=== PATIENT | male | born 1945 | race Caucasian/White ===

== ENCOUNTER → 2017-12-08 | Day surgery (SDC) | payer OTHER ==
[2017-12-04 13:28] VITALS: Ht 176.5 cm; Wt 138.6 kg
[~2017-12-08] VITALS: Ht 176.5 cm; Wt 138.6 kg
[~2017-12-08] MED LIST: ASPCH81X PO; ATOR-24 PO; CHOL1000 PO; CLR10 PO; CYAN10004 PO; DOXE50CA3 PO; DVN80 PO; FLAX10007 PO; INSDGI SC; LIDOCAINE HCL 2% 2 ML VIAL (20MG/ML) ONE; MAGN400T6 PO; METO50TA16 PO; MULT-190 PO; MULT-220 PO; NVLGI7030 SC; PROPOFOL IV EMULSION 10 MG/ML 20 ML VIAL ONE; PTDOPS OPB
--- NOTE | 2017-12-08 09:10 | Endo History and Physical ---
History & Physical Date of Service: December 08, 2017. Chief Complaint: screening Referring Physician: Dr.Amanda Pinto History of Present Illness screening Past Surgical History Hx Cardiac Surgery: Yes (CARDIAC ABLATION X2, AORTA VALVE REPLACEMENT-05/25/12 [facility] [place], ) Hx Internal Defibrillator: No Hx Pacemaker: No Hx Abdominal Surgery: Yes (APPY,HERNIA) Hx of Implantable Prosthesis: No Hx Post-Op Nausea and Vomiting: No Hx Cancer Surgery: No Hx Thoracic Surgery: No Hx Orthopedic: Yes (R RCR) Hx Urinary Tract Surgery: No Family History None Social History Smoking Status: Former Smoker Hx Substance Use: No Hx Alcohol Use: Yes (RARELY) Allergies Coded Allergies: Iodinated Contrast Media (Verified Allergy, Mild, DYE FROM CARDIAC CATH- RASH, 12/04/17) Lisinopril (Verified Adverse Reaction, Mild, COUGH, 12/04/17) Current Medications Reported Home Medications Medications Dose Route/Sig Max Daily Dose Days Date Category Dose Instructions Lopressor (Metoprolol Tartrate) 50 Mg Tab 1 Tab PO BID 90 12/04/17 Reported Mag-Ox (Magnesium Oxide) 400 Mg Tab 400 Mg PO Q2D 12/04/17 Reported Claritin (Loratadine) 10 Mg Tab 10 Mg PO DAILY 12/04/17 Reported Lantus (Insulin Glargine) 100 Unit/Ml Inj 30 Units SC HS 12/04/17 Reported Novolog Mix 70/30 (Insulin Aspart Prota 70%/Aspart 30%) Susp 38 Units SC AMPM 12/04/17 Reported Diovan (Valsartan) 80 Mg Tab 1 Tab PO DAILY 30 12/04/17 Reported Pataday (Olopatadine Hydrochloride) 37 Drops/2.5 Ml Soln 1 Drops OPB DAILY 30 06/04/15 Reported Ocuvite Preservision (Multivitamins/Minerals) 1 Tab Tab 1 Tab PO DAILY 06/04/15 Reported Flax Seed Oil (Flaxseed (Linseed)) 1,000 Mg Cap 1 Cap PO DAILY 02/24/15 Reported Vitamin D3 (Cholecalciferol) 1,000 Unit Tab 1 Tab PO DAILY 30 02/24/15 Reported Lipitor (Atorvastatin Calcium) 40 Mg Tab 20 Mg PO DAILY 09/08/14 Reported TAKE HALF OF A 40MG TABLET [place] (Doxepin HCl) 50 Mg Cap 50 Mg PO HS 09/08/14 Reported Vitamin B-12 1000 Mcg (Cyanocobalamin) 1,000 Mcg Tab 1,000 Mcg PO DAILY 09/08/14 Reported Multi For Him (Multiple Vitamins W/ Minerals) 1 Tab Tab 1 Tab PO DAILY 09/08/14 Reported Aspirin Chewable (Aspirin) 81 Mg Chew 81 Mg PO HS 05/04/12 Reported Vital Signs Weight (Kilograms): 138.64 Height (Feet): 5 Height (Inches): 9.5 Date Time Temp Pulse Resp B/P (MAP) Pulse Ox O2 Delivery O2 Flow Rate FiO2 12/08/17 08:57 36.7 70 24 150/57 (88) 97 Room Air Physical Exam General Appearance: WD/WN, no apparent distress Assessment and Plan colonoscopy today
--- NOTE | 2017-12-08 09:43 | Discharge Instructions ---
Endoscopy Patient Instructions Date / Procedure(s) Performed December 08, 2017. Colonoscopy Allergy Information Coded Allergies: Iodinated Contrast Media (Verified Allergy, Mild, DYE FROM CARDIAC CATH- RASH, 12/04/17) Lisinopril (Verified Adverse Reaction, Mild, COUGH, 12/04/17) Discharge Date / Findings December 08, 2017. multiple small polyps Medication Instructions Stopped Medication(s): stopped ASA Monday Restart Stopped Medication(s): OK to resume home medications Provider Instructions Activity Restrictions - No exercising or heavy lifting for 24 hours. - Do not drink alcohol the day of the procedure. - Do not drive a car or operate machinery until the day after the procedure. - Do not make any important decisions or sign important papers in 24 hours after the procedure. Following Day: - Return to full activity which may include returning to work/school. Diet Start your diet with liquids and light foods (jello, soup, juice, toast). Then eat your usual diet if not nauseated. Treatment For Common After Affects For mild abdominal pain, bloating, or excessive gas: - Rest - Eat lightly - Lie on right side Follow-Up Information Follow-up with Dr.Amanda Pinto as scheduled Anesthesia Information What You Should Know You have had a procedure that required some medicine to reduce anxiety and discomfort. This treatment is called moderate sedation. After receiving the treatment, you may be sleepy, but you will be able to breathe on your own. The effects of the treatment may last for several hours. Follow these instructions along with Activity/Diet recommendations noted above: * Do NOT do anything where dizziness or clumsiness would be dangerous. * Rest quietly at home today, then you can be up and about tomorrow. * Have a responsible person stay with you the rest of today. * You may have had an I.V. today. If so, you may take the dressing off later today. Recommendations Call your doctor if: * Trouble breathing * Continuous vomiting for more than 24 hours * Temperature above 101 degrees * Severe abdominal pain or bloating * Pain not relieved by pain medicine ordered * There is increased drainage or redness from any incision * A large amount of rectal bleeding greater than 2-3 tablespoons. (If you had a polyp/s removed or have hemorrhoids, a small amount of blood - from the rectum is to be expected.) * You have any unanswered questions or concerns. IN THE EVENT OF A SERIOUS EMERGENCY, GO TO THE NEAREST EMERGENCY ROOM Your discharge instructions were prepared by provider Nano Barajas. Patient Instructions Signature Page Talha iMles Patient (or Guardian) Signature/Date: I have read and understand the instructions given to me by my caregivers. Caregiver/RN/Doctor Signature/Date: The above-named patient and/or guardian has received patient instructions on this date. + Original Patient Signature Page (only) stays with chart. Please make copy for patient.
--- NOTE | 2017-12-08 09:45 | GI REPORT ---
Patient Name: Talha Miles Procedure Date: 12/08/2017 9:14 AM Date of : 1945 Admit Type: Outpatient Age: 72 Gender: Male Attending MD: Nano Barajas DO Procedure: Colonoscopy Providers: Nano Barajas DO Referring MD: Julienne Alford Indications: Screening for colorectal malignant neoplasm Medicines: Propofol per Anesthesia Complications: No immediate complications. Estimated blood loss: Minimal. Estimated Blood Loss: Estimated blood loss was minimal. Procedure: Pre-Anesthesia Assessment: - Prior to the procedure, a History and Physical was performed, and patient medications, allergies and sensitivities were reviewed. The patient's tolerance of previous anesthesia was reviewed. - The risks and benefits of the procedure and the sedation options and risks were discussed with the patient. All questions were answered and informed consent was obtained. - Patient identification and proposed procedure were verified prior to the procedure by the physician and the nurse. The procedure was verified in the pre-procedure area in the procedure room. - Mental Status Examination: alert and oriented. Airway Examination: normal oropharyngeal airway and neck mobility. Respiratory Examination: clear to auscultation. CV Examination: normal. Abdominal Examination: bowel sounds present, abdomen soft and non-tender, no masses or organomegaly noted. - ASA Grade Assessment: III - A patient with severe systemic disease. After I obtained informed consent, the scope was passed under direct vision. Throughout the procedure, the patient's blood pressure, pulse, and oxygen saturations were monitored continuously. The scope was introduced through the anus and advanced to the terminal ileum. The colonoscopy was performed without difficulty. The patient tolerated the procedure well. The quality of the bowel preparation was good. Findings: The perianal and digital rectal examinations were normal. Pertinent negatives include normal sphincter tone and no palpable rectal lesions. Three sessile polyps were found in the entire colon. The polyps were 2 to 5 mm in size. These polyps were removed with a cold snare. Resection and retrieval were complete. Verification of patient identification for the specimen was done by the physician and nurse using the patient's name and date. Estimated blood loss was minimal. The retroflexed view of the distal rectum and anal verge was normal and showed no anal or rectal abnormalities. Impression: - Three 2 to 5 mm polyps in the entire colon, removed with a cold snare. Resected and retrieved. - The distal rectum and anal verge are normal on retroflexion view. Recommendation: - Await pathology results. - Repeat colonoscopy for surveillance based on pathology results. - Return to primary care physician as previously scheduled. - Discharge patient to home. Kristian Melgoza, 12/08/2017 9:45:38 AM This report has been signed electronically. Note Initiated On: 12/08/2017 9:14 AM Number of Addenda: 0 I attest to the content of the Intraoperative Record and orders documented therein, exceptions below {[id number]}
--- NOTE | 2017-12-08 10:11 | Anesthesiology Progress Note ---
Anesthesia Post Op Note Date & Time December 08, 2017 at 10:11 Vital Signs Pain Intensity: 0 Vital Signs Past 12 Hours Date Time Temp Pulse Resp B/P (MAP) Pulse Ox O2 Delivery O2 Flow Rate FiO2 12/08/17 10:05 66 24 138/45 (76) 97 Room Air 12/08/17 09:50 36.2 71 24 119/56 (77) 97 Room Air 12/08/17 08:57 36.7 70 24 150/57 (88) 97 Room Air Notes Mental Status: alert / awake / arousable, participated in evaluation Pt Amnestic to Procedure: Yes Nausea / Vomiting: adequately controlled Pain: adequately controlled Airway Patency, RR, SpO2: stable & adequate BP & HR: stable & adequate Hydration State: stable & adequate Anesthetic Complications: no major complications apparent
[2017-12-08 10:19] VITALS: BP 109/57; PULSE 66; O2SAT 99
== END | disposition home or self-care (01) ==
LOC: C.GI 08:27
PROVIDERS: ATTEND Internal Medicine
DX: Z12.11 Encounter for screening for malignant neoplasm of colon (principal); D12.6 Benign neoplasm of colon, unspecified; G47.33 Obstructive sleep apnea (adult) (pediatric); E11.22 Type 2 diabetes mellitus with diabetic chronic kidney disease; N18.3 Chronic kidney disease, stage 3 (moderate); I25.10 Atherosclerotic heart disease of native coronary artery without angina pectoris; Z88.8 Allergy status to other drugs, medicaments and biological substances; Z95.2 Presence of prosthetic heart valve; Z87.891 Personal history of nicotine dependence; Z79.82 Long term (current) use of aspirin; Z79.4 Long term (current) use of insulin; Z79.899 Other long term (current) drug therapy; Z90.89 Acquired absence of other organs; Z98.890 Other specified postprocedural states

== ENCOUNTER 2023-08-01 13:20 | Inpatient (IN) ==
--- NOTE | 2023-08-01 13:35 | ED Triage Note ---
Date of Service August 01, 2023 Provider in Triage Author: Mitesh Chavez History of Present Illness This patient was briefly evaluated while in triage. An abbreviated physical exam was performed. This patient is a 78-year-old Male who presents to the ED for evaluation of shortness of breath x 2 days. He denies cough/fevers. He denies chest pain. He states that he has had issues with phlegm/congestion in the past and has been taking Guaifenasin. He has a history of a porcine valve replacement and atrial fibrillation. He takes Eliquis. Physical Exam VITALS: Vitals are noted on the nurse's note and reviewed by myself. GENERAL: This is an 78-year-old male, in no acute distress, well-developed well- nourished. SKIN: The skin was without rashes. HEART: Irregularly irregular rhythm, regular rate without murmurs gallops or rubs. LUNGS: Clear to auscultation bilaterally without wheezes, rales or rhonchi. NEURO: Patient was alert and oriented to person place and time. Initial orders for labs and / or imaging were placed and patient was placed in the waiting area until a bed is available. Please see further documentation for the full ED course. MDM / Impression Impression Impression: Pulmonary edema, Non-ST elevation [place] (NSTEMI), CKD (chronic kidney disease), Atrial fibrillation with rapid ventricular response Impression: Pulmonary edema Qualifiers: Chronicity: acute Qualified Code(s): J81.0 - Acute pulmonary edema CKD (chronic kidney disease) Qualifiers: Chronic kidney disease stage: stage 4 (severe) Qualified Code(s): N18.4 - Chronic kidney disease, stage 4 (severe)
[2023-08-01 15:14] LABS: Albumin Level 3.9 gm/dl (3.4-5.0); BUN Creatinine Ratio 17.7 (10-20); Bilirubin,Total 0.8 mg/dl (0.2-1.0); Creatinine Clr Calc Pharmacy 35.2 ml/min; Est GFR (African American) 32.5 ml/min; Est GFR (Non-African American) 28.1 ml/min; Potassium 5.3 mmol/L (3.5-5.1); Total Protein 7.9 gm/dl (6.0-8.3)
[2023-08-01 15:17] LABS: Basophils # (auto) 0.02 K/uL (0.00-0.20); Basophils % (auto) 0.2 %; Eosinophils # (auto) 0.25 K/uL (0.00-0.50); Eosinophils % (auto) 2.5 %; Hematocrit (blood only) 40.2 % (42.0-52.0); Hemoglobin 13.3 g/dl (14.0-18.0); Immature Granulocytes # (auto) 0.05 K/uL (0.01-0.20); Immature Granulocytes % (auto) 0.5 %; Lymphocytes # (auto) 1.33 K/uL (1.20-3.40); Lymphocytes % (auto) 13.3 %; Mean Corpuscular Hemoglobin 32.8 pg (25.0-34.0); Mean Corpuscular Hgb Conc 33.1 g/dL (32.0-36.0); Monocytes # (auto) 0.83 K/uL (0.11-0.59); Monocytes % (auto) 8.3 %; Neutrophils # (auto) 7.54 K/uL (1.40-6.50); Neutrophils % (auto) 75.2 %; Platelet Count 159 K/uL (130-400); RDW Standard Deviation 51.4 fL (36.4-46.3); Red Blood Count 4.06 M/uL (4.70-6.10); White Blood Count 10.02 K/ul (4.8-10.8)
[2023-08-01 15:27] LABS: Troponin I High Sensitivity 91.2 pg/ml (0-20)
--- NOTE | 2023-08-01 15:50 | XRay Report ---
XR chest 1V not portable CLINICAL HISTORY: Shortness of breath. COMPARISON STUDY: Chest radiograph June 04, 2015. FINDINGS: There are median sternotomy wires. Moderate cardiomegaly is unchanged. There are small bila teral pleural effusions. There is no pneumothorax. Mild interstitial thickening is noted. A few patch y lower lung opacities are present. IMPRESSION: 1. Cardiomegaly with interstitial thickening suggestive of mild pulmonary edema. Small bilateral pleu ral effusions. 2. Mild bilateral lower lung patchy opacities. The findings likely reflect atelectasis or pulmonary e jermaine. A superimposed infectious process could appear similar. ACT 112: Negative or not required by law. Electronically signed by: Rex Kelly M.D. 08/01/2023 3:49 PM
--- NOTE | 2023-08-01 15:52 | Electrocardiogram Report ---
Test Reason : Blood Pressure : / mmHG Vent. Rate : 104 BPM Atrial Rate : 000 BPM P-R Int : 000 ms QRS Dur : 118 ms QT Int : 308 ms P-R-T Axes : 000 -11 175 degrees QTc Int : 405 ms Atrial fibrillation with rapid ventricular response Cannot rule out Anterior infarct (cited on or before 04-JUN-2015) Nonspecific T wave abnormality Abnormal ECG When compared with ECG of 04-JUN-2015 18:05, Atrial fibrillation has replaced Sinus rhythm Nonspecific T wave abnormality, worse in Inferior leads T wave inversion now evident in Lateral leads Confirmed by Gera Lee ([id number]) on 08/01/2023 3:52:23 PM Referred By: Confirmed By:Gera Lee
[2023-08-01] MEDS ORDERED: FUROSEMIDE 40 MG/4 ML VIAL IV ONE (16:21)
--- NOTE | 2023-08-01 16:26 | Emergency Department Note ---
Impression & Plan Pulmonary edema, Non-ST elevation ND (NSTEMI), CKD (chronic kidney disease), Atrial fibrillation with rapid ventricular response ED Provider Note Provider: Mitesh Chavez MD DATE OF SERVICE: 08/01/2023 CHIEF COMPLAINT: Shortness of breath HISTORY OF PRESENT ILLNESS: Patient is a 78-year-old gentleman past medical history of aortic valve replacement bioprosthetic, atrial fibrillation over the last several months maintained on Eliquis presenting here today stating worsening shortness of breath over the past 2 days. Denies cough or fever. Denies any leg swelling. Denies pain. States he does feel some fullness in his chest and that he cannot get his breath particular with exertion. Was around several relatives over the holidays for several hours who had cough and cold. Did have COVID in April. States he was vaccinated and did have a flu shot as well as RSV vaccination this year. States compliance with his home medication. Did have some sauerkraut and pork for years. PAST MEDICAL HISTORY: As noted above MEDICATIONS: Reviewed home medications SOCIAL HISTORY: , distant former smoker, [employer] PHYSICAL EXAM: GENERAL: alert and oriented in no acute distress on stretcher Head: normocephalic and atraumatic EYES: No injection, discharge or icterus. NECK: Trachea midline. ENT: Mucous membranes pink and moist. LUNGS: Airway patent. No retractions. Breath sounds with crackles in the lower bases HEART: Irregular regular rate and rhythm. No chest wall tenderness ABDOMEN: Soft and non-tender, without guarding or rebound. SKIN: Acyanotic, warm, dry, without rashes EXTREMITIES: Without tenderness with 2+ edema of the lower extremities. No weeping appreciated. NEUROLOGICAL: No focal deficits. No aphasia. No facial droop or slurred speech. Ambulatory from wheelchair to bed EK bpm. Atrial fibrillation with rapid ventricular sponsor. No acute ST segment elevation with some nonspecific inferior lateral T wave changes. QTc 405. CONTINUOUS CARDIAC MONITORING: was ordered and showed a heart rate of 90s to 110s bpm in atrial fibrillation Patient's laboratory studies and imaging reviewed. Differential includes Reactive airway disease, pneumonia, pneumothorax, COPD, CHF, infections, cardiac ischemia, pulmonary embolism, musculoskeletal, gastrointestinal, as well as other pathologies. IMPRESSION/MEDICAL DECISION MAKING: Patient with some increased shortness of breath. Will check respiratory viral panel to see if he has contracted any illnesses due to the holiday from a respiratory standpoint. X-ray on my review and interpretation as well as radiology report do show evidence of pulmonary edema. Doubt this is pneumonia. Normal white blood cell count. No significant anemia. Very slight hyperkalemia but creatinine elevated 2.1. This appears to be baseline in comparison to prior records looked up in the [facility] system from this fall. Do note an elevated BNP as well as elevated troponin 91.2. No baseline previously. Will give some Lasix for diuresis. Believe fluid overload is main complaint. Some of the foods over the holiday may contributed. Does have some swelling of the legs but is anticoagulated and doubt PE/DVT. Patient's heart rate 100s to 1 teens. Will monitor and if any escalation low threshold for some additional metoprolol. Given his significant CKD with evidence of volume overload and elevated troponin, discussed with him staying for diuresis in a monitored setting here and to ensure his A-fib continues to be stable. Patient in agreement. Hospitalist contacted. Potassium should improve with dose of Lasix here as well. Second troponin slightly increased at 115. Is on anticoagulation and takes aspirin daily. DIAGNOSIS: Pulmonary edema/CHF, A-fib RVR, CKD, NSTEMI DISPOSITION: Hospitalist will evaluate Patient was agreeable with this plan. Critical Care I have personally spent 32 minutes of critical care time in the direct management of this patient. This includes bedside care, interpretation of diagnostic studies, and testing, discussion with consultants, patient, and family members, and other required patient management activities. These 32 minutes is in excess of all separately billable procedures. Past Med/Surg History Medical History (Updated 08/01/23 @ 17:59 by CARMELA Joyce) SOB (shortness of breath) HLD (hyperlipidemia) HTN (hypertension) History of kidney stones Chronic kidney disease (CKD), stage IV (severe) Hearing deficit Glaucoma Phlegm in throat reason for inhaler Sleep apnea cpap History of PSVT (paroxysmal supraventricular tachycardia) reason for metoprolol--follows with Dr. Garduno Diabetes type 2--IDDM Surgical History History of repair of right rotator cuff Hx of vasectomy History of umbilical hernia repair History of colonoscopy with polypectomy History of esophagogastroduodenoscopy (EGD) History of tooth extraction all upper teeth Status post correction of deviated nasal septum History of bilateral cataract extraction History of cardiac cath x2--prior to 2011/in 2011--no stents History of aortic valve replacement (~04/2012) @ [facility] S/P ablation of atrial fibrillation x2 Family History Mother Family history of diabetes mellitus Other No family history of adverse response to anesthesia Social History Smoking Status: Never smoker Second Hand Exposure: No; Do You Dip or Chew Tobacco: No; Hx Alcohol Use: No Hx Substance Use: No Preferred Language: Trinidadian Communication Ability: Effective Investment Advisor Required: No Beliefs That Will Affect Care: None Current Living Situation: Spouse Feels Safe at Home: Yes Assistive Devices: CPAP, Denture - Upper, Glasses and Hearing Aid - Bilateral Allergies Allergies Allergy/AdvReac Type Severity Reaction Status Date / Time Iodinated Contrast Media Allergy Mild DYE FROM Verified 08/01/23 17:36 CARDIAC CATH-RASH lisinopril AdvReac Mild COUGH Verified 08/01/23 17:36 Home Meds Home Medications Medication Instructions Recorded Confirmed Latanoprost- Timolol 1 drp OPB HS 08/01/23 08/01/23 acetaminophen 500 mg tablet 1,000 mg PO Q6H PRN Pain 08/01/23 08/01/23 (Tylenol Extra Strength) apixaban 2.5 mg tablet 2.5 mg PO BID 08/01/23 08/01/23 aspirin 81 mg tablet,delayed 81 mg PO DAILY 08/01/23 08/01/23 release atorvastatin 40 mg tablet 20 mg PO HS 08/01/23 08/01/23 azelastine 137 mcg (0.1 %) nasal 1 spray intranasal BID 08/01/23 08/01/23 spray aerosol cyanocobalamin (vitamin B-12) 1,000 mcg PO DAILY 08/01/23 08/01/23 1,000 mcg tablet (Vitamin B-12) dextran 70-hypromellose eye drops 1 drp ophthalmic (eye) DIRECTED 08/01/23 08/01/23 PRN Dry Eyes doxepin 50 mg capsule 50 mg PO HS PRN Sleep 08/01/23 08/01/23 flaxseed oil 1,000 mg capsule 1,000 mg PO 4XWK 08/01/23 08/01/23 fluticasone propionate 110 2 puff inhalation BID PRN 08/01/23 08/01/23 mcg/actuation HFA aerosol inhaler Shortness Of Breath Or Wheezing guaifenesin 400 mg tablet 400 mg PO Q4H PRN Congestion 08/01/23 08/01/23 insulin aspart U-100 100 unit/mL 10 - 15 unit subcut BID 08/01/23 08/01/23 subcutaneous solution (Novolog U-100 Insulin aspart) insulin glargine 100 unit/mL 10 unit subcut PM 08/01/23 08/01/23 subcutaneous solution (Lantus U-100 Insulin) loratadine 10 mg tablet 10 mg PO DAILY PRN allergies 08/01/23 08/01/23 losartan 50 mg tablet 50 mg PO DAILY 08/01/23 08/01/23 magnesium oxide 400 mg PO .QTHUR 08/01/23 08/01/23 metoprolol tartrate 50 mg tablet 50 mg PO BID 08/01/23 08/01/23 sodium chloride 0.65 % nasal spray 1 spray intranasal BID PRN Nasal 08/01/23 08/01/23 aerosol (Saline Mist) Congestion triamcinolone acetonide 0.1 % 1 applic topical TID PRN .. 08/01/23 08/01/23 topical cream vitamin A-vitamin C-vit E-min 1 tab PO DAILY 08/01/23 08/01/23 tablet Results & Data (ED) Vital Signs Vital Signs - 24 hr 08/01/23 13:31 08/01/23 15:31 08/01/23 15:32 Temperature 36.5 C Temperature Source Temporal Artery Scan Pulse Rate 97 H Pulse Rate [Finger] 103 H Pulse Rhythm Regular Pulse Rhythm [Finger] Regular Respiratory Rate 22 19 Respiratory Effort / Characteristics Non-Labored Spontaneous Non-Labored Spontaneous Respiratory Depth Normal Normal Respiratory Pattern Regular Blood Pressure 146/55 H Blood Pressure [Left Arm] 136/72 Blood Pressure Mean 85 Blood Pressure Mean [Left Arm] 93 Pulse Oximetry 96 97 Oxygen Delivery Method Room Air Room Air Room Air Sepsis Recent Fever Within 48 Hours No Sepsis New/Unexplained Change in Mental Status No Sepsis Action Taken by Nursing No Action Required 08/01/23 16:04 08/01/23 17:37 Temperature Temperature Source Pulse Rate 100 H Pulse Rate [Finger] 100 H Pulse Rhythm Pulse Rhythm [Finger] Respiratory Rate 18 Respiratory Effort / Characteristics Respiratory Depth Respiratory Pattern Blood Pressure Blood Pressure [Left Arm] 155/90 H Blood Pressure Mean Blood Pressure Mean [Left Arm] 111 Pulse Oximetry 9 L Oxygen Delivery Method Sepsis Recent Fever Within 48 Hours Sepsis New/Unexplained Change in Mental Status Sepsis Action Taken by Nursing Laboratory Data 08/01/23 14:46 08/01/23 14:46 Lab Results 08/01/23 08/01/23 Range/Units 14:46 16:23 WBC 10.02 (4.8-10.8) K/ul RBC 4.06 L (4.70-6.10) M/uL Hgb 13.3 L (14.0-18.0) g/dl Hct 40.2 L (42.0-52.0) % MCV 99.0 (80.0-100.0) fL MCH 32.8 (25.0-34.0) pg MCHC 33.1 (32.0-36.0) g/dL RDW Std Deviation 51.4 H (36.4-46.3) fL RDW Coeff of Jael 14.0 (11.5-14.5) % Plt Count 159 (130-400) K/uL MPV 10.0 (9.4-12.4) fL Immature Gran % (Auto) 0.5 % Neut % (Auto) 75.2 % Lymph % (Auto) 13.3 % [place] % (Auto) 8.3 % Eos % (Auto) 2.5 % Baso % (Auto) 0.2 % Neut # (Auto) 7.54 H (1.40-6.50) K/uL Lymph # (Auto) 1.33 (1.20-3.40) K/uL [place] # (Auto) 0.83 H (0.11-0.59) K/uL Eos # (Auto) 0.25 (0.00-0.50) K/uL Baso # (Auto) 0.02 (0.00-0.20) K/uL Immature Gran # (Auto) 0.05 (0.01-0.20) K/uL Sodium 140 (136-145) mmol/L Potassium 5.3 H (3.5-5.1) mmol/L Chloride 113 H (98-107) mmol/L Carbon Dioxide 21 (21-32) mmol/L Anion Gap 6 (3-11) BUN 38 H (6-23) mg/dl Creatinine 2.15 H (0.6-1.4) mg/dl Est Cr Clr Drug Dosing 35.2 ml/min Est GFR ( Amer) 32.5 ml/min Est GFR (Non-Af Amer) 28.1 ml/min BUN/Creatinine Ratio 17.7 (10-20) Glucose 92 (70-99(Fasting)) mg/dl Calcium 10.0 (8.6-10.3) mg/dl Phosphorus 2.9 (2.5-4.9) mg/dl Magnesium 1.6 L (1.7-2.4) mg/dl Total Bilirubin 0.8 (0.2-1.0) mg/dl AST 20 (13-39) U/L ALT 17 (7-52) U/L Alkaline Phosphatase 129 H (34-104) U/L Troponin I High Sens 91.2 H* 115.9 H* D (0-20) pg/ml B-Natriuretic Peptide 635 H (0-100) pg/ml Total Protein 7.9 (6.0-8.3) gm/dl Albumin 3.9 (3.4-5.0) gm/dl Globulin 4.0 (2.5-4.0) gm/dl Albumin/Globulin Ratio 1.0 (0.9-2) Adenovirus (PCR) Not Detected (NotDetected) B. pertussis DNA (PCR) Not Detected (NotDetected) B.parapertussis DNA PCR Not Detected (NotDetected) C. pneumoniae DNA (PCR) Not Detected (NotDetected) Coronavirus OC43 (PCR) Not Detected (NotDetected) Coronavirus HKU1 (PCR) Not Detected (NotDetected) Coronavirus 229E (PCR) Not Detected (NotDetected) SARS-CoV-2 (PCR) Not Detected (NotDetected) Coronavirus NL63 (PCR) Not Detected (NotDetected) Human Metapneumovir PCR Not Detected (NotDetected) Influenza Type A (PCR) Not Detected (NotDetected) Influenza Type B (PCR) Not Detected (NotDetected) M. pneumoniae (PCR) Not Detected (NotDetected) Parainfluenza 1 (PCR) Not Detected (NotDetected) Parainfluenza 2 (PCR) Not Detected (NotDetected) Parainfluenza 3 (PCR) Not Detected (NotDetected) Parainfluenza 4 (PCR) Not Detected (NotDetected) RSV (PCR) Not Detected (NotDetected) Entero/Rhino (PCR) Not Detected (NotDetected) Administered Medications Insulin Aspart (Insulin Aspart Per Unit Charge) 0 units SC ACHS COUNT INCLUDES THE [facility] Stop: 08/31/23 18:14 Last Admin: 08/01/23 20:20 Dose: Not Given Documented By: REAL Co-signed By: SAMAN Admin: 08/01/23 20:19 Dose: 2 units Documented By: REAL Co-signed By: SAMAN Insulin Glargine (Lantus Per Unit Charge) 0 units SQ BID COUNT INCLUDES THE [facility] Stop: 08/31/23 20:59 Last Admin: 08/01/23 20:01 Dose: Not Given Documented By: REAL Discontinued Medications Aspirin (Aspirin Chew 324 Mg) 324 mg PO NOW STA Stop: 08/01/23 17:29 Last Admin: 08/01/23 17:36 Dose: 324 mg Documented By: RUBÉN Furosemide (Furosemide 40 Mg/4 Ml Vial) 40 mg IV ONE ONE Stop: 08/01/23 16:22 Last Admin: 08/01/23 17:36 Dose: 40 mg Documented By: RUBÉN Magnesium Sulfate/Dextrose (Magnesium Sulfate / D5w) 1 gm in 100 mls @ 200 mls/hr IV Q30M COUNT INCLUDES THE [facility] Stop: 08/01/23 18:44 Last Infusion: 08/01/23 19:15 Dose: Infused Documented By: Admin: 08/01/23 18:37 Dose: 200 mls/hr Documented By: Infusion: 08/01/23 18:25 Dose: Infused Documented By: Admin: 08/01/23 17:51 Dose: 200 mls/hr Documented By: LOLITA Metoprolol Tartrate (Metoprolol Tartrate 1 Mg/Ml Vial) 2.5 mg IV NOW STA Stop: 08/01/23 17:28 Last Admin: 08/01/23 17:42 Dose: 2.5 mg Documented By: AEF Imaging Data Radiologist's Impression: Chest X-Ray 08/01/23 13:35 XR chest 1V not portable CLINICAL HISTORY: Shortness of breath. COMPARISON STUDY: Chest radiograph June 04, 2015. FINDINGS: There are median sternotomy wires. Moderate cardiomegaly is unchanged. There are small bilateral pleural effusions. There is no pneumothorax. Mild interstitial thickening is noted. A few patchy lower lung opacities are present. IMPRESSION: 1. Cardiomegaly with interstitial thickening suggestive of mild pulmonary edema. Small bilateral pleural effusions. 2. Mild bilateral lower lung patchy opacities. The findings likely reflect atelectasis or pulmonary edema. A superimposed infectious process could appear similar. ACT 112: Negative or not required by law. Electronically signed by: Rex Kelly M.D. 08/01/2023 3:49 PM Discharge Plan Visit Data Chief Complaint: Shortness of Breath/Dyspnea Stated Complaint: SOB, AFIB, RUNNY NOSE ED Provider: Mitesh Chavez Discharge Problem: Pulmonary edema, Non-ST elevation ND (NSTEMI), CKD (chronic kidney disease), Atrial fibrillation with rapid ventricular response Patient Disposition: Being Evaluated by Hospitalist Discharge Instructions Interventions: ED Discharge Assessment Last Done: 08/01/23 19:21 Discharge Problem: Pulmonary edema Qualifiers: Chronicity: acute Qualified Code(s): J81.0 - Acute pulmonary edema CKD (chronic kidney disease) Qualifiers: Chronic kidney disease stage: stage 4 (severe) Qualified Code(s): N18.4 - Chronic kidney disease, stage 4 (severe)
[2023-08-01 17:20] LABS: Troponin I High Sensitivity 115.9 pg/ml (0-20)
[2023-08-01] MEDS ORDERED: METOPROLOL TARTRATE 1 MG/ML VIAL IV STA (17:27)
[2023-08-01 17:28] LABS: Magnesium 1.6 mg/dl (1.7-2.4)
[2023-08-01] MEDS ORDERED: ASPIRIN CHEW 324 MG PO STA (17:28)
[2023-08-01 17:41] LABS: Adenovirus PCR Not Detected (NotDetected); Bordetella parapertussis PCR Not Detected (NotDetected); Bordetella pertussis PCR Not Detected (NotDetected); Chlamydia pneumoniae PCR Not Detected (NotDetected); Coronavirus 229E PCR Not Detected (NotDetected); Coronavirus CoV-2 (COVID19)PCR Not Detected (NotDetected); Coronavirus HKU1 PCR Not Detected (NotDetected); Coronavirus NL63 PCR Not Detected (NotDetected); Coronavirus OC43PCR Not Detected (NotDetected); Human Metapneumovirus PCR Not Detected (NotDetected); Influenza A PCR Not Detected (NotDetected); Influenza B PCR Not Detected (NotDetected); Mycoplasma pneumoniae PCR Not Detected (NotDetected); Parainfluenza Virus 1 PCR Not Detected (NotDetected); Parainfluenza Virus 2 PCR Not Detected (NotDetected); Parainfluenza Virus 3 PCR Not Detected (NotDetected); Parainfluenza Virus 4 PCR Not Detected (NotDetected); Respiratory Syncytial VirusPCR Not Detected (NotDetected); Rhinovirus/Enterovirus PCR Not Detected (NotDetected)
[2023-08-01] MEDS ORDERED: ALUMINUM/MAGNESIUM SUSP 30 ML UDC PO PRN (17:46)
[2023-08-01] MEDS ORDERED: ONDANSETRON INJ 2 MG/ML 2 ML VIAL IV PRN (17:46)
[2023-08-01] MEDS ORDERED: POLYETHYLENE (MIRALAX) 17 GM PACK PO PRN (17:46)
[2023-08-01] MEDS ORDERED: CARBOHYDRATES FOR HYPOGLYCEMIA PO PRN (17:51)
[2023-08-01] MEDS ORDERED: DEXTROSE 50% 50 ML SYRINGE IV PRN (17:51)
[2023-08-01] MEDS ORDERED: PHARMACY GLYCEMIC MGMT CONSULT PRN (17:51)
[2023-08-01] MEDS ORDERED: GLUCOSE 10 TAB/TUBE PO PRN (17:51)
[2023-08-01] MEDS: MAGNESIUM SULFATE / D5W 1 GM/100 ML BAG IV SCH ×2 (17:51→18:37)
[2023-08-01] MEDS ORDERED: GLUCOSE 40% GEL 15 GM TUBE PO PRN (17:51)
[2023-08-01] MEDS ORDERED: GLUCAGON FOR INJ 1 MG VIAL SQ PRN (17:51)
--- NOTE | 2023-08-01 18:05 | History & Physical Report ---
Date of Service August 01, 2023 Assessment & Plan (1) SOB (shortness of breath): (2) Pulmonary edema: (3) Diabetes: (4) Hypomagnesemia: (5) S/P ablation of atrial fibrillation: (6) CKD (chronic kidney disease): (7) HTN (hypertension): (8) HLD (hyperlipidemia): Plan Patient is an 78-year-old male who presented to the ED with complaints of shortness of breath with exertion that has been going on for a few days. He reports orthopnea that has been occuring the past two days as well. Patient was diagnosed with atrial fibrillation a few months ago after having COVID and has stated that he is more fatigued since then. He follows with [facility] and had his last appointment in May with plans to have a repeat ECHO. Additional PMH includes history of Aortic stenosis s/p AVR 2011 at [place], A-fib/pSVT with ablation (both 2011 and 2014), insulin-dependent diabetes, HTN, ADAN on CPAP, and HLD. Most recent ECHO: 05/21: LV wall thickness moderately concentric, EF 50 to 54%, septal wall motion abnormal, Mild MR/TR. No leukocytosis, Initial troponin 91; increased to 115.9 to 187; will continue to trend. Patient denies chest pain. WBC 10.02, Mg+1.6, BNP 635. Patient denies headache, dizziness, visual or auditory changes, chest pain, palpitations, abdominal pain or tenderness, and denies recent falls or trauma. Pt sitting in his hospital bed in no apparent distress. He was on RA and conversational without any MARQUIS. Indicated he would become short of breath should he walk to the bathroom. Has +2 LE BL pitting edema. He received 2.5 mg Metoprolol in ED; reports taking his AM medications and that he is compliant. Suspect this individual is experiencing a CHF exacerbation coupled with an upward trending troponin with ECG changes and AVR that was performed 11 years ago. Will continue diuresing with Lasix, obtain a repeat echocardiogram, strict intake and output, EKG as needed, n.p.o. after midnight pending possible catheterization, blood pressure control and cardiology consult in AM. Shortness of breath: Pulmonary edema: HFpEF: Admit to PCU Acute CXR with mild patchy opacities and pulmonary edema questionable superimposed infection BNP 635 +2 BL LE edema Received Lasix 40 mg in ED continue with Lasix 20 mg BID Strict I/O, +2 BL LE pitting edema Fluid restriction 1800mL Cardiology consult in AM Elevated Troponin: Acute Troponin 91--> 115.9--> 187; continue to trend Denies chest pain. ECG with T wave changes in inferior leads NPO after MN in case pt needs heart catheterization NEFTALI superimposed on CKD: Acute Worse serum creatinine; 2.15; baseline 1.7-1.9 over past year. Avoid nephrotoxic agents Hypomagnesemia: Acute Serum magnesium 1.6; received 2 g in ED and will trend in a.m. No ectopy on monitor A-fib status post ablation: Chronic Recently diagnosed 05/21 Takes metoprolol and Eliquis; continue History of AVR: Chronic bioprosthetic; 2011 at [facility] [place] With mild dyspnea on exertion; will repeat echo Takes baby aspirin daily Insulin-dependent diabetes mellitus type 2: Obesity: Chronic Uses freestyle gertrude 2; was comfortable removing for coverage here Takes NovoLog and Lantus; continue with carb coverage with ACHS FSBG within target range nearly 80% of the time Recently stopped taking Ozempic Last A1c 04/06/2023; 7.0; repeat while here Diabetic diet HTN: Chronic Takes Losartan; hold for now due to worsening kidney function ADAN: Chronic CPAP HS HLD: Chronic Takes atorvastatin; continue Most recent lipid panel 05/22; TG 55, HDL 32, LDL 68 Disposition: PCP: Dr. Don PE CODE STATUS: Full code VTE prophylaxis: On Eliquis I spent a total of 87 minutes coordinating, documenting, and providing care for this patient excluding time spent in the performance of separately billed services. All of the aforementioned completed while collaborating with the assigned attending physician for a full treatment plan. Please see their addendum for further details. History of Present Illness Chief Complaint: SOB Primary Care Provider: Britney Don MD Patient is an 78-year-old male who presented to the ED with complaints of shortness of breath with exertion that has been going on for a few days. He reports orthopnea that has been occurring the past two days as well. Patient was diagnosed with atrial fibrillation a few months ago after having COVID and has stated that he is more fatigued since then. He follows with [facility] and had his last appointment in May with plans to have a repeat ECHO. Additional PMH includes history of Aortic stenosis s/p AVR 2011 at [place], A-fib/pSVT with ablation (both 2011 and 2014), insulin-dependent diabetes, HTN, ADAN on CPAP, and HLD. Most recent ECHO: 05/21: LV wall thickness moderately concentric, EF 50 to 54%, septal wall motion abnormal, Mild MR/TR. No leukocytosis, Initial troponin 91; increased to 115.9 to 187; will continue to trend. Patient denies chest pain. WBC 10.02, Mg+1.6, BNP 635. Patient denies headache, dizziness, visual or auditory changes, chest pain, palpitations, abdominal pain or tenderness, and denies recent falls or trauma. Pt sitting in his hospital bed in no apparent distress. He was on RA and conversational without any MARQUIS. Indicated he would become short of breath should he walk to the bathroom. Has +2 LE BL pitting edema. He received 2.5 mg Metoprolol in ED; reports taking his AM medications and that he is compliant. Suspect this individual is experiencing a CHF exacerbation coupled with an upward trending troponin and AVR that was performed 11 years ago. Will continue diuresing with Lasix, obtain a repeat echocardiogram, strict intake and output, EKG as needed, n.p.o. after midnight pending possible catheterization, blood pressure control and cardiology consult in AM. Patient will be admitted for further evaluation and management. Please see A/P for further details. Allergies Allergy/AdvReac Type Severity Reaction Status Date / Time Iodinated Contrast Media Allergy Mild DYE FROM Verified 08/01/23 17:36 CARDIAC CATH-RASH lisinopril AdvReac Mild COUGH Verified 08/01/23 17:36 Home Medications Medication Instructions Recorded Confirmed Type Latanoprost- Timolol 1 drp OPB HS 08/01/23 08/01/23 History acetaminophen 500 mg tablet 1,000 mg PO Q6H PRN Pain 08/01/23 08/01/23 History (Tylenol Extra Strength) apixaban 2.5 mg tablet 2.5 mg PO BID 08/01/23 08/01/23 History aspirin 81 mg tablet,delayed 81 mg PO DAILY 08/01/23 08/01/23 History release atorvastatin 40 mg tablet 20 mg PO HS 08/01/23 08/01/23 History azelastine 137 mcg (0.1 %) nasal 1 spray intranasal BID 08/01/23 08/01/23 History spray aerosol cyanocobalamin (vitamin B-12) 1,000 mcg PO DAILY 08/01/23 08/01/23 History 1,000 mcg tablet (Vitamin B-12) dextran 70-hypromellose eye drops 1 drp ophthalmic (eye) DIRECTED 08/01/23 08/01/23 History PRN Dry Eyes doxepin 50 mg capsule 50 mg PO HS PRN Sleep 08/01/23 08/01/23 History flaxseed oil 1,000 mg capsule 1,000 mg PO [id number] 08/01/23 08/01/23 History fluticasone propionate 110 2 puff inhalation BID PRN 08/01/23 08/01/23 History mcg/actuation HFA aerosol inhaler Shortness Of Breath Or Wheezing guaifenesin 400 mg tablet 400 mg PO Q4H PRN Congestion 08/01/23 08/01/23 History insulin aspart U-100 100 unit/mL 10 - 15 unit subcut BID 08/01/23 08/01/23 History subcutaneous solution (Novolog U-100 Insulin aspart) insulin glargine 100 unit/mL 10 unit subcut PM 08/01/23 08/01/23 History subcutaneous solution (Lantus U-100 Insulin) loratadine 10 mg tablet 10 mg PO DAILY PRN allergies 08/01/23 08/01/23 History losartan 50 mg tablet 50 mg PO DAILY 08/01/23 08/01/23 History magnesium oxide 400 mg PO .QTHUR 08/01/23 08/01/23 History metoprolol tartrate 50 mg tablet 50 mg PO BID 08/01/23 08/01/23 History sodium chloride 0.65 % nasal spray 1 spray intranasal BID PRN Nasal 08/01/23 08/01/23 History aerosol (Saline Mist) Congestion triamcinolone acetonide 0.1 % 1 applic topical TID PRN .. 08/01/23 08/01/23 History topical cream vitamin A-vitamin C-vit E-min 1 tab PO DAILY 08/01/23 08/01/23 History tablet Past Med/Surg History Medical History (Updated 08/01/23 @ 17:59 by CARMELA Joyce) SOB (shortness of breath) HLD (hyperlipidemia) HTN (hypertension) History of kidney stones Chronic kidney disease (CKD), stage IV (severe) Hearing deficit Glaucoma Phlegm in throat reason for inhaler Sleep apnea cpap History of PSVT (paroxysmal supraventricular tachycardia) reason for metoprolol--follows with Dr. Garduno Diabetes type 2--IDDM Surgical History History of repair of right rotator cuff Hx of vasectomy History of umbilical hernia repair History of colonoscopy with polypectomy History of esophagogastroduodenoscopy (EGD) History of tooth extraction all upper teeth Status post correction of deviated nasal septum History of bilateral cataract extraction History of cardiac cath x2--prior to 2011/in 2011--no stents History of aortic valve replacement (~04/2012) @ [facility] [place] S/P ablation of atrial fibrillation x2 Family History Mother Family history of diabetes mellitus Other No family history of adverse response to anesthesia Social History Smoking Status: Never smoker Second Hand Exposure: No; Do You Dip or Chew Tobacco: No; Hx Alcohol Use: No Hx Substance Use: No Preferred Language: Luxembourgish Communication Ability: Effective Slot Service Specialist Required: No Beliefs That Will Affect Care: None Current Living Situation: Spouse Feels Safe at Home: Yes Assistive Devices: CPAP, Denture - Upper, Glasses and Hearing Aid - Bilateral Review of Systems Review of Systems: Neuro: (-) Falls, trauma, slurred speech HEENT: (-) ALARCON, dizziness, dysphagia, visual or auditory changes CV: (-) CP, palpitations, swelling Resp: (-) SOB GI: (-) appetite changes, N/V/D, bowel changes : (-) urinary changes Skin: (-) rashes Psych: (-) anxiety, depression Physical Exam Physical Exam: Neuro: AAOx4, PERRLA, no aphagia, memory changes, CNII-XII grossly intact HEENT: head normocephalic, moist mucus membranes CV: S1/S2, (-) M/G/R, (-) edema, cap refill < 3 seconds Resp: Lungs CTA in all wolfe. On RA GI: Abdomen S/NT/ND, Ax4 bowel sounds, (-) CVA tenderness Musculoskeletal: 5/5 B/L UE strength, 5/5 B/L LE strength. No gait disturbance Skin: (-) rashes , (-) erythema. Psych: euthymic mood Results & Data Results & Data Vital Signs (Past 12 Hours) Vital Signs Temp Pulse Pulse Resp BP BP Pulse Ox 08/01/23 17:42 103 H 155/90 H 08/01/23 17:37 100 H 18 155/90 H 9 L 08/01/23 16:04 100 H 08/01/23 15:32 08/01/23 15:31 103 H 19 136/72 97 08/01/23 13:31 36.5 C 97 H 22 146/55 H 96 O2 Del Method 08/01/23 17:42 08/01/23 17:37 08/01/23 16:04 08/01/23 15:32 Room Air 08/01/23 15:31 Room Air 08/01/23 13:31 Room Air Laboratory Results Short CBC 08/01/23 Range/Units 14:46 WBC 10.02 (4.8-10.8) K/ul Hgb 13.3 L (14.0-18.0) g/dl Hct 40.2 L (42.0-52.0) % Plt Count 159 (130-400) K/uL BMP 08/01/23 14:46 Sodium 140 Potassium 5.3 H Chloride 113 H Carbon Dioxide 21 BUN 38 H Creatinine 2.15 H Glucose 92 Calcium 10.0 Liver Function 08/01/23 Range/Units 14:46 Total Bilirubin 0.8 (0.2-1.0) mg/dl AST 20 (13-39) U/L ALT 17 (7-52) U/L Alkaline Phosphatase 129 H (34-104) U/L Albumin 3.9 (3.4-5.0) gm/dl Diagnostic Findings Chest X-Ray 08/01/23 13:35 XR chest 1V not portable CLINICAL HISTORY: Shortness of breath. COMPARISON STUDY: Chest radiograph June 04, 2015. FINDINGS: There are median sternotomy wires. Moderate cardiomegaly is unchanged. There are small bilateral pleural effusions. There is no pneumothorax. Mild interstitial thickening is noted. A few patchy lower lung opacities are present. IMPRESSION: 1. Cardiomegaly with interstitial thickening suggestive of mild pulmonary edema. Small bilateral pleural effusions. 2. Mild bilateral lower lung patchy opacities. The findings likely reflect atelectasis or pulmonary edema. A superimposed infectious process could appear similar. ACT 112: Negative or not required by law. Electronically signed by: Rex Kelly M.D. 08/01/2023 3:49 PM Code Status & VTE Plan Code Status Full code event of cardiac respiratory arrest VTE Prophylaxis Plan VTE Prophylaxis will be ordered: Yes Supervising Physician Co-Signing Physician Notes I have seen and examined the patient and have discussed the case with the provider above. I agree with the assessment and plan as stated. 78-year-old man with shortness of breath for the past 2 days that is progressive. He is oxygenating well on room air today. He reports a history of feeling poorly with atrial fibrillation and states that he is more fatigued since having COVID which she feels kicked off his A-fib. He is in A-fib tonight. He reports dietary indiscretions over the holidays and 8 salty foods which he normally does not. He has been unable to lie flat at night and aside from the orthopnea he has decreased exercise intolerance. He denies any weight gain or swelling. This is in the setting of CKD stage IV. He is hemodynamically stable on exam and morbidly obese. He is in no acute distress and speaking in full sentences. Lungs are clear to auscultation throughout. Cardiac exam reveals S1-S2 heard with no murmurs gallops or rubs. No JVD is present. No peripheral edema is present. Exam is otherwise depicted above creatinine slightly elevated today at 2.15, potassium 5.3, mag 1.6, BNP 635, CBC unremarkable, bio fire nasal test negative. Chest x-ray with pleural effusions and pulmonary edema present. With no cough fevers or chills reported, very low suspicion for pneumonia. EKG with A-fib with RVR at a rate of 104. No ST changes that would suggest acute ischemia. He does have a elevated troponin of 92 -->116-->185. Likely secondary to demand ischemia in the setting of heart failure with known history of valvulopathy and cardiac disease. Shortness of breath likely secondary to acute heart failure exacerbation likely with preserved ejection fraction in the setting of chronic kidney disease stage IV and atrial fibrillation with RVR. Received Lasix in the ER and will continue with the intravenous diuretics. Consult cardiology, trend troponin, consider adding heparin and nitroglycerin if patient develops chest pain, currently not present. Continue metoprolol and Eliquis for atrial fibrillation per home regimen. DO Miko (2) Pulmonary edema Chronicity: acute Qualified Code(s): J81.0 - Acute pulmonary edema (6) CKD (chronic kidney disease) Chronic kidney disease stage: stage 4 (severe) Qualified Code(s): N18.4 - Chronic kidney disease, stage 4 (severe)
[2023-08-01 18:48] LABS: Phosphorus 2.9 mg/dl (2.5-4.9)
[2023-08-01] MEDS: LANTUS PER UNIT CHARGE SQ SCH (20:01)
[2023-08-01] MEDS: INSULIN ASPART PER UNIT CHARGE SC SCH ×2 (20:19→20:20)
--- OUTSIDE RECORDS SUMMARY | 2023-08-01 20:23 | External Medical Summary | Summary of Care ---
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 Name Role Phone Britney Mojica MD Primary Care Prov ider Reason for Visit * Reason Comments Outpatient Testing Encounter Details Date Type Department Care Team (Late st Contact Info) Description 06/27/2023 1:40 PM EST Laboratory Laboratory [address] [place] [phone] [place] [address] Kidney disease, chronic, stage IV (GFR 15-29 ml/min) (FORMERLY [facility]) Allergies Active Allergy Reactions Criticality Noted Date Comments Iodinated Contrast Media Rash High 05/02/2012 Lisinopril 08/18/2003 Dry cough Metformin Other (Please comment) 10/19/2021 documented as of this encounter (statuses as of 06/27/2023) Medications Medication Sig Dispensed Refills Start Date End Date Status FLAXSEED (LINSEED) 1000 MG PO CAPSIndications:Dys lipidemia, goal LDL below 100 Take by mouth . 4 times a week 0 06/06/2012 Active ASPIRIN 81 MG PO TABS 1 tab daily 0 Active ATORVASTATIN CALCIUM 40 MG PO TABS Take 0.5 Tablets by mouth at bedtime. 0 Active B-12 1000 MCG PO CAPS one tablet by mouth daily 0 Active DOXEPIN HCL 50 MG PO CAPS One pill by mouth at bedtime 30 Cap 11 08/05/2014 Active Magnesium Oxide 400 MG CapsuleIndications: Hypomagnesemia,CKD (chronic kidney disease), stage 3 (moderate) Take 1 Cap by mouth every other day. 45 Cap 1 07/28/2015 Active Additional Information Patient taking differently:400 mg OralQWEEK, , Reported on 08/26/2022 Multiple Vitamins-Minerals (OCUVITE ADULT 50+) Capsule Take 1 Capsule by mouth in the morning. 0 02/20/2017 Active metoprolol tartrate (LOPRESSOR) 50 MG Tablet Take 1 Tablet by mouth in the morning and 1 Tablet before bedtime. 60 Tab 5 05/17/2017 Active Triamcinolone Acetonide 0.5 % cream Apply topically to affected area 3 times a day. Apply to all over body open areas 0 Active clotrimazole (LOTRIMIN) 1 % creamIndications:Er ythema intertrigo Apply topically to affected area 2 times a day. Apply 2x daily to rash in groin until resolved or next dermatology appointment 339 g 3 06/10/2019 Active artificial tears (TEARS NATURALE II) 1.4 % ophthalmic solution Instill 1 Drop into both eyes as needed. 0 Active Latanoprost-Timolol Maleate 0.005-0.5 % SOLN Instill 1 Drop into both eyes at bedtime. 0 Active Fluticasone Propionate HFA 110 MCG/ACT Inhalation Aerosol (Flovent HFA)Indications:Sim ple chronic bronchitis (HCC),Chronic bronchitis with productive mucopurulent cough (HCC) Inhale 2 Puffs by mouth 2 times a day. 12 g 5 06/08/2020 Active Loratadine 10 MG Oral Capsule Take 1 Capsule by mouth daily as needed. 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 90 Tablet 3 08/31/2021 Active Apixaban 5 MG Oral Tablet (Eliquis)Indication s:Paroxysmal atrial fibrillation (HCC) Take by mouth 1 Tablet in the morning AND 1 Tablet before bedtime. 180 Tablet 3 05/13/2022 Active Accu-Chek Guide Me w/Device KitIndications:Type 2 diabetes mellitus with hemoglobin A1c goal of less than 7.0% ([facility]LY [facility]) Use as directed . 1 Kit 0 07/04/2022 Active Accu-Chek Guide In Vitro Strip (Glucose Blood)Indications:T ype 2 diabetes mellitus with hemoglobin A1c goal of less than 7.0% ([facility]) 0 07/04/2022 Active Insulin Syringe 30G X 1/2" 0.5 MLIndications:Type 2 diabetes mellitus with hemoglobin A1c goal of less than 7.0% ([facility]) Use with NovoLog twice a day. [id number] 0 07/04/2022 Active Saline Nasal Goodyear 0.65 % Nasal Solution Administer 1 Goodyear into nostril as needed for Congestion. 0 Active Insulin Aspart 100 UNIT/ML Injection Solution (NovoLOG)Indication s:Type 2 diabetes mellitus with hemoglobin A1c goal of less than 7.0% ([facility]) Inject under the skin - 10 units before breakfast and 10 units before supper. SUPPLIED BY [employer] 30 mL 3 12/16/2022 Active Ondansetron HCl 4 MG Oral TabletIndications:N ausea and vomiting, unspecified vomiting type Take 1 Tablet by mouth every 12 hours as needed for Nausea. 12 Tablet 0 12/28/2022 Active Insulin Glargine 100 UNIT/ML Subcutaneous Solution (Lantus) Inject 10 Units under the skin at bedtime. (Supplied by [employer]) 1 Each 12 05/02/2023 Active Azelastine HCl 0.1 % Nasal Solution (Astelin)Indication s:PND (post-nasal drip) Administer 1 Goodyear into nostril in the morning and 1 Goodyear before bedtime. 30 mL 3 06/21/2023 Active guaiFENesin 400 MG Oral Tablet Take 1 Tablet by mouth every 4 hours as needed for Congestion. 180 Tablet 3 06/21/2023 09/19/2023 Active documented as of this encounter (statuses as of 06/27/2023) Active Problems Problem Noted Date Diagnosed Date Type 2 diabetes mellitus wit h stage 3b chronic kidney disease, with long-term current use of insulin 09/12/2022 Overview: Per CKD protocol Anxiety, generalized 12/14/2021 Xerostomia 12/14/2021 Seborrheic keratoses 12/14/2021 PND (post-nasal drip) 06/18/2021 Kidney disease, chronic, stage IV (GFR 15-29 ml/ min) 11/06/2020 Anemia of chronic renal failure, stage 4 (severe ) 09/07/2020 Overview: Per CKD protocol Hyperparathyroidism, secondary renal 04/08/2020 Morbid obesity with body mass index of 40.0-44.9 in adult 11/05/2019 Coronary artery disease invo lving [place] coronary artery of [place] heart without angina pectoris 11/05/2019 Simple chronic bronchitis 11/05/2019 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 Lichen simplex chronicus 06/04/2014 Chronic dermatitis 08/22/2013 DM type 2 causing renal disease 11/29/2012 S/P AVR (aortic valve replacement) 06/06/2012 Atrial fibrillation 05/28/2012 Morbid obesity due to excess calories 01/12/2010 Overview: Per Obesity Protocol, #19 ICD-10 update of inactive term Dyslipidemia, goal LDL below 100 07/16/2009 Overview: Per Lipid Taxonomy. HTN, goal below 130/80 06/23/2009 Overview: Modified per HTN protocol #16. 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 documented as of this encounter (statuses as of 06/27/2023) Resolved Problems Problem Noted Date Diagnosed Date Resolved Date Type 2 diabetes mellitus wit h stage 3 chronic kidney disease, with long-term current use of insulin 08/26/2022 09/14/2022 Overview: Per CKD protocol Anxiety 06/18/2021 06/09/2022 Anemia of chronic kidney george ashley, stage 3 (moderate) 09/03/2020 09/10/2020 Overview: Per CKD protocol Class 3 obesity with alveola r hypoventilation and body mass index (BMI) of 40.0 to 44.9 in adult 11/06/2019 11/06/2019 Class 3 severe obesity with serious comorbidity and body mass index (BMI) of 40.0 to 44.9 in adult 11/06/2019 04/08/2020 Overview: Duplicate- resolved Body mass index (BMI) of 45. 0 to 49.9 in adult 07/08/2019 04/08/2020 Overview: bmi 44.69 Per Obesity protocol - Per Obesity protocol Body mass index (BMI) of 40. 0 to 44.9 in adult 03/11/2019 07/11/2019 Overview: Per Obesity protocol Morbid obesity with body mas s index (BMI) of 45.0 to 49.9 in adult 01/28/2019 03/14/2019 Overview: Per Obesity protocol Supraventricular tachycardia 01/28/2019 12/14/2021 Hypertension associated with stage 3 chronic kidney disease due to type 2 diabetes mellitus 07/16/2018 07/11/2019 Overview: Per CKD protocol Type 2 diabetes mellitus wit h diabetic peripheral angiopathy without gangrene 07/16/2018 0 04/08/2020 AV obed re-entry tachycardia 03/28/2018 07/16/2018 Venous insufficiency 12/15/2016 017 Paroxysmal SVT (supraventricular tachycardia) 04/14/20 15 2017 Rotator cuff tear arthropathy 12/07/2014 2017 Intertrigo 06/04/2014 05/18/2016 After cataract not obscuring vision 04/29/2014 2017 Overview: ICD-10 update of inactive term Other chronic allergic conjunctivitis 08/06/2013 2017 HTN, goal below 130/80 04/02/201304/02 Kidney disease, chronic, sta ge III (GFR 30-59 ml/min) 11/29/2012 08/17/2018 Anticoagulation management encounter 05/31/2012 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 DM type 2, not at goal 05/06/200906/22 HTN, goal to be determined 10/01/2008 1 08/23/2008 Overview: Modified per HTN protocol #16. Dermatitis 10/28/2003 12/08/2011 After cataract not obscuring vision 07/15/2002 12/08/2011 Overview: ICD-10 update of inactive term Progressive high myopia 07/15/200207/01 Mixed dyslipidemia 07/16/ 9 Overview: Per Lipid Taxonomy. HAIR DISEASES NEC folliculitis 12/08/2011 Type 2 diabetes mellitus wit h hemoglobin A1c goal of less than 7.0% 05/06/2009 Overview: ICD-10 update of inactive term Deviated nasal septum 2011 AV obed re-entry tachycardia 2017 documented as of this encounter (statuses as of 06/27/2023) Immunizations Name Administration Dates Next Due COVID-19 mRNA, LNP-s, No Pre serve, 2-Dose Series (Moderna) 09/23/2020,08/26/2020 COVID-19, MRNA-LNP, 23-24, P F, 30 MCG/0.3 mL, 12 YRS AND ABOVE, IM [facility] 06/21/2023 COVID-19, mRNA, LNP-s, PF, B ooster, 100mcg/0.5mg (Moderna) 11/02/2021,06/01/2021 Covid-19, Mrna, Lnp-s, Pf, B ivalent, 30 Mcg, IM, 12 yrs and above (Pfizer) 05/10/2022 Hepatitis B, 20+ yrs 01/02/2023,09/05/2022,07/06 Pneumococcal Conjugate Vacc, 13 Valent (Prevnar) 07/14/2015 Pneumococcal Polysaccharide PPV23 (Pneumovax) 01/14/2019,10/13/2011,01/15/2004,07/31 Season Influenza, Quad, PF, Adjuvanted, 65+ Yrs, IM (FLUAD) 04/07/2020 Seasonal Influenza, Quadriva lent Hd (Fluzone Hd) 05/07/2022 Seasonal Influenza, Quadriva lent Hd, 65+ Yrs 05/18/2023,04/12/2021 Seasonal Influenza, Quadriva lent, No Preserve, IM 05/18/2016 Seasonal Influenza, Split, I IV3, No Preserve, Inj 04/30/2018 Seasonal Influenza, Split, I IV3, With Preserve, Inj 04/30/2015,05/27/2014,04/22/2013,04/19,03/31/2011,05/09/2010,06/22/2009 Seasonal Influenza, Trivalen t, Adjuvanted, 65+ yrs 04/19/2021 Seasonal Influenza, Trivalen t, High Dose, No Preserve, IM 04/30/2019,05/14/2017 TD, Preservative Free 02/22/2010 TDAP (age 10 and older)(Boostrix) 10/07/2021, Varicella Zoster Vaccine (Adult) 03/31/2011 Zoster Vaccine Recombinant (Shingrix) 05/28/2018 ,03/28/2018 documented as of this encounter Social History Tobacco Use Types Packs/Day Years Used Date Smoking Tobacco: Former Cigarettes 1 20 Q uit: 07/31/1996 Cigars Smokeless Tobacco: Never Alcohol Use Standard Drinks/Week Comments Yes 1 (1 standard drink = 0.6 oz pur e alcohol) rare wine, makes his own PHQ-2 Answer Date Recorded PHQ Adult Total Score 0 07/04/2022 Hunger Vital Sign Answer Date Recorded Within the past 12 months, y ou worried that your food would run out before you got the money to buy more. Patient refused Within the past 12 months, t he food you bought just didn't last and you didn't have money to get more. Patient refused Sex and Gender Information Value Date Recorded Sex Assigned at Male 07/01/2021 10:21 AM EST Gender Identity Male 07/01/2021 10:21 AM EST Sexual Orientation Straight 07/04/2022 11 :19 AM EST Job Start Date Occupation Industry Not on file Not on file Not on file documented as of this encounter Plan of Treatment Upcoming Encounters Date Type Department Care Team (Late st Contact Info) Description 07/05/2023 10:00 AM EST Nurse Only Ancillary [address] [place] [address] [place], Nurse [address] [place] [address] 07/05/2023 11:00 AM EST Office Visit Pharmacy, [address] [place] [address] [place] [address] 07/25/2023 3:00 PM EST Office Visit Cardiology, [facility] [address] [facility] [place] [address] Emma Marte PA-C [address] [place] [address] [place] [address] 08/28/2023 11:30 AM EST Office Visit Cardiology [facility] [address] [facility] [place] [address] Wily Conde, DO [address] [place] [address] 12/20/2023 11:20 AM EDT Office Visit Family Medicine [address] [place] [phone] Britney Mojica MD [address] [place] [address] [place] [address] 12/27/2023 2:20 PM EDT Office Visit Nephrology [address] [place] [address] Jessica Gerardo MD [address] [place] [address] 01/25/2024 2:30 PM EDT Office Visit Nephrology [address] [place] [address] ZeAmalia meier PA-C [address] [place] [address] Pending Results Name Type Priority Associated Diagnoses Date /Time ALBUMIN / CREATININE RATIO, URINE Lab Routine Kidney disease, chronic, stage IV (GFR 15-29 ml/min) ([facility]LY [facility]) 06/27/2023 1:41 PM EST URINALYSIS WITH MICROSCOPIC EXAM Lab Routine Kidney disease, chronic, stage IV (GFR 15-29 ml/min) ([facility]) 06/27/2023 1:41 PM EST Scheduled Procedures Name Priority Associated Diagnoses Date/Ti me COLONOSCOPY FLEXIBLE PROXIMA L DIAGNOSTIC Recall History of colonic polyps Health Maintenance Due Date Last Done Comments Albumin/Creatinine Ratio 04/06/20232 022, 08/30/2021, 04/06/2021, Additional history exists Diabetic Foot Exam 05/31/2023 05/31/2022 (D one elsewhere), 06/18/2021, 03/25/2020, Additional history exists Depression Screening 07/04/2023 07/04/2022 COLONOSCOPY-EVERY 3 YRS AGES 18-100 10/31/2023 10/30/2020, 12/08/2017 GFR 11/10/2023 05/11/2023, 10/29, 06/30/2022, Additional history exists HbA1c 11/10/2023 05/11/2023, 090 01/2023, 11/09/2022, Additional history exists Diabetic Eye Exam 04/21/2024 04/21/2023, , 04/21/2023, Additional history exists O2 ASSESSMENT COMPLETED IN PAST YEAR FOR COPD 06/21/2024 06/21/2023 DTaP,Tdap,and Td Vaccines (3 - Td or Tdap) 10/08/2031 10/07/2021, 10/13/2011, 02/22/2010, Additional history exists Zoster Vaccines Completed 05/28/2018, 03/01, 03/31/2011 Pneumococcal Vaccine: 65+ Years Completed 01/14/2019, 01/02/2017, 07/14/2015, Additional history exists Nephrology Referral Discontinued 12/22/2022 Hepatitis B Completed 01/02/2023, 12/2022, 07/06/2022 Influenza Vaccine (FLU shot) Completed 05/18/2023, 05/07/2022, 04/19/2021, Additional history exists COVID-19 Vaccine Completed 06/21/2023, 05/2022, 11/02/2021, Additional history exists GARDASIL-HPV IMMUNIZATION SERIES Aged Out No longer eligible based on patient's age to complete this topic MENINGOCOCCAL (MENACTRA/MENVEO) Aged Out No longer eligible based on patient's age to complete this topic documented as of this encounter Medical Devices Implanted Type Area High Density Press Laborer Device Identifier Shelf Expiration Date Model / Serial / Lot Valve Aor White Ii 23mm T505 - [id number] Implanted:Qty : 1 on 05/22/2012 at [facility] Tissue - Non Human N/A: Heart [employer] : CARDIAC SURGERY 01/01/2015 23-T505 / [id number] / Sut Steel 6 M654g - [id number] Implanted:Qty : 2 on 05/22/2012 at OR [facility] N/A: Chest DO NOT USE 02/27/2017 [id number] / / [id number] documented as of this encounter Visit Diagnoses Diagnosis Kidney disease, chronic, stage IV (GFR 15-29 ml/min) (HCC) Chronic kidney disease, Stage IV (severe) documented in this encounter Advance Directives Latest Code Status on File Code Status Date Activated Date Inactivated Comments Full Code 06/05/2015 11:03 AM 06/05/2015 7:23 PM This order reflects the patients wishes and were consensually agreed upon. Code Status History Code Status Date Activated Date Inactivated Comments Full Code 07/03/2012 4:59 PM 07/05/2012 9:18 AM This order reflects the patients wishes and were consensually agreed upon. Question Answer Comments Discussion of Advance Directives occurred with: Patient Full Code 05/22/2012 12:46 PM 05/30/2012 3:10 PM Th is order reflects the patients wishes and were consensually agreed upon. Full Code 05/22/2012 6:58 AM 05/22/2012 12:46 PM Th is order reflects the patients wishes and were consensually agreed upon. Full Code 05/08/2012 8:18 AM 05/11/2012 9:51 PM This order reflects the patients wishes and were consensually agreed upon. Question Answer Comments Discussion of Advance Directives occurred with: Patient Does the patient have a Living Will? No Does the patient have Health Care Power of Professor Of Communication Arts? No Care Teams Contact Acid Plant Operator Relationship Specialty Start Date End Date Britney Mojica MD [address] [place] [address] [place] [address] PCP - General Family Medicine 10/16/18 documented as of this encounter
--- OUTSIDE RECORDS SUMMARY | 2023-08-01 20:23 | External Medical Summary | Summary of Care ---
Author Name Unknown Organization [facility] Address [address] [facility] [address] Phone [phone] Care Team Providers Care Ecmo Specialist Name Role Phone Britney Mojica MD Primary Care Prov ider Reason for Visit * Reason Comments Adult Annual Wellness Visit, Subsequent Visit Encounter Details Date Type Department Care Team (Late st Contact Info) Description 07/05/2023 10:00 AM EST Nurse Only Ancillary [address] [place] [phone] [place], Nurse [address] [place] [phone] Adult Annual Wellness Visit, Subsequent Visit Allergies Active Allergy Reactions Criticality Noted Date Comments Iodinated Contrast Media Rash High 05/02/2012 Lisinopril 08/18/2003 Dry cough Metformin Other (Please comment) 10/19/2021 documented as of this encounter (statuses as of 07/05/2023) Medications Medication Sig Dispensed Refills Start Date [...] hemoglobin A1c goal of less than 7.0% ([facility]) Use as directed . 1 Kit 0 07/04/2022 Active Accu-Chek Guide In Vitro Strip (Glucose Blood)Indications:T ype 2 diabetes mellitus with hemoglobin A1c goal of less than 7.0% ([facility]) 0 07/04/2022 Active Insulin Syringe 30G X 1/2" 0.5 MLIndications:Type 2 diabetes mellitus with hemoglobin A1c goal of less than 7.0% ([facility]) Use with NovoLog twice a day. DXe11.9 0 07/04/2022 Active Saline Nasal [place] 0.65 % Nasal Solution Administer 1 [place] into nostril as needed for Congestion. 0 Active Insulin Aspart 100 UNIT/ML Injection Solution (NovoLOG)Indication s:Type 2 diabetes mellitus with hemoglobin A1c goal of less than 7.0% ([facility]) Inject under the skin - 10 units before breakfast and 10 units before supper. SUPPLIED BY [facility] Patient is taking 20-25U or as directed. 30 mL 3 12/16/2022 Active Ondansetron HCl 4 MG Oral TabletIndications:N ausea and vomiting, unspecified vomiting type Take 1 Tablet by mouth every 12 hours as needed for Nausea. 12 Tablet 0 12/28/2022 Active Insulin Glargine 100 UNIT/ML Subcutaneous Solution (Lantus) Inject 10 Units under the skin at bedtime. (Supplied by [facility]) 1 Each 12 05/02/2023 Active Azelastine HCl 0.1 % Nasal Solution (Astelin)Indication s:PND (post-nasal drip) Administer 1 [place] into nostril in the morning and 1 [place] before bedtime. 30 mL 3 06/21/2023 Active guaiFENesin 400 MG Oral Tablet Take 1 Tablet by mouth every 4 hours as needed for Congestion. 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 HAIR DISEASES NEC folliculitis 12/08/2011 Type 2 diabetes mellitus wit h hemoglobin A1c goal of less than 7.0% 05/06/2009 Overview: ICD-10 update of inactive term Deviated nasal septum 2011 AV obed re-entry tachycardia 2017 documented as of this encounter (statuses as of 07/05/2023) Immunizations Name Administration Dates Next Due COVID-19 mRNA, LNP-s, No Pre serve, 2-Dose Series (Moderna) 09/23/2020,08/26/2020 COVID-19, MRNA-LNP, 23-24, P F, 30 MCG/0.3 mL, 12 YRS AND ABOVE, IM (PFIZER-Comirnaty) 06/21/2023 COVID-19, mRNA, LNP-s, PF, B ooster, 100mcg/0.5mg (Moderna) 11/02/2021,06/01/2021 Covid-19, Mrna, Lnp-s, Pf, B ivalent, 30 Mcg, IM, 12 yrs and above (Pfizer) 05/10/2022 Hepatitis B, 20+ yrs 01/02/2023,09/05/2022,07/06 Influenza, Whole Virus 08/04/2000,05/19/199411/2001 Pneumococcal Conjugate Vacc, 13 Valent (Prevnar) 07/14/2015 Pneumococcal Polysaccharide PPV23 (Pneumovax) 01/14/2019,10/13/2011,01/15/2004,07/2003 Season Influenza, Quad, PF, Adjuvanted, 65+ Yrs, IM (FLUAD) 04/07/2020 Seasonal Influenza, Quadriva lent Hd (Fluzone Hd) 05/07/2022 Seasonal Influenza, Quadriva lent Hd, 65+ Yrs 05/18/2023,04/12/2021 Seasonal Influenza, Quadriva lent, No Preserve, IM 05/18/2016 Seasonal Influenza, Split, I IV3, No Preserve, Inj 04/30/2018 Seasonal Influenza, Split, I IV3, With Preserve, Inj 04/30/2015,05/27/2014,04/22/2013,04/01,03/31/2011,05/09/2010,06/22/20 09,06/10/2003,05/29/2002,07/19/2001 Seasonal Influenza, Trivalen t, Adjuvanted, 65+ yrs 04/19/2021 Seasonal Influenza, Trivalen t, High Dose, No Preserve, IM 04/30/2019,05/14/2017 TD - Tetanus/Diptheria (ADULT) 02/11/2000 TD, Preservative Free 02/22/2010 TDAP (age 10 and older)(Boostrix) 10/07/2021, Varicella Zoster Vaccine (Adult) 03/31/2011 Zoster Vaccine Recombinant (Shingrix) 05/28/2018 ,03/28/2018 documented as of this encounter Social History Tobacco Use Types Packs/Day Years Used Date Smoking Tobacco: Former Cigarettes 1 20 Q uit: 07/31/1996 Cigars Smokeless Tobacco: Never Tobacco Cessation:Counseling Given: Not Answered Alcohol Use Standard Drinks/Week Comments Yes 1 [...] on file documented as of this encounter Last Filed Vital Signs Vital Sign Reading Time Taken Comments Blood Pressure 128/78 07/05/2023 10:15 AM EST Pulse 110 07/05/2023 10:15 AM EST Temperature 35.9 C (96.7 F) 07/05/2023 10:[address] Respiratory Rate - - Oxygen Saturation 97% 07/05/2023 10:15 AM EST Inhaled Oxygen Concentration - - Weight 128.8 kg (284 lb) 07/05/2023 10:15 AM EST Height 174.6 cm (5' 8.75") 07/05/2023 10:[address] Body Mass Index 42.25 07/05/2023 10:15 AM EST documented in this encounter Patient Instructions * Patient Instructions* Nehal Meza RN - 07/05/2023 10:13 AM EST Patient Instructions - Fall Prevention (This education is for all patients over 65 regardless of symptoms) Remember to take your current medications as prescribed. In order to prevent falls, you are encouraged to: Exercise Utilize assistive/adaptive devices Avoid multifocal lenses when walking Avoid hazards in home Maintain a regular toileting schedule Any questions please contact our office. Preventing Falls in the Home (This education is for all patients over 65 regardless of symptoms) As you get older, falls are more likely. Thats because your reaction time slows. Your muscles and joints may also get stiffer, making them less flexible. Illness, medications, and vision changes can also affect your balance. A fall could leave you unable to live on your own. To make your home safer, follow these tips: Floors Put nonskid pads under area rugs Remove throw rugs Replace worn floor coverings Tack carpets firmly to each step on carpeted stairs. Put nonskid strips on the edges of uncarpeted stairs Keep floors and stairs free of clutter and cords Arrange furniture so there are clear pathways Clean up any spills right away Bathrooms Install grab bars in the tub or shower Apply nonskid strips or put a nonskid rubber mat in the tub or shower Sit on a bath chair to bathe Use bathmats with nonskid backing Lighting Keep a flashlight in each room Put a nightlight along the pathway between the bedroom and the bathroom [employer] Patient Education Copyright 2008 - 2010 Kezia except where otherwise noted Preventing Falls: Exercises to Improve Balance, Flexibility, Strength, and Staying Power (This education is for all patients over 65 regardless of symptoms) Certain types of exercises may help make you less likely to fall. Try the ones below. Or do other exercises that your healthcare provider suggests. Depending on your health, you may need to start slowly. Dont let that stop you. Even small amounts of exercise can help you. Be sure to talk to yourhealthcare provider before starting any exercise program. Improve Balance Many types of exercise can help improve balance. Laureano chi and yoga are good examples. Heres another one to try. You can do it anytime and almost anywhere. Stand next to a counter or solid support. Push yourself up onto your tiptoes. Hold for 5 seconds. If you start to lose your balance, hold on to the counter. Rest and repeat 5 times. Work up to holding for 20 to 30 seconds, if you can. Increase Flexibility Being more flexible makes it easier for you to move around safely. Try exercises like the seated hamstring stretch. Sit in a chair and put one foot on a stool. Straighten your leg and reach with both hands down either side of your leg. Reach as far down your leg as you can. Hold for about 20 seconds. Go back to the starting position. Then repeat 5 times. Switch legs. Build Strength Resistance exercises help build strength. You can do them without equipment. Or you can use weights, elastic bands, or special machines. One such exercise is called the biceps curl. You can hold a 1 pound weight or even a can of soup. Do this exercise at least 3 times a week. Strive for everyday. Sit up straight in a chair. Keep your elbow close to your body and your wrist straight. Bend your arm, moving your hand up to your shoulder. Then slowly lower your arm. Repeat 5 times. Switch to the other arm. Build Your Staying Power Aerobic exercises make your heart and lungs stronger so you can keep moving longer. Walking and swimming are two of the best types of exercises you can do. Using a stationary bike is great, too. Find an aerobic exercise that you enjoy. Start slowly and build up. Even 5 minutes is helpful. Aimfor a goal of 30 minutes, at least 3 times a week. You dont have to do 30 minutes in one session. Break it up and walk a little throughout the day. More Helpful Tips Start easy. Slowly work up to doing more. Talk with your healthcare provider about the best exercises for you. Call senior centers or health clubs about exercise programs. If needed, have a family member watch you walk every so often to check your stability. Exercise with a friend. Choose an activity you both enjoy. Try exercises that you can do anytime, anywhere. Here are two examples. Have someone with you when you first try these: Practice walking by placing one foot right in front of the other. Stand up and sit down 10 times. Repeat this throughout the day. Kezia Patient Education Copyright 2009 - 2010 Kezia except where otherwise noted. Preventing Falls: Moving Safely Using a Cane or Walker (This education is for all patients over 65 regardless of symptoms) Keep the cane away from your feet so you dont trip. A walking aid, such as a cane or walker, can help you stay more independent and avoid falls. Remember to keep your walking aid within easy reach when youre in a chair or in bed. And learn how to use it safely so you dont injure yourself. Using a Cane If you have a stronger side, hold the cane on that side. Get your balance. Move the cane and your weaker leg forward. Support your weight on both the cane and your weaker side. Step with your stronger leg. Start again from step 1. If youre using a folding walker, be sure you know how to lock it open. Check that its locked open before each use. Using a Walker Roll the walker (or lift it, if youre using one without wheels) forward about 12 inches. Step forward with your weaker leg first. Use the walker to help keep your balance. Bring your other foot forward to the center of the walker. Start again from step 1. Helpful Tips Check with your healthcare provider about the right walking aid to use. Ask about a walker with a seat attached. Check the tips of your cane or walker to make sure they have nonskid covers. Move slowly from room to room. Dont hayden. Sit down to get dressed. Use a son pack or backpack to keep your hands free. Get help for jobs that mean climbing, even on a stepstool. Kezia Patient Education Copyright 2008 - 2010 Kezia except where otherwise noted. Treating Urinary Incontinence in Men (This education is for all patients over 65 regardless of symptoms) You can't always control the release of urine. You may leak urine. Or you may not be able to hold your urine until you can get to a bathroom. This is called urinary incontinence. The problem can be managed. Talk to your doctor about your treatment options. Taking Medications Prescription medications may help you. They may: Help the sphincter to work better. (This is the muscle that closes to keep urine from leaking out of the bladder.) Help stop the bladder from bonnie too often to push urine out. Help the bladder muscles contract with more force. Help relax the sphincter muscle and allow urine to flow more freely. Making Changes to Your Routine Certain changes in your daily routine may help. These include: Avoiding caffeine and alcohol. Using timed voiding. This is following a schedule for drinking fluids and urinating. Doing Kegel exercises daily. These exercises involve tightening the muscles in your sphincter and around your bladder to help strengthen them. Your doctor can explain how to do them. Using a Catheter A catheter is a narrow tube that is inserted through the urethra into the bladder. It drains urine.A condom catheter covers the penis. It channels urine into a collection bag. It is worn most of thetime. Intermittent catheterization means inserting a catheter to drain the bladder, then removing it. This is done on a regular schedule. Having Surgery If other options don't work, surgery may be recommended. If surgery is an option, your healthcare provider can discuss it with you and explain its risks and benefits. Healing After Prostate Surgery Surgery on the prostate gland can cause incontinence. Most often, the incontinence is only for a short time. It clears up when healing is complete. Very rarely, prostate surgery can result in permanent incontinence. Hi Mr. Miles, As your primary care physician, I know that regular visits with my patients who have several chronic conditions can go a long way in helping you stay healthy. Many times, the clinic team and I are in touch with you and/or other care team members between office visits to adjust medications, discuss any changes in your health, and review our care plan to make sure it is still meeting your needs. I am dedicated to helping you take a more active role in your overall care. It is important that there are resources available to you, so I created a personalized plan of care with a Health Calendar for you, which is included on the next page of this letter. Below is a list that summarizes your electronic health record: Health Maintenance Due: Health Maintenance Due Topic Date Due Diabetic Foot Exam 05/31/2023 Depression Screening 07/04/2023 Current Medication List: (as of Visit date not found (in office), Visit date not found (telemedicine) ) Current Outpatient Medications Medication Sig Dispense Refill FLAXSEED (LINSEED) 1000 MG PO CAPS Take by mouth . 4 times a week 0 ASPIRIN 81 MG PO TABS 1 tab daily ATORVASTATIN CALCIUM 40 MG PO TABS Take 0.5 Tablets by mouth at bedtime. DOXEPIN HCL 50 MG PO CAPS One pill by mouth at bedtime 30 Cap 11 Magnesium Oxide 400 MG Capsule Take 1 Cap by mouth every other day. (Patient taking differently: Take 1 Capsule by mouth once a week. ) 45 Cap 1 Multiple Vitamins-Minerals (OCUVITE ADULT 50+) Capsule Take 1 Capsule by mouth in the morning. metoprolol tartrate (LOPRESSOR) 50 MG Tablet Take 1 Tablet by mouth in the morning and 1 Tabletbefore bedtime. 60 Tab 5 Triamcinolone Acetonide 0.5 % cream Apply topically to affected area 3 times a day. Apply to all over body open areas clotrimazole (LOTRIMIN) 1 % cream Apply topically to affected area 2 times a day. Apply 2x daily to rash in groin until resolved or next dermatology appointment 339 g 3 artificial tears (TEARS NATURALE II) 1.4 % ophthalmic solution Instill 1 Drop into both eyes asneeded. Latanoprost-Timolol Maleate 0.005-0.5 % SOLN Instill 1 Drop into both eyes at bedtime. Fluticasone Propionate HFA 110 MCG/ACT Inhalation Aerosol (Flovent HFA) Inhale 2 Puffs by mouth2 times a day. 12 g 5 Loratadine 10 MG Oral Capsule Take 1 Capsule by mouth daily as needed. Losartan Potassium 50 MG Oral Tablet (Cozaar) Take by mouth 1 Tablet in the morning. 90 Tablet 3 Apixaban 5 MG Oral Tablet (Eliquis) Take by mouth 1 Tablet in the morning AND 1 Tablet before bedtime. 180 Tablet 3 Insulin Syringe 30G X 1/2" 0.5 ML Use with NovoLog twice a day. DXe11.9 Saline Nasal [place] 0.65 % Nasal Solution Administer 1 [place] into nostril as needed for Congestion. Insulin Aspart 100 UNIT/ML Injection Solution (NovoLOG) Inject under the skin - 10 units beforebreakfast and 10 units before supper. SUPPLIED [facility] Patient is taking 20-25U or as directed. 30 mL 3 Ondansetron HCl 4 MG Oral Tablet Take 1 Tablet by mouth every 12 hours as needed for Nausea. 12Tablet 0 Insulin Glargine 100 UNIT/ML Subcutaneous Solution (Lantus) Inject 10 Units under the skin at bedtime. (Supplied [facility]) 1 Each 12 Azelastine HCl 0.1 % Nasal Solution (Astelin) Administer 1 [place] into nostril in the morning and 1 [place] before bedtime. 30 mL 3 guaiFENesin 400 MG Oral Tablet Take 1 Tablet by mouth every 4 hours as needed for Congestion. 180 Tablet 3 B-12 1000 MCG PO CAPS one tablet by mouth daily (Patient not taking: Reported on 07/05/2023) Accu-Chek Guide Me w/Device Kit Use as directed . 1 Kit 0 Accu-Chek Guide In Vitro Strip (Glucose Blood) No current facility-administered medications for this visit. Current List of Allergies: (as of Visit date not found (in office), Visit date not found (telemedicine) ) Review of patient's allergies indicates: Allergen Reactions Iodinated Contrast Media Rash Lisinopril Dry cough Metformin Other (Please comment) Most Recent Lab Results: Results for orders placed or performed in visit on 07/03/23 ALBUMIN / CREATININE RATIO, URINE Result Value Ref Range Albumin, Random Urine 30.60 mg/dL Creatinine, Random Urine 77 mg/dL Albumin / Creatinine Ratio, Urine 397 (H) <30 mg/g Creat *Note: Due to a large number of results and/or encounters for the requested time period, some results have not been displayed. A complete set of results can be found in Results Review. Sincerely, Britney Don MD 07/05/2023 [facility] Calendar (as of Visit date not found (in office), Visit date not found (telemedicine) ) Care needs Care needs Last completed Due next Diabetic Foot Exam 05/31/2022 (DONE ELSEWHE) 05/31/2023 Colonoscopy - every 3 years 10/30/2020 10/31/2023 A1C blood sugar test 05/11/2023 11/10/2023 Kidney Function Test 05/11/2023 11/10/2023 Diabetic Eye Exam 04/21/2023 04/21/2024 Yearly COPD oxygen test 07/05/2023 06/27/2024 Urine albumin/creatinine test 07/03/2023 07/03/2024 Diphtheria, tetanus & pertussis vaccines (3 - Td or Tdap) 10/07/2021 10/08/2031 As you look over the recommended services, be sure to check with your insurance company to determine what's covered. [employer] is a great tool that helps you review your medical record online, including test results, doctor notes and your health summary. You can also schedule appointments with me and other members of your care team, request prescription refills and ask for advice related to your medical conditions at [email or web address]. documented in this encounter Progress Notes * Nehal Meza RN - 07/05/2023 10:13 AM EST Fall Risk Plan of Care Documentation: - Current medications reconciled Patient encouraged to: - Exercise - Provide education materials for Core strengthening - Utilize assistive/adaptive devices - Provide education materials - Avoid multifocal lenses when walking - Avoid hazards in home - Provide education materials - Maintain a regular toileting schedule Nehal Meza RN 07/05/2023 AD8 Dementia Screening Interview Person answering questions: patient Remember, "Yes, a change" indicates that there has been a change in the last several years caused by cognitive (thinking and memory) problems 1. Problems with judgement (eg: problems making decisions, bad financial decisions, problems with thinking). No (0) 2. Less interest in hobbies/activities. Yes (1) 3. Repeats the same things over and over (questions, stories, or statements). No (0) 4. Trouble learning how to use a tool, appliance, or gadget (eg: VCR, computer, microwave, remote control). No (0) 5. Forgets correct month or year. No (0) 6. Trouble handling complicated financial affairs (eg: balancing checkbook, income taxes, paying bills). No (0) 7. Trouble remembering appointments. No (0) 8. Daily problems with thinking and/or memory. No (0) TOTAL AD8: 1 - AD8 Dementia Screening Score The final score is a sum of the number items marked "Yes, A Change". 0 - 1: Normal cognition; 2 or greater: Cognitive impairments is likely to be present - further testing required Adult Annual Wellness Visit: Talha Miles is a 77 year old male who presents for an Adult Annual Wellness Visit. Depression Screening: Did the patient complete the screening questionnaire for Depression? Yes Is the patient's total score for Depression 15 or greater? No, no further intervention needed, unless requested by patient. Did the patient answer positively to the suicide question? No, no further intervention needed, unless requested by patient. In general, compared to other people your age, what would you say that your health is? Good Ht Readings from Last 1 Encounters: 07/05/23 1.746 m (5' 8.75") Wt Readings from Last 1 Encounters: 07/05/23 128.8 kg (284 lb) Body Mass Index: BMI Greater than 30 Body mass index is 42.25 kg/m. BP Readings from Last 1 Encounters: 07/05/23 128/78 Medical/Surgical/Family History Reviewed: Yes Past Medical History: Diagnosis Date AFTER-CATARACT NEC 07/15/2002 Aortic stenosis 04/18/2012 severe on echocardiogram of 04/25/12. AV obed re-entry tachycardia Body mass index (BMI) of 45.0 to 49.9 in adult ([facility]) 07/08/2019 bmi 44.69 Per Obesity protocol - Per Obesity protocol Chronic dermatitis 08/22/2013 CHRONIC SKIN ULCER NEC 01/13/2011 Class 3 severe obesity with serious comorbidity and body mass index (BMI) of 40.0 to 44.9 in adult ([facility]) 11/06/2019 Duplicate- resolved DERMATITIS NOS 10/28/2003 Deviated nasal septum Diastolic dysfunction, left ventricle 04/18/2012 DM type 2 causing renal disease ([facility]) 11/29/2012 DM type 2, goal A1c below 7 08/07/01 Dyslipidemia, goal LDL below 100 07/16/2009 Essential hypertension with goal blood pressure less than 140/90 05/18/2016 HTN, goal below 130/80 06/23/2009 Impotence of organic origin Kidney disease, chronic, stage III (GFR 30-59 ml/min) ([facility]) 11/29/2012 LVH (left ventricular hypertrophy) 04/18/2012 Mixed dyslipidemia OBESITY, BMI 40 AND OVER 01/12/2010 Obesity, Class III, BMI 40-49.9 (morbid obesity) ([facility]) 12/08/2011 Other chest pain 03/09/98 Normal Coronary Arteries by catheterization Other specified disease of hair and hair follicles Paroxysmal SVT (supraventricular tachycardia) 04/14/2015 Progressive high myopia 07/15/2002 Rotator cuff tear arthropathy 12/07/2014 S/P AVR (aortic valve replacement) 06/06/2012 Sleep apnea on CPAP Venous insufficiency 12/15/2016 Past Surgical History: Procedure Laterality Date ABLATE HEART DYSRHYTHM FOCUS 07/03/2012 CATHETER ABLATION-SVT performed by Rochelle Wilder IV, MD at [facility] [place] AORTA SUTURE REPAIR W/O SHUNT 05/22/2012 REPAIR AORTA performed by Talha Nielsen MD at [place] [facility] [place] ARTHPEDRO Anne,W/ROTATOR CUFF 12/24/2014 right shoulder- Dr. Jorgensen COLONOSCOPY 05/2007 done at [facility] COLONOSCOPY, DIAGNOSTIC (RECTUM) 12/08/2017 adenomatous & serrated adenomatous polyps, repeat 3 yrs/[facility] COLONOSCOPY, DIAGNOSTIC (RECTUM) 10/30/2020 poor prep, repeat 3 yrs / [facility] CORONARY ANGIOGRAPHY W/RIGHT+LEFT CATH 04/26/2012 CORONARY ANGIOGRAPHY W/RIGHT+LEFT CATH performed by Aries Beltre MD at [facility] [place] ELECTROPHYSIOLOGY EVAL & ABLATE SVT Bilateral 06/05/2015 ELECTROPHYSIOLOGY EVAL & ABLATE SVT performed by Rochelle Wilder IV, MD at [facility] [place] HEART ELECTROCONVERSION, EXTERNAL 05/29/2012 DC CARDIOVERSION performed by Rochelle Wilder IV, MD at [facility] [place] REMOVAL OF APPENDIX age 11 REMOVE CATARACT, INSERT LENS PROSTH REPAIR OF NASAL SEPTUM 08/14/2001 with cautery of inferior turbinates by Dr. Chambers REPLACEMENT AORTIC VALVE, BYPASS WITH PROSTHETIC VALVE 05/22/2012 REPLACEMENT AORTIC VALVE performed by Talha Nielsen MD at [facility] [place] UMBIL HERNIA REPAIR (REDUCIBLE) AGE 5+YR VASECTOMY 1987 Family History Problem Relation Age of Onset Diabetes Mother Stroke Father age 55 Diabetes Sister Cancer Sister uterus Other (ESRD) Sister 1/2 sister Other (Other ESRD/CKD) None Stomach cancer Grandfather (Maternal) Stomach cancer Other Has patient ever had cancer? No Social History Tobacco Use Smoking status: Former Packs/day: 1.00 Years: 20.00 Additional pack years: 0.00 Total pack years: 20.00 Types: Cigars, Cigarettes Quit date: 07/31/1996 Years since quittin.9 Smokeless tobacco: Never Substance Use Topics Alcohol use: Yes Alcohol/week: 1.0 standard drink of alcohol Types: 1 5 oz of wine per week Comment: rare wine, makes his own Vaping/E-Cigarette Use Vaping/E-Cigarette Use Never User Vaping/E-Cigarette Substances Vaping/E-Cigarette Devices Tobacco/Alcohol screening completed today? Yes Hospital Care: Admissions (within the last year): Not Applicable ER within 30 days: No Does the patient have an Advance Directives/Living Will? No. Does the patient want information? Unsure, will look it may just be a will Last Physical Exam: Last physical exam: 05/2023 Does patient see primary provider regularly? Yes Does patient see other providers? Yes, Specialist Patient Care Team updated? Yes Review of patient's allergies indicates: Allergen Reactions Iodinated Contrast Media Rash Lisinopril Dry cough Metformin Other (Please comment) Immunization History Administered Date(s) Administered COVID-19 mRNA, LNP-s, No Preserve, 2-Dose Series (Moderna) 08/26/2020, 09/23/2020 COVID-19, MRNA-LNP, 23-24, PF, 30 MCG/0.3 mL, 12 YRS AND ABOVE, IM ([email or web address]) 06/21/2023 COVID-19, mRNA, LNP-s, PF, Booster, 100mcg/0.5mg (Moderna) 06/01/2021, 11/02/2021 Covid-19, Mrna, Lnp-s, Pf, Bivalent, 30 Mcg, IM, 12 yrs and above (Pfizer) 05/10/2022 Hepatitis B, 20+ yrs 07/06/2022, 09/05/2022, 01/02/2023 Influenza, Whole Virus 05/19/1994, 08/04/2000 Pneumococcal Conjugate Vacc, 13 Valent (Prevnar) 07/14/2015 Pneumococcal Polysaccharide PPV23 (Pneumovax) 07/31/2003, 01/15/2004, 10/13/2011, 01/14/2019 Season Influenza, Quad, PF, Adjuvanted, 65+ Yrs, IM (FLUAD) 04/07/2020 Seasonal Influenza, Quadrivalent Hd (Fluzone Hd) 05/07/2022 Seasonal Influenza, Quadrivalent Hd, 65+ Yrs 04/12/2021, 05/18/2023 Seasonal Influenza, Quadrivalent, No Preserve, IM 05/18/2016 Seasonal Influenza, Split, IIV3, No Preserve, Inj 04/30/2018 Seasonal Influenza, Split, IIV3, With Preserve, Inj 07/19/2001, 05/29/2002, 06/10/2003, 06/22/2009,05/09/2010, 03/31/2011, 04/19/2012, 04/22/2013, 05/27/2014, 04/30/2015 Seasonal Influenza, Trivalent, Adjuvanted, 65+ yrs 04/19/2021 Seasonal Influenza, Trivalent, High Dose, No Preserve, IM 05/14/2017, 04/30/2019 TD - Tetanus/Diptheria (ADULT) 02/11/2000 TD, Preservative Free 02/22/2010 TDAP (age 10 and older)(Boostrix) 10/13/2011, 10/07/2021 Varicella Zoster Vaccine (Adult) 03/31/2011 Zoster Vaccine Recombinant (Shingrix) 03/28/2018, 05/28/2018 Current Outpatient Medications Medication Sig Dispense Refill FLAXSEED (LINSEED) 1000 MG PO CAPS Take by mouth . 4 times a week 0 ASPIRIN 81 MG PO TABS 1 tab daily ATORVASTATIN CALCIUM 40 MG PO TABS Take 0.5 Tablets by mouth at bedtime. DOXEPIN HCL 50 MG PO CAPS One pill by mouth at bedtime 30 Cap 11 Magnesium Oxide 400 MG Capsule Take 1 Cap by mouth every other day. (Patient taking differently: Take 1 Capsule by mouth once a week. ) 45 Cap 1 Multiple Vitamins-Minerals (OCUVITE ADULT 50+) Capsule Take 1 Capsule by mouth in the morning. metoprolol tartrate (LOPRESSOR) 50 MG Tablet Take 1 Tablet by mouth in the morning and 1 Tablet before bedtime. 60 Tab 5 Triamcinolone Acetonide 0.5 % cream Apply topically to affected area 3 times a day. Apply to all over body open areas clotrimazole (LOTRIMIN) 1 % cream Apply topically to affected area 2 times a day. Apply 2x daily torash in groin until resolved or next dermatology appointment 339 g 3 artificial tears (TEARS NATURALE II) 1.4 % ophthalmic solution Instill 1 Drop into both eyes as needed. Latanoprost-Timolol Maleate 0.005-0.5 % SOLN Instill 1 Drop into both eyes at bedtime. Fluticasone Propionate HFA 110 MCG/ACT Inhalation Aerosol (Flovent HFA) Inhale 2 Puffs by mouth 2 times a day. 12 g 5 Loratadine 10 MG Oral Capsule Take 1 Capsule by mouth daily as needed. Losartan Potassium 50 MG Oral Tablet (Cozaar) Take by mouth 1 Tablet in the morning. 90 Tablet 3 Apixaban 5 MG Oral Tablet (Eliquis) Take by mouth 1 Tablet in the morning AND 1 Tablet before bedtime. 180 Tablet 3 Insulin Syringe 30G X 1/2" 0.5 ML Use with TwylahLog twice a day. DXe11.9 Saline Nasal [place] 0.65 % Nasal Solution Administer 1 [place] into nostril as needed for Congestion. Insulin Aspart 100 UNIT/ML Injection Solution (NovoLOG) Inject under the skin - 10 units before breakfast and 10 units before supper. SUPPLIED BY [facility] Patient is taking 20-25U or as directed. 30 mL 3 Ondansetron HCl 4 MG Oral Tablet Take 1 Tablet by mouth every 12 hours as needed for Nausea. 12 Tablet 0 Insulin Glargine 100 UNIT/ML Subcutaneous Solution (Lantus) Inject 10 Units under the skin at bedtime. (Supplied by [facility]) 1 Each 12 Azelastine HCl 0.1 % Nasal Solution (Astelin) Administer 1 [place] into nostril in the morning and 1 [place] before bedtime. 30 mL 3 guaiFENesin 400 MG Oral Tablet Take 1 Tablet by mouth every 4 hours as needed for Congestion. 180 Tablet 3 B-12 1000 MCG PO CAPS one tablet by mouth daily (Patient not taking: Reported on 07/05/2023) Accu-Chek Guide Me w/Device Kit Use as directed . 1 Kit 0 Accu-Chek Guide In Vitro Strip (Glucose Blood) No current facility-administered medications for this visit. 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 ADAN on CPAP G47.33 Type 2 diabetes mellitus with hemoglobin A1c goal of less than 7.0% ([facility]) E11.9 HTN, goal below 130/80 I10 Dyslipidemia, goal LDL below 100 E78.5 Morbid obesity due to excess calories ([facility]) E66.01 Atrial fibrillation ([facility]) I48.91 S/P AVR (aortic valve replacement) Z95.2 DM type 2 causing renal disease ([facility]) E11.29 Chronic dermatitis L30.9 Lichen simplex chronicus L28.0 Rotator cuff tear, right M75.101 Diastolic dysfunction I51.89 Anemia of chronic disease D63.8 Chronic rhinitis J31.0 Type 2 diabetes mellitus with diabetic dermatitis ([facility]) E11.620 Chest pain due to myocardial ischemia I25.9 Carpal tunnel syndrome of left wrist G56.02 Hypertension in stage 4 chronic kidney disease due to type 2 diabetes mellitus (HCC) E11.22, I12.9,N18.4 Heart failure, systolic, due to CAD I50.20, I25.10 Renal osteodystrophy N25.0 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 (HCC) I13.0, I50.22, N18.4 Morbid obesity with body mass index of 40.0-44.9 in adult ([facility]) E66.01, Z68.41 Coronary artery disease involving [place] coronary artery of [place] heart without angina pectoris I25.10 Simple chronic bronchitis ([facility]) J41.0 Hyperparathyroidism, secondary renal ([facility]) N25.81 Anemia of chronic renal failure, stage 4 (severe) ([facility]) N18.4, D63.1 Kidney disease, chronic, stage IV (GFR 15-29 ml/min) ([facility]) N18.4 PND (post-nasal drip) R09.82 Anxiety, generalized F41.1 Xerostomia K11.7 Seborrheic keratoses L82.1 Type 2 diabetes mellitus with stage 3b chronic kidney disease, with long-term current use of insulin ([facility]) E11.22, N18.32, Z79.4 Medication Compliance: Patient is able to obtain all of his medications? Yes Patient takes medications as prescribed? Yes Patient manages own medications: Yes Patient uses a pill box? Yes, refill(s) completed by self Dental Exam: Yes: Every 6 Months Eye Screening: Yes: Every yearly Are you having trouble with hearing? Yes Do you use an assistive device to help your hearing? Yes Exercise Screening: does not exercise regularly Nutrition Assessment: patient , breakfast, afternoon meal Pain Screening: Are you having any pain? No Sleep Screening Tool 'STOP': Do you snore? Yes Do you feel fatigued during the day? No Do you wake up feeling like you haven't slept? No Have you been told you stop breathing at night? Yes Do you gasp for air or choke while sleeping? No Have you been told you have Sleep Apnea? Yes Do you have high blood pressure or are on medication(s) to control high blood pressure? Yes SCORE: If you check YES to two or more questions, make a referral for Obstructive Sleep Apnea Patient did get new cpap and working well. Patient and Caregiver Support System: Patient lives with a spouse Means of Transportation: Drives. Not a concern. Patient lives in One Story - with basement stairs: 20 with railings Community Resources: Not Applicable Functional Status and ADL Skills: Has patient ever had an amputation? No Functional Assessment: 90- Able to carry on normal activity, minor symptoms of disease Ambulation: Patient ambulates without assistive device. Independent, but has scooter for [place] Dressing: Gets clothes and dresses without any assistance: Independent Able to move freely in chair or bed including turning over: Independent Repositioning (bed or chair): Not applicable Transfers: Independent Toileting: Goes to bathroom, uses toilet, arranges clothes and returns without any assistance: Independent Toileting: continent of bladder and continent of bowel Feeding: Self Bathing: Self; tub and shower with grab bar, has walk in Requires none assistance with ADLs. Instrumental ADL's: Shopping: Independent Housekeeping: Minimal Assistance Handling Finances: Independent DME Vendor Name: Not Applicable Fall Risk Assessment: Can the patient demonstrate that he can stand from a sitting position? Yes Has the patient had a fall within the last 6 months? No Does the patient have a problem with his gait or balance? No Does the patient take 4 or more prescription medicines? Yes Does the patient use sedatives or narcotics? No Fall Risk Factors Present: Uses more than 4 medications Lower extremity weakness Visually impaired Older than age 70 Sbv-Uk-inz-Go Test: Time began at 1000. Patient stood from sitting position and walked approximately 10 feet, returned and sat down. Total time for xnh-tt-yva-go test was 11 seconds. Gud-Xb-dys-Go Test completed? Yes Gender Specific Preventative Plan: Health Maintenance Topic Date Due Diabetic Foot Exam 05/31/2023 COLONOSCOPY-EVERY 3 YRS AGES 18-100 10/31/2023 HbA1c 11/10/2023 GFR 11/10/2023 Diabetic Eye Exam 04/21/2024 Albumin/Creatinine Ratio 07/03/2024 Depression Screening 07/05/2024 O2 ASSESSMENT COMPLETED IN PAST YEAR FOR COPD 07/05/2024 DTaP,Tdap,and Td Vaccines (3 - Td or Tdap) 10/08/2031 Hepatitis B Completed Influenza Vaccine (FLU shot) Completed Zoster Vaccines Completed Pneumococcal Vaccine: 65+ Years Completed COVID-19 Vaccine Completed MENINGOCOCCAL (MENACTRA/MENVEO) Aged Out GARDASIL-HPV IMMUNIZATION SERIES Aged Out Nephrology Referral Discontinued Follow Up/ Referrals/Handouts: Depression screening - completed Functional assessment - doing well, but Afib has "slowed him down" Falls Risk screening - discussed Exercise screening -encouraged to get back to the elliptical and treadmill Nutrition assessment -. Education Provided and Handouts Provided Pain screening - discussed Incontinence screening - no complaints today. Patient has been verbally educated on the need or importance of Cholesterol, Colon Cancer Screening, Diabetic Eye Exam, Diabetic Foot Exam, GFR, Glucose, Hemoglobin A1c, and Immunizations: flu,covid,shingles Pt has completed the covid vaccines: Yes, patient has had 6 vaccines and most recent 06.21.23 Patient has been verbally educated on the need or importance of Cholesterol, Colon Cancer Screening, Diabetic Eye Exam, Diabetic Foot Exam, GFR, Glucose, Hemoglobin A1c, and Immunizations: flu,covid shingles Pt has completed the covid vaccines: Yes, 6 including the most recent 05/2023 Discerning What Matters Most Advance Care Planning is important for all adults. Discussed the process of thinking and talking about future healthcare decisions. Health care Agent you would like to list: Katelyn Guadalupe Jd Relationship to Agent spouse Does the patient have an Advance Directives/Living Will? Unsure he thinks his may, but its outdated. ACP paperwork given and patient to review, complete and bring us a copy. What does Living Well Mean to you? "Being independent and living in my own house, I don't want to go to a home" What fears do you have about your illness? I fear my Afib and that my valve quits working" " the worst thing would to be sitting in a corner wake up not knowing anyone" He states "if no hope he wantsto naturally" Any experiences you had yourself or with family / friends hospitalized?patient states he struggles with cremation vs body in the ground, " he is unsure about organ donor, because " I went to a friends fathers and he was a donor and he was the worst looking corpse ever , and I don't want that" What cultural , Spiritual or rastafarian beliefs do you have that may affect Health Care Decisions? Patient was Advent growing up got in a [employer] in [place] but does not attend a rastafarian, he does watch Talha Toscano on TV every Monday" he considers himself Non Orthodox. Patientstates "his dad told him when he was younger and a horse that "there was nothing after " that has "stuck with him" Encourage to reach out to a rastafarian or mining professionals to talk to about his beliefs and concerns. [facility] referral placed to team: no Risk and functional assessment (Primary) Routine general medical examination at a health care facility Anemia of chronic disease - Med reconciliation completed and compliance discussed. - pt to continue present medications. Anxiety, generalized - Med reconciliation completed and compliance discussed. - pt to continue present medications. Atrial fibrillation (HCC) - Med reconciliation completed and compliance discussed. - pt to continue present medications. Chronic dermatitis - Med reconciliation completed and compliance discussed. - pt to continue present medications. Chronic rhinitis - Med reconciliation completed and compliance discussed. - pt to continue present medications. Coronary artery disease involving [place] coronary artery of [place] heart without angina pectoris - Med reconciliation completed and compliance discussed. - pt to continue present medications. DM type 2 causing renal disease ([facility]) - Med reconciliation completed and compliance discussed. - pt to continue present medications. Dyslipidemia, goal LDL below 100 - Med reconciliation completed and compliance discussed. - pt to continue present medications. HTN, goal below 130/80 - Med reconciliation completed and compliance discussed. - pt to continue present medications. 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 - Discussed Healthy lifestyle, importance of exercise - Diet education - Reviewed labs ADAN on CPAP -doing well on new cpap S/P AVR (aortic valve replacement) Patient does follow up with cardiology Type 2 diabetes mellitus with diabetic dermatitis ([facility]) Type 2 diabetes mellitus with hemoglobin A1c goal of less than 7.0% ([facility]) Type 2 diabetes mellitus with stage 3b chronic kidney disease, with long-term current use of insulin ([facility]) - Med reconciliation completed and compliance discussed. - pt to continue present medications. - Discussed Healthy lifestyle, importance of exercise - Diet education - Reviewed labs See communication tab, I will request most recent Diabetic foot exam, Patient states he does see a podiatry at the [facility] in [place], they are "very good" and they get him all the diabetic foot supplies he needs. Follow Up: Return in 1 year (on 07/05/2024) for 12 month Subsequent Adult Wellness Visit. | For: 12 month Subsequent Adult Wellness Visit | Check-out note: 12 month Subsequent Adult Wellness Visit Would patient like to schedule next AWV visit? Yes Nehal Meza RN documented in this encounter Miscellaneous Notes * ACP (Advance Care Planning) - Nehal Meza RN - 07/05/2023 11:46 AM EST Images from the original note were not included. Patient-centered Communication 07/05/2023 The patient/surrogate voluntarily agreed to participate in advance care planning discussion. They were advised that this is a separate service which may incur out of pocket cost in the form of copayment and/or deductibles. Location: Clinic Individual(s) present for conversation: Patient Decisions Additional Comments Synopsis TISSUELAB Most Recent Value Past ~10 years 07/05/2023 11:46 Additional Comments Additional Comments: Unsure if they have a LV, or ACP. He thinks his may, but its outdated. ACP paperwork given and patient to review, complete and bring us a copy if he would like to speak to someone on the [facility] team they will let me know. 07/05/2023 Unsure if they have a LV, or ACP. He thinks his may, but its outdated. ACP paperworkgiven and patient to review, complete and bring us a copy if he would like to speak to someone on the [facility] team they will let me know. Discerning What Matters Most to the Patient: Synopsis SmartLink Most Recent Value Past ~10 years 07/05/2023 11:50 Discerning What Matters Most to the Patient In their own words, patient's UNDERSTANDING of their illness is: I understand b/c of the valve replacement I'm going to be more tired, I've slowed down and just running out of wind" 07/05/2023 I understand b/c of the valve replacement I'm going to be more tired, I've slowed down and just running out of wind" Their current SYMPTOMS include: Tiredness;Shortnes of breath 07/05/2023 Tiredness;Shortnes of breath They say their illness has CHANGED THEIR LIFE by: Less enjoyment (quality of life) 07/05/2023 Less enjoyment (quality of life) The patient thinks COMPLICATIONS in the future may be: More fatigue 07/05/2023 More fatigue The patient's HOPES are: Maintain current functional abilities 07/05/2023 Maintain current functional abilities The patient defines LIVING WELL as: "Being independent and living in my own house, I don't want to go to a home" 07/05/2023 "Being independent and living in my own house, I don't want to go to a home" The patient's FEARS/WORRIES about illness are: Going to a senior living;"Being a vegetable" (define below) I fear my Afib and that my valve quits working" 07/05/2023 Going to a senior living;"Being a vegetable" (define below) I fear my Afib and that my valve quits working" "Being a vegetable", patient defines as: " the worst thing would to be sitting in a corner wake up not knowing anyone" if it came to that he states "if no hope he wants to naturally" 07/05/2023 " the worst thing would to be sitting in a corner wake up not knowing anyone" if it came to that he states "if no hope he wants to naturally" The patient's PRIOR EXPERIENCES: patient states he struggles with cremation vs body in the ground, " he is unsure about organ donor, because he states " I went to a friends fathers and he wasa donor and he was the worst looking corpse ever , and I don't want that" 07/05/2023 patient states he struggles with cremation vs body in the ground, " he is unsure about organ donor, because he states " I went to a friends fathers and he was a donor and he was theworst looking corpse ever , and I don't want that" The patient considers these as 'UNACCEPTABLE OUTCOMES': Unable to talk/interact with loved ones 07/05/2023 Unable to talk/interact with loved ones The patient's cultural or spiritual BELIEFS that may affect health care decisions: Patient was Advent growing up got in a [employer] in [place] but does not attend a rastafarian, he does watchLeticiarmichelle Corleyley on TV every Monday" he considers himself Non Orthodox. Patient states "his dad told him when he was younger and a horse that "there was nothing after " that has "stuckwith him" Encourage to reach out to a rastafarian or mining professionals to talk to about his beliefs and concerns 07/05/2023 Patient was Advent growing up got in a [employer] in [place] but does not attend a rastafarian, he does watch Talha Everton on TV every Monday" he considers himself Non Orthodox. Patient states "his dad told him when he was younger and a horse that "there was nothing after " that has "stuck with him" Encourage to reach out to a rastafarian or mining professionals to talk to about his beliefs and concerns Source: Content from [facility] Aligning Care With What Matters Most: Synopsis SmartLink Most Recent Value Past ~10 years 07/05/2023 11:46 Aligning Care With What Matters Most In their own words, the patient's understanding of their prognosis: I understand b/c of the valve replacement I'm going to be more tired, I've slowed down and just running out of wind" 07/05/2023 I understand b/c of the valve replacement I'm going to be more tired, I've slowed down and just running out of wind" Rationale for Decisions Source: Content from [facility] 17 minutes spent in direct [id number] discussion today, Nehal Meza RN * Pt Handout (not on AVS) - Nehal Meza RN - 07/05/2023 11:18 AM EST Images from the original note were not included. [id number] Healthy Meals for Diabetes Ask your healthcare team to help you make a meal plan that fits your needs. Your meal plan tells you when to eat your meals and snacks, what kinds of foods to eat, and how much of each food to eat. You don?t have to give up all the foods you like. But you do need to follow some guidelines. A healthcare provider will help you develop a meal plan that fits your needs. Choose healthy carbohydrates Starches, sugars, and fiber are all types of carbohydrates (carbs). Carbs can get a bad reputation,especially since they affect your blood sugar. But your body benefits from the right amount of healthy carbs. Fiber can help lower your cholesterol and triglycerides. Fiber is also healthy for your heart. You should have 20 to 35 grams of total fiber each day. Fiber comes from plants. Fiber-rich foods include: Whole-grain breads and cereals Nuts Brown rice and quinoa Whole-wheat pasta Fruits and vegetables Beans and peas Keep track of the amount of carbs you eat. This can help you keep the right balance of physical activity and medicine. The amount of carbs needed will vary for each person. It depends on many things such as your health, the medicines you take, and how active you are. Your healthcare team will help you figure out the right amount of carbs for you. You may start with around 45 to 60 grams of carbs per meal, depending on your situation. Here are some examples of foods containing about 15 grams of carbs (1 serving of carbs): 1/2 cup of canned or frozen fruit A small piece of fresh fruit (4 ounces) 1 slice of bread 1/2 cup of oatmeal 1/3 cup of rice 4 to 6 crackers 1/2 Malawian muffin 1/2 cup of black beans 1/4 of a large baked potato (3 ounces) 2/3 cup of plain fat-free yogurt 1 cup of soup 1/2 cup of casserole 6 chicken nuggets 2-yxae-csebbu brownie or cake without frosting 2 small cookies 1/2 cup of ice cream or sherbet Choose healthy protein foods Proteins plays a olson role in building healthy muscles, bones, skin, and many other parts of your body. Eating protein that's low in fat can help you control your weight. It also helps keep your hearthealthy. Low-fat protein foods include: Fish Plant proteins, such as lentils, beans, peas, nuts, and soy products like tofu and soymilk Lean meat with all visible fat removed Poultry with the skin removed Low-fat or nonfat milk, cheese, and yogurt Limit unhealthy fats and sugar Saturated and trans fats are unhealthy for your heart. They raise LDL ("bad") cholesterol. Fat is also high in calories, so it can make you gain weight. To cut down on unhealthy fats and sugar, limitthese foods: Butter or margarine Palm and palm kernel oils and coconut oil Cream Cheese Maciel Lunch meats Ice cream Sweet bakery goods such as pies, muffins, and donuts Jams and jellies Candy bars Regular sodas How much to eat The amount of food you eat affects your blood sugar. It also affects your weight. Your healthcare team will tell you how much of each type of food you should eat. Use measuring cups and spoons and a food scale to measure serving sizes. Learn what a correct serving size looks like on your plate. This will help when you're away fromuab hospitale and can?t measure your servings. For instance, a serving of meat is about the size of the palmof your hand. Eat only the number of servings given on your meal plan for each food. Don?t take seconds. Learn to read food labels. Be sure to look at serving size, total carbohydrates, fiber, calories, sugar, salt, and saturated and trans fats. Look for healthier options to foods that have added sugar or salt. Plan ahead for parties. Then you can still have a good time without going overboard with unhealthy food choices. Set a good example yourself by bringing a healthy dish to [facility]. Choose healthy snacks When it comes to snacks, we often think about foods with added sugar and fats. But there are many other options for healthier snack choices. Here are a few snack ideas to choose from: Snacks with less than 5 grams of carbohydrates 1 piece of string cheese 3 celery sticks plus 1 tablespoon of peanut butter 5 celis tomatoes plus 1 tablespoon of ranch dressing 1 hard-boiled egg 1/4 cup of fresh blueberries 5 baby carrots 1 cup of light popcorn 1/2 cup of sugar-free gelatin 15 almonds Snacks with about 10 to 20 grams of carbohydrates 1/3 cup of hummus plus 1 cup of fresh cut nonstarchy vegetables (carrots, green peppers, broccoli, celery, or a mix) 1/2 cup of fresh or canned fruit plus 1/4 cup of cottage cheese 1/2 cup of tuna salad with 4 crackers 2 rice cakes and a tablespoon of peanut butter 1 small apple or orange 3 cups light popcorn 1/2 of a turkey sandwich (1 slice of whole-wheat bread, 2 ounces of turkey, and mustard) Portion sizes are important to controlling your blood sugar and staying at a healthy weight. Stock up on healthy snack items so you always have them on hand. When to eat Your meal plan will likely include breakfast, lunch, dinner, and some snacks. Try to eat your meals and snacks at about the same times each day. Eat all your meals and snacks. Skipping a meal or snack can make your blood sugar drop too low. It can also cause you to eat too much at the next meal or snack. Then your blood sugar could get toohigh. Last Reviewed Date: 06/30/202119999835-2772 [employer]. All rights reserved. This information is not intended as a substitute for professional medical care. Always follow your healthcare professional's instructions. * Pt Handout (not on AVS) - Nehal Meza RN - 07/05/2023 11:17 AM EST Images from the original note were not included. 72064 Exercise for a Healthier Heart You may wonder how you can improve the health of your heart. If you?re thinking about exercise, you?re on the right track. You don?t need to become an athlete. But you do need a certain amount of brisk exercise to help strengthen your heart. If you have been diagnosed with a heart condition, your healthcare provider may advise exercise to help your condition. To help make exercise a habit, choosesafe, fun activities. Exercise with a friend. When activity is fun, you're more likely to stick with it. Before you start Check with your healthcare provider before starting an exercise program. This is especially important if you haven't been active for a while. It's also important if you have a long-term (chronic) health problem such as heart disease, diabetes, or obesity. Also check with your provider if you're at high risk for having these problems. Why exercise? Exercising regularly offers many healthy rewards. It can help you do all of these: Improve your blood cholesterol level to help prevent further heart trouble. Lower your blood pressure to help prevent a stroke or heart attack. Control diabetes or reduce your risk of getting this disease. Improve your heart and lung function. Reach and stay at a healthy weight. Make your muscles stronger so you can stay active. Prevent falls and fractures by slowing the loss of bone mass (osteoporosis). Manage stress better. Improve your sense of self and your body image. Exercise tips Ease into your routine. Set small goals. Then build on them. Talk with your healthcare provider first before starting an exercise routine if you're not sure what your activity level should be. Exercise on most days. Aim for a total of at least 150 minutes (2 hours and 30 minutes) or more of moderate-intensity aerobic activity each week. You could also do 75 minutes (1 hour and 15 minutes) or more of vigorous-intensity aerobic activity each week. Or try for a combination of both. Moderate activity means that you breathe heavier and your heart rate increases, but you can still talk. Think about doing at least 30 minutes of moderate exercise, 5 times a week. It's OK to work up to [id number] period over time. Examples of moderate-intensity activity are brisk walking, gardening, and water aerobics. Step up your daily activity level. Along with your exercise program, try being more active the whole day. Walk instead of drive. Or park further away so that you take more steps each day. Do more household tasks or yard work. You may not be able to meet the advised amount of physical activity. But doing some moderate- or vigorous-intensity aerobic activity can help reduce your risk for heart disease. Your healthcare provider can help you figure out what is best for you. Choose 1 or more activities you enjoy. Walking is one of the easiest things you can do. You can also try swimming, riding a bike, dancing, or taking an exercise class. Call 911 Call 911 right away if any of these occur: Chest pain that doesn't go away quickly with rest New burning, tightness, pressure, or heaviness in your chest, neck, shoulders, back, or arms Abnormal or severe shortness of breath A very fast or irregular heartbeat (palpitations) Fainting When to call your healthcare provider Call your healthcare provider if you have any of these: Dizziness or lightheadedness Mild shortness of breath or chest pain Increased or new joint or muscle pain Last Reviewed Date: 01/28/202219999518-7251 [employer]. All rights reserved. This information is not intended as a substitute for professional medical care. Always follow your healthcare professional's instructions. * Pt Handout (not on AVS) - Nehal Meza RN - 07/05/2023 11:17 AM EST Images from the original note were not included. 87701 Diabetes: Learning About Serving and Portion Sizes Servings and portions. What?s the difference? These terms can be very confusing. But learning to measure serving sizes can help you figure out how many carbohydrates (carbs) and other foods you eat each day. They're also powerful tools for managing your weight. A good rule of thumb: Devote half your plate to vegetables and green salad. Split the other half between protein and starchy carbohydrates. Fruit makes a good dessert. Servings and portions Many different words are used to describe amounts of food. If your healthcare provider uses a term you?re not sure of, don?t be afraid to ask. It helps to know the difference between servings and portions: A serving size. This is a fixed size. Food producers use this term to describe their products. For example, the label on a cereal box could say that 1 cup of dry cereal = 1 serving. A portion (also called a helping). This is how much you eat or how much you put on your plate matthew meal. For instance, you might eat 2 cups of cereal at breakfast. Watching serving sizes The portion you choose to eat (such as 2 cups of cereal) may be more than 1 serving as listed on the food label (such as 1 cup of cereal). That?s why it helps to measure or weigh the food you eat. Because the food label values are based on servings, you?ll need to know how many servings you eat at 1 sitting. When you?re planning for a snack or a meal, keep servings in mind. If you don?t have measuring cupsor a scale handy, there are ways to figure out serving sizes. For instance, you can compare the food to the size of your hand (see pictures below). Here are some general tips: About 3 ounces of meat fits in the palm of your hand 1 cup of food is about the size of your fist An open hand holds about 1 to 2 ounces of nuts Ounces: 2 to 3 ounces is about the size of your palm. 1 cup: 1 cup (or a medium-sized piece) is about the size of your fist. 1/2 cup: 1/2 cup is about the size of your cupped hand. Managing portion sizes If your weight is a concern, reducing your portions can help. A portion is the amount of each type of food on your plate. You can eat more than 1 serving of a food at once. But to keep from eating too much at 1 meal, learn how to manage your portions. Portion control will also help with blood sugarmanagement. Last Reviewed Date: 07/31/202119991764-8782 [employer]. All rights reserved. This information is not intended as a substitute for professional medical care. Always follow your healthcare professional's instructions. * Pt Handout (not on AVS) - Nehal Meza RN - 07/05/2023 11:17 AM EST A1C A1C Does this test have other names? Hemoglobin A1c; HbA1c; glycosylated hemoglobin; glycohemoglobin; Glycated hemoglobin What is this test? A1C is a blood test that shows average blood sugar (glucose) levels over the last 3 months. The test is done to find out if a person has diabetes or prediabetes. It's also used to see how well a person with diabetes controls their blood sugar. The test can help guide diabetes treatment over time. Why do I need this test? You may need this test to check for prediabetes or diabetes. If you have diabetes or prediabetes, you may need this test to see how well you control your blood sugar. People with diabetes need to track their blood sugar (glucose) levels every day to make sure they aren?t too high or too low. The A1C test gives results for a longer period of time. It shows ifyour blood sugar has been too high on average over the last 3 months. Glucose sticks to hemoglobin in the blood. Hemoglobin is a protein in red blood cells that carries oxygen. When blood sugar is high, more glucose builds up and sticks to the hemoglobin. The A1C test measures how much of the hemoglobin is coated with sugar. You may have the test when a healthcare provider first works with you to treat your diabetes. You may then need to have the A1C test 2 or more times a year. This depends on the type of diabetes you have and how well it?s controlled. The [place] Diabetes Association (ADA) advises an A1C test at least 2 times a year if you are meeting your blood sugar goals. If you aren?t meeting your goals or your medicine has changed, you should have the A1C test more often. What other tests might I have along with this test? If your healthcare provider tests you for diabetes, you may also have any of these tests: Fasting plasma glucose blood test (FPG) Oral glucose tolerance test (OGTT) Urine test to check for sugar, ketones, or protein What do my test results mean? Test results may vary depending on your age, gender, health history, the method used for the test, and other things. Your test results may not mean you have a problem. Ask your healthcare provider what your test results mean for you. A1C results are reported as a percentage. Here are what the results mean: A1C below 5.7%. This is normal. A1C from 5.7% to 6.4%. You may have prediabetes. This means you have a higher risk for diabetes in the future. A1C of 6.5% or above on 2 separate tests. You may have diabetes. The ADA says that people with diabetes should keep an A1C below 7%. The [place] Association of Clinical Endocrinologists advises an A1C of 6.5% or less. Your healthcare provider may give you other advice. This is based on your age, health conditions, and other things. How is this test done? The test is done with a blood sample. A needle is used to draw blood from a vein in your arm or hand. Does this test pose any risks? Having a blood test with a needle carries some risks. These include bleeding, infection, bruising, and feeling lightheaded. When the needle pricks your arm or hand, you may feel a slight sting or pain. Afterward, the site may be sore. What might affect my test results? Your blood sugar levels change throughout the day. This won't affect the A1C test result. If you have sickle cell anemia or other blood disorders, an A1C test may be less useful for diagnosing or watching diabetes. Your healthcare provider may tell you to use a different test that will work better for you. The test results may be less accurate if you have any of the below: Anemia Heavy bleeding Iron deficiency Kidney failure Liver disease How do I get ready for this test? You don't need to get ready for the test. Last Reviewed Date: 09/28/202119996404-3999 [employer]. All rights reserved. This information is not intended as a substitute for professional medical care. Always follow your healthcare professional's instructions. * Pt Handout (not on AVS) - Nehal Meza RN - 07/05/2023 11:17 AM EST Images from the original note were not included. [id number] 5 Steps for Eating Healthier Changing the way you eat can improve your health. It can lower your cholesterol and blood pressure,and help you stay at a healthy weight. Your diet doesn?t have to be bland and boring to be healthy.Just watch your calories and follow these steps: Step 1. Eat fewer unhealthy fats Choose more fish and lean meats instead of fatty cuts of meat. Skip butter and lard, and use less margarine. Replace these with healthier fats, such as olive, canola, or avocado oils. Pass on foods that have palm, coconut, or partially hydrogenated oils. Eat fewer high-fat dairy foods like cheese, ice cream, and whole milk. Get a heart-healthy cookbook and try some new recipes. Step 2. Go light on salt Keep the saltshaker off the table. Limit high-salt ingredients, such as soy sauce, bouillon, and garlic salt. Instead of adding salt when cooking, season your food with herbs, spices, and other flavorings. Try lemon, garlic, onion, vinegar, or salt-free herb seasonings. Limit convenience foods, such as boxed or canned foods and restaurant food. Read food labels and choose lower-sodium options. Buy fresh, frozen, or canned vegetables that don't have added salt. Step 3. Limit sugar Pause before you add sugars to pancakes, cereal, coffee, or tea. This includes white and brown table sugar, syrup, honey, and molasses. Cut your usual amount by half. Swap out sugar-filled soda and other drinks. Buy sugar-free or low-calorie beverages. Remember, water is always the best choice. Try adding lemon juice to water for extra flavor. Read labels and choose foods with less added sugar. Keep in mind that dairy foods and foods withfruit will have some natural sugar. Cut the sugar in recipes by 1/3 to 1/2. Boost the flavor with extracts like almond, vanilla, or orange. Or add spices such as cinnamon or nutmeg. Step 4. Eat more fiber Eat fresh fruits and vegetables every day. Boost your diet with whole grains. Go for oats, whole-grain rice, and bran. Add beans and lentils to your meals. Drink more water to match your fiber increase to help prevent constipation. Step 5. Pay attention to serving sizes Remember that a serving size is a standard measurement. It will let you track the amount of fat,calories, and other nutrients in the food you eat. Read the Nutrition Facts label on packaged foods to learn their serving sizes. Use serving sizes to assess how much food you put on your plate. Pay attention to your portions.How many servings are you eating? Keep in mind that your needs may change if you?re more active or less active, or if you have other factors that change your calorie needs. Use your hand to help you measure serving sizes. For example: o 1 teaspoon: This is about the size of the first joint of your thumb. o 1 tablespoon: This is about the size of the first 2 joints of your thumb. o 1 ounce: This is about what you can fit in your cupped hand. o 2 to 3 ounces: This is about the size of the palm of your hand. o cup: This is also about what you can fit in your cupped hand. o 1 cup: This is about the size of your fist. Last Reviewed Date: 06/30/202219993447-8780 [employer]. All rights reserved. This information is not intended as a substitute for professional medical care. Always follow your healthcare professional's instructions. documented in this encounter Plan of Treatment Upcoming Encounters Date Type Department Care Team (Late st Contact Info) Description 07/20/2023 1:30 PM EST Office Visit Pharmacy, [address] [place] [address] [place] [address] 07/25/2023 3:00 PM EST [facility] [address] Emma Marte PA-C [address] [place], [place] [address] [address] 08/28/2023 11:30 AM EST Office Visit Cardiology, [facility] [address] [facility] [place] [address] Wily Conde DO [address] [facility] [place] [address] 12/20/2023 11:20 AM EDT Office Visit Family Medicine [address] [place] [phone] Britney Mojica MD [address] [place] [address] [place] [address] 12/27/2023 2:20 PM EDT Office Visit Nephrology [address] [place] [address] Jessica Gerardo MD [facility] [place] [address] 01/25/2024 2:30 PM EDT Office Visit Nephrology [address] [place] [address] ZeAmalia meier PA-C [address] [place] [address] 07/19/2024 11:00 AM EST Nurse Only Ancillary [address] [place] [address] [place], Nurse Annual [address] [place] [address] Scheduled Procedures Name Priority Associated Diagnoses Date/Ti me COLONOSCOPY FLEXIBLE PROXIMA L DIAGNOSTIC Recall History of colonic polyps Health Maintenance Due Date Last Done Comments Diabetic Foot Exam 05/31/2023 05/31/2022 (D one elsewhere), 06/18/2021, 03/25/2020, Additional history exists COLONOSCOPY-EVERY 3 YRS AGES 18-100 10/31/2023 10/30/2020, 12/08/2017 GFR 11/10/2023 05/11/2023, 10/29, 06/30/2022, Additional history exists HbA1c 11/10/2023 05/11/2023, 01/2023, 11/09/2022, Additional history exists Diabetic Eye Exam 04/21/2024 04/21/2023, , 04/21/2023, Additional history exists Albumin/Creatinine Ratio 07/03/2024 023, 06/27/2023, 04/06/2022, Additional history exists Depression Screening 07/05/2024 07/05/2023 O2 ASSESSMENT COMPLETED IN PAST YEAR FOR COPD 07/05/2024 07/05/2023 DTaP,Tdap,and Td Vaccines (3 - Td or [...] this encounter Medical Devices Implanted Type Area Parent Partner Device Identifier Shelf Expiration Date Model / Serial / Lot Valve Aor White Ii 23mm T505 - [id number] Implanted:Qty : 1 on 05/22/2012 at [place] [facility] [place] Tissue - Non Human N/A: Heart [employer] : CARDIAC SURGERY 01/01/2015 23-[id number] / [id number] / Sut Steel 6 [id number] - [id number] Implanted:Qty : 2 on 05/22/2012 at [place] [facility] [place] N/A: Chest DO NOT USE 02/27/2017 [id number] / / [id number] documented as of this encounter Visit Diagnoses Diagnosis Risk and functional assessment- Primary Screening for unspecified condition Routine general medical examination at a health care facility Anemia of chronic disease Anemia of other chronic disease Anxiety, generalized Generalized anxiety disorder Atrial fibrillation (HCC) Atrial fibrillation Chronic dermatitis Contact dermatitis and other eczema, due to unspecified cause Chronic rhinitis Coronary artery disease involving [place] coronary artery of [place] heart without angina pectoris 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) Type II or unspecified type diabetes mellitus with other specified manifestations, not stated as uncontrolled Dyslipidemia, goal LDL below 100 Other and unspecified hyperlipidemia HTN, goal below 130/80 Unspecified essential hypertension 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 (HCC) Kidney disease, chronic, stage IV (GFR 15-29 ml/min) (HCC) Chronic kidney disease, Stage IV (severe) Morbid obesity due to excess calories (HCC) ADAN on CPAP Obstructive sleep apnea (adult) (pediatric) S/P AVR (aortic valve replacement) Heart valve replaced by other means Type 2 diabetes mellitus with hemoglobin A1c goal of less than 7.0% ([facility]) Type 2 diabetes mellitus with stage 3b chronic kidney disease, with long-term current use of insulin ([facility]) Advanced care planning/counseling discussion Other specified counseling documented in this encounter Advance Directives Latest [...] the patient have Health Care Power of Pilot Fuel Engineer? No Care Teams Ecmo Specialist Relationship Specialty Start Date End Date Britney Mojica MD [address] [place] [address] [place] [address] PCP - General Family Medicine 10/16/18 documented as of this encounter
--- OUTSIDE RECORDS SUMMARY | 2023-08-01 20:23 | External Medical Summary | Summary of Care ---
Author Name Unknown Organization [facility] [address] [facility] [address] Phone [phone] Care Team Providers Care Assembler Fluorescent Lights Name Role Phone Britney Mojica MD Primary Care Prov ider Reason for Visit * Reason Comments Dosage Adjustment In Person (Anticoag Cl inic) Diabetes Follow-Up Encounter Details Date Type Department Care Team (Late st Contact Info) Description 07/05/2023 11:00 AM EST Office Visit Pharmacy, [address] [place] [address] [place] [address] Type 2 diabetes mellitus with hemoglobin A1c goal of less than 7.0% ([facility])* Allergies Active Allergy Reactions Criticality Noted Date [...] hemoglobin A1c goal of less than 7.0% ([facility]) Use as directed . 1 Kit 0 07/04/2022 Active Accu-Chek Guide In Vitro Strip (Glucose Blood)Indications:T ype 2 diabetes mellitus with hemoglobin A1c goal of less than 7.0% (HCC) 0 07/04/2022 Active Insulin Syringe 30G X 1/2" 0.5 MLIndications:Type 2 diabetes mellitus with hemoglobin A1c goal of less than 7.0% ([facility]) Use with NovoLog twice a day. DXe11.9 0 07/04/2022 Active Saline Nasal Ucon 0.65 % Nasal Solution Administer 1 Ucon into nostril as needed for Congestion. 0 Active Insulin Aspart 100 UNIT/ML Injection Solution (NovoLOG)Indication s:Type 2 diabetes mellitus with hemoglobin A1c goal of less than 7.0% ([facility]) Inject under the skin - 10 units before breakfast and 10 units before supper. SUPPLIED BY [place] Patient is taking 20-25U or as directed. 30 mL 3 12/16/2022 Active Ondansetron HCl 4 MG Oral TabletIndications:N ausea and vomiting, unspecified vomiting type Take 1 Tablet by mouth every 12 hours as needed for Nausea. 12 Tablet 0 12/28/2022 Active Insulin Glargine 100 UNIT/ML Subcutaneous Solution (Lantus) Inject 10 Units under the skin at bedtime. (Supplied by [place]) 1 Each 12 05/02/2023 Active Azelastine HCl 0.1 % Nasal Solution (Astelin)Indication s:PND (post-nasal drip) Administer 1 Ucon into nostril in the morning and 1 Ucon before bedtime. 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 Medication Therapy Disease Management [facility] - Diabetes Management Progress Note Talha Miles, identified by name and date of , is a 77 year old male being seen for diabetes management/education. Patient presents for return diabetic visit. DIABETES: Current diabetic medications: STOP Ozempic 1 Pen - 0.5mg weekly (38 "clicks") [facility] V[facility] - [facility]Log Vial - 5 units w/ meal if BG > 200 ([facility] Glucagon 1 mg IM PRN eGFR 36.5 as of 11/09/22 Patient not taking above regimen, discussed below Medication Injection Site: Abdomen Lifestyle: Diet: unchanged Glucose Review/SMBG: Readings obtained from patient device Hypoglycemia: Does your blood sugar go below 70 mg/dL? No Hyperglycemia symptoms present: none Recent Labs Units 05/11/23 0000 04/06/23 0954 11/09/22 0000 HEMOGLOBIN A1C - [facility] % -- 7.0* -- HEMOGLOBIN, [id number] % 7.2* -- 6.5* Recent Labs Units 05/11/23 0000 11/09/22 0000 06/30/22 0000 EGFR-OUTSIDE LAB ML/MIN 30.8 36.5 32.6 CREATININE-OUTSIDE LAB MG/DL 2.2* 1.9* 2.1* HYPERTENSION: Patient on ACEi/ARB: yes BP Readings from Last 3 Encounters: 07/05/23 128/78 06/27/23 129/65 06/21/23 130/60 Blood pressure at goal: yes HYPERLIPIDEMIA: Patient is taking moderate or high intensity statin: yes HEALTH MAINTENANCE REVIEW: Health Maintenance Due Topic Date Due Diabetic Foot Exam 05/31/2023 Depression Screening 07/04/2023 ASSESSMENT & PLAN: ICD-10-CM 1. Type 2 diabetes mellitus with hemoglobin A1c goal of less than 7.0% ([facility]) E11.9 Considerations: All medications/testing supplies from [place] Tests twice a day per [place] allowance Renal dx - caution with metformin and SGLT2 CGM unaffordable 03/08/2021, able to obtain 11/2022 ([employer] PACE in 2021 Foot doctor with [place] Ozempic --> Unable to tolerate Reviewed and discussed medications with patient. At last visit, patient had stopped taking Ozempic.Restarted insulin (both Novolog and Lantus) and had been taking on PRN basis. Today patient presents stating he is taking the following: Novolog --> 20 - 25 units with meals Lantus --> Using PRN, last x7 days reports taking 15 units two times Lengthy discussion with patient regarding the need for consistent insulin doses in order to properly dose/assess and to reduce risk of hypoglycemia. Discussed the Lantus should NOT be used PRN d/t long-acting nature. Patient expressed understanding. Agreeable to start regimen previously discussed at last visit as noted below. Will plan for close f/u x2 weeks to assess. Instructed to contact clinic if any consistent hypo- or hyper- glycemia priorto that time Patient is agreeable to SMBG daily with CGM ([employer]) Patient aware to contact clinic if any hypoglycemia before next visit. MEDICATION CHANGES: See below Diabetic Medications: Lantus Vial - 10 units daily [facility]) NovoLog Vial - 5 units w/ meal if BG > 200 (obtaining from the [place]) Glucagon 1 mg IM PRN eGFR 36.5 as of 11/09/22 HEALTH MAINTENANCE INTERVENTIONS: Labs: Up to Date Immunizations: Up to Date Foot Exam: Due Eye Exam: Up to Date Annual Wellness Visit: Completed today FOLLOW UP: Return to clinic in 2 weeks 07/20/2023 Juliann Cabral [facility] Clinical Pharmacist - Director Targeted Marketing Medication Therapy Management Clinic 07/05/2023, 11:12 AM documented in this encounter Plan of Treatment Upcoming Encounters Date Type Department Care Team (Late st Contact Info) Description 07/20/2023 1:30 PM EST Office Visit Pharmacy, [address] [place] [address] [place] [address] 07/25/2023 3:00 PM EST Office Visit Cardiology, [facility] [address] [facility] [place] [address] Emma Marte PA-C [address] [place] [address] 08/28/2023 11:30 AM EST Office Visit Cardiology, [facility] [address] [facility] [place] [address] Wily Conde DO [address] [facility] [place] [address] 12/20/2023 11:20 AM EDT Office Visit Family Medicine [address] [place] [phone] Britney Mojica MD [address] [place] [address] [place] [address] 12/27/2023 2:20 PM EDT Office Visit Nephrology [address] [place] [address] Jessica Gerardo MD [address] [place] [address] 01/25/2024 2:30 PM EDT Office Visit Nephrology [address] [place] [address] ZeAmalia meier PA-C [address] [place] [address] 07/19/2024 11:00 AM EST Nurse Only Ancillary [address] [place] [address] [place], Nurse [address] [place] [address] Scheduled Procedures Name Priority Associated Diagnoses Date/Ti me COLONOSCOPY FLEXIBLE PROXIMA L DIAGNOSTIC Recall History of colonic polyps Health Maintenance Due Date Last Done Comments Diabetic Foot Exam 05/31/2023 05/31/2022 (D one elsewhere), 06/18/2021, 03/25/2020, Additional history exists COLONOSCOPY-EVERY 3 YRS AGES 18-100 10/31/2023 10/30/2020, 12/08/2017 GFR 11/10/2023 05/11/2023, 10/29, 06/30/2022, Additional history exists HbA1c 11/10/2023 05/11/2023, 09/0 01/2023, 11/09/2022, Additional history exists Diabetic Eye [...] Referral Discontinued 12/22/2022 Hepatitis B Completed 01/02/2023, 02/0 12/2022, 07/06/2022 Influenza Vaccine (FLU shot) Completed 05/18/2023, 05/07/2022, 04/19/2021, Additional history exists COVID-19 Vaccine Completed 06/21/2023, 05/2022, 11/02/2021, Additional history exists GARDASIL-HPV IMMUNIZATION SERIES Aged Out No longer eligible based on patient's age to complete this topic MENINGOCOCCAL (MENACTRA/MENVEO) Aged Out No longer eligible based on patient's age to complete this topic documented as of this encounter Medical Devices Implanted Type Area Surgeon/President Device Identifier Shelf Expiration Date Model / Serial / Lot Valve Aor White Ii 23mm T505 - [id number] Implanted:Qty : 1 on 05/22/2012 at [facility] Tissue - Non Human N/A: Heart [employer] : CARDIAC SURGERY 01/01/2015 23-T505 / [id number] / Sut Steel 6 M654g - [id number] Implanted:Qty : 2 on 05/22/2012 at OR [facility] [place] N/A: Chest DO NOT USE 02/27/2017 [id number] / / [id number] documented as of this encounter Visit Diagnoses Diagnosis Type 2 diabetes mellitus with hemoglobin A1c goal of less than 7.0% ([facility])- Primary documented in this encounter Advance Directives Latest [...] the patient have Health Care Power of Tare Weigher? No Care Teams Assembler Fluorescent Lights Relationship Specialty Start Date End Date Britney Mojica MD [address] [place] [address] [place] [address] PCP - General Family Medicine 10/16/18 documented as of this encounter
--- OUTSIDE RECORDS SUMMARY | 2023-08-01 20:23 | External Medical Summary | Summary of Care ---
Author Name Unknown Organization [facility] [address] [address] Phone [phone] Care Team Providers Care Hand Sewer Shoes Name Role Phone Britney Mojica MD Primary Care Prov ider Reason for Referral * Precert (Within 10 days (routine)) - Authorized Specialty Diagnoses / Procedures Referred By Contac t Referred To Contact Cardiac Studies Diagnoses Chronic atrial fibrillation (HCC) S/P AVR (aortic valve replacement) HTN, goal below 130/80 Procedures ECHO, COMPLETE (2D), TRANS-THORACIC Emma Marte PA-C [address] [place] [address] Referral ID Status Reason Start Date Expiration Date V isits Requested Visits Authorized [id number] Authorized Precert 07/26/2023 999 999 Reason for Visit * Reason Comments Follow Up Encounter Details Date Type Department Care Team (Late st Contact Info) Description 07/25/2023 3:00 PM EST Office Visit Cardiology, [facility] [address] [facility] [place] [address] Emma Marte PA-C [address] [place] [address] Chronic atrial fibrillation (HCC)*; S/P AVR (aortic valve replacement); HTN, goal below 130/80 Allergies Active Allergy Reactions Criticality Noted Date Comments Iodinated Contrast Media Rash High 05/02/2012 Lisinopril 08/18/2003 Dry cough Metformin Other (Please comment) 10/19/2021 documented as of this encounter (statuses as of 07/25/2023) Medications Medication Sig Dispensed Refills Start Date End Date Status FLAXSEED (LINSEED) 1000 MG PO CAPSIndications:Dy slipidemia, goal LDL below 100 Take by mouth . 4 times a week 0 06/06/2012 Active ASPIRIN 81 MG PO TABS 1 tab daily 0 Active ATORVASTATIN CALCIUM 40 MG PO TABS Take 0.5 Tablets by mouth at bedtime. 0 Active B-12 1000 MCG PO CAPS Take by mouth. 5-6 days/week 0 Active DOXEPIN HCL 50 MG PO CAPS One pill by mouth at bedtime 30 Cap 11 08/05/2014 Active Magnesium Oxide 400 MG CapsuleIndications :Hypomagnesemia,CK D (chronic kidney disease), stage 3 (moderate) Take [...] areas 0 Active clotrimazole (LOTRIMIN) 1 % creamIndications:E rythema intertrigo Apply topically to affected area 2 times a day. Apply 2x daily to rash in groin until resolved or next dermatology appointment 339 g 3 06/10/2019 Active artificial tears (TEARS NATURALE II) 1.4 % ophthalmic solution Instill 1 Drop into both eyes as needed. 0 Active Latanoprost-Timolo l Maleate 0.005-0.5 % SOLN Instill 1 Drop into both eyes at bedtime. 0 Active Fluticasone Propionate HFA 110 MCG/ACT Inhalation Aerosol (Flovent HFA)Indications:Si mple chronic bronchitis (HCC),Chronic bronchitis with productive mucopurulent cough (HCC) Inhale 2 Puffs by mouth 2 times a day. 12 g 5 06/08/2020 Active Loratadine 10 MG Oral Capsule Take 1 Capsule by mouth daily as needed. 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 90 Tablet 3 08/31/2021 Active Accu-Chek Guide Me w/Device KitIndications:Typ e 2 diabetes mellitus with hemoglobin A1c goal of less than 7.0% (HCC) Use as directed . 1 Kit 0 07/04/2022 Active Accu-Chek Guide In Vitro Strip (Glucose Blood)Indications: Type 2 diabetes mellitus with hemoglobin A1c goal of less than 7.0% (HCC) 0 07/04/2022 Active Insulin Syringe 30G X 1/2" 0.5 MLIndications:Type 2 diabetes mellitus with hemoglobin A1c goal of less than 7.0% (HCC) Use with NovoLog twice a day. DXe11.9 0 07/04/2022 Active Saline Nasal [place] 0.65 % Nasal Solution Administer 1 [place] into nostril as needed for Congestion. 0 Active Ondansetron HCl 4 MG Oral TabletIndications: Nausea and vomiting, unspecified vomiting type Take 1 Tablet by mouth every 12 hours as needed for Nausea. 12 Tablet 0 12/28/2022 Active Insulin Glargine 100 UNIT/ML Subcutaneous Solution (Lantus) Inject 10 Units under the skin at bedtime. (Supplied by [facility]) 1 Each 12 05/02/2023 Active Azelastine HCl 0.1 % Nasal Solution (Astelin)Indicatio ns:PND (post-nasal drip) Administer 1 [place] into nostril in the morning and 1 [place] before bedtime. 30 mL 3 06/21/2023 Active guaiFENesin 400 MG Oral Tablet Take 1 Tablet by mouth every 4 hours as needed for Congestion. 180 Tablet 3 06/21/2023 4 Active RSVPreF3 Vac Recomb Adjuvanted 120 MCG/0.5ML Intramuscular Suspension Reconstituted Give 1 injection only 1 Each 0 07/18/2023 Active Insulin Aspart 100 UNIT/ML Injection Solution (NovoLOG)Indicatio ns:Type 2 diabetes mellitus with hemoglobin A1c goal of less than 7.0% (HCC) Inject 10-15 units under the skin three times daily with meals. [facility] 0 07/20/2023 Active Apixaban 2.5 MG Oral Tablet (Eliquis) Take 1 Tablet by mouth in the morning and 1 Tablet before bedtime. 0 07/25/2023 Active Apixaban 5 MG Oral Tablet (Eliquis)Indicatio ns:Paroxysmal atrial fibrillation (HCC) Take by mouth 1 Tablet in the morning AND 1 Tablet before bedtime. 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 [...] as of this encounter (statuses as of 07/25/2023) Resolved Problems Problem Noted Date Diagnosed Date [...] angiopathy without gangrene 07/16/2018 0 04/08/2020 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 07/16/2018 Venous insufficiency 12/15/2016 [...] 11/29/2012 08/17/2018 Anticoagulation management encounter 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/2012 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 05/31/2012 [...] as of this encounter (statuses as of 07/25/2023) Immunizations Name Administration Dates Next Due COVID-19 mRNA, LNP-s, No Pre serve, 2-Dose Series (Moderna) 09/23/2020,08/26/2020 COVID-19, MRNA-LNP, 23-24, P F, 30 MCG/0.3 mL, 12 YRS AND ABOVE, IM (PFIZER-Comirnat) 06/21/2023 COVID-19, mRNA, LNP-s, PF, B ooster, [...] Sign Reading Time Taken Comments Blood Pressure 118/56 07/25/2023 3:02 PM EST Pulse 98 07/25/2023 3:02 PM EST Temperature - - Respiratory Rate 20 07/25/2023 3:02 PM EST Oxygen Saturation - - Inhaled Oxygen Concentration - - Weight 129.7 kg (286 lb) 07/25/2023 3:02 PM EST Height - - Body Mass Index 42.54 07/05/2023 10:15 AM EST documented in this encounter Progress Notes * Emma Marte PA-C - 07/25/2023 2:58 PM EST 07/25/2023 Cardiology Follow Up Primary Maintenance Custodian: Dr. Conde Past Medical History: Chronic atrial fibrillation Atrial flutter s/p ablation- 06/2012 Right atrial tachycardia s/p ablation- 05/2015 Aortic stenosis s/p aortic valve replacement- 04/2012 HTN HPI: Talha Miles is a 78 year old male who presents for routine cardiology follow up. Last evaluated in clinic approximately [address] Conde. Presents today accompanied by . Overall feeling well. Notes that he fatigues easier than previously. Has some shortness of breath with activity, but walks around yard and his shop with no difficulties. Denies chest pain, palpitations, edema, PND, orthopnea, lightheadedness, syncope. Occasionally has some leg swelling, worse now due to eating ham for [place], but normally tries to eat a low salt diet. Compliant with all medications. [facility] recently decreased Eliquis dose due to age. REVIEW OF SYSTEMS: See HPI for pertinent positives. All others negative other than those noted in the HPI. CONSTITUTIONAL: No change in weight, No weakness, + fatigue and No fevers, No sweats or chills. PULMONARY: No cough, sputum, or hemoptysis, No wheezing, No shortness of breath and No recent change in breathing. CARDIOVASCULAR: No chest pain, + dyspnea on exertion, No edema, No palpitations and No syncope. GASTROINTESTINAL: No abdominal pain, No change in bowel habits, No significant heartburn, No nausea, No vomiting, No diarrhea, No constipation, No blood in stools or black tarry stools. No dysphagia. HEMATOLOGIC: No abnormal bleeding and No bruising. NEUROLOGICAL: Normal balance, No headaches and No weakness. Review of patient's allergies indicates: Allergen Reactions Iodinated Contrast Media Rash Lisinopril Dry cough Metformin Other (Please comment) Current Outpatient Medications Medication Sig Dispense Refill FLAXSEED (LINSEED) 1000 MG PO CAPS Take by mouth . 4 times a week 0 ASPIRIN 81 MG PO TABS 1 tab daily ATORVASTATIN CALCIUM 40 MG PO TABS Take 0.5 Tablets by mouth at bedtime. B-12 1000 MCG PO CAPS Take by mouth. 5-6 days/week DOXEPIN HCL 50 MG PO CAPS One [...] Tablet in the morning. 90 Tablet 3 Saline Nasal [place] 0.65 % Nasal Solution Administer 1 [place] into nostril as needed for Congestion. Ondansetron HCl 4 MG Oral Tablet Take 1 Tablet by mouth every 12 hours as needed for Nausea. 12 Tablet 0 Insulin Glargine 100 UNIT/ML Subcutaneous Solution (Lantus) Inject 10 Units under the skin at bedtime. (Supplied by [facility]) 1 Each 12 Azelastine HCl 0.1 % Nasal Solution (Astelin) Administer 1 [place] into nostril in the morning and 1 [place] before bedtime. 30 mL 3 guaiFENesin 400 MG Oral Tablet Take 1 Tablet by mouth every 4 hours as needed for Congestion. 180 Tablet 3 Insulin Aspart 100 UNIT/ML Injection Solution (NovoLOG) Inject 10-15 units under the skin three times daily with meals. SUPPLIED BY [facility] Apixaban 2.5 MG Oral Tablet (Eliquis) Take 1 Tablet by mouth in the morning and 1 Tablet before bedtime. Accu-Chek Guide Me w/Device Kit Use as directed . 1 Kit 0 Accu-Chek Guide In Vitro Strip (Glucose Blood) Insulin Syringe 30G X 1/2" 0.5 ML Use with NovoLog twice a day. DXe11.9 RSVPreF3 Vac Recomb Adjuvanted 120 MCG/0.5ML Intramuscular Suspension Reconstituted Give 1 injection only 1 Each 0 No current facility-administered medications for this visit. Past Medical History: Diagnosis Date AFTER-CATARACT NEC 07/15/2002 Aortic stenosis 04/18/2012 severe on echocardiogram of 04/25/12. AV obed re-entry tachycardia Body mass index (BMI) of 45.0 to 49.9 in adult ([facility]) 07/08/2019 bmi 44.69 Per Obesity protocol - Per Obesity protocol Chronic dermatitis 08/22/2013 CHRONIC SKIN ULCER NEC 01/13/2011 Class 3 severe obesity with serious comorbidity and body mass index (BMI) of 40.0 to 44.9 in adult ([facility]) 11/06/2019 Duplicate- resolved DERMATITIS NOS 10/28/2003 Deviated nasal septum Diastolic dysfunction, left ventricle 04/18/2012 DM type 2 causing renal disease ([facility]) 11/29/2012 DM type 2, goal A1c below 7 08/07/01 Dyslipidemia, goal LDL below 100 07/16/2009 Essential hypertension with goal blood pressure less than 140/90 05/18/2016 HTN, goal below 130/80 06/23/2009 Impotence of organic origin Kidney disease, chronic, stage III (GFR 30-59 ml/min) ([facility]) 11/29/2012 LVH (left ventricular hypertrophy) 04/18/2012 Mixed dyslipidemia OBESITY, BMI 40 AND OVER 01/12/2010 Obesity, Class III, BMI 40-49.9 (morbid obesity) ([facility]) 12/08/2011 Other chest pain 03/09/98 Normal Coronary Arteries by catheterization Other specified disease of hair and hair follicles Paroxysmal SVT (supraventricular tachycardia) 04/14/2015 Progressive high myopia 07/15/2002 Rotator cuff tear arthropathy 12/07/2014 S/P AVR (aortic valve replacement) 06/06/2012 Sleep apnea on CPAP Venous insufficiency 12/15/2016 Family History Problem Relation Age of Onset Diabetes Mother Stroke Father age 55 Diabetes Sister Cancer Sister uterus Other (ESRD) Sister 1/2 sister Other (Other ESRD/CKD) None Stomach cancer Grandfather (Maternal) Stomach cancer Other Social History Socioeconomic History Marital status: Number of children: 3 Occupational History 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 Comment: [employer] Tobacco Use Smoking status: Former Packs/day: 1.00 Years: 20.00 Additional pack years: 0.00 Total pack years: 20.00 Types: Cigars, Cigarettes Quit date: 07/31/1996 Years since quittin.0 Smokeless tobacco: Never Vaping Use Vaping Use: Never used Substance and Sexual Activity Alcohol use: Yes Alcohol/week: 1.0 standard drink of alcohol Types: 1 5 oz of wine per week Comment: rare wine, makes his own Drug use: No Sexual activity: Yes Partners: Female Other Topics 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 Caffeine Concern No Occupational Exposure No Hobby Hazards No Sleep Concern No Stress Concern No Weight Concern Yes Special Diet Yes Exercise No Seat Belt Yes Social History Narrative 39yrs as of 07/05/2023 Social Determinants of Health Food Insecurity: Unknown (12/16/2022) Hunger Vital Sign Worried About Running Out of Food in the Last Year: Patient refused Ran Out of Food in the Last Year: Patient refused OBJECTIVE/PHYSICAL EXAMINATION: BP 118/56 (BP Site: Left Arm, BP Position: Sitting, BP Cuff Size: Large) | Pulse 98 | Resp 20 | Wt 129.7 kg (286 lb) | BMI 42.54 kg/m | BSA 2.51 m Wt Readings from Last 3 Encounters: 07/25/23 129.7 kg (286 lb) 07/05/23 128.8 kg (284 lb) 06/27/23 127.9 kg (282 lb) General: No acute distress. A+Ox3. HEENT: Normocephalic. Atraumatic. PERRL. EOMI. Conjunctiva and sclera clear. NECK: No carotid bruits. No JVD. Carotid upstrokes are brisk. Heart: irregular rhythm. S1 and S2 noted. No murmur. No rubs or gallops. PMI non displaced. Lungs: Clear to auscultation. No wheezes. No rhonchi. No rales. Abdomen: Normal bowel sounds. Soft. Nontender. No masses or organomegaly. No abdominal bruits. Obese. Extremities: 2+ lower extremity edema. No clubbing or cyanosis. Pulses: radial=2/4, posterior tibial=2/4, dorsalis pedis = 2/4. NEURO: No focal deficits. PSYCH: Appropriate affect and insight. DATA Labs & Imaging Reviewed Below: EKG 02/13/23 Afib with RVR, left anterior hemiblock, 102 bpm Echo 05/04/22 The rhythm during the transthoracic echo examination was atrial fibrillation with rapid ventricularresponse. The examination is limited quality but adequate for evaluation of the referral indication. The qualitative LV ejection fraction is 50-54% (normal). The LV wall thickness is moderately increased (concentric). The septal motion is abnormal consistent with the post-operative state. The left atrium is severely enlarged (>48 ml/m^2,). There is an aortic valve bioprosthetic present. Mild intravalvular aortic regurgitation is present. The aortic valve prosthesis systolic gradients are are borderline elevated and are indeterminate for obstruction. Mild mitral regurgitation is present. Mild tricuspid regurgitation is present. Compared to last available study changes are noted as follows: Left ventricular systolic function is borderline reduced, atrial fibrillation with rapid ventricular response now present. ASSESSMENT/PLAN: 78 year old year old male 1. Chronic atrial fibrillation (HCC) - heart rate controlled - continue metoprolol tartrate 50 mg twice daily - continue apixaban 2.5 mg twice daily 2. S/P AVR (aortic valve replacement) - mild dyspnea on exertion - repeat echo - continue aspirin 81 mg daily 3. HTN, goal below 130/80 - blood pressure controlled - continue losartan 50 mg daily - recommend low salt diet DISPOSITION: Follow up 6 months or sooner if symptoms worsen/fail to improve. All questions were answered to the patients satisfaction. Patient advised to report to ED with any and all emergencies. The patient agrees to the above plan and will call with additional questions or concerns. Emma Marte PA-C Cardiology, [facility] [address] [place] [address] I spent a total of 40 minutes on the date of service in preparation, delivery, and documentation ofthe care provided to Talha Miles excluding any time spent in the performance of separately billed services. This chart was completed in part utilizing Natanael Ulien Speech Voice Recognition Software. Grammatical errors, random word insertions, pronoun errors, and incomplete sentences are an occasional consequence of this system due to software limitations, ambient noise, and hardware issues. Any formal questions or concerns about the content, text, or information contained within the body of this dictation should be directly addressed to the provider for clarification. documented in this encounter Nursing Notes * Natacha Delaney CMA - 07/25/2023 3:09 PM EST Examination Room: 2 Name: Talha Miles Date of : (1945). Reason for Visit: 2M f/u Interim Hospitalization(s): none Problems/Concerns: denies Chest Pain/SOB: Denies CP. Worsening SOB with afib. [facility] Discussed: No [facility] [employer] [facility] is a way you can talk to your provider online through e-mail. Would you like to sign up? I can activate it for you? ALREADY ACTIVE Patient was instructed to not get up on the exam table until directed and assisted by their provider; patient is to remain seated in the chair/ wheelchair/ exam table for fall prevention and safety reasons. Patient is aware to have assistance to step down off exam table with personnel. Patient voiced full comprehension of instructions. documented in this encounter Plan of Treatment Upcoming Encounters Date Type Department Care Team (Late st Contact Info) Description 08/24/2023 1:00 PM EST Office Visit Pharmacy, [address] [place] [address] [place] [address] 12/20/2023 11:20 AM EDT Office Visit Family Medicine [address] [place] [phone] Britney Mojica MD [address] [place] [address] [place] [address] 12/27/2023 2:20 PM EDT Office Visit Nephrology [address] [place] [address] Jessica Gerardo MD [address] [place] [address] 01/25/2024 2:30 PM EDT Office Visit Nephrology [address] [place] [address] ZeAmalia meier PA-C [address] [place] [address] 07/19/2024 11:00 AM EST Nurse Only Ancillary [address] [place] [address] [place], Nurse Annual [address] [place] [address] Scheduled Orders Name Type Priority Associated Diagnoses Orde r Schedule ECHO, COMPLETE (2D), TRANS-THORACIC Echocardiology Routine Chronic atrial fibrillation (HCC) S/P AVR (aortic valve replacement) HTN, goal below 130/80 Expected: 07/26/2023, Expires: 08/24/2025 Scheduled Procedures Name Priority Associated Diagnoses Date/Ti [...] this encounter Medical Devices Implanted Type Area Choral Teacher Device Identifier Shelf Expiration Date Model / Serial / Lot Valve Aor White Ii 23mm T505 - [id number] Implanted:Qty : 1 on 05/22/2012 at OR [facility] Tissue - Non Human N/A: Heart [employer] : CARDIAC SURGERY 01/01/2015 23-T505 / [id number] / Sut Steel 6 M654g - [id number] Implanted:Qty : 2 on 05/22/2012 at OR [facility] N/A: Chest DO NOT USE 02/27/2017 [id number] / / [id number] documented as of this encounter Visit Diagnoses Diagnosis Chronic atrial fibrillation (HCC)- Primary Atrial fibrillation S/P AVR (aortic valve replacement) Heart valve replaced by other means HTN, goal below 130/80 Unspecified essential hypertension documented in this encounter Advance Directives Latest [...] the patient have Health Care Power of Wet Char Conveyor Tender? No Care Teams Hand Sewer Shoes Relationship Specialty Start Date End Date Britney Mojica MD [address] [place] [address] [place] [address] PCP - General Family Medicine 10/16/18 documented as of this encounter
--- OUTSIDE RECORDS SUMMARY | 2023-08-01 20:23 | External Medical Summary | Summary of Care ---
Author Name Unknown Organization [facility] Address [address] [facility] [facility] [address] Phone [phone] Care Team Providers Care Anesthesiology Faculty Name Role Phone Britney Mojica MD Primary Care Prov ider Reason for Visit * Reason Comments Chronic Kidney Disease (CKD) Encounter Details Date Type Department Care Team (Late st Contact Info) Description 06/27/2023 1:00 PM EST Office Visit Nephrology [address] [place] [phone] Amalia Mujica PA-C [address] [address] Kidney disease, chronic, stage IV (GFR 15-29 ml/min) (HCC)*; HTN, goal below 130/80; Albuminuria; Hyperparathyroidism, secondary renal (HCC) Allergies Active Allergy Reactions Criticality Noted Date Comments Iodinated Contrast Media Rash High 05/02/2012 Lisinopril 08/18/2003 Dry cough Metformin Other (Please comment) 10/19/2021 documented as of this encounter (statuses as of 06/28/2023) Medications Medication Sig Dispensed Refills Start Date [...] day. DXe11.9 0 07/04/2022 Active Saline Nasal [place] 0.65 % Nasal Solution Administer 1 [place] into nostril as needed for Congestion. 0 Active Insulin Aspart 100 UNIT/ML Injection Solution (NovoLOG)Indication s:Type 2 diabetes mellitus with hemoglobin A1c goal of less than 7.0% (HCC) Inject under the skin - 10 units before breakfast and 10 units before supper. SUPPLIED BY [employer] 30 mL 3 12/16/2022 Active Ondansetron HCl 4 MG Oral TabletIndications:N ausea and vomiting, unspecified vomiting type Take 1 Tablet by mouth every 12 hours as needed for Nausea. 12 Tablet 0 12/28/2022 Active Insulin Glargine 100 UNIT/ML Subcutaneous Solution (Lantus) Inject 10 Units under the skin at bedtime. (Supplied by [employer]ily[employer]) 1 Each 12 05/02/2023 Active Azelastine HCl 0.1 % Nasal Solution (Astelin)Indication s:PND (post-nasal drip) Administer 1 [place] into nostril in the morning and 1 [place] before bedtime. 30 mL 3 06/21/2023 Active guaiFENesin 400 MG Oral Tablet Take 1 Tablet by mouth every 4 hours as needed for Congestion. 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 [...] as of this encounter (statuses as of 06/28/2023) Resolved Problems Problem Noted Date Diagnosed Date [...] 08/17/2018 Anticoagulation management encounter 05/31/2012 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 therapy 05/31/2012 [...] as of this encounter (statuses as of 06/28/2023) Immunizations Name Administration Dates Next Due COVID-19 [...] Sign Reading Time Taken Comments Blood Pressure 129/65 06/27/2023 12:47 PM EST Pulse 73 06/27/2023 12:47 PM EST Temperature 35.5 C (95.9 F) 06/27/2023 12:[address] Respiratory Rate 18 06/27/2023 12:47 PM EST Oxygen Saturation 99% 06/27/2023 12:47 PM EST Inhaled Oxygen Concentration - - Weight 127.9 kg (282 lb) 06/27/2023 12:47 PM EST Height - - Body Mass Index 41.05 08/10/2022 10:53 AM EST documented in this encounter Progress Notes * Amalia Mujica PA-C - 06/27/2023 1:00 PM EST Images from the original note were not included. 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 ADAN on CPAP G47.33 Type 2 diabetes mellitus with hemoglobin A1c goal of less than 7.0% ([facility]) E11.9 HTN, goal below 130/80 I10 Dyslipidemia, goal LDL below 100 E78.5 Morbid obesity due to excess calories ([facility]) E66.01 Atrial fibrillation ([facility]) I48.91 S/P AVR (aortic valve replacement) Z95.2 DM type 2 causing renal disease ([facility]) E11.29 Chronic dermatitis L30.9 Lichen simplex chronicus L28.0 Rotator cuff tear, right M75.101 Diastolic dysfunction I51.89 Anemia of chronic disease D63.8 Chronic rhinitis J31.0 Type 2 diabetes mellitus with diabetic dermatitis ([facility]) E11.620 Chest pain due to myocardial ischemia I25.9 Carpal tunnel syndrome of left wrist G56.02 Hypertension in stage 4 chronic kidney disease due to type 2 diabetes mellitus ([facility]) E11.22, I12.9,N18.4 Heart failure, systolic, due to CAD I50.20, I25.10 Renal osteodystrophy N25.0 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 ([facility]) I13.0, I50.22, N18.4 Morbid obesity with body mass index of 40.0-44.9 in adult ([facility]) E66.01, Z68.41 Coronary artery disease involving [place] coronary artery of [place] heart without angina pectoris I25.10 Simple chronic bronchitis ([facility]) J41.0 Hyperparathyroidism, secondary renal ([facility]) N25.81 Anemia of chronic renal failure, stage 4 (severe) ([facility]) N18.4, D63.1 Kidney disease, chronic, stage IV (GFR 15-29 ml/min) ([facility]) N18.4 PND (post-nasal drip) R09.82 Anxiety, generalized F41.1 Xerostomia K11.7 Seborrheic keratoses L82.1 Type 2 diabetes mellitus with stage 3b chronic kidney disease, with long-term current use of insulin (HCC) E11.22, N18.32, Z79.4 BACKGROUND: 77 year old male presents for f/u of albuminuric CKD 3b/4 from age, htn, dm. Past Medical history includes aortic stenosis status post bioprosthetic AV replacement and postop AFib, recurrent AFib/SVT status post 2011 ablation repeated twice in 2014 as well, hypertension, sleep apnea on CPAP, diabetes since 2001 on oral meds, class 3 obesity, remote posterior cervical traumax2 (tractor sheet/tree), right shoulder surgery after a fall August,. Posterior neck skin lesions which derm reported as neurologic issue but patient refused to follow further with derm. On long-term doxycycline for this. 1 time episode stone disease 2005. History of cough with lisinopril. History of reactions to IV contrast for cardiac catheterization; then complications on Prednisone as well. Dx w/ a fib standing, in wake of coronavirus and presented w/ lots of phlegm, trouble swallowing, slight chest pain. Saw [facility] cards Dr Wilder Follows at [place]; Half sister with history of CKD or ESRD, Enjoys crystal light lemonade. About 60-80 ounces fluid daily. Continues to avoid sodium as best as possible. Spends some perez in [place] and loves to spend time in his shop. Camps at [facility]. Ran a [facility] previously Today 06/27/23 Presents with his . Denies any recent hospitalizations, procedures or infections. [facility] routine appts with [facility] every 6 months -labs were last completed there in April Reports no salt in food No longer with Ozempic due to GI upset - stopped approx 1 month ago. Currently adjusting insulin dosing for glycemic control No other complaints REVIEW OF SYSTEMS General: + fatigue, No change in weight Head: No significant headache Respiratory: No cough,No wheezing, + shortness of breath exertion + PND Cardiovascular:No chest pain, No palpitations, and No syncope + Falls- May Gastrointestinal: No nausea, vomiting, diarrhea + loose stools No blood in stools Urinary: No dysuira, No hematuria. No flank pain Musculoskeletal: No edema Skin: No itching All other systems were reviewed and were negative. Current Outpatient Medications Medication Sig Dispense Refill FLAXSEED (LINSEED) 1000 MG PO CAPS Take by mouth . 4 times a week 0 ASPIRIN 81 MG PO TABS 1 tab daily ATORVASTATIN CALCIUM 40 MG PO TABS Take 0.5 Tablets by mouth at bedtime. B-12 1000 MCG PO CAPS one tablet by mouth daily DOXEPIN HCL 50 MG PO CAPS One [...] 1 Tablet before bedtime. 180 Tablet 3 Accu-Chek Guide Me w/Device Kit Use as directed . 1 Kit 0 Accu-Chek Guide In Vitro Strip (Glucose Blood) Saline Nasal [place] 0.65 % Nasal Solution Administer 1 [place] into nostril as needed for Congestion. Ondansetron HCl 4 MG Oral Tablet Take 1 Tablet by mouth every 12 hours as needed for Nausea. 12 Tablet 0 Insulin Glargine 100 UNIT/ML Subcutaneous Solution (Lantus) Inject 10 Units under the skin at bedtime. (Supplied by [employer]x) 1 Each 12 Azelastine HCl 0.1 % Nasal Solution (Astelin) Administer 1 [place] into nostril in the morning and 1 [place] before bedtime. 30 mL 3 guaiFENesin 400 MG Oral Tablet Take 1 Tablet by mouth every 4 hours as needed for Congestion. 180 Tablet 3 Insulin Syringe 30G X 1/2" 0.5 ML Use with NovoLog twice a day. DXe11.9 Insulin Aspart 100 UNIT/ML Injection Solution (NovoLOG) Inject under the skin - 10 units before breakfast and 10 units before supper. SUPPLIED BY [employer]x 30 mL 3 No current facility-administered medications for this visit. PHYSICAL EXAMINATION Last 4 BP Readings: BP Readings from Last 4 Encounters: 06/27/23 129/65 06/21/23 130/60 02/13/23 134/66 12/28/22 126/60 Last 3 Weights: Wt Readings from Last 3 Encounters: 06/27/23 127.9 kg (282 lb) 06/21/23 128.2 kg (282 lb 9.6 oz) 02/13/23 127.7 kg (281 lb 8 oz) BP 129/65 (BP Site: Right Arm, BP Position: Sitting, BP Cuff Size: Large) | Pulse 73 | Temp 35.5 C (95.9 F) | Resp 18 | Wt 127.9 kg (282 lb) | SpO2 99% | BMI 41.05 kg/m | BSA 2.5 m Wt Readings from Last 1 Encounters: 06/27/23 127.9 kg (282 lb) General appearance: alert, no apparent distress. Ambulatory without HEAD: Normocephalic, No masses, lesions, tenderness Respiratory: clear to auscultation, no rhonchi, no wheezes, and no crackles Heart: regular rate Abdomen: abdomen soft, non-tender, normal bowel sounds, and no CVA tenderness EXTREMITIES: No edema, No cyanosis or clubbing Skin: skin color, texture, turgor are normal NEURO: alert & oriented x 3 with fluent speech, no focal motor/sensory deficits No tremor Patient is a reliable historian of events LABS: Latest Reference Range & Units 12/14/21 11:26 02/18/22 13:37 04/06/22 00:00 06/20/22 12:38 06/30/22 00:00 11/09/22 00:00 12/22/22 13:28 05/11/23 00:00 Sodium 135 - 146 mmol/L 140 140 141 140 Potassium 3.5 - 5.1 mmol/L 4.8 4.8 4.7 POTASSIUM-OUTSIDE LAB 3.6 - 5.1 MMOL/L 5.0 (E) 4.6 (E) 4.9 (E) Chloride 98 - 107 mmol/L 107 106 109 (H) CO2 22 - 32 mmol/L 22 25 23 BUN 6 - 20 mg/dL 34 (H) 30 (H) 31 (H) 44 Creatinine 0.6 - 1.2 mg/dL 2.4 (H) 2.2 (H) 1.9 (H) CREATININE-OUTSIDE LAB 0.6 - 1.5 MG/DL 2.3 ! (E) 2.1 ! (E) 1.9 ! (E) 2.2 ! (E) Estimated Glomerular Filtration Rate >=60 mL/min 28 (L) 30 (L) 36 (L) EGFR-OUTSIDE LAB ML/MIN 29.4 ! (E) 32.6 (E) 36.5 (E) 30.8 (E) Anion Gap 7 - 15 mmol/L 11 9 9 Glucose 70 - 120 mg/dL 132 (H) 90 142 (H) GLUCOSE-OUTSIDE LAB 70 - 99 MG/DL 137 ! (E) 148 ! (E) 149 ! (E) Calcium 8.4 - 10.2 mg/dL 9.3 9.8 9.7 Magnesium 1.5 - 2.6 mg/dL 1.9 1.7 Phosphorus 2.5 - 4.8 mg/dL 3.1 3.0 (H): Data is abnormally high !: Data is abnormal (L): Data is abnormally low (E): External lab result Latest Reference Range & Units 10/06/20 00:00 04/06/21 00:00 08/30/21 12:10 02/18/22 13:37 04/06/22 00:00 Albumin / Creatinine Ratio, Urine <30 mg/g Creat 571 (H) ALBUMIN / CREATININE RATIO, URINE Rpt ! MICROALBUMIN RATIO-OUTSIDE LAB <=30 MG/G SEE REPORT (E) 626.9 (H) (E) 207 ! (E) Protein/ Creatinine Ratio, Urine <150 mg/g 932 (H) 554 (H) (H): Data is abnormally high !: Data is abnormal Rpt: View report in Results Review for more information (E): External lab result Latest Reference Range & Units 12/19/18 13:03 07/16/19 10:20 08/03/20 10:48 08/30/21 12:10 06/20/22 12:38 12/22/22 13:28 Magnesium 1.5 - 2.6 mg/dL 2.0 2.1 1.9 2.0 1.9 1.7 ASSESSMENT/PLAN: The patient's most recent labs (from 1 months ago) were reviewed and the assessment/plan is as follows: CKD 3B with acceptable chemistries- officially move diagnosis from stage IV to stage III B, likely due to improved weight and blood pressure control. However most recent labs with GFR of 30. [facility] labs with Cystatin C at 19 which demonstrates worsening renal function than noted with traditional testing. Kidney disease, chronic, stage IV (GFR 15-29 ml/min) ([facility]) (Primary) - ALBUMIN / CREATININE RATIO, URINE; Future; Expected date: 06/27/2023 - URINALYSIS WITH MICROSCOPIC EXAM; Future; Expected date: 06/27/2023 - BASIC METABOLIC PANEL; Future; Expected date: 07/31/2023 HTN, goal below 130/80 Blood pressure well-controlled. Continue losartan, metoprolol current doses. Continue lifestyle measures. Albuminuria Will re-evaluate with urine testing at next labs. Improvement noted with last labs in 2021 continue ARB dose appropriate. - ALBUMIN / CREATININE RATIO, URINE; Future; Expected date: 06/27/2023 - URINALYSIS WITH MICROSCOPIC EXAM; Future; Expected date: 06/27/2023 Hyperparathyroidism, secondary renal ([facility]) [facility].History of up trending PTH last fall. Note target PTH levels in CKD 3 and 4 not well defined; aiming for relatively stable values not trending upper down. Not currently on D supplements Will re-evaluate in the spring 2023 Repeat lab 3 months. Urine testing today Taking magnesium once a week which is somewhat atypical: Mag lvls stable with last check at 1.7 Cont with low sodium diet Avoid medicines like aleve, advil, ibuprofen, aspirin more than 81 mg daily and other NSAIDS which are not good for kidney patients. Take only tylenol (acetaminophen) up to 2000 mg daily as needed for pain or as directed by your primary care provider. Reviewed previous status of kidney function and goals of care. All questions were answered. Check-out note: 4 months with maya (needs md appt) Amalia Mujica PA-C Nephrology [address] [place] [address] documented in this encounter Nursing Notes * Ginna De RN - 06/27/2023 12:50 PM EST Follow up visit today. Slightly winded with ambulation. Denies any edema. Recently diagnosed with Atrial Fib. NO other recent illness. [facility]. documented in this encounter Plan of Treatment Upcoming Encounters Date Type Department Care Team (Late st Contact Info) Description 07/05/2023 10:00 AM EST Nurse Only Ancillary [address] [place] [address] [place], Nurse [address] [place] [address] 07/05/2023 11:00 AM EST Office Visit Pharmacy, [address] [place] [address] [place] [address] 07/25/2023 3:00 PM EST [facility] [address] [facility] [place] [address] Emma Marte PA-C [address] [place] [address] [place] [address] 08/28/2023 11:30 AM EST Office Visit Cardiology, [facility] [address] [place] [address] Wily Conde, [address] [place] [address] 12/20/2023 11:20 AM EDT Office Visit Family Medicine [address] [place] [phone] Britney Mojica MD [address] [place] [address] [place] [address] 12/27/2023 2:20 PM EDT Office Visit Nephrology [address] [place] [address] Jessica Gerardo MD [address] [address] 01/25/2024 2:30 PM EDT Office Visit Nephrology [address] [place] [address] ZemaitisAmalia PA-C [address] [address] Scheduled Orders Name Type Priority Associated Diagnoses Orde r Schedule BASIC METABOLIC PANEL Lab Routine Kidney disease, chronic, stage IV (GFR 15-29 ml/min) ([facility]) Expected: 07/31/2023, Expires: 06/27/2024 Scheduled Procedures Name Priority Associated Diagnoses Date/Ti [...] , 04/21/2023, Additional history exists Albumin/Creatinine Ratio 06/27/2024 023, 04/06/2022, 08/30/2021, Additional history exists O2 ASSESSMENT COMPLETED IN PAST YEAR FOR COPD 06/27/2024 06/27/2023 DTaP,Tdap,and Td Vaccines (3 - Td or [...] this encounter Medical Devices Implanted 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 Device 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 Shelf Expiration Date Model / Serial / Lot Valve Aor White Ii 23mm T505 - [id number] [place] [facility] [place] - Non Human N/A: Heart [employer] : CARDIAC SURGERY 01/01/2015 23-[id number] / [id number] / Sut Steel 6 M654g - [id number] Implanted:Qty : 2 on 05[place]22/2012 [place] [facility] [place] N/A: Chest DO NOT USE 02/27/2017 [id number] / / [id number] documented as of this encounter Results * (ABNORMAL) URINALYSIS WITH MICROSCOPIC EXAM (06/27/2023 1:41 PM EST) Color, Urine Light Yellow Colorless, Light Yellow, Yellow, Dark Yellow 06/27/2023 11:54 PM EST [facility] Clarity, Urine Clear Clear 06/27/2023 11:54 PM EST [facility] Glucose, Urine 50(A) Negative mg/dL 06/27/2023 11:54 PM EST [facility] Bilirubin, Urine Negative Negative 06/27/2023 11:54 PM EST [facility] Ketone, Urine Negative Negative mg/dL 06/27/2023 11:54 PM EST [facility] Specific [place], Urine 1.018 1.003 - 1.030 06/27/2023 11:54 PM EST LABORATORY GM Blood, Urine Negative Negative 06/27/2023 11:54 PM EST [facility] [place] pH, Urine 6.0 5.0 - 7.5 Units 06/27/2023 11:54 PM EST LABORATORY [facility] Protein, Urine 30(A) Negative mg/dL 06/27/2023 11:54 PM EST [facility] [place] Urobilinogen, Urine Normal Normal mg/dL 06/27/2023 11:54 PM EST [facility] Nitrite, Urine Negative Negative 06/27/2023 11:54 PM EST [facility] Esterase, Urine Negative Negative 06/27/2023 11:54 PM EST LABORATORY [facility] RBC, Urine 0-2 0 - 2 /HPF 06/27/2023 11:54 PM EST [facility] WBC, Urine 0-2 0 - 2 /HPF 06/27/2023 11:54 PM EST [facility] Bacteria, Urine 0-25 0 - 25 /HPF 06/27/2023 11:54 PM EST [facility] [place] Urine Urine specimen / Unknown Non-blood Collection / Unknown 06/27/2023 1:41 PM EST 06/27/2023 1:41 PM EST Amalia Mujica PA-C LAB URINE ORD ERABLES [facility] [place] [address] [place] [address] * (ABNORMAL) ALBUMIN / CREATININE RATIO, URINE (06/27/2023 1:41 PM EST) Albumin, Random Urine 34.08 mg/dL 06/27/2023 11:36 PM EST [facility] [place] Creatinine, Random Urine 78 mg/dL 06/27/2023 11:36 PM EST [facility] [place] Albumin / Creatinine Ratio, Urine 437(H) <30 mg/g Creat 06/27/2023 11:36 PM EST [facility] [place] Urine Urine specimen / Unknown Non-blood Collection / Unknown 06/27/2023 1:41 PM EST 06/27/2023 1:41 PM EST Narrative [facility] [place] 06/27/2023 11:36 PM EST Normal: <30 mg/g creatinine High: 30-300 mg/g creatinine Very High: >300 mg/g creatinine Nephrotic: >2200 mg/g creatinine Amalia Mujica PA-C LAB URINE ORD ERABLES Performing Organization Address City/State/RUST Co de Phone Number [facility] [place] [address] [place] [address] documented in this encounter Visit Diagnoses Diagnosis Kidney disease, chronic, stage IV (GFR 15-29 ml/min) (HCC)- Primary Chronic kidney disease, Stage IV (severe) HTN, goal below 130/80 Unspecified essential hypertension Albuminuria Proteinuria Hyperparathyroidism, secondary renal (HCC) Secondary hyperparathyroidism (of renal origin) documented in this encounter Advance Directives Latest [...] the patient have Health Care Power of Bridge Toll Collector? No Care Teams Anesthesiology Faculty Relationship Specialty Start Date End Date Britney Mojica MD [address] [place] [address] [place] [phone] PCP - General Family Medicine 10/16/18 documented as of this encounter
--- OUTSIDE RECORDS SUMMARY | 2023-08-01 20:23 | External Medical Summary | Summary of Care ---
Author Name Unknown Organization [facility] [address] [facility] [facility] [address] Phone [phone] Care Team Providers Care Security Compliance Engineer Name Role Phone Britney Mojica MD Primary Care Prov ider Reason for Visit * Reason Comments Dosage Adjustment In Person (Anticoag Cl inic) Diabetes Follow-Up Encounter Details Date Type Department Care Team (Late st Contact Info) Description 07/20/2023 1:30 PM EST Office Visit Pharmacy, [address] [place] [address] [place] [address] Type 2 diabetes mellitus with hemoglobin A1c goal of less than 7.0% ([facility])* Allergies Active Allergy Reactions Criticality Noted Date Comments Iodinated Contrast Media Rash High 05/02/2012 Lisinopril 08/18/2003 Dry cough Metformin Other (Please comment) 10/19/2021 documented as of this encounter (statuses as of 07/20/2023) Medications Medication Sig Dispensed Refills Start Date [...] 08/31/2021 Active Apixaban 5 MG Oral Tablet (Eliquis)Indicatio ns:Paroxysmal atrial fibrillation (HCC) Take by mouth 1 Tablet in the morning AND 1 Tablet before bedtime. 180 Tablet 3 05/13/2022 Active Accu-Chek Guide Me w/Device KitIndications:Typ e [...] day. DXe11.9 0 07/04/2022 Active Saline Nasal Marlow 0.65 % Nasal Solution Administer 1 Marlow into nostril as needed for Congestion. 0 Active Ondansetron HCl 4 MG Oral TabletIndications: Nausea and vomiting, unspecified vomiting type Take 1 Tablet by mouth every 12 hours as needed for Nausea. 12 Tablet 0 12/28/2022 Active Insulin Glargine 100 UNIT/ML Subcutaneous Solution (Lantus) Inject 10 Units under the skin at bedtime. (Supplied by [facility]) 1 Each 12 05/02/2023 Active Azelastine HCl 0.1 % Nasal Solution (Astelin)Indicatio ns:PND (post-nasal drip) Administer 1 Marlow into nostril in the morning and 1 Marlow before bedtime. 30 mL 3 06/21/2023 Active [...] three times daily with meals. SUPPLIED [facility] 0 07/20/2023 Active Insulin Aspart 100 UNIT/ML Injection Solution (NovoLOG)Indicatio ns:Type 2 diabetes mellitus with hemoglobin A1c goal of less than 7.0% (HCC) Inject under the skin - 10 units before breakfast and 10 units before supper. SUPPLIED BY [facility] Patient is taking 20-25U or as directed. 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 Medication Therapy [facility] - Diabetes Management Progress Note Talha Miles, identified by name and date of , is a 77 year old male being seen for diabetes management/education. Patient presents for return diabetic visit. DIABETES: Current diabetic medications: [facility]us Vial - [facility] NovoLog Vial - 5 units w/ meal if BG > 200 ([facility]) Glucagon 1 mg IM PRN eGFR 36.5 as of 11/09/22 Medication Injection Site: Abdomen Lifestyle: Diet: unchanged Glucose Review/SMBG: Readings obtained from patient device Hypoglycemia: Does your blood sugar go below 70 mg/dL? No Hyperglycemia symptoms present: none Recent Labs Units 05/11/23 0000 04/06/23 0954 11/09/22 0000 HEMOGLOBIN A1C - [facility] % -- 7.0* -- HEMOGLOBIN, [facility] % 7.2* -- 6.5* Recent Labs [...] Topic Date Due Diabetic Foot Exam 05/31/2023 ASSESSMENT & PLAN: ICD-10-CM 1. Type 2 diabetes mellitus with hemoglobin A1c goal of less than 7.0% ([facility]) E11.9 Considerations: All medications/testing supplies from [facility] Tests twice a day per [facility] allowance Renal dx - caution with metformin and SGLT2 CGM unaffordable 03/08/2021, able to obtain 11/2022 ([employer]) P[facility] in 2021 [facility] doctor with [facility] --> Unable to tolerate Adjusts insulin dosing BG Readings - Blood sugars controlled. Remaining more stable throughout the day. Denies any s/sx ofhypoglycemia. Medications - Reviewed current regimen. Reviewed LibreView download. Overall readings at goal. Notes to sometimes taking 10-15 units of Novolog with meals still. Will plan to continue at this time. Diet, Exercise, Lifestyle - No significant lifestyle changes since last visit. Patient is agreeable to SMBG daily with CGM ([employer]) Patient aware to contact clinic if any hypoglycemia before next visit. MEDICATION CHANGES: See below Diabetic Medications: Lantus Vial - 10 units daily [facility]) NovoLog Vial - 10 units w/ meals (12-15 units if high CHO/high sugar) (obtaining from the [facility]) Glucagon 1 mg IM PRN eGFR 30.8 as of 05/11/23 HEALTH MAINTENANCE INTERVENTIONS: Labs: Up to Date Immunizations: Up to Date Foot Exam: Due Eye Exam: Up to Date Annual Wellness Visit: Up to Date FOLLOW UP: Return to clinic in 5 weeks 08/24/2023 Juliann Cabral [facility] Clinical Pharmacist - [employer] Medication Therapy Management [facility] 07/20/2023, 1:31 PM documented in this encounter Plan of Treatment Upcoming Encounters Date Type Department Care Team (Late st Contact Info) Description 07/25/2023 3:00 PM EST Office Visit Cardiology, [facility] [address] [facility] [place] [address] Emma Marte PA-C [address] [place] [address] 08/24/2023 1:00 PM EST Office Visit Pharmacy, [address] [place] [address] [place] [address] 12/20/2023 11:20 AM EDT Office Visit Family Medicine [address] [place] [phone] Britney Mojica MD [address] [place] [address] [place] [address] 12/27/2023 2:20 PM EDT Office Visit Nephrology [address] [place] [address] Jessica Gerardo [facility] [address] [facility] [place] [address] 01/25/2024 2:30 PM EDT Office Visit Nephrology [address] [place] [address] Amalia Mujica PA-C [address] [place] [address] 07/19/2024 11:00 AM EST Nurse Only Ancillary [address] [place] [address] [place], Nurse Annual [address] [place] [address] Scheduled Procedures Name Priority Associated Diagnoses Date/Ti [...] this encounter Medical Devices Implanted Type Area Belly Packer Device Identifier Shelf Expiration Date Model / Serial / Lot Valve Aor White Ii 23mm T505 - [id number] Implanted:Qty : 1 on 05/22/2012 [place] [facility] [place] - Non Human N/A: Heart [employer] : CARDIAC SURGERY 01/01/2015 23-T505 / [id number] / Sut Steel 6 M654g - [id number] Implanted:Qty : 2 on 05/22/2012 [place] [facility] [place] N/A: Chest DO NOT USE 02/27/2017 [id number] / / [id number] documented as of this encounter Visit Diagnoses Diagnosis Type 2 diabetes mellitus with hemoglobin A1c goal of less than 7.0% ([facility])- Primary documented in this encounter Advance Directives [...] the patient have Health Care Power of Electrotype Molder? No Care Teams Security Compliance Engineer Relationship Specialty Start Date End Date Britney Mojica MD [address] [place] [address] [place] [address] PCP - General Family Medicine 10/16/18 documented as of this encounter
--- OUTSIDE RECORDS SUMMARY | 2023-08-01 20:23 | External Medical Summary ---
Author Name Unknown Address Unknown Organization [id number][place] [place] [address] [facility] [address] Laboratory Report Ordering Provider Test Date Status JULIA CHILDRESSITIS 06/27/2023 13:41:48 Final Observation Date Value Abnormality Reference (Units ) Status Color of Urine by Auto 06/27/2023 13:41:48 Light Yellow Colorless, Light Yellow, Yellow, Dark Yellow Final Clarity, Urine 06/27/2023 13:41:48 Clear Clear Final Glucose [Mass/volume] in Urine by Automated test strip 06/27/2023 13:41:48 50 Abnormal Negative (mg/dL) Final Bilirubin.total [Presence] in Urine by Automated test strip 06/27/2023 13:41:48 Negative Negative Final Ketones [Mass/volume] in Urine by Automated test strip 06/27/2023 13:41:48 Negative Negative (mg/dL) Final Specific gravity, Urine 06/27/2023 13:41:48 1.018 1.003-1.030 Final Hemoglobin [Presence] in Urine by Automated test strip 06/27/2023 13:41:48 Negative Negative Final pH, Urine 06/27/2023 13:41:48 6.0 5.0-7.5 (Units) Final Protein [Mass/volume] in Urine by Automated test strip 06/27/2023 13:41:48 30 Abnormal Negative (mg/dL) Final Urobilinogen [Mass/volume] in Urine by Automated test strip 06/27/2023 13:41:48 Normal Normal (mg/dL) Final Nitrite [Presence] in Urine by Automated test strip 06/27/2023 13:41:48 Negative Negative Final Leukocyte esterase [Presence] in Urine by Automated test strip 06/27/2023 13:41:48 Negative Negative Final RBC, Urine 06/27/2023 13:41:48 0-2 0-2 (/HPF) Final WBC, Urine 06/27/2023 13:41:48 0-2 0-2 (/HPF) Final Bacteria [#/area] in Urine sediment by Microscopy high power field 06/27/2023 13:41:48 0-25 0-25 (/HPF) Final Performing Location [facility] [place] [facility] [address]. [facility] [address]
--- OUTSIDE RECORDS SUMMARY | 2023-08-01 20:23 | External Medical Summary | Summary of Care ---
Author Name Unknown Organization [facility] [address] [address] Phone [phone] Care Team Providers Care Energy Director Name Role Phone Britney Mojica MD Primary Care Prov ider Reason for Visit * Reason Comments Adult Annual Wellness Visit, Subsequent Visit Encounter Details Date Type Department Care Team (Late st Contact Info) Description 07/05/2023 10:00 AM EST Nurse Only Ancillary [address] [place] [phone] [place], Nurse [address] [place] [address] Adult Annual Wellness Visit, Subsequent Visit Allergies [...] goal of less than 7.0% ([facility]) Use as directed . 1 Kit 0 07/04/2022 Active Accu-Chek Guide In Vitro Strip (Glucose Blood)Indications:T ype 2 diabetes mellitus with hemoglobin A1c goal of less than 7.0% ([facility]) 0 07/04/2022 Active Insulin Syringe 30G X 1/2" 0.5 MLIndications:Type 2 diabetes mellitus with hemoglobin A1c goal of less than 7.0% ([facility]) Use with NovoLog twice a day. DXe11.9 0 07/04/2022 Active Saline Nasal [place] 0.65 % Nasal Solution Administer 1 [place] into nostril as needed for Congestion. 0 Active Insulin Aspart 100 UNIT/ML Injection Solution (NovoLOG)Indication s:Type 2 diabetes mellitus with hemoglobin A1c goal of less than 7.0% ([facility]) Inject under the skin - 10 units before breakfast and 10 units before supper. SUPPLIED BY [facility] Patient is taking 20-25U or as directed. 30 mL 3 12/16/2022 Active Ondansetron HCl 4 MG Oral TabletIndications:N ausea and vomiting, unspecified vomiting type Take 1 Tablet by mouth every 12 hours as needed for Nausea. 12 Tablet 0 12/28/2022 Active Insulin Glargine 100 UNIT/ML Subcutaneous Solution (Lantus) Inject 10 Units under the skin at bedtime. (Supplied by [facility]) 1 Each 12 05/02/2023 Active Azelastine HCl 0.1 % Nasal Solution (Astelin)Indication s:PND (post-nasal drip) Administer 1 [place] into nostril in the morning and 1 [place] before bedtime. 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 DXe11.9 Saline Nasal [place] 0.65 % Nasal Solution Administer 1 [place] into nostril as needed for Congestion. Insulin [...] 0.1 % Nasal Solution (Astelin) Administer 1 [place] into nostril in the morning and 1 [place] before bedtime. 30 mL 3 guaiFENesin 400 [...] Results Review. Sincerely, Britney Don MD 07/05/2023 [facility] Calendar (as of Visit date not found [...] your insurance company to determine what's covered. [employer] is a great tool that helps you review your medical record online, including test results, doctor notes and your health summary. You can also schedule appointments with me and other members of your care team, request prescription refills and ask for advice related to your medical conditions at [email or web address]. documented in this encounter Progress Notes * [...] (BMI) of 45.0 to 49.9 in adult ([facility]) 07/08/2019 bmi 44.69 Per Obesity protocol - Per Obesity protocol Chronic dermatitis 08/22/2013 CHRONIC SKIN ULCER NEC 01/13/2011 Class 3 severe obesity with serious comorbidity and body mass index (BMI) of 40.0 to 44.9 in adult ([facility]) 11/06/2019 Duplicate- resolved DERMATITIS NOS 10/28/2003 Deviated nasal septum Diastolic dysfunction, left ventricle 04/18/2012 DM type 2 causing renal disease ([facility]) 11/29/2012 DM type 2, goal A1c below 7 08/07/01 Dyslipidemia, goal LDL below 100 07/16/2009 Essential hypertension with goal blood pressure less than 140/90 05/18/2016 HTN, goal below 130/80 06/23/2009 Impotence of organic origin Kidney disease, chronic, stage III (GFR 30-59 ml/min) ([facility]) 11/29/2012 LVH (left ventricular hypertrophy) 04/18/2012 Mixed dyslipidemia OBESITY, BMI 40 AND OVER 01/12/2010 Obesity, Class III, BMI 40-49.9 (morbid obesity) ([facility]) 12/08/2011 Other chest pain 03/09/98 Normal [...] Rochelle Wilder IV, [place] at [facility] [place] SUTURE REPAIR W/O SHUNT 05/22/2012 REPAIR AORTA performed by Talha Nielsen MD at [facility] ARTHPEDRO Anne,W/ROTATOR CUFF 12/24/2014 right shoulder- Dr. Jorgensen COLONOSCOPY 05/2007 done at [facility] COLONOSCOPY, DIAGNOSTIC (RECTUM) 12/08/2017 adenomatous & serrated adenomatous polyps, repeat 3 yrs/[facility] COLONOSCOPY, DIAGNOSTIC (RECTUM) 10/30/2020 poor prep, repeat 3 yrs / [facility] CORONARY ANGIOGRAPHY W/RIGHT+LEFT CATH 04/26/2012 CORONARY ANGIOGRAPHY W/RIGHT+LEFT CATH performed by Aries Beltre MD at [facility] ELECTROPHYSIOLOGY EVAL & ABLATE SVT Bilateral 06/05/2015 ELECTROPHYSIOLOGY EVAL & ABLATE SVT performed by Rochelle Wilder IV, MD at [facility] HEART ELECTROCONVERSION, EXTERNAL 05/29/2012 DC CARDIOVERSION performed by Rochelle Wilder IV, MD at [facility] REMOVAL OF APPENDIX age 11 REMOVE CATARACT, INSERT LENS PROSTH REPAIR OF NASAL SEPTUM 08/14/2001 with cautery of inferior turbinates by Dr. Chambers REPLACEMENT AORTIC VALVE, BYPASS WITH PROSTHETIC VALVE 05/22/2012 REPLACEMENT AORTIC VALVE performed by Talha Nielsen MD at [facility] UMBIL HERNIA REPAIR (REDUCIBLE) AGE 5+YR VASECTOMY [...] MCG/0.3 mL, 12 YRS AND ABOVE, IM ([employer] [facility] 06/21/2023 COVID-19, mRNA, LNP-s, PF, Booster, 100mcg/0.5mg [...] 30G X 1/2" 0.5 ML Use with XoomsysLog twice a day. DXe11.9 Saline Nasal [place] 0.65 % Nasal Solution Administer 1 [place] into nostril as needed for Congestion. Insulin Aspart 100 UNIT/ML Injection Solution (NovoLOG) Inject under the skin - 10 units before breakfast and 10 units before supper. SUPPLIED [facility] Patient is taking 20-25U or as directed. 30 mL 3 Ondansetron HCl 4 MG Oral Tablet Take 1 Tablet by mouth every 12 hours as needed for Nausea. 12 Tablet 0 Insulin Glargine 100 UNIT/ML Subcutaneous Solution (Lantus) Inject 10 Units under the skin at bedtime. (Supplied by [facility]) 1 Each 12 Azelastine HCl 0.1 % Nasal Solution (Astelin) Administer 1 [place] into nostril in the morning and 1 [place] before bedtime. 30 mL 3 guaiFENesin 400 [...] goal of less than 7.0% ([facility]) E11.9 HTN, goal below 130/80 I10 Dyslipidemia, goal LDL below 100 E78.5 Morbid obesity due to excess calories ([facility]) E66.01 Atrial fibrillation ([facility]) I48.91 S/P AVR (aortic valve replacement) Z95.2 DM type 2 causing renal disease ([facility]) E11.29 Chronic dermatitis L30.9 Lichen simplex chronicus L28.0 Rotator cuff tear, right M75.101 Diastolic dysfunction I51.89 Anemia of chronic disease D63.8 Chronic rhinitis J31.0 Type 2 diabetes mellitus with diabetic dermatitis ([facility]) E11.620 Chest pain due to myocardial ischemia [...] body mass index of 40.0-44.9 in adult ([facility]) E66.01, Z68.41 Coronary artery disease involving [place] coronary artery of [place] heart without angina pectoris I25.10 Simple chronic bronchitis ([facility]) J41.0 Hyperparathyroidism, secondary renal ([facility]) N25.81 Anemia of chronic renal failure, stage 4 (severe) ([facility]) N18.4, D63.1 Kidney disease, chronic, stage IV (GFR 15-29 ml/min) ([facility]) N18.4 PND (post-nasal drip) R09.82 Anxiety, generalized F41.1 Xerostomia K11.7 Seborrheic keratoses L82.1 Type 2 diabetes mellitus with stage 3b chronic kidney disease, with long-term current use of insulin ([facility]) E11.22, N18.32, Z79.4 Medication Compliance: Patient is [...] weakness Visually impaired Older than age 70 Kbz-Ti-ckk-Go Test: Time began at 1000. Patient stood from sitting position and walked approximately 10 feet, returned and sat down. Total time for vvj-fp-rlp-go test was 11 seconds. Qzw-Yi-yhx-Go Test completed? Yes Gender Specific Preventative Plan: [...] want that" What cultural , Spiritual or jainism beliefs do you have that may affect Health Care Decisions? Patient was Amish growing up got in a Spiritism in [place] but does not attend a amish, he does watch Talha Toscano on TV every Monday" he considers himself Non Congregational. Patientstates "his dad told him when he was younger and a horse that "there was nothing after " that has "stuck with him" Encourage to reach out to a amish or private duty rn to talk to about his beliefs and [...] continue present medications. Coronary artery disease involving [place] coronary artery of [place] heart without angina pectoris - Med reconciliation completed and compliance discussed. - pt to continue present medications. DM type 2 causing renal disease ([facility]) - Med reconciliation completed and compliance discussed. [...] failure and stage 4 chronic kidney disease ([facility]) Kidney disease, chronic, stage IV (GFR 15-29 ml/min) ([facility] Hypertension in stage 4 chronic kidney disease due to type 2 diabetes mellitus ([facility]) -06/30/22 GFR done at the [facility] 32.6 , per Britney Don MD they have been stable in the 30's Morbid obesity due to excess calories ([facility]) Body mass index is 42.25 kg/m. - Discussed Healthy lifestyle, importance of exercise - Diet education - Reviewed labs ADAN on CPAP -doing well on new cpap S/P AVR (aortic valve replacement) Patient does follow up with cardiology Type 2 diabetes mellitus with diabetic dermatitis ([facility]) Type 2 diabetes mellitus with hemoglobin A1c goal of less than 7.0% ([facility]) Type 2 diabetes mellitus with stage 3b chronic kidney disease, with long-term current use of insulin ([facility]) - Med reconciliation completed and compliance discussed. - pt to continue present medications. - Discussed Healthy lifestyle, importance of exercise - Diet education - Reviewed labs See communication tab, I will request most recent Diabetic foot exam, Patient states he does see a podiatry at the [facility] in [place], they are "very good" and they get [...] for conversation: Patient Decisions Additional Comments Synopsis Invup Most Recent Value Past ~10 years 07/05/2023 [...] FEARS/WORRIES about illness are: Going to a custodial;"Being a vegetable" (define below) I fear my Afib and that my valve quits working" 07/05/2023 Going to a custodial;"Being a vegetable" (define below) I fear my [...] may affect health care decisions: Patient was Amish growing up got in a Spiritism in [place] but does not attend a amish, he does watchLeticiarmichelle Corleyley on TV every Monday" he considers himself Non Congregational. Patient states "his dad told him when he was younger and a horse that "there was nothing after " that has "stuckwith him" Encourage to reach out to a amish or private duty rn to talk to about his beliefs and concerns 07/05/2023 Patient was Amish growing up got in a Spiritism in [place] but does not attend a amish, he does watch Talha Everton on TV every Monday" he considers himself Non Congregational. Patient states "his dad told him when he was younger and a horse that "there was nothing after " that has "stuck with him" Encourage to reach out to a amish or private duty rn to talk to about his beliefs and [...] Choices Program 17 minutes spent in direct owlf-kx-ghii discussion today, Nehal Meza RN * Pt Handout (not on AVS) - Nehal Meza RN - 07/05/2023 11:18 AM EST Images from the original note were not included. 39566 Healthy Meals for Diabetes Ask your healthcare [...] of rice 4 to 6 crackers 1/2 Afghan muffin 1/2 cup of black beans 1/4 of a large baked potato (3 ounces) 2/3 cup of plain fat-free yogurt 1 cup of soup 1/2 cup of casserole 6 chicken nuggets 5-xjma-gyewcs brownie or cake without frosting 2 small [...] plate. This will help when [facility] and can?t measure your servings. For instance, [...] yourself by bringing a healthy dish to [employer] [place]. Choose healthy snacks When it comes to [...] sugar could get toohigh. Last Reviewed Date: 06/30/202119993684-2463 [employer]. All rights reserved. This information is not intended as a substitute for professional medical care. Always follow your healthcare professional's instructions. * Pt Handout (not on AVS) - Nehal Meza RN - 07/05/2023 11:17 AM EST Images from the original note were not included. 31109 Exercise for a Healthier Heart You may [...] week. It's OK to work up to chv22-kuudxl period over time. Examples of moderate-intensity activity [...] joint or muscle pain Last Reviewed Date: 01/28/202219992430-3021 [employer]. All rights reserved. This information is not intended as a substitute for professional medical care. Always follow your healthcare professional's instructions. * Pt Handout (not on AVS) - Nehal Meza RN - 07/05/2023 11:17 AM EST Images from the original note were not included. 05750 Diabetes: Learning About Serving and Portion Sizes [...] help with blood sugarmanagement. Last Reviewed Date: 07/31/202119995093-2878 [employer]. All rights reserved. This information is not [...] have and how well it?s controlled. The [place] Diabetes Association (ADA) advises an A1C test [...] should keep an A1C below 7%. The [place] Association of Clinical Endocrinologists advises an A1C [...] ready for the test. Last Reviewed Date: 09/28/202119994620-4514 [employer]. All rights reserved. This information is not intended as a substitute for professional medical care. Always follow your healthcare professional's instructions. * Pt Handout (not on AVS) - Nehal Meza RN - 07/05/2023 11:17 AM EST Images from the original note were not included. 50034 5 Steps for Eating Healthier Changing the [...] size of your fist. Last Reviewed Date: 06/30/202219999764-5961 [employer]. All rights reserved. This information is not intended as a substitute for professional medical care. Always follow your healthcare professional's instructions. documented in this encounter Plan of Treatment Upcoming Encounters Date Type Department Care Team (Late st Contact Info) Description 07/20/2023 1:30 PM EST Office Visit Pharmacy, [address] [place] [address] [place] [address] 07/25/2023 3:00 PM EST Office Visit [facility] [address] [facility] [address] Emma Marte PA-C [address] [place], [place] [address] [address] 08/28/2023 11:30 AM EST Office Visit Cardiology, [facility] [address] [facility] [place] [address] Wily Conde DO [address] [facility] [place] [address] 12/20/2023 11:20 AM EDT Office Visit Family Medicine [address] [place] [phone] Britney Mojica MD [address] [place] [address] [place] [address] 12/27/2023 2:20 PM EDT Office Visit Nephrology [address] [place] [address] Jessica Gerardo MD [address] [facility] [place] [address] 01/25/2024 2:30 PM EDT Office Visit Nephrology [address] [place] [address] ZeAmalia meier PA-C [address] [place] [address] 07/19/2024 11:00 AM EST Nurse Only Ancillary [address] [place] [address] [place], Nurse Annual [address] [place] [address] Scheduled Procedures Name Priority Associated Diagnoses Date/Ti [...] this encounter Medical Devices Implanted 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 Device 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 Shelf Expiration Date Model / Serial / Lot Valve Aor White Ii 23mm T505 - [id number] Implanted:Qty : 1 on 05/22/2012 [place] [facility] Tissue - Non Human N/A: Heart [employer] : CARDIAC SURGERY 01/01/2015 23-T505 / [id number] / Sut Steel 6 [id number] - [id number] Implanted:Qty : 2 on 05/22/2012 [place] [facility] N/A: Chest DO NOT USE 02/27/2017 [id number] / / [id number] documented as of this encounter Visit Diagnoses Diagnosis Risk and functional assessment- Primary Screening for unspecified condition Routine general medical examination at a health care facility Anemia of chronic disease Anemia of other chronic disease Anxiety, generalized Generalized anxiety disorder Atrial fibrillation (HCC) Atrial fibrillation Chronic dermatitis Contact dermatitis and other eczema, due to unspecified cause Chronic rhinitis Coronary artery disease involving [place] coronary artery of [place] heart without angina pectoris Type 2 diabetes [...] goal of less than 7.0% ([facility]) Type 2 diabetes mellitus with stage 3b chronic kidney disease, with long-term current use of insulin ([facility]) Advanced care planning/counseling discussion Other specified counseling [...] the patient have Health Care Power of Practice Director? No Care Teams Energy Director Relationship Specialty Start Date End Date Britney Mojica MD [address] [place] [address] [place] [address] PCP - General Family Medicine 10/16/18 documented as of this encounter
--- OUTSIDE RECORDS SUMMARY | 2023-08-01 20:23 | External Medical Summary | Summary of Care ---
Author Name Unknown Organization [facility] Address [address] [place] [address] Phone [phone] Care Team Providers Care Dye Range Feeder Name Role Phone Britney Mojica MD Primary Care Prov ider Reason for Visit * Reason Onset Date Comments Order Request 06/30/2023 Encounter Details Date Type Department Care Team (Late st Contact Info) Description 06/30/2023 Telephone Family Medicine [address] [phone] Britney Mojica MD [address] [place] [phone] Order Request Allergies Active Allergy Reactions Criticality Noted Date Comments Iodinated Contrast Media Rash High 05/02/2012 Lisinopril 08/18/2003 Dry cough Metformin Other (Please comment) 10/19/2021 documented as of this encounter (statuses as of 06/30/2023) Medications Medication Sig Dispensed Refills Start Date [...] hemoglobin A1c goal of less than 7.0% ([facility]) Use as directed . 1 Kit 0 07/04/2022 Active Accu-Chek Guide In Vitro Strip (Glucose Blood)Indications:T ype 2 diabetes mellitus with hemoglobin A1c goal of less than 7.0% ([facility]) 0 07/04/2022 Active Insulin Syringe 30G X 1/2" 0.5 MLIndications:Type 2 diabetes mellitus with hemoglobin A1c goal of less than 7.0% ([facility]) Use with NovoLog twice a day. DXe11.9 0 07/04/2022 Active Saline Nasal Inland 0.65 % Nasal Solution Administer 1 Inland into nostril as needed for Congestion. 0 Active Insulin Aspart 100 UNIT/ML Injection Solution (NovoLOG)Indication s:Type 2 diabetes mellitus with hemoglobin A1c goal of less than 7.0% ([facility]) Inject under the skin - 10 units before breakfast and 10 units before supper. SUPPLIED BY [employer] 30 mL 3 12/16/2022 Active Ondansetron HCl 4 MG Oral TabletIndications:N ausea and vomiting, unspecified vomiting type Take 1 Tablet by mouth every 12 hours as needed for Nausea. 12 Tablet 0 12/28/2022 Active Insulin Glargine 100 UNIT/ML Subcutaneous Solution (Lantus) Inject 10 Units under the skin at bedtime. (Supplied by [employer]) 1 Each 12 05/02/2023 Active Azelastine HCl 0.1 % Nasal Solution (Astelin)Indication s:PND (post-nasal drip) Administer 1 Inland into nostril in the morning and 1 Inland before bedtime. 30 mL 3 06/21/2023 Active guaiFENesin 400 MG Oral Tablet Take 1 Tablet by mouth every 4 hours as needed for Congestion. 180 Tablet 3 06/21/2023 09/19/2023 Active Arexvy 120 MCG/0.5ML Intramuscular Suspension Reconstituted (RSVPreF3 Vac Recomb Adjuvanted) Inject 0.5 mL into a large muscle once for 1 dose. 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 2 [...] as of this encounter (statuses as of 06/30/2023) Resolved Problems Problem Noted Date Diagnosed Date [...] 11/29/2012 08/17/2018 Anticoagulation management encounter 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 current use of ant icoagulant therapy 05/31/2012 [...] as of this encounter (statuses as of 06/30/2023) Immunizations Name Administration Dates Next Due COVID-19 mRNA, LNP-s, No Pre serve, 2-Dose Series (Moderna) 09/23/2020,08/26/2020 COVID-19, MRNA-LNP, 23-24, P F, 30 MCG/0.3 mL, 12 YRS AND ABOVE, IM ([email or web address]) 06/21/2023 COVID-19, mRNA, LNP-s, PF, B ooster, 100mcg/0.5mg (Moderna) 11/02/2021,06/01/2021 Covid-19, Mrna, Lnp-s, Pf, B ivalent, 30 Mcg, IM, 12 yrs and above ([employer]) 05/10/2022 Hepatitis B, 20+ yrs 01/02/2023,09/05/2022,07/06 Pneumococcal [...] on file documented as of this encounter Miscellaneous Notes * Telephone Encounter - Laura Hernandez LPN - 06/30/2023 4:10 PM EST Order pended * Telephone Encounter - Marivel Gonzales OSA - 06/30/2023 9:18 AM EST An order was requested for this patient. Name of Requesting Provider: pcp Order Requested: RSV vaccine Diagnosis/Reason for Request: RSV vaccine If order request is for Mammogram: Is the patient having any breast symptoms? N/A Is there a chance of ? N/A Has the patient had any breast problems in the past? NA What location AND department does the patient wish to have their order completed at? [facility] Fax Number, if applicable: Call Back Number: [phone] If the caller is not a current patient, please advise the patient to call their current PCP to havethe order's prior to being seen in our office. The patient was informed that our providers would not order anything (medication, labs, etc.) prior to being seen. documented in this encounter Plan of Treatment Upcoming Encounters Date Type Department Care Team (Late st Contact Info) Description 07/05/2023 10:00 AM EST Nurse Only Ancillary [address] [place] [address] [place] Nurse [address] [place] [address] 07/05/2023 11:00 AM EST Office Visit Pharmacy, [address] [place] [address] [place] [address] 07/25/2023 3:00 PM EST Office Visit Cardiology, [facility] [address] [facility] [place] [address] Emma Marte PA-C [address] [place] [address] [place] [address] 08/28/2023 11:30 AM EST Office Visit Cardiology, [facility] [address] [facility] [place] [address] Wily Conde, [address] [facility] [place] [address] 12/20/2023 11:20 AM EDT Office Visit Family Medicine [address] [place] [phone] Britney Mojica MD [address] [place] [address] [place] [address] 12/27/2023 2:20 PM EDT Office Visit Nephrology [address] [place] [address] Jessica Gerardo MD [address] [place] [address] 01/25/2024 2:30 PM EDT Office Visit Nephrology [address] [place] [address] ZemaAmalia sam PA-C [address] [place] [address] Scheduled Procedures Name Priority Associated Diagnoses Date/Ti me COLONOSCOPY FLEXIBLE PROXIMA L DIAGNOSTIC Recall History of colonic polyps Health Maintenance Due Date Last Done Comments Diabetic Foot Exam 05/31/2023 05/31/2022 (D one elsewhere), 06/18/2021, 03/25/2020, Additional history exists Depression Screening 07/04/2023 07/04/2022 COLONOSCOPY-EVERY 3 YRS AGES 18-100 10/31/2023 10/30/2020, 12/08/2017 GFR 11/10/2023 05/11/2023, 10/29, 06/30/2022, Additional history exists HbA1c 11/10/2023 05/11/2023, 0901/2023, 11/09/2022, Additional history exists Diabetic Eye Exam [...] this encounter Medical Devices Implanted Type Area Tree Care Foreman Device Identifier Shelf Expiration Date Model / Serial / Lot Valve Aor White Ii 23mm T505 - [id number] Implanted:Qty : 1 on 05/22/2012 at OR [facility] Tissue - Non Human N/A: Heart [employer] : CARDIAC SURGERY 01/01/2015 23-T505 / [id number] / Sut Steel 6 M654g - [id number] Implanted:Qty : 2 on 05/22/2012 at OR [facility] N/A: Chest DO NOT USE 02/27/2017 M654G / / [id number] documented as of this encounter Advance Directives Latest Code Status [...] the patient have Health Care Power of Car Tracer? No Care Teams Dye Range Feeder Relationship Specialty Start Date End Date Britney Mojica MD [address] [place] [address] [place] [address] PCP - General Family Medicine 10/16/18 documented as of this encounter
--- OUTSIDE RECORDS SUMMARY | 2023-08-01 20:23 | External Medical Summary ---
Author Name Unknown Address Unknown Organization [facility] - [address] [id number] Laboratory Report Ordering Provider Test Date Status XAVIER RAINES 07/03/2023 09:13:00 Final Normal: <30 mg/g creatinine< br/>High: 30-300 mg/g creatinine
Very High: >300 mg/g creatinine
Nephrotic: >2200 mg/g creatinine Observation Date Value Abnormality Reference (Units ) Status Albumin, Urine 07/03/2023 09:13:00 30.60 (mg/d L) Final This testing was performed a s part of a [facility] [employer] fulfillment initiative Creatinine, Urine 07/03/2023 09:13:00 77 (m g/dL) Final Albumin/Creatinine [Mass Ratio] in Urine 07/03/2023 09:13:00 397 Above high normal <30 (mg/g Creat) Final Performing Location [facility] - [address] [facility] [address]
--- OUTSIDE RECORDS SUMMARY | 2023-08-01 20:23 | External Medical Summary | Summary of Care ---
Author Name Unknown Organization [facility] [address] [facility] [address] Phone [phone] Care Team Providers Care Swift Tender Name Role Phone Britney Mojica MD Primary Care Prov ider Reason for Visit * Reason Comments Adult Annual Wellness Visit, Subsequent Visit Encounter Details Date Type Department Care Team (Late st Contact Info) Description 07/05/2023 10:00 AM EST Nurse Only Ancillary [address] [place] [phone] [place], Nurse [address] [place] [address] Adult Annual Wellness Visit, Subsequent Visit Allergies [...] goal of less than 7.0% ([facility]) Use as directed . 1 Kit 0 07/04/2022 Active Accu-Chek Guide In Vitro Strip (Glucose Blood)Indications:T ype 2 diabetes mellitus with hemoglobin A1c goal of less than 7.0% ([facility]) 0 07/04/2022 Active Insulin Syringe 30G X 1/2" 0.5 MLIndications:Type 2 diabetes mellitus with hemoglobin A1c goal of less than 7.0% ([facility]) Use with NovoLog twice a day. DXe11.9 0 07/04/2022 Active Saline Nasal [place] 0.65 % Nasal Solution Administer 1 [place] into nostril as needed for Congestion. 0 Active Insulin Aspart 100 UNIT/ML Injection Solution (NovoLOG)Indication s:Type 2 diabetes mellitus with hemoglobin A1c goal of less than 7.0% ([facility]) Inject under the skin - 10 units before breakfast and 10 units before supper. SUPPLIED BY [place] Patient is taking 20-25U or as directed. 30 mL 3 12/16/2022 Active Ondansetron HCl 4 MG Oral TabletIndications:N ausea and vomiting, unspecified vomiting type Take 1 Tablet by mouth every 12 hours as needed for Nausea. 12 Tablet 0 12/28/2022 Active Insulin Glargine 100 UNIT/ML Subcutaneous Solution (Lantus) Inject 10 Units under the skin at bedtime. (Supplied by [place]) 1 Each 12 05/02/2023 Active Azelastine HCl 0.1 % Nasal Solution (Astelin)Indication s:PND (post-nasal drip) Administer 1 [place] into nostril in the morning and 1 [place] before bedtime. 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 [employer] Patient Education Copyright 2008 - 2010 [employer] except where otherwise noted. Treating Urinary Incontinence [...] NovoLog twice a day. DXe11.9 Saline Nasal [place] 0.65 % Nasal Solution Administer 1 [place] into nostril as needed for Congestion. Insulin [...] 0.1 % Nasal Solution (Astelin) Administer 1 [place] into nostril in the morning and 1 [place] before bedtime. 30 mL 3 guaiFENesin 400 [...] Results Review. Sincerely, Britney Don MD 07/05/2023 [facility] Calendar (as of Visit date not found (in office), Visit date not found (telemedicine) ) Care needs Care needs Last completed Due next Diabetic Foot Exam 05/31/2022 (DONE ELSEW) 05/31/2023 Colonoscopy - every 3 years 10/30/2020 [...] your insurance company to determine what's covered. [employer] is a great tool that helps you review your medical record online, including test results, doctor notes and your health summary. You can also schedule appointments with me and other members of your care team, request prescription refills and ask for advice related to your medical conditions at [email or web address]. documented in this encounter Progress Notes * [...] (BMI) of 45.0 to 49.9 in adult ([facility]) 07/08/2019 bmi 44.69 Per Obesity protocol - Per Obesity protocol Chronic dermatitis 08/22/2013 CHRONIC SKIN ULCER NEC 01/13/2011 Class 3 severe obesity with serious comorbidity and body mass index (BMI) of 40.0 to 44.9 in adult ([facility]) 11/06/2019 Duplicate- resolved DERMATITIS NOS 10/28/2003 Deviated nasal septum Diastolic dysfunction, left ventricle 04/18/2012 DM type 2 causing renal disease ([facility]) 11/29/2012 DM type 2, goal A1c below 7 08/07/01 Dyslipidemia, goal LDL below 100 07/16/2009 Essential hypertension with goal blood pressure less than 140/90 05/18/2016 HTN, goal below 130/80 06/23/2009 Impotence of organic origin Kidney disease, chronic, stage III (GFR 30-59 ml/min) ([facility]) 11/29/2012 LVH (left ventricular hypertrophy) 04/18/2012 Mixed dyslipidemia OBESITY, BMI 40 AND OVER 01/12/2010 Obesity, Class III, BMI 40-49.9 (morbid obesity) ([facility]) 12/08/2011 Other chest pain 03/09/98 Normal Coronary [...] Rochelle Wilder IV, [place] [facility] [place]ORTA SUTURE REPAIR W/O SHUNT 05/22/2012 REPAIR AORTA performed by Talha Nielsen MD at [facility] PEDRO LASSITERW/ROTATOR CUFF 12/24/2014 right shoulder- Dr. Jorgensen COLONOSCOPY 05/2007 done at [place] COLONOSCOPY, DIAGNOSTIC (RECTUM) 12/08/2017 adenomatous & serrated adenomatous polyps, repeat 3 yrs/[facility] COLONOSCOPY, DIAGNOSTIC (RECTUM) 10/30/2020 poor prep, repeat 3 yrs / [facility] CORONARY ANGIOGRAPHY W/RIGHT+LEFT CATH 04/26/2012 CORONARY ANGIOGRAPHY W/RIGHT+LEFT CATH performed by Aries Beltre MD at [facility] ELECTROPHYSIOLOGY EVAL & ABLATE SVT Bilateral 06/05/2015 ELECTROPHYSIOLOGY EVAL & ABLATE SVT performed by Rochelle Wilder IV, MD at [facility] HEART ELECTROCONVERSION, EXTERNAL 05/29/2012 DC CARDIOVERSION performed by Rochelle Wilder IV, MD at [facility] REMOVAL OF APPENDIX age 11 REMOVE CATARACT, INSERT LENS PROSTH REPAIR OF NASAL SEPTUM 08/14/2001 with cautery of inferior turbinates by Dr. Chambers REPLACEMENT AORTIC VALVE, BYPASS WITH PROSTHETIC VALVE 05/22/2012 REPLACEMENT AORTIC VALVE performed by Talha Nielsen MD at [place] [facility] UMBIL HERNIA REPAIR (REDUCIBLE) AGE 5+YR VASECTOMY [...] MCG/0.3 mL, 12 YRS AND ABOVE, IM ([facility]) 06/21/2023 COVID-19, mRNA, LNP-s, PF, Booster, 100mcg/0.5mg [...] NovoLog twice a day. DXe11.9 Saline Nasal [place] 0.65 % Nasal Solution Administer 1 [place] into nostril as needed for Congestion. Insulin Aspart 100 UNIT/ML Injection Solution (NovoLOG) Inject under the skin - 10 units before breakfast and 10 units before supper. SUPPLIED BY [facility] Patient is taking 20-25U or as directed. 30 mL 3 Ondansetron HCl 4 MG Oral Tablet Take 1 Tablet by mouth every 12 hours as needed for Nausea. 12 Tablet 0 Insulin Glargine 100 UNIT/ML Subcutaneous Solution (Lantus) Inject 10 Units under the skin at bedtime. (Supplied by [place]) 1 Each 12 Azelastine HCl 0.1 % Nasal Solution (Astelin) Administer 1 [place] into nostril in the morning and 1 [place] before bedtime. 30 mL 3 guaiFENesin 400 [...] goal of less than 7.0% ([facility]) E11.9 HTN, goal below 130/80 I10 Dyslipidemia, goal LDL below 100 E78.5 Morbid obesity due to excess calories ([facility]) E66.01 Atrial fibrillation ([facility]) I48.91 S/P AVR (aortic valve replacement) Z95.2 DM type 2 causing renal disease ([facility]) E11.29 Chronic dermatitis L30.9 Lichen simplex chronicus L28.0 Rotator cuff tear, right M75.101 Diastolic dysfunction I51.89 Anemia of chronic disease D63.8 Chronic rhinitis J31.0 Type 2 diabetes mellitus with diabetic dermatitis ([facility]) E11.620 Chest pain due to myocardial ischemia I25.9 Carpal tunnel syndrome of left wrist G56.02 Hypertension in stage 4 chronic kidney disease due to type 2 diabetes mellitus ([facility]) E11.22, I12.9,N18.4 Heart failure, systolic, due to CAD I50.20, I25.10 Renal osteodystrophy N25.0 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 (HCC) I13.0, I50.22, N18.4 Morbid obesity with body mass index of 40.0-44.9 in adult ([facility]) E66.01, Z68.41 Coronary artery disease involving alturas coronary artery of alturas heart without angina pectoris I25.10 Simple chronic bronchitis ([facility]) J41.0 Hyperparathyroidism, secondary renal ([facility]) N25.81 Anemia of chronic renal failure, stage 4 (severe) ([facility]) N18.4, D63.1 Kidney disease, chronic, stage IV (GFR 15-29 ml/min) ([facility]) N18.4 PND (post-nasal drip) R09.82 Anxiety, generalized F41.1 Xerostomia K11.7 Seborrheic keratoses L82.1 Type 2 diabetes mellitus with stage 3b chronic kidney disease, with long-term current use of insulin ([facility]) E11.22, N18.32, Z79.4 Medication Compliance: Patient is [...] weakness Visually impaired Older than age 70 Rlu-Mc-xyk-Go Test: Time began at 1000. Patient stood from sitting position and walked approximately 10 feet, returned and sat down. Total time for ixl-qm-ajl-go test was 11 seconds. Uyp-Ki-sie-Go Test completed? Yes Gender Specific Preventative Plan: [...] Agent you would like to list: Katelyn Miles Relationship to Agent spouse Does the patient [...] want that" What cultural , Spiritual or quaker beliefs do you have that may affect Health Care Decisions? Patient was Christianity growing up got in a Druze in [place] but does not attend a latter day, he does watch [employer] on TV every Monday" he considers himself Non Mormon. Patientstates "his dad told him when he was younger and a horse that "there was nothing after " that has "stuck with him" Encourage to reach out to a latter day or pump runner to talk to about his beliefs and [...] continue present medications. Coronary artery disease involving alturas coronary artery of alturas heart without angina pectoris - Med reconciliation completed and compliance discussed. - pt to continue present medications. DM type 2 causing renal disease (HCC) - Med reconciliation completed and compliance [...] failure and stage 4 chronic kidney disease ([facility]) Kidney disease, chronic, stage IV (GFR 15-29 ml/min) ([facility] Hypertension in stage 4 chronic kidney disease due to type 2 diabetes mellitus ([facility]) -06/30/22 GFR done at the [place] 32.6 , per Britney Don MD they have been stable in the 30's Morbid obesity due to excess calories ([facility]) Body mass index is 42.25 kg/m. - Discussed Healthy lifestyle, importance of exercise - Diet education - Reviewed labs ADAN on CPAP -doing well on new cpap S/P AVR (aortic valve replacement) Patient does follow up with cardiology Type 2 diabetes mellitus with diabetic dermatitis ([facility]) Type 2 diabetes mellitus with hemoglobin A1c goal of less than 7.0% ([facility]) Type 2 diabetes mellitus with stage 3b chronic kidney disease, with long-term current use of insulin ([facility]) - Med reconciliation completed and compliance discussed. - pt to continue present medications. - Discussed Healthy lifestyle, importance of exercise - Diet education - Reviewed labs See communication tab, I will request most recent Diabetic foot exam, Patient states he does see a [place], they are "very good" and they get [...] for conversation: Patient Decisions Additional Comments Synopsis BiOM Most Recent Value Past ~10 years 07/05/2023 [...] Discerning What Matters Most to the Patient: [place] A/Sopsis BiOM Most Recent Value Past ~10 years 07/05/2023 [...] FEARS/WORRIES about illness are: Going to a prison;"Being a vegetable" (define below) I fear my Afib and that my valve quits working" 07/05/2023 Going to a prison;"Being a vegetable" (define below) I fear my [...] may affect health care decisions: Patient was Christianity growing up got in a Druze in [place] but does not attend a latter day, he does watchTalha Toscano on TV every Monday" he considers himself Non Mormon. Patient states "his dad told him when he was younger and a horse that "there was nothing after " that has "stuckwith him" Encourage to reach out to a latter day or pump runner to talk to about his beliefs and concerns 07/05/2023 Patient was Christianity growing up got in a Druze in [place] but does not attend a latter day, he does watch Talha Toscano on TV every Monday" he considers himself Non Mormon. Patient states "his dad told him when he was younger and a horse that "there was nothing after " that has "stuck with him" Encourage to reach out to a latter day or pump runner to talk to about his beliefs and concerns Source: Content from [employer] Program Aligning Care With What Matters Most: [...] Rationale for Decisions Source: Content from [employer] 17 minutes spent in direct afkg-oj-htay discussion today, Nehal Meza RN * Pt Handout (not on AVS) - Nehal Meza RN - 07/05/2023 11:18 AM EST Images from the original note were not included. 98215 Healthy Meals for Diabetes Ask your healthcare [...] of rice 4 to 6 crackers 1/2 Eritrean muffin 1/2 cup of black beans 1/4 of a large baked potato (3 ounces) 2/3 cup of plain fat-free yogurt 1 cup of soup 1/2 cup of casserole 6 chicken nuggets 4-zvwi-aciidz brownie or cake without frosting 2 small [...] plate. This will help when you're away fromhome and can?t measure your servings. For instance, [...] yourself by bringing a healthy dish to [place]. Choose healthy snacks When it comes to [...] sugar could get toohigh. Last Reviewed Date: 06/30/202119998992-7228 [employer]. All rights reserved. This information is not intended as a substitute for professional medical care. Always follow your healthcare professional's instructions. * Pt Handout (not on AVS) - Nehal Meza RN - 07/05/2023 11:17 AM EST Images from the original note were not included. 80983 Exercise for a Healthier Heart You may [...] week. It's OK to work up to [id number] period over time. Examples of moderate-intensity activity [...] joint or muscle pain Last Reviewed Date: 01/28/202219991410-8906 [employer]. All rights reserved. This information is not intended as a substitute for professional medical care. Always follow your healthcare professional's instructions. * Pt Handout (not on AVS) - Nehal Meza RN - 07/05/2023 11:17 AM EST Images from the original note were not included. 66312 Diabetes: Learning About Serving and Portion Sizes [...] help with blood sugarmanagement. Last Reviewed Date: 07/31/202119997843-0011 [employer]. All rights reserved. This information is not [...] have and how well it?s controlled. The [place] Diabetes Association (ADA) advises an A1C test [...] should keep an A1C below 7%. The [place] Association of Clinical Endocrinologists advises an A1C [...] ready for the test. Last Reviewed Date: 09/28/202119991959-0081 [employer]. All rights reserved. This information is not intended as a substitute for professional medical care. Always follow your healthcare professional's instructions. * Pt Handout (not on AVS) - Nehal Meza RN - 07/05/2023 11:17 AM EST Images from the original note were not included. 82673 5 Steps for Eating Healthier Changing the [...] size of your fist. Last Reviewed Date: 06/30/202219991646-6874 [employer]. All rights reserved. This information is not intended as a substitute for professional medical care. Always follow your healthcare professional's instructions. documented in this encounter Plan of Treatment Upcoming Encounters Date Type Department Care Team (Late st Contact Info) Description 07/20/2023 1:30 PM EST Office Visit Pharmacy, [address] [place] [address] [place] [address] 07/25/2023 3:00 PM EST Office Visit Cardiology, [facility] [address] [facility] [place] [address] Emma Marte PA-C [address] [place] [address] 08/28/2023 11:30 AM EST Office Visit Cardiology, [facility] [address] [facility] [place] [address] Wily Conde DO [address] [facility] [place] [address] 12/20/2023 11:20 AM EDT Office Visit Family Medicine [address] [place] [phone] Britney Mojica MD [address] [place] [address] [place] [address] 12/27/2023 2:20 PM EDT Office Visit Nephrology [address] [place] [address] Jessica Gerardo MD [address] [place] [address] 01/25/2024 2:30 PM EDT Office Visit Nephrology [address] [place] [address] Amalia Mujica PA-C [address] [place] [address] 07/19/2024 11:00 AM EST Nurse Only Ancillary [address] [place] [address] [place], Nurse Annual [address] [place] [address] Scheduled Procedures Name Priority Associated Diagnoses Date/Ti [...] this encounter Medical Devices Implanted Type Area Patient Day Coordinator Device Identifier Shelf Expiration Date Model / Serial / Lot Valve Aor White Ii 23mm T505 - [id number] Implanted:Qty : 1 on 05/22/2012 at [place] [facility] Tissue - Non Human N/A: Heart [employer] : CARDIAC SURGERY 01/01/2015 23-T505 / [id number] / Sut [employer] 6 M654g - [id number] Implanted:Qty : 2 on 05/22/2012 at [place] [facility] N/A: Chest DO NOT USE 02/27/2017 [id number] / / [id number] documented as of this encounter Visit Diagnoses Diagnosis Risk and functional assessment- Primary Screening for unspecified condition Routine general medical examination at a health care facility Anemia of chronic disease Anemia of other chronic disease Anxiety, generalized Generalized anxiety disorder Atrial fibrillation (HCC) Atrial fibrillation Chronic dermatitis Contact dermatitis and other eczema, due to unspecified cause Chronic rhinitis Coronary artery disease involving alturas coronary artery of alturas heart without angina pectoris Type 2 diabetes mellitus with diabetic dermatitis ([facility]) Type II or unspecified type diabetes mellitus [...] disease, chronic, stage IV (GFR 15-29 ml/min) ([facility]) Chronic kidney disease, Stage IV (severe) Morbid obesity due to excess calories ([facility]) ADAN on CPAP Obstructive sleep apnea (adult) (pediatric) S/P AVR (aortic valve replacement) Heart valve replaced by other means Type 2 diabetes mellitus with hemoglobin A1c goal of less than 7.0% ([facility]) Type 2 diabetes mellitus with stage 3b chronic kidney disease, with long-term current use of insulin (HCC) Advanced care planning/counseling discussion Other specified counseling [...] the patient have Health Care Power of Transporter Driver? No Care Teams Swift Tender Relationship Specialty Start Date End Date Britney Mojica MD [address] [place] [address] [place] [address] PCP - General Family Medicine 10/16/18 documented as of this encounter
--- OUTSIDE RECORDS SUMMARY | 2023-08-01 20:24 | External Medical Summary | Summary of Care ---
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 Name Role Phone Britney Mojica MD Primary Care Prov ider Encounter Details Date Type Department Care Team (Late st Contact Info) Description 05/31/2023 Orders Only Family Medicine [address] [address] Britney Mojica MD [address] [place], [place] [address] [address] Allergies Active Allergy Reactions Criticality Noted Date Comments Iodinated Contrast Media Rash High 05/02/2012 Lisinopril 08/18/2003 Dry cough Metformin Other (Please comment) 10/19/2021 documented as of this encounter (statuses as of 05/31/2023) Medications Medication Sig Dispensed Refills Start Date [...] A1c goal of less than 7.0% ([facility]) Use as directed . 1 Kit 0 07/04/2022 Active Accu-Chek Guide In Vitro Strip (Glucose Blood)Indications:T ype 2 diabetes mellitus with hemoglobin A1c goal of less than 7.0% (HCC) 0 07/04/2022 Active Insulin Syringe 30G X 1/2" 0.5 MLIndications:Type 2 diabetes mellitus with hemoglobin A1c goal of less than 7.0% (HCC) Use with NovoLog twice a day. DXe11.9 0 07/04/2022 Active Saline Nasal [place] 0.65 % Nasal Solution Administer 1 [place] into nostril as needed for Congestion. 0 Active Insulin Aspart 100 UNIT/ML Injection Solution (NovoLOG)Indication s:Type 2 diabetes mellitus with hemoglobin A1c goal of less than 7.0% (HCC) Inject under the skin - 10 units before breakfast and 10 units before supper. SUPPLIED BY [employer] 30 mL 3 12/16/2022 Active Ondansetron HCl 4 MG Oral TabletIndications:N ausea and vomiting, unspecified vomiting type Take 1 Tablet by mouth every 12 hours as needed for Nausea. 12 Tablet 0 12/28/2022 Active Insulin Glargine 100 UNIT/ML Subcutaneous Solution (Lantus) Inject 10 Units under the skin at bedtime. 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 HAIR DISEASES NEC folliculitis 12/08/2011 Type 2 diabetes mellitus wit h hemoglobin A1c goal of less than 7.0% 05/06/2009 Overview: ICD-10 update of inactive term Deviated nasal septum 2011 AV obed re-entry tachycardia 2017 documented as of this encounter (statuses as of 05/31/2023) Immunizations Name Administration Dates Next Due COVID-19 mRNA, LNP-s, No Pre serve, 2-Dose Series (Moderna) 09/23/2020,08/26/2020 COVID-19, mRNA, LNP-s, PF, B ooster, 100mcg/0.5mg (Moderna) 11/02/2021,06/01/2021 Covid-19, Mrna, Lnp-s, Pf, B ivalent, 30 Mcg, IM, 12 yrs and above ([facility]) 05/10/2022 Hepatitis B, 20+ yrs 01/02/2023,09/05/2022,07/06 Pneumococcal Conjugate Vacc, 13 Valent (Prevnar) 07/14/2015 Pneumococcal Polysaccharide PPV23 (Pneumovax) 01/14/2019,10/13/2011,01/15/2004,07/31 Season Influenza, Quad, PF, Adjuvanted, 65+ Yrs, IM (FLUAD) 04/07/2020 Seasonal Influenza, Quadriva lent Hd (Fluzone Hd) 05/07/2022 Seasonal Influenza, Quadriva lent, No Preserve, IM [...] Care Team (Late st Contact Info) Description 06/21/2023 11:20 AM EST Office Visit Family Medicine [address] [place] [phone] Britney Mojica MD [address] [place] [address] [place] [address] 06/27/2023 1:00 PM EST Office Visit Nephrology [address] [place] [address] Amalia Mujica PA-C [address] [place] [address] 07/05/2023 10:00 AM EST Nurse Only Ancillary [address] [place] [address] [place], Nurse Annual [address] [place] [address] 07/05/2023 11:00 AM EST Office Visit Pharmacy, [address] [place] [address] [place] [address] 07/25/2023 3:00 PM EST [facility] [place] [address] Emma Marte PA-C [address] [place] [address] 08/28/2023 11:30 AM EST Office Visit Cardiology, [facility] [address] [place] [address] Wily Conde, [address] [place] [address] 12/27/2023 2:20 PM EDT Office Visit Nephrology [address] [place] [address] Jessica Gerardo MD [address] [facility] [place] [address] Scheduled Procedures Name Priority Associated Diagnoses Date/Ti me COLONOSCOPY FLEXIBLE PROXIMA L DIAGNOSTIC Recall History of colonic polyps Health Maintenance Due Date Last Done Comments COVID-19 Vaccine (2022- season) 2023 05/10/2022, 11/02/2021, 06/01/2021, Additional history exists Influenza Vaccine (FLU shot) (#1) 2023 05/07/2022, 04/19/2021, 04/07/2020, Additional history exists Albumin/Creatinine Ratio 04/06/2023 022, 08/30/2021, 04/06/2021, Additional history exists GFR 05/11/2023 05/11/2023, 10/29, 06/30/2022, Additional history exists Diabetic Foot Exam 05/31/2023 05/31/2022 (D one elsewhere), 06/18/2021, 03/25/2020, Additional history exists Depression Screening 07/04/2023 07/04/2022 HbA1c 10/05/2023 05/11/2023, 09/0 01/2023, 11/09/2022, Additional history exists COLONOSCOPY-EVERY 3 YRS AGES 18-100 10/31/2023 10/30/2020, 12/08/2017 O2 ASSESSMENT COMPLETED IN PAST YEAR FOR COPD 02/14/2024 02/13/2023 Diabetic Eye Exam 04/21/2024 04/21/2023, , 04/21/2023, Additional history exists DTaP,Tdap,and Td Vaccines (3 - Td or Tdap) 10/08/2031 10/07/2021, 10/13/2011, 02/22/2010, Additional history exists Zoster Vaccines Completed 05/28/2018, 03/01, 03/31/2011 Pneumococcal Vaccine: 65+ Years Completed 01/14/2019, 07/14/2015, 10/13/2011, Additional history exists Nephrology Referral Discontinued 12/22/2022 Hepatitis B Completed 01/02/2023, 12/2022, 07/06/2022 GARDASIL-HPV IMMUNIZATION SERIES Aged Out No longer eligible based on patient's age to complete this topic MENINGOCOCCAL (MENACTRA/MENVEO) Aged Out No longer eligible based on patient's age to complete this topic documented as of this encounter Medical Devices Implanted Type Area Drift Miner Device Identifier Shelf Expiration Date Model / Serial / Lot Valve Aor White Ii 23mm T505 - [id number] Implanted:Qty : 1 on 05/22/2012 at OR [facility] Tissue - Non Human N/A: Heart [employer] : CARDIAC SURGERY 01/01/2015 23-T505 / [id number] / Sut Steel 6 M654g - [id number] Implanted:Qty : 2 on 05/22/2012 at OR [facility] N/A: Chest DO NOT USE 02/27/2017 [id number] / / [id number] documented as of this encounter Procedures Procedure Name Priority Date/Time Associated Diagnosis Comments CHEMISTRY-OUTSIDE Routine 05/11/2023 documented in this encounter Results * (ABNORMAL) CHEMISTRY-OUTSIDE (05/11/2023) Not all results display below - see scan for full detail OUTSIDE LAB (SEE SCANNED REPORT) Comment:SCAN INCLUDES - V.A. LABS: CBCD, BMP, LIVER FUNCTION, LIPID PANEL, PSA, HBA1C, VIT B12, CYSTATIN C CREATININE-OUTSID E LAB 2.2(A) 0.6 - 1.5 MG/DL OUTSIDE LAB (SEE SCANNED REPORT) EGFR-OUTSIDE LAB 30.8 ML/MIN OUT SIDE LAB (SEE SCANNED REPORT) POTASSIUM-OUTSIDE LAB 4.9 3.6 - 5.1 MMOL/L OUTSIDE LAB (SEE SCANNED REPORT) GLUCOSE-OUTSIDE LAB 149(A) 70 - 99 MG/DL OUTSIDE LAB (SEE SCANNED REPORT) HOURS FASTING OUTSID E LAB (SEE SCANNED REPORT) TRIGLYCERIDES-OUT SIDE LAB 55 <=150 MG/DL OUTSIDE LAB (SEE SCANNED REPORT) CHOLESTEROL-OUTSI DE LAB 111 <=200 MG/DL OUTSIDE LAB (SEE SCANNED REPORT) HDL-OUTSIDE LAB 32.0(A) 40 - 60 MG/DL OUTSIDE LAB (SEE SCANNED REPORT) CHOL/HDL RATIO-OUTSIDE LAB OUTSIDE LA B (SEE SCANNED REPORT) LDL (CALCULATED)-OUTS RONDA LAB 68 5 - 100 MG/DL OUTSIDE LAB (SEE SCANNED REPORT) LDL (DIRECT MEASURE)-OUTSIDE LAB OUTSIDE LAB (SEE SCANNED REPORT) HEMOGLOBIN, V1T-NHVRGNI LAB 7.2(A) 4.3 - 6.2 % OUTSIDE LAB (SEE SCANNED REPORT) PHOSPHORUS-OUTSID E LAB OUTSIDE LAB (SEE SCANNED REPORT) PTH-OUTSIDE LAB OUTS RONDA LAB (SEE SCANNED REPORT) MICROALBUMIN RATIO-OUTSIDE LAB OUTSIDE LA B (SEE SCANNED REPORT) PROTEIN, UA-OUTSIDE LAB OUTSIDE LAB (SEE SCANNED REPORT) HEMOGLOBIN-OUTSID E LAB 12.1(A) 12.4 - 17.3 G/DL OUTSIDE LAB (SEE SCANNED REPORT) 05/11/2023 Sylvain Reyes MD [facility] OUTSIDE LAB (SEE SCANNED REPORT) documented in this encounter Advance Directives Latest [...] the patient have Health Care Power of Chronometer Assembler And Adjuster? No Care Teams Finished Metal Repairer Relationship Specialty Start Date End Date Britney Mojica MD [address] [place] [address] [place] [address] PCP - General Family Medicine 10/16/18 documented as of this encounter
--- OUTSIDE RECORDS SUMMARY | 2023-08-01 20:24 | External Medical Summary | Summary of Care ---
Author Name Unknown Organization [facility] Address [address] [place] [facility] [place] [address] Phone [phone] Care Team Providers Care Network Support Specialist Name Role Phone Britney Mojica MD Primary Care Prov ider Reason for Visit * Reason Onset Date Comments Health Maintenance 04/13/2023 Encounter Details Date Type Department Care Team Description 04/13/2023 Telephone Family Medicine [address] [address] Britney Mojica MD [address] [place] [address] [place] [address] Health Maintenance Allergies Active Allergy Reactions Severity Noted Date Comments Iodinated Contrast Media Rash High 05/02/2012 Lisinopril 08/18/2003 Dry cough Metformin Other (Please comment) 10/19/2021 documented as of this encounter (statuses as of 04/13/2023) Medications Medication Sig Dispensed Refills Start Date [...] hemoglobin A1c goal of less than 7.0% ([facility]) Use as directed . 1 Kit 0 07/04/2022 Active Accu-Chek Guide In Vitro Strip (Glucose Blood)Indications:T ype 2 diabetes mellitus with hemoglobin A1c goal of less than 7.0% (HCC) 0 07/04/2022 Active Insulin Syringe 30G X 1/2" 0.5 MLIndications:Type 2 diabetes mellitus with hemoglobin A1c goal of less than 7.0% ([facility]) Use with NovoLog twice a day. DXe11.9 0 07/04/2022 Active Saline Nasal [place] 0.65 % Nasal Solution Administer 1 [place] into nostril as needed for Congestion. 0 Active Insulin Aspart 100 UNIT/ML Injection Solution (NovoLOG)Indication s:Type 2 diabetes mellitus with hemoglobin A1c goal of less than 7.0% ([facility]) Inject under the skin - 10 units before breakfast and 10 units before supper. SUPPLIED BY [employer] 30 mL 3 12/16/2022 Active Ondansetron HCl 4 MG Oral TabletIndications:N ausea and vomiting, unspecified vomiting type Take 1 Tablet by mouth every 12 hours as needed for Nausea. 12 Tablet 0 12/28/2022 Active Ozempic (0.25 or 0.5 MG/DOSE) 2 MG/3ML Solution Pen-injector (Semaglutide(0.25 or 0.5MG/DOS)) Inject 0.5 mg under the skin once a week. 3 mL 3 04/06/2023 Active documented as of this encounter (statuses as of 04/13/2023) Active Problems Problem Noted Date Type 2 diabetes mellitus wit h stage 3b chronic kidney disease, with long-term current use of insulin 09/12/2022 Overview: Per CKD protocol Anxiety, generalized 12/14/2021 Xerostomia 12/14/2021 Seborrheic keratoses 12/14/2021 PND (post-nasal drip) 06/18/2021 Kidney disease, chronic, stage IV (GFR 1 5-29 ml/min) 11/06/2020 Anemia of chronic renal failure, stage 4 (severe) 09/07/2020 Overview: Per CKD protocol Hyperparathyroidism, secondary renal 03/2020 Morbid obesity with body mass index of 4 0.0-44.9 in adult 11/05/2019 Coronary artery disease invo lving [place] coronary artery of [place] heart without angina pectoris 11/05/2019 Simple chronic bronchitis 11/05/2019 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 Lichen simplex chronicus 06/04/2014 Chronic dermatitis 08/22/2013 DM type 2 causing renal disease 11/30/19 13 S/P AVR (aortic valve replacement) 06/06 Atrial fibrillation 05/28/2012 Morbid obesity due to excess calories Overview: Per Obesity Protocol, #19 ICD-10 update of inactive term Dyslipidemia, goal LDL below 100 009 Overview: Per Lipid Taxonomy. HTN, goal below 130/80 06/23/2009 Overview: Modified per HTN protocol #16. 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 documented as of this encounter (statuses as of 04/13/2023) Resolved Problems Problem Noted Date Resolved Date Type 2 diabetes mellitus wit h stage 3 chronic kidney disease, with long-term current use of insulin 08/26/2022 023 Overview: Per CKD protocol Anxiety 06/18/2021 06/09/2022 Anemia of chronic kidney failure, stage 3 (moder ate) 09/03/2020 09/10/2020 Overview: Per CKD protocol Class 3 obesity with alveola r hypoventilation and body mass index (BMI) of 40.0 to 44.9 in adult 11/06/2019 11/06/2019 Class 3 severe obesity with serious comorbidity and body mass index (BMI) of 40.0 to 44.9 in adult 11/06/2019 04/08/2020 Overview: Duplicate- resolved Body mass index (BMI) of 45.0 to 49.9 in adult 1 09/08/2018 04/08/2020 Overview: bmi 44.69 Per Obesity protocol - Per Obesity protocol Body mass index (BMI) of 40.0 to 44.9 in adult 0 03/11/2019 07/11/2019 Overview: Per Obesity protocol Morbid obesity with body mas s index (BMI) of 45.0 to 49.9 in adult 01/28/2019 03/14/2019 Overview: Per Obesity protocol Supraventricular tachycardia 01/28/2019 Hypertension associated with stage 3 chronic kidney disease due to type 2 diabetes mellitus 07/16/2018 07/11/2019 Overview: Per CKD protocol Type 2 diabetes mellitus wit h diabetic peripheral angiopathy without gangrene 07/16/2018 04/08/2020 AV obed re-entry tachycardia 03/28/2018 Venous insufficiency 12/15/2016 2017 Paroxysmal SVT (supraventricular tachycardia) 2017 Rotator cuff tear arthropathy 12/07/2014 Intertrigo 06/04/2014 05/18/2016 After cataract not obscuring vision 04/29/2014 2017 Overview: ICD-10 update of inactive term Other chronic allergic conjunctivitis 08/06/2013 2017 HTN, goal below 130/80 04/02/2013 3 Kidney disease, chronic, stage III (GFR 30-59 ml /min) 11/29/2012 08/17/2018 Anticoagulation management encounter 05/31/2012 2017 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 DM type 2, not at goal 05/06/2009 9 HTN, goal to be determined 10/01/200806/23 Overview: Modified per HTN protocol #16. Dermatitis 10/28/2003 12/08/2011 After cataract not obscuring vision 07/15/2002 12/08/2011 Overview: ICD-10 update of inactive term Progressive high myopia 07/15/2002 07/21/20 17 Mixed dyslipidemia 07/16/2009 Overview: Per Lipid Taxonomy. HAIR DISEASES NEC folliculitis 0 12/08/2011 Type 2 diabetes mellitus wit h hemoglobin A1c goal of less than 7.0% 05/06/2009 Overview: ICD-10 update of inactive term Deviated nasal septum 12/08/2011 AV obed re-entry tachycardia documented as of this encounter (statuses as of 04/13/2023) Immunizations Name Administration Dates Next Due COVID-19 mRNA, LNP-s, No Pre serve, 2-Dose Series (Moderna) 09/23/2020,08/26/2020 COVID-19, mRNA, LNP-s, PF, B ooster, 100mcg/0.5mg (Moderna) 11/02/2021,06/01/2021 Covid-19, Mrna, Lnp-s, Pf, B ivalent, 30 Mcg, IM, 12 yrs and above ([facility]) 05/10/2022 Hepatitis B, 20+ yrs 01/02/2023,09/05/2022,07/06 Pneumococcal [...] e alcohol) rare wine, makes his own Sex Assigned at Date Recorded Male 07/01/2021 10:21 AM EST Job Start Date Occupation Industry Not on file Not on file Not on file documented as of this encounter Miscellaneous Notes * Telephone Encounter - Miracle Garza LPN - 04/13/2023 1:53 PM EDT Care Gaps Comprehensive Care Outreach Last Office/Telemedicine Visit: 12/28/2022 (in office), Visit date not found (telemedicine) Next Office Visit: 06/21/2023 Hemoglobin AIC Results: Lab Results Component Value Date/Time HEMOGLOBIN A1C - [facility] 7.0 (H) 04/06/2023 09:54 AM HEMOGLOBIN A1C - [facility] 6.0 (H) 12/14/2021 11:26 AM HEMOGLOBIN A1C - [facility] 7.0 (H) 07/16/2019 10:15 AM HEMOGLOBIN A1C - [facility] 6.9 (H) 01/18/2019 11:30 AM HEMOGLOBIN A1C - [facility] 6.7 (H) 05/21/2015 10:12 AM Reviewed Health Maintenance below: Health Maintenance Topic Date Due Influenza Vaccine (FLU shot) (1) 03/31/2023 Albumin/Creatinine Ratio 04/06/2023 GFR 05/11/2023 Diabetic Foot Exam 05/31/2023 Depression Screening 07/04/2023 Labs/urine Flu Foot [facility] Care Gap Outreach Action Taken: Spoke to patient documented in this encounter Plan of Treatment Upcoming Encounters Date Type Specialty Care Team Description 05/18/2023 Office Visit [address] [place] [address] 06/21/2023 Office Visit Family Medicine Britney Mojica MD [address] [place] [address] [place] [address] 06/27/2023 Office Visit Nephrology Amalia Mujica PA-C [address] [place] [address] 07/05/2023 Nurse Only Ancillary [place], Nurse Annual Wellness [address] [place] [address] [place] [address] 07/13/2023 Office Visit Cardiology Wily Conde, DO [address] [place] [address] 08/28/2023 Office Visit Cardiology Wily Conde, [address] [place] [address] 12/27/2023 Office Visit Nephrology Jessica Gerardo MD [address] [facility] [address] Scheduled Orders Name Type Priority Associated Diagnoses Orde r Schedule COMPREHENSIVE METABOLIC PANEL Lab Routine Chronic kidney disease, unspecified CKD stage Expected: 05/31/2023, Expires: 04/13/2024 ALBUMIN / CREATININE RATIO, URINE Lab Routine Chronic kidney disease, unspecified CKD stage Expected: 05/31/2023 (Approximate), Expires: 04/13/2024 Scheduled Procedures Name Priority Associated Diagnoses Date/Ti me COLONOSCOPY FLEXIBLE PROXIMA L DIAGNOSTIC Recall History of colonic polyps Health Maintenance Due Date Last Done Comments Influenza Vaccine (FLU shot) (#1) 2023 05/07/2022, 04/19/2021, 04/07/2020, Additional history exists Albumin/Creatinine Ratio 04/06/2023 022, 08/30/2021, 04/06/2021, Additional history exists GFR 05/11/2023 11/09/2022, 12/0 07/2021, 06/20/2022, Additional history exists Diabetic Foot Exam 05/31/2023 05/31/2022 (D one elsewhere), 06/18/2021, 03/25/2020, Additional history exists Depression Screening 07/04/2023 07/04/2022 HbA1c 10/05/2023 04/06/2023, 0408/2022, 04/06/2022, Additional history exists DIABETES-EYE EXAM 10/13/2023 10/12/2022, , 09/29/2021, Additional history exists COLONOSCOPY-EVERY 3 YRS AGES 18-100 10/31/2023 10/30/2020, 12/08/2017 O2 ASSESSMENT COMPLETED IN PAST YEAR FOR COPD 02/14/2024 02/13/2023 DTaP,Tdap,and Td Vaccines (3 - Td or Tdap) 10/08/2031 10/07/2021, 10/13/2011, 02/22/2010, Additional history exists Hepatitis C Screening Completed 01/06/2000 Zoster Vaccines Completed 05/28/2018, 03/01, 03/31/2011 Pneumococcal Vaccine: 65+ Years Completed 01/14/2019, 07/14/2015, 10/13/2011, Additional history exists COVID-19 Vaccine Completed 05/10/2022, 11/2021, 06/01/2021, Additional history exists Nephrology Referral Discontinued 12/22/2022 Hepatitis B Completed 01/02/2023, 12/2022, 07/06/2022 GARDASIL-HPV IMMUNIZATION SERIES Aged Out No longer eligible based on patient's age to complete this topic MENINGOCOCCAL (MENACTRA/MENVEO) Aged Out No longer eligible based on patient's age to complete this topic documented as of this encounter Medical Devices Implanted Type Area Produce Manager Device Identifier Shelf Expiration Date Model / Serial / Lot Valve Aor White Ii 23mm T505 - [id number] Implanted:Qty : 1 on 05/22/2012 at [place] [facility] [place] Tissue - Non Human N/A: Heart [employer] : CARDIAC SURGERY 01/01/2015 23-T505 / [id number] / Sut Steel 6 M654g - [id number] Implanted:Qty : 2 on 05/22/2012 at [place] [facility] [place] N/A: Chest DO NOT USE 02/27/2017 [id number] / / [id number] documented as of this encounter Visit Diagnoses Diagnosis Chronic kidney disease, unspecified CKD stage- Primary documented in this encounter Advance Directives [...] the patient have Health Care Power of Factory Helper? No Care Teams Network Support Specialist Relationship Specialty Start Date End Date Britney Mojica MD [address] [place] [address] [place] [address] PCP - General Family Medicine 10/16/18 documented as of this encounter
--- OUTSIDE RECORDS SUMMARY | 2023-08-01 20:24 | External Medical Summary | Summary of Care ---
Author Name Unknown Organization [facility] Address [address] [place] [address] Phone [phone] Care Team Providers Care Autocad Name Role Phone Britney Mojica MD Primary Care Prov ider Reason for Visit * Reason Comments Follow Up 6 mo f/u Encounter Details Date Type Department Care Team (Late st Contact Info) Description 06/21/2023 11:20 AM EST Office Visit Family Medicine [address] [phone] Britney Mojica MD [address] [place] [address] [place] [address] Annual physical exam*; Type 2 diabetes mellitus with hemoglobin A1c goal of less than 7.0% (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); Chronic atrial fibrillation ([facility]); PND (post-nasal drip); Simple chronic bronchitis ([facility]) Allergies Active Allergy Reactions Criticality Noted Date Comments Iodinated Contrast Media Rash High 05/02/2012 Lisinopril 08/18/2003 Dry cough Metformin Other (Please comment) 10/19/2021 documented as of this encounter (statuses as of 06/21/2023) Medications Medication Sig Dispensed Refills Start Date [...] day. DXe11.9 0 07/04/2022 Active Saline Nasal [place] 0.65 % Nasal Solution Administer 1 [place] into nostril as needed for Congestion. 0 Active Insulin Aspart 100 UNIT/ML Injection Solution (NovoLOG)Indication s:Type 2 diabetes mellitus with hemoglobin A1c goal of less than 7.0% (HCC) Inject under the skin - 10 units before breakfast and 10 units before supper. SUPPLIED BY [employer] 30 mL 3 12/16/2022 Active Ondansetron HCl 4 MG Oral TabletIndications:N ausea and vomiting, unspecified vomiting type Take 1 Tablet by mouth every 12 hours as needed for Nausea. 12 Tablet 0 12/28/2022 Active Insulin Glargine 100 UNIT/ML Subcutaneous Solution (Lantus) Inject 10 Units under the skin at bedtime. (Supplied by [employer]) 1 Each 12 05/02/2023 Active Azelastine HCl 0.1 % Nasal Solution (Astelin)Indication s:PND (post-nasal drip) Administer 1 [place] into nostril in the morning and 1 [place] before bedtime. 30 mL 3 06/21/2023 Active guaiFENesin 400 MG Oral Tablet Take 1 Tablet by mouth every 4 hours as needed for Congestion. 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 [...] as of this encounter (statuses as of 06/21/2023) Resolved Problems Problem Noted Date Diagnosed Date [...] 11/29/2012 08/17/2018 Anticoagulation management encounter 05/31/2012 2017 exterminator termite current use of ant icoagulant therapy 05/31/2012 [...] as of this encounter (statuses as of 06/21/2023) Immunizations Name Administration Dates Next Due COVID-19 mRNA, LNP-s, No Pre serve, 2-Dose Series (Moderna) 09/23/2020,08/26/2020 COVID-19, MRNA-LNP, 23-24, P F, 30 MCG/0.3 mL, 12 YRS AND ABOVE, IM ([facility] [employer]) 06/21/2023 COVID-19, mRNA, LNP-s, PF, B ooster, 100mcg/0.5mg (Moderna) 11/02/2021,06/01/2021 Covid-19, Mrna, Lnp-s, Pf, B ivalent, 30 Mcg, IM, 12 yrs and above ([employer]) 05/10/2022 Hepatitis B, 20+ yrs 01/02/2023,09/05/2022,07/06 Influenza, [...] Influenza, Split, I IV3, With Preserve, Inj 04/30/2015,05/27/2014,04/22/2013,04/01,03/31/2011,05/09/2010,06/22/20,06/10/2003,05/29/2002,07/19/2001 Seasonal Influenza, Trivalen t, Adjuvanted, 65+ yrs [...] Sign Reading Time Taken Comments Blood Pressure 130/60 06/21/2023 11:21 AM EST Pulse 100 06/21/2023 11:21 AM EST Temperature 35.7 C (96.2 F) 06/21/2023 1 1:21 AM EST Respiratory Rate - - Oxygen Saturation 99% 06/21/2023 11: 21 AM EST Inhaled Oxygen Concentration - - Weight 128.2 kg (282 lb 9.6 oz) 023 11:21 AM EST Height - - Body Mass Index 41.13 08/10/2022 10:53 AM EST documented in this encounter Progress Notes * Britney Mojica MD - 06/21/2023 11:38 AM EST Subjective Talha Miles is a 77 year old male. Chief Complaint Patient presents with Follow Up 6 mo f/u HPI: Here for routine annual exam and chronic disease follow up. DM2/CKD4. On insulin, [facility]. GFR stable in 30s, last was 30 a month ago. A1C 7.2 in April. Did not tolerate Ozempic due to GI distress. Managed with insulin alone now. Blood sugarsrun typically low 100s (eg 144 this AM). GI. Developed diarrhea on ozempic, which he stopped 6 weeks ago. The diarrhea is slowly improving. HTN/ Afib/ CAD. BP well managed on metoprolol 50mg and losartan 50mg. Afib and CHF preserved EF 50%last echo. Well managed per cardiology. Lipids. LDL 68 in April. On atorvastatin 40mg daily. Allergies/ Phlegm. Managed with nasal saline. Uses mucinex. Preventive: UTD with vaccines; [facility]. 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) E11.9 HTN, goal below 130/80 I10 Dyslipidemia, goal LDL below 100 E78.5 Morbid obesity due to excess calories ([facility]) E66.01 Atrial fibrillation ([facility]) I48.91 S/P AVR (aortic valve replacement) Z95.2 DM type 2 causing renal disease ([facility]) E11.29 Chronic dermatitis L30.9 Lichen simplex chronicus L28.0 Rotator cuff tear, right M75.101 Diastolic dysfunction I51.89 Anemia of chronic disease D63.8 Chronic rhinitis J31.0 Type 2 diabetes mellitus with diabetic dermatitis ([facility]) E11.620 Chest pain due to [...] body mass index of 40.0-44.9 in adult ([facility]) E66.01, Z68.41 Coronary artery disease involving [place] coronary artery of [place] heart without angina pectoris I25.10 Simple chronic bronchitis ([facility]) J41.0 Hyperparathyroidism, secondary renal ([facility]) N25.81 Anemia of chronic renal failure, stage 4 (severe) ([facility]) N18.4, D63.1 Kidney disease, chronic, stage IV (GFR 15-29 ml/min) ([facility]) N18.4 PND (post-nasal drip) R09.82 Anxiety, generalized F41.1 Xerostomia K11.7 Seborrheic keratoses L82.1 Type 2 diabetes mellitus with stage 3b chronic kidney disease, with long-term current use of insulin ([facility]) E11.22, N18.32, Z79.4 Current Outpatient Medications Medication Sig Dispense Refill [...] NovoLog twice a day. DXe11.9 Saline Nasal Ring[place] 0.65 % Nasal Solution Administer 1 [place] into nostril as needed for Congestion. Insulin Aspart 100 UNIT/ML Injection Solution (NovoLOG) Inject under the skin - 10 units before breakfast and 10 units before supper. SUPPLIED BY [employer] 30 mL 3 Ondansetron HCl 4 MG Oral Tablet Take 1 Tablet by mouth every 12 hours as needed for Nausea. 12 Tablet 0 Insulin Glargine 100 UNIT/ML Subcutaneous Solution (Lantus) Inject 10 Units under the skin at bedtime. (Supplied by [employer]) 1 Each 12 Azelastine HCl 0.1 % Nasal Solution (Astelin) Administer 1 Ringgold into nostril in the morning and 1 [place] before bedtime. 30 mL 3 guaiFENesin 400 MG Oral Tablet Take 1 Tablet by mouth every 4 hours as needed for Congestion. 180 Tablet 3 No current facility-administered medications for this visit. Review of patient's allergies indicates: Allergen Reactions Iodinated Contrast Media Rash Lisinopril Dry cough Metformin Other (Please comment) Objective BP 130/60 | Pulse 100 | Temp 35.7 C (96.2 F) (Tympanic) | Wt 128.2 kg (282 lb 9.6 oz) | SpO2 99% | BMI 41.13 kg/m | BSA 2.51 m Physical Exam Constitutional: Appearance: Normal appearance. He is obese. HENT: Head: Normocephalic. Cardiovascular: Rate and Rhythm: Normal rate. Rhythm irregular. Pulses: Normal pulses. Pulmonary: Effort: Pulmonary effort is normal. Breath sounds: Normal breath sounds. Abdominal: Palpations: Abdomen is soft. Musculoskeletal: General: Normal range of motion. Cervical back: Normal range of motion and neck supple. Skin: General: Skin is warm and dry. Neurological: General: No focal deficit present. Mental Status: He is alert and oriented to person, place, and time. Psychiatric: Mood and Affect: Mood normal. 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 Simple chronic bronchitis (HCC) Other orders - guaiFENesin 400 MG Oral Tablet; Take 1 Tablet by mouth every 4 hours as needed for Congestion. Follow Up: Return in about 6 months (around 12/20/2023) for Return with Physician, Clinic Visit. | For: Return with Physician, Clinic Visit Advised him to start taking guaifenesin daily and start astelin nasal spray. If needs additional treatment, recommend Flonase in addition. Add fiber to reduce diarrhea. If not improved over the next 2-4 weeks, schedule with GI. Britney Don MD documented in this encounter Nursing Notes * Laura Hernandez LPN - 06/21/2023 11:27 AM EST Chief Complaint Patient presents with Follow Up 6 mo f/u Had to stop taking Ozempic due to causing GI issues The patient has been properly identified by confirmation of name and date of . documented in this encounter Plan of Treatment Upcoming Encounters Date Type Department Care Team (Late st Contact Info) Description 06/21/2023 1:00 PM EST Immunization Ancillary [place] [address] [place] [address] [place], Covid Vaccine [address] [place] [address] 06/27/2023 1:00 PM EST Office Visit Nephrology [address] [place] [address] Amalia Mujica PA-C [address] [place] [address] 07/05/2023 10:00 AM EST Nurse Only Ancillary [address] [place] [address] [place], Nurse Annual [address] [place] [address] 07/05/2023 11:00 AM EST Office Visit Pharmacy, [address] [place] [address] [place] [address] 07/25/2023 3:00 PM EST Office Visit Cardiology, [facility] [address] [place] [address] Emma Marte [facility]-C [facility] [place] [address] 08/28/2023 11:30 AM EST Office Visit Cardiology, [facility] [address] [place] [address] Wily Conde DO [address] [place] [address] 12/20/2023 11:20 AM EDT Office Visit Family Medicine [address] [place] [phone] Britney Mojica MD [address] [place] [address] [place] [address] 12/27/2023 2:20 PM EDT Office Visit Nephrology [address] [place] [address] Jessica Gerardo MD [address] [place] [address] Scheduled Orders Name Type Priority Associated Diagnoses Orde r Schedule HEMOGLOBIN A1C Lab Routine Type 2 diabetes mellitus with hemoglobin A1c goal of less than 7.0% (HCC) Expected: 12/20/2023 (Approximate), Expires: 06/20/2024 BASIC METABOLIC PANEL Lab Routine Type 2 diabetes mellitus with hemoglobin A1c goal of less than 7.0% (HCC) Expected: 12/20/2023 (Approximate), Expires: 06/20/2024 Scheduled Procedures Name Priority Associated Diagnoses Date/Ti me COLONOSCOPY FLEXIBLE PROXIMA L DIAGNOSTIC Recall History of colonic polyps Health Maintenance Due Date Last Done Comments Albumin/Creatinine Ratio 04/06/2023 022, 08/30/2021, 04/06/2021, Additional history exists Diabetic Foot Exam 05/31/2023 05/31/2022 (D one elsewhere), 06/18/2021, 03/25/2020, Additional history exists Depression Screening 07/04/2023 07/04/2022 COLONOSCOPY-EVERY 3 YRS AGES 18-100 10/31/2023 10/30/2020, 12/08/2017 GFR 11/10/2023 05/11/2023, 10/29, 06/30/2022, Additional history exists HbA1c 11/10/2023 05/11/2023, 09/0 01/2023, 11/09/2022, Additional history exists O2 ASSESSMENT COMPLETED IN PAST YEAR FOR COPD 02/14/2024 02/13/2023 Diabetic Eye Exam 04/21/2024 04/21/2023, , 04/21/2023, Additional history exists DTaP,Tdap,and Td Vaccines (3 - Td or Tdap) 10/08/2031 10/07/2021, 10/13/2011, 02/22/2010, Additional history exists Zoster Vaccines Completed 05/28/2018, 03/01, 03/31/2011 Pneumococcal Vaccine: 65+ Years Completed 01/14/2019, 01/02/2017, 07/14/2015, Additional history exists Nephrology Referral Discontinued 12/22/2022 Hepatitis B Completed 01/02/2023, 02/12/2022, 07/06/2022 Influenza Vaccine (FLU shot) Completed 05/18/2023, 05/07/2022, 04/19/2021, Additional history exists COVID-19 Vaccine Completed 06/21/2023, 05/2022, 11/02/2021, Additional history exists GARDASIL-HPV IMMUNIZATION SERIES Aged Out No longer eligible based on patient's age to complete this topic MENINGOCOCCAL (MENACTRA/MENVEO) Aged Out No longer eligible based on patient's age to complete this topic documented as of this encounter Medical Devices Implanted Type Area Gymnastics Coach Or Instructor Device Identifier Shelf Expiration Date Model / Serial / Lot Valve Aor White Ii 23mm T505 - [id number] Implanted:Qty : 1 on 05/22/2012 at OR [facility] [place] Tissue - Non Human N/A: Heart [employer] : CARDIAC SURGERY 01/01/2015 23-T505 / [id number] / Sut Steel 6 M654g - [id number] Implanted:Qty : 2 on 05/22/2012 at OR [facility] N/A: Chest DO NOT USE 02/27/2017 [id number] / / [id number] documented as of this encounter Visit Diagnoses Diagnosis Annual physical exam- Primary Routine general medical examination at a health care facility Type 2 diabetes mellitus with hemoglobin A1c goal of less than 7.0% (HCC) Dyslipidemia, goal LDL below 100 Other and unspecified hyperlipidemia 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 No Care Teams Autocad Relationship Specialty Start Date End Date Britney Mojica MD [address] [place] [address] [place] [phone] PCP - General Family Medicine 10/16/18 documented as of this encounter
--- OUTSIDE RECORDS SUMMARY | 2023-08-01 20:24 | External Medical Summary | Summary of Care ---
Author Name Unknown Organization [facility] Address [address] [facility] [place] [address] Phone [phone] Care Team Providers Care Manager Industrial Name Role Phone Britney Mojica MD Primary Care Prov ider Encounter Details Date Type Department Care Team (Late st Contact Info) Description 02/08/2023 Result Scan Unspecified Department <No scans attached> Allergies Active Allergy Reactions Criticality Noted Date [...] A1c goal of less than 7.0% ([facility]) Use with NovoLog twice a day. DXe11.9 0 07/04/2022 Active Saline Nasal [place] 0.65 % Nasal Solution Administer 1 [place] into nostril as needed for Congestion. 0 Active Insulin Aspart 100 UNIT/ML Injection Solution (NovoLOG)Indication s:Type 2 diabetes mellitus with hemoglobin A1c goal of less than 7.0% ([facility]) Inject under the skin - 10 units before breakfast and 10 units before supper. SUPPLIED BY [employer] 30 mL 3 12/16/2022 Active Ondansetron HCl 4 MG Oral TabletIndications:N ausea and vomiting, unspecified vomiting type Take 1 Tablet by mouth every 12 hours as needed for Nausea. 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 [...] 11/29/2012 08/17/2018 Anticoagulation management encounter 05/31/2012 2017 group home current use of ant icoagulant therapy 05/31/2012 [...] 11:20 AM EST Office Visit Family Medicine [address] [place] [address] Britney Mojica MD [address] [place] [address] [place] [address] 06/27/2023 1:00 PM EST Office Visit Nephrology [address] [place] [address] Amalia Mujica PA-C [address] [place] [address] 07/05/2023 10:00 AM EST Nurse Only Ancillary [address] [place] [address] [place], Nurse [address] [place] [address] 07/05/2023 11:00 AM EST Office Visit Pharmacy, [address] [place] [address] [place] [address] 07/25/2023 3:00 PM EST Office Visit Cardiology, [facility] [address] [place] [address] Emma Marte PA-C [address] [place] [address] 08/28/2023 11:30 AM EST Office Visit Cardiology, [facility] [address] [place] [address] Wily Conde DO [address] [place] [address] 12/27/2023 2:20 PM EDT Office Visit Nephrology [address] [place] [address] Jessica Gerardo MD [address] [place] [address] Scheduled Procedures Name Priority Associated Diagnoses Date/Ti [...] Depression Screening 07/04/2023 07/04/2022 HbA1c 10/05/2023 05/11/2023, 01/2023, 11/09/2022, Additional history exists COLONOSCOPY-EVERY 3 [...] Referral Discontinued 12/22/2022 Hepatitis B Completed 01/02/2023, 0212/2022, 07/06/2022 GARDASIL-HPV IMMUNIZATION SERIES Aged Out No longer eligible based on patient's age to complete this topic MENINGOCOCCAL (MENACTRA/MENVEO) Aged Out No longer eligible based on patient's age to complete this topic documented as of this encounter Medical Devices Implanted Type Area Floral Associate Device Identifier Shelf Expiration Date Model / Serial / Lot Valve Aor White Ii 23mm T505 - [id number] Implanted:Qty : 1 on 05/22/2012 at [place] [facility] [place] Tissue - Non Human N/A: Heart [employer] : CARDIAC SURGERY 01/01/2015 23-T505 / [id number] / Sut Steel 6 M654g - [id number] Implanted:Qty : 2 on 05/22/2012 at [place] [facility] [place] N/A: Chest DO NOT USE 02/27/2017 M654G / / [id number] documented as of this encounter Procedures Procedure Name Priority Date/Time Associated Diagnosis Comments OUTSIDE LAB RESULTS 02/08/2023 documented in this encounter Results * OUTSIDE LAB RESULTS (02/08/2023) 02/08/2023 No Physician Data Unknown LABORATORY documented in this encounter Advance Directives Latest [...] the patient have Health Care Power of Exchange Administrator? No Care Teams Manager Industrial Relationship Specialty Start Date End Date Britney Mojica MD [address] [place] [address] [place] [phone] PCP - General Family Medicine 10/16/18 documented as of this encounter
--- OUTSIDE RECORDS SUMMARY | 2023-08-01 20:24 | External Medical Summary | Summary of Care ---
Author Name Unknown Organization [facility] Address [address] [facility] [place] [address] Phone [phone] Care Team Providers Care Honey Producer Name Role Phone Britney Mojica MD Primary Care Prov ider Encounter Details Date Type Department Care Team (Late st Contact Info) Description 06/21/2023 1:00 PM EST Immunization Ancillary [place] [place] [address] [facility] Covid19 Vaccine [address] [place] [address] Allergies Active Allergy Reactions Criticality Noted Date [...] A1c goal of less than 7.0% ([facility]) Use as directed . 1 Kit [...] day. DXe11.9 0 07/04/2022 Active Saline Nasal [place] 0.65 % Nasal Solution Administer 1 [place] into nostril as needed for Congestion. 0 Active Insulin Aspart 100 UNIT/ML Injection Solution (NovoLOG)Indication s:Type 2 diabetes mellitus with hemoglobin A1c goal of less than 7.0% ([facility]) Inject under the skin - 10 units before breakfast and 10 units before supper. SUPPLIED BY [employer] 30 mL 3 12/16/2022 Active Ondansetron HCl 4 MG Oral TabletIndications:N ausea and vomiting, unspecified vomiting type Take 1 Tablet by mouth every 12 hours as needed for Nausea. 12 Tablet 0 12/28/2022 Active Insulin Glargine 100 UNIT/ML Subcutaneous Solution (Lantus) Inject 10 Units under the skin at bedtime. 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 type [...] Anxiety 06/18/2021 06/09/2022 Anemia of chronic kidney georgejin ashley, stage 3 (moderate) 09/03/2020 09/10/2020 Overview: [...] 11/29/2012 08/17/2018 Anticoagulation management encounter 05/31/2012 2017 long-term current use of ant icoagulant therapy 05/31/2012 [...] 06/27/2023 1:00 PM EST Office Visit Nephrology [address] [place] [address] Amalia Mujica PA-C [address] [place] [address] 07/05/2023 10:00 AM EST Nurse Only Ancillary [address] [place] [address] [place], Nurse [address] [place] [address] 07/05/2023 11:00 AM EST Office Visit Pharmacy, [address] [place] [address] [place] [address] 07/25/2023 3:00 PM EST Office Visit Cardiology, [facility] [address] [facility] [place] [address] Emma Marte PA-C [address] [place] [address] 08/28/2023 11:30 AM EST Office Visit Cardiology, [facility] [address] [place] [address] Wily Conde, [address] [place] [address] 12/27/2023 2:20 PM EDT Office Visit Nephrology [address] [place] [address] Jessica Gerardo MD [address] [place] [address] Scheduled Procedures Name Priority Associated Diagnoses Date/Ti [...] 11/10/2023 05/11/2023, 0901/2023, 11/09/2022, Additional history exists O2 ASSESSMENT COMPLETED [...] this encounter Medical Devices Implanted Type Area Home Health Care Provider Device Identifier Shelf Expiration Date Model / Serial / Lot Valve Aor White Ii 23mm T505 - [id number] Implanted:Qty : 1 on 05/22/2012 at [place] [facility] [place] Tissue - Non Human N/A: Heart [employer] : CARDIAC SURGERY 01/01/2015 23-T505 / [id number] / Sut Steel 6 M654g - [id number] Implanted:Qty : 2 on 05/22/2012 at [place] [facility] [place] N/A: Chest DO NOT USE 02/27/2017 M654G / / [id number] documented as of this encounter Advance Directives [...] the patient have Health Care Power of Ethnology Teacher? No Care Teams Honey Producer Relationship Specialty Start Date End Date Britney Mojica MD NPI: [id number] [place] [address] [place] [address] PCP - General Family Medicine 10/16/18 documented as of this encounter
--- OUTSIDE RECORDS SUMMARY | 2023-08-01 20:24 | External Medical Summary | Summary of Care ---
Author Name Unknown Organization [facility] Address [address] [facility] [address] Phone [phone] Care Team Providers Care Coal Hauler Operator Name Role Phone Britney Mojica MD Primary Care Prov ider Reason for Visit * Reason Comments Follow Up 6 mo f/u Encounter Details Date Type Department Care Team (Late st Contact Info) Description 06/21/2023 11:20 AM EST Office Visit Family Medicine [address] [phone] Britney Mojica MD [address] [place] [address] [place] [address] Annual physical exam*; Type 2 diabetes mellitus with hemoglobin A1c goal of less than 7.0% ([facility]); Dyslipidemia, goal LDL below 100; 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 DXe11.9 0 07/04/2022 Active Saline Nasal [place] 0.65 % Nasal Solution Administer 1 [place] into nostril as needed for Congestion. 0 Active Insulin Aspart 100 UNIT/ML Injection Solution (NovoLOG)Indication s:Type 2 diabetes mellitus with hemoglobin A1c goal of less than 7.0% (HCC) Inject under the skin - 10 units before breakfast and 10 units before supper. SUPPLIED BY [employer] 30 mL 3 12/16/2022 Active Ondansetron HCl 4 MG Oral TabletIndications:N ausea and vomiting, unspecified vomiting type Take 1 Tablet by mouth every 12 hours as needed for Nausea. 12 Tablet 0 12/28/2022 Active Insulin Glargine 100 UNIT/ML Subcutaneous Solution (Lantus) Inject 10 Units under the skin at bedtime. (Supplied by [employer]) 1 Each 12 05/02/2023 Active Azelastine HCl 0.1 % Nasal Solution (Astelin)Indication s:PND (post-nasal drip) Administer 1 [place] into nostril in the morning and 1 [place] before bedtime. 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 ant icoagulant therapy 05/31/2012 [...] MCG/0.3 mL, 12 YRS AND ABOVE, IM ([employer]) 06/21/2023 COVID-19, mRNA, LNP-s, PF, B ooster, 100mcg/0.5mg (Moderna) 11/02/2021,06/01/2021 Covid-19, Mrna, Lnp-s, Pf, B ivalent, 30 Mcg, IM, 12 yrs and above ([employer]) 05/10/2022 Hepatitis B, 20+ yrs 01/02/2023,09/05/2022,07/06 Influenza, [...] documented in this encounter Progress Notes * rBitney Mojica MD - 06/21/2023 11:38 AM EST [...] hemoglobin A1c goal of less than 7.0% ([facility]) E11.9 HTN, goal below 130/80 I10 Dyslipidemia, goal LDL below 100 E78.5 Morbid obesity due to excess calories ([facility]) E66.01 Atrial fibrillation ([facility]) I48.91 S/P AVR (aortic valve replacement) Z95.2 DM type 2 causing renal disease ([facility]) E11.29 Chronic dermatitis L30.9 Lichen simplex chronicus L28.0 Rotator cuff tear, right M75.101 Diastolic dysfunction I51.89 Anemia of chronic disease D63.8 Chronic rhinitis J31.0 Type 2 diabetes mellitus with diabetic dermatitis ([facility]) E11.620 Chest pain due to [...] body mass index of 40.0-44.9 in adult ([facility]) E66.01, Z68.41 Coronary artery disease involving lime coronary artery of lime heart without angina pectoris I25.10 Simple chronic bronchitis ([facility]) J41.0 Hyperparathyroidism, secondary renal ([facility]) N25.81 Anemia of chronic renal failure, stage 4 (severe) ([facility]) N18.4, D63.1 Kidney disease, chronic, stage IV (GFR 15-29 ml/min) ([facility]) N18.4 PND (post-nasal drip) R09.82 Anxiety, generalized F41.1 Xerostomia K11.7 Seborrheic keratoses L82.1 Type 2 diabetes mellitus with stage 3b chronic kidney disease, with long-term current use of insulin ([facility]) E11.22, N18.32, Z79.4 Current Outpatient [...] NovoLog twice a day. DXe11.9 Saline Nasal [place] 0.65 % Nasal Solution Administer 1 [place] into nostril as needed for Congestion. Insulin Aspart 100 UNIT/ML Injection Solution (NovoLOG) Inject under the skin - 10 units before breakfast and 10 units before supper. SUPPLIED BY [employer] 30 mL 3 Ondansetron HCl 4 MG Oral Tablet Take 1 Tablet by mouth every 12 hours as needed for Nausea. 12 Tablet 0 Insulin Glargine 100 UNIT/ML Subcutaneous Solution (Lantus) Inject 10 Units under the skin at bedtime. (Supplied by [employer]) 1 Each 12 Azelastine HCl 0.1 % Nasal Solution (Astelin) Administer 1 [place] into nostril in the morning and 1 [place] before bedtime. 30 mL 3 guaiFENesin 400 [...] 0.1 % Nasal Solution (Astelin); Administer 1 [place] into nostril in the morning and1 [place] before bedtime. Simple chronic bronchitis (HCC) Other [...] Description 06/21/2023 1:00 PM EST Immunization Ancillary [place] [facility] [address] [place] [address] [place], Covid Vaccine [address] [place] [address] 06/27/2023 1:00 PM EST Office Visit Nephrology [address] [place] [address] Amalia Mujica PA-C [address] [place] [address] 07/05/2023 10:00 AM EST Nurse Only Ancillary [address] [place] [address] [place], Nurse Annual [address] [place] [address] 07/05/2023 11:00 AM EST Office Visit Pharmacy, [address] [place] [address] [place] [address] 07/25/2023 3:00 PM EST Office Visit Cardiology, [facility] [address] [place] [address] Emma Marte PA-C [address] [facility] [place] [address] 08/28/2023 11:30 AM EST Office Visit Cardiology, [facility] [address] [place] [address] Wily Conde DO [address] [place] [address] 12/20/2023 11:20 AM EDT Office Visit Family Medicine [address] [place] [phone] Britney Mojica MD [address] [place] [address] [place] [address] 12/27/2023 2:20 PM EDT Office Visit Nephrology [address] [place] [address] Jessica Gerardo MD [address] [place] [address] Scheduled Orders Name Type Priority Associated Diagnoses [...] this encounter Medical Devices Implanted Type Area Funeral Professional Device Identifier Shelf Expiration Date Model / Serial / Lot Valve Aor White Ii 23mm T505 - [id number] Implanted:Qty : 1 on [place]22[place] [facility] [place] - Non Human N/A: Heart [employer] : CARDIAC SURGERY 01/01/2015 23-T505 / [id number] / Sut Steel 6 M654g - [id number] Implanted:Qty : 2 on 05/22/2012 [place] [facility] [place] N/A: Chest DO NOT USE 02/27/2017 [id number] / / [id number] documented as of this encounter Visit Diagnoses [...] the patient have Health Care Power of Lace Stripper? No Care Teams Coal Hauler Operator Relationship Specialty Start Date End Date Britney Mojica MD [address] [place] [address] [place] [address] PCP - General Family Medicine 10/16/18 documented as of this encounter
--- OUTSIDE RECORDS SUMMARY | 2023-08-01 20:24 | External Medical Summary | Summary of Care ---
Author Name Unknown Organization [facility] [address] [facility] [address] Phone [phone] Care Team Providers Care Curriculum Developer Name Role Phone Britney Mojica MD Primary Care Prov ider Reason for Visit * Reason Onset Date Comments Returning Call 04/07/2023 Encounter Details Date Type Department Care Team Description 04/07/2023 Telephone Pharmacy, Mikki Quezada [address] [place] [address] [place] [address] [place] [address] Returning Call Allergies Active Allergy Reactions Severity Noted Date Comments Iodinated Contrast Media Rash High 05/02/2012 Lisinopril 08/18/2003 Dry cough Metformin Other (Please comment) 10/19/2021 documented as of this encounter (statuses as of 04/07/2023) Medications Medication Sig Dispensed Refills Start Date [...] day. DXe11.9 0 07/04/2022 Active Saline Nasal [place] 0.65 % Nasal Solution Administer 1 [place] into nostril as needed for Congestion. 0 Active Insulin Aspart 100 UNIT/ML Injection Solution (NovoLOG)Indication s:Type 2 diabetes mellitus with hemoglobin A1c goal of less than 7.0% ([facility]) Inject under the skin - 10 units before breakfast and 10 units before supper. 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 10/09/2019 Heart failure, systolic, due to CAD 06/30 Renal osteodystrophy 07/16/2019 Hypertension in stage 4 third hand smith kidney disease due to type 2 [...] as of this encounter (statuses as of 04/07/2023) Resolved Problems Problem Noted Date Resolved Date [...] 11/29/2012 08/17/2018 Anticoagulation management encounter 05/31/2012 2017 longterm current use of anticoagulant therapy 1 07/31/2011 [...] as of this encounter (statuses as of 04/07/2023) Immunizations Name Administration Dates Next Due COVID-19 mRNA, LNP-s, No Pre serve, 2-Dose Series (Moderna) 09/23/2020,08/26/2020 COVID-19, mRNA, LNP-s, PF, B ooster, 100mcg/0.5mg (Moderna) 11/02/2021,06/01/2021 Covid-19, Mrna, Lnp-s, Pf, B ivalent, 30 Mcg, IM, 12 yrs and above ([employer]) 05/10/2022 Hepatitis B, 20+ yrs 01/02/2023,09/05/2022,07/06 Pneumococcal [...] encounter Miscellaneous Notes * Telephone Encounter - Juliann Cabral [facility] - 04/07/2023 3:45 PM EDT Patient Phone Numbers Returned patient's call. Made him aware of A1c result. No changes warranted at this time. Juliann Cabral RPh, PharmD Clinical Pharmacist - Compensation Adjuster Medication [facility] 04/07/2023, 3:45 PM [phone] * Telephone Encounter - BLAKE Novak - 04/07/2023 12:58 PM EDT Caller's name: Talha Loya call back number(OFFICE NUMBER FOR ): [phone] Reason for call: Pt returning call from [facility] from today Thank you, Jovanni Allan CPhT Shaper Operator [facility] 04/07/2023,12:58 PM documented in this encounter Plan of Treatment Upcoming Encounters Date Type Specialty Care Team Description 05/18/2023 Office Visit Pharmacy [address] [place] [address] 06/21/2023 Office Visit Family Medicine Britney Mojica MD [address] [place] [address] [place] [address] 06/27/2023 Office Visit Nephrology Amalia Mujica PA-C [address] [place] [address] 07/05/2023 Nurse Only Ancillary [place], Nurse Annual Wellness [address] [place] [address] [place] [address] 07/13/2023 Office Visit Cardiology Wily Conde, [address] [place] [address] 08/28/2023 Office Visit Cardiology Wily Conde DO [address] [place] [address] 12/27/2023 Office Visit Nephrology [facility] [address] [facility] [address] Scheduled Procedures Name Priority Associated Diagnoses Date/Ti me COLONOSCOPY FLEXIBLE PROXIMA L DIAGNOSTIC Recall History of colonic polyps Health Maintenance Due Date Last Done Comments Influenza Vaccine (FLU shot) (#1) 2023 05/07/2022, 04/19/2021, 04/07/2020, Additional history exists Albumin/Creatinine Ratio 04/06/2023 022, 08/30/2021, 04/06/2021, Additional history exists GFR 05/11/2023 11/09/2022, 1207/2021, 06/20/2022, Additional history exists Diabetic Foot Exam 05/31/2023 05/31/2022 (D one elsewhere), 06/18/2021, 03/25/2020, Additional history exists Depression Screening 07/04/2023 07/04/2022 HbA1c 10/05/2023 04/06/2023, 10/29, 04/06/2022, Additional history exists DIABETES-EYE EXAM 10/13/2023 [...] this encounter Medical Devices Implanted Type Area Nurse Ortho Device Identifier Shelf Expiration Date Model / Serial / Lot Valve Aor White Ii 23mm T505 - [id number] Implanted:Qty : 1 on 05/22/2012 [place] [facility] [place] - Non Human N/A: Heart [employer] : CARDIAC SURGERY 01/01/2015 23-T505 / [id number] / Sut Steel 6 M654g - [id number] Implanted:Qty : 2 on 05/22/2012 [place] [facility] [place] N/A: Chest DO NOT USE 02/27/2017 M654G / / [id number] documented as of this encounter Advance Directives [...] the patient have Health Care Power of Pear Picker? No Care Teams Curriculum Developer Relationship Specialty Start Date End Date Britney Mojica MD [address] [place] [address] [place] [address] PCP - General Family Medicine 10/16/18 documented as of this encounter
--- OUTSIDE RECORDS SUMMARY | 2023-08-01 20:24 | External Medical Summary ---
Author Name Unknown Address Unknown Organization K01:LABORATORY [facility] - [address] [place] [address] Laboratory Report Ordering Provider Test Date Status SHAN CHILDRESS 06/27/2023 13:41:48 Final Normal: <30 mg/g creatinine< br/>High: 30-300 mg/g creatinine
Very High: >300 mg/g creatinine
Nephrotic: >2200 mg/g creatinine Observation Date Value Abnormality Reference (Units ) Status Albumin, Urine 06/27/2023 13:41:48 34.08 (mg/dL) Final Creatinine, Urine 06/27/2023 13:41:48 78 (mg/dL) Final Albumin/Creatinine [Mass Ratio] in Urine 06/27/2023 13:41:48 437 Above high normal <30 (mg/g Creat) Final Performing Location LABORATORY [facility] - [address] [place] [address]
--- OUTSIDE RECORDS SUMMARY | 2023-08-01 20:24 | External Medical Summary | Summary of Care ---
Author Name Unknown Organization [facility] Address [address] [facility] [address] Phone [phone] Care Team Providers Care Rotary Drill Operator Name Role Phone Britney Mojica MD Primary Care Prov ider Reason for Visit * Reason Onset Date Comments Other 04/07/2023 Encounter Details Date Type Department Care Team Description 04/07/2023 Telephone Pharmacy, [address] [place] [address] [place] [address] Other Allergies Active Allergy Reactions Severity Noted Date [...] goal of less than 7.0% ([facility]) Use as directed . 1 Kit 0 07/04/2022 Active Accu-Chek Guide In Vitro Strip (Glucose Blood)Indications:T ype 2 diabetes mellitus with hemoglobin A1c goal of less than 7.0% (HCC) 0 07/04/2022 Active Insulin Syringe 30G X 1/2" 0.5 MLIndications:Type 2 diabetes mellitus with hemoglobin A1c goal of less than 7.0% (HCC) Use with NovoLog twice a day. DXe11.9 0 07/04/2022 Active Saline Nasal [place] 0.65 % Nasal Solution Administer 1 [place] into nostril as needed for Congestion. 0 Active Insulin Aspart 100 UNIT/ML Injection Solution (NovoLOG)Indication s:Type 2 diabetes mellitus with hemoglobin A1c goal of less than 7.0% ([facility]) Inject under the skin - 10 units before breakfast and 10 units before supper. 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 Made aware no changes warranted at this time and to return call to clinic to further discuss. Juliann Cabral [facility], PharmD Clinical Pharmacist - Cable Strander Medication Therapy Disease Management [facility] 04/07/2023, 12:47 PM [phone] * Telephone Encounter - ADAN Grey - 04/07/2023 12:08 PM EDT Caller's name: Seamus Loya call back number(OFFICE NUMBER FOR ): [phone] Reason for call: Patient returning [facility]. Call about lab work. Please return his call. Thank you, Elsi Walls Shipwright Supervisor Centralized Clinical Pharmacy Services 04/07/2023,12:08 PM documented in this encounter Plan of Treatment Upcoming Encounters Date Type Specialty Care Team Description 05/18/2023 Office Visit [address] [place] [address] 06/21/2023 Office Visit Family Medicine Britney Mojica MD [address] [place] [address] [place] [address] 06/27/2023 Office Visit Nephrology Amalia Mujica PA-C [address] [place] [address] 07/05/2023 Nurse Only Ancillary [place], Nurse Annual Wellness [address] [place] [address] [place] [address] 07/13/2023 Office Visit Cardiology Wily Conde, [address] [place] [address] 08/28/2023 Office Visit Cardiology Wily Conde, [address] [place] [address] 12/27/2023 Office Visit Nephrology GerardoJessica glover MD [address] [place], [place] [address] [address] Scheduled Procedures Name Priority Associated Diagnoses Date/Ti [...] Hepatitis B Completed 01/02/2023, 02/0 12/2022, 07/06/2022 GARDASIL-HPV IMMUNIZATION SERIES Aged Out No longer eligible based on patient's age to complete this topic MENINGOCOCCAL (MENACTRA/MENVEO) Aged Out No longer eligible based on patient's age to complete this topic documented as of this encounter Medical Devices Implanted Type Area Slot Manager Device Identifier Shelf Expiration Date Model / Serial / Lot Valve Aor White Ii 23mm T505 - [id number] Implanted:Qty : 1 on 05/22/2012 at [place] [facility] [place] Tissue - Non Human N/A: Heart [employer] : CARDIAC SURGERY 01/01/2015 23-T505 / [id number] / Sut Steel 6 M654g - [id number] Implanted:Qty : 2 on 05/22/2012 at OR [facility] [place] N/A: Chest DO NOT USE 02/27/2017 M654G / / [id number] documented as of this encounter Advance Directives Latest Code Status on File Code Status Date Activated Date Inactivated Comments Full Code 06/05/2015 11:03 AM 06/05/2015 7:23 PM Thi s order reflects the patients wishes and were [...] the patient have Health Care Power of Cpht? No Care Teams Rotary Drill Operator Relationship Specialty Start Date End Date Britney Mojica MD [address] [place] [address] [place] [address] PCP - General Family Medicine 10/16/18 documented as of this encounter
--- OUTSIDE RECORDS SUMMARY | 2023-08-01 20:24 | External Medical Summary | Summary of Care ---
Author Name Unknown Organization [facility] Address [address] [facility] [address] Phone [phone] Care Team Providers Care Product Management Manager Name Role Phone Britney Mojica MD Primary Care Prov ider Reason for Visit * Reason Comments Dosage Adjustment In Person (Anticoag Cl inic) Diabetes Follow-Up Encounter Details Date Type Department Care Team Description 05/02/2023 Office Visit Pharmacy, [address] [place] [address] [place] [address] Type 2 diabetes mellitus with hemoglobin A1c goal of less than 7.0% ([facility])* Allergies Active Allergy Reactions Severity Noted Date Comments Iodinated Contrast Media Rash High 05/02/2012 Lisinopril 08/18/2003 Dry cough Metformin Other (Please comment) 10/19/2021 documented as of this encounter (statuses as of 05/02/2023) Medications Medication Sig Dispensed Refills Start Date End Date Status FLAXSEED (LINSEED) 1000 MG PO CAPSIndications:D yslipidemia, goal LDL below 100 Take by mouth [...] 11 08/05/2014 Active Magnesium Oxide 400 MG CapsuleIndication s:Hypomagnesemia, CKD (chronic kidney disease), stage 3 (moderate) Take [...] areas 0 Active clotrimazole (LOTRIMIN) 1 % creamIndications: Erythema intertrigo Apply topically to affected area 2 times a day. Apply 2x daily to rash in groin until resolved or next dermatology appointment 339 g 3 06/10/2019 Active artificial tears (TEARS NATURALE II) 1.4 % ophthalmic solution Instill 1 Drop into both eyes as needed. 0 Active Latanoprost-Timol ol Maleate 0.005-0.5 % SOLN Instill 1 Drop into both eyes at bedtime. 0 Active Fluticasone Propionate HFA 110 MCG/ACT Inhalation Aerosol (Flovent HFA)Indications:S imple chronic bronchitis (HCC),Chronic bronchitis with productive mucopurulent cough (HCC) Inhale 2 Puffs by mouth 2 times a day. 12 g 5 06/08/2020 Active Loratadine 10 MG Oral Capsule Take 1 Capsule by mouth daily as needed. 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 90 Tablet 3 08/31/2021 Active Apixaban 5 MG Oral Tablet (Eliquis)Indicati ons:Paroxysmal atrial fibrillation (HCC) Take by mouth 1 Tablet in the morning AND 1 Tablet before bedtime. 180 Tablet 3 05/13/2022 Active Accu-Chek Guide Me w/Device KitIndications:Ty pe 2 diabetes mellitus with hemoglobin A1c goal of less than 7.0% (HCC) Use as directed . 1 Kit 0 07/04/2022 Active Accu-Chek Guide In Vitro Strip (Glucose Blood)Indications :Type 2 diabetes mellitus with hemoglobin A1c goal of less than 7.0% (HCC) 0 07/04/2022 Active Insulin Syringe 30G X 1/2" 0.5 MLIndications:Typ e 2 diabetes mellitus with hemoglobin A1c goal of less than 7.0% (HCC) Use with NovoLog twice a day. DXe11.9 0 07/04/2022 Active Saline Nasal [place] 0.65 % Nasal Solution Administer 1 [place] into nostril as needed for Congestion. 0 Active Insulin Aspart 100 UNIT/ML Injection Solution (NovoLOG)Indicati ons:Type 2 diabetes mellitus with hemoglobin A1c goal of less than 7.0% (HCC) Inject under the skin - 10 units before breakfast and 10 units before supper. SUPPLIED BY [employer] 30 mL 3 12/16/2022 Active Ondansetron HCl 4 MG Oral TabletIndications :Nausea and vomiting, unspecified vomiting type Take 1 Tablet by mouth every 12 hours as needed for Nausea. 12 Tablet 0 12/28/2022 Active Insulin Glargine 100 UNIT/ML Subcutaneous Solution (Lantus) Inject 10 Units under the skin at bedtime. (Supplied by [employer]) 1 Each 12 05/02/2023 Active Ozempic (0.25 or 0.5 MG/DOSE) 2 MG/3ML Solution Pen-injector (Semaglutide(0.25 or 0.5MG/DOS)) Inject 0.5 mg under the skin once a week. 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 Medication Therapy Disease Management Clinic - Diabetes Management Progress Note Talha Miles, identified by name and date of , is a 77 year old male being seen for diabetes management/education. Patient presents for return diabetic visit. DIABETES: Current diabetic medications: Ozempic 1 Pen - 0.5mg weekly (38 "clicks") Patient stopped taking NovoLog Vial - 15 units w/ meals PRN Lantus 10 units PRN Leftover supply, patient started Glucagon 1 mg IM PRN eGFR 36 06/20/22 Medication Injection Site: Abdomen Lifestyle: Diet: unchanged Glucose Review/SMBG: Readings obtained from patient device Hypoglycemia: Does your blood sugar go below 70 mg/dL? Yes, Discussed below Hyperglycemia symptoms present: none Recent Labs Units 04/06/23 0954 11/09/22 0000 04/06/22 0000 HEMOGLOBIN A1C - [facility] % 7.0* -- -- HEMOGLOBIN, [id number] % -- 6.5* 6.9* Recent Labs Units 11/09/22 0000 06/30/22 0000 06/20/22 1238 ESTIMATED GLOMERULAR FILTRATION RATE - [facility] mL/min -- -- 36* EGFR-OUTSIDE LAB 36.5 32.6 -- CREATININE - [facility] mg/dL -- -- 1.9* CREATININE-OUTSIDE LAB MG/DL 1.9* 2.1* -- HYPERTENSION: Patient on ACEi/ARB: yes BP Readings from Last 3 Encounters: 02/13/23 134/66 12/28/22 126/60 12/22/22 114/56 Blood pressure at goal: yes HYPERLIPIDEMIA: Patient is taking moderate or high intensity statin: yes HEALTH MAINTENANCE REVIEW: Health Maintenance Due Topic Date Due Influenza Vaccine (FLU shot) (1) 03/31/2023 COVID-19 Vaccine (2022- season) 2023 Albumin/Creatinine Ratio 04/06/2023 Diabetic Foot Exam 05/31/2023 ASSESSMENT & PLAN: ICD-10-CM 1. Type 2 diabetes mellitus with hemoglobin A1c goal of less than 7.0% ([facility]) E11.9 Considerations: All medications/testing supplies from [place] Tests twice a day per [facility] allowance Renal dx - caution with metformin and SGLT2 CGM unaffordable 03/08/2021, able to obtain 11/2022 ([employer]) [facility] in 2021 [facility] with [facility] Ozempic --> Unable to tolerate BG Readings - Blood sugars reviewed per Kelly download as patient successfully started using again.Several lows noted (discussed below) Medications - Reviewed current regimen, patient is not adherent to regimen. Stopped taking Ozempic,would not like to proceed due to GI upset. Reports taking 10-15 units PRN, as well as PRN Lantus [facility]. Lengthy discussion with patient regarding the need for consistent insulin doses in order to properly dose/assess and to reduce risk of hypoglycemia. Patient expressed understanding. Last x7 days --> Patient reports he took 10 units of Lantus 1-2 times Patient reports he took ~15 units of Novolog 1-2 times daily PRN Will plan to start Lantus 10 units daily and HOLD Novolog at this time to reduce hypoglycemia. Discussed we will reserve use and only take if BG > 200 going into a meal. Diet, Exercise, Lifestyle - No significant lifestyle changes since last visit. Patient already scheduled with MTM x2 weeks. Will plan to keep this appointment to closely assess. Instructed to contact clinic if any consistent hypo- or hyper- glycemia prior to that time Patient is agreeable to SMBG daily with CGM ([employer] Kelly) Patient aware to contact clinic if any hypoglycemia before next visit. MEDICATION CHANGES: Yes, see below Diabetic Medications: STOP Ozempic 1 Pen - 0.5mg weekly (38 "clicks") Lantus Vial - 10 units daily ([facility]) NovoLog Vial - 5 units w/ meal if BG > 200 ([facility] the [facility]) Glucagon 1 mg IM PRN eGFR 36.5 as of 11/09/22 HEALTH MAINTENANCE INTERVENTIONS: Labs: Up to Date Immunizations: flu, covid Foot Exam: Up to Date Eye Exam: Up to Date Annual Wellness Visit: Up to Date FOLLOW UP: Return to clinic in 2 weeks 05/18/2023 Juliann Cabral RPh Clinical Pharmacist - [employer] Medication Therapy Management [facility] 05/02/2023, 9:33 AM documented in this encounter Plan of Treatment Upcoming Encounters Date Type Specialty Care Team Description 05/18/2023 Office Visit [address] [place] [address] 06/21/2023 Office Visit Family Medicine Britney Mojica MD [address] [place] [address] [place] [address] 06/27/2023 Office Visit Nephrology Amalia Mujica PA-C [address] [place] [address] 07/05/2023 Nurse Only Ancillary Jesica, Nurse Annual [address] [place] [address] 07/13/2023 Office Visit Cardiology Wily Conde DO [address] [place] [address] 08/28/2023 Office Visit Cardiology Wily Conde DO [address] [place] [address] 12/27/2023 Office Visit NephJessica Carter MD [address] [place] [address] Scheduled Procedures Name Priority Associated Diagnoses Date/Ti me COLONOSCOPY FLEXIBLE PROXIMA L DIAGNOSTIC Recall History of colonic polyps Health Maintenance Due Date Last Done Comments COVID-19 Vaccine (2022- season) 2023 05/10/2022, 11/02/2021, 06/01/2021, Additional history exists Influenza Vaccine (FLU shot) (#1) 2023 05/07/2022, 04/19/2021, 04/07/2020, Additional history exists Albumin/Creatinine Ratio 04/06/20232 022, 08/30/2021, 04/06/2021, Additional history exists GFR 05/11/2023 11/09/2022, 07/2021, 06/20/2022, Additional history exists Diabetic Foot Exam 05/31/2023 05/31/2022 (D one elsewhere), 06/18/2021, 03/25/2020, Additional history exists Depression Screening 07/04/2023 07/04/2022 HbA1c 10/05/2023 04/06/2023, 10/29, 04/06/2022, Additional history exists COLONOSCOPY-EVERY 3 YRS AGES 18-100 10/31/2023 10/30/2020, 12/08/2017 O2 ASSESSMENT COMPLETED IN PAST YEAR FOR COPD 02/14/2024 02/13/2023 DIABETES-EYE EXAM 04/21/2024 04/21/2023, , 04/08/2022, Additional history exists DTaP,Tdap,and Td Vaccines (3 [...] this encounter Medical Devices Implanted Type Area Pie Icer Machine Device Identifier Shelf Expiration Date Model / Serial / Lot Valve Aor White Ii 23mm T505 - [id number] Implanted:Qty : 1 on 05/22/2012 at [place] [facility] [place] Tissue - Non Human N/A: Heart [employer] : CARDIAC SURGERY 01/01/2015 23-T505 / [id number] / Sut Steel 6 M654g - [id number] Implanted:Qty : 2 on 05/22/2012 at [place] [facility] [place] N/A: Chest DO NOT USE 02/27/2017 [id number] / / [id number] documented as of this encounter Visit Diagnoses Diagnosis Type 2 diabetes mellitus with hemoglobin A1c goal of less than 7.0% (HCC)- Primary documented in this encounter Advance Directives [...] the patient have Health Care Power of Vice President Of Communications? No Care Teams Product Management Manager Relationship Specialty Start Date End Date Britney Mojica MD [address] [place] [address] [place] [address] PCP - General Family Medicine 10/16/18 documented as of this encounter
--- OUTSIDE RECORDS SUMMARY | 2023-08-01 20:24 | External Medical Summary | Summary of Care ---
Author Name Unknown Organization [facility] Address [address] [facility] [address] Phone [phone] Care Team Providers Care Culinary Specialist Name Role Phone Britney Mojica MD Primary Care Prov ider Reason for Visit * Reason Onset Date Comments Advice 04/25/2023 Encounter Details Date Type Department Care Team Description 04/25/2023 Telephone Pharmacy Call Center [address] [facility] [place] [address] [place] [address] Advice Allergies Active Allergy Reactions Severity Noted Date Comments Iodinated Contrast Media Rash High 05/02/2012 Lisinopril 08/18/2003 Dry cough Metformin Other (Please comment) 10/19/2021 documented as of this encounter (statuses as of 04/25/2023) Medications Medication Sig Dispensed Refills Start Date [...] hemoglobin A1c goal of less than 7.0% ([facility]) Use as directed . 1 Kit 0 07/04/2022 Active Accu-Chek Guide In Vitro Strip (Glucose Blood)Indications:T ype 2 diabetes mellitus with hemoglobin A1c goal of less than 7.0% ([facility]) 0 07/04/2022 Active Insulin Syringe 30G X 1/2" 0.5 MLIndications:Type 2 diabetes mellitus with hemoglobin A1c goal of less than 7.0% ([facility]) Use with NovoLog twice a day. DXe11.9 0 07/04/2022 Active Saline Nasal [place] 0.65 % Nasal Solution Administer 1 [place] into nostril as needed for Congestion. 0 Active Insulin Aspart 100 UNIT/ML Injection Solution (NovoLOG)Indication s:Type 2 diabetes mellitus with hemoglobin A1c goal of less than 7.0% ([facility]) Inject under the skin - 10 units before breakfast and 10 units before supper. 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 [...] as of this encounter (statuses as of 04/25/2023) Resolved Problems Problem Noted Date Resolved Date [...] as of this encounter (statuses as of 04/25/2023) Immunizations Name Administration Dates Next Due COVID-19 mRNA, LNP-s, No Pre serve, 2-Dose Series (Moderna) 09/23/2020,08/26/2020 COVID-19, mRNA, LNP-s, PF, B ooster, 100mcg/0.5mg (Moderna) 11/02/2021,06/01/2021 Covid-19, Mrna, Lnp-s, Pf, B ivalent, 30 Mcg, IM, 12 yrs and above ([employer]) 05/10/2022 Hepatitis B, 20+ yrs 01/02/2023,09/05/2022,07/06 Pneumococcal [...] Notes * Telephone Encounter - Juliann Cabral formerly [facility] - 04/25/2023 4:07 PM EDT Patient Phone Numbers Called and spoke with patient. Reports he has stopped taking Ozempic as well as insulin and BG readings are well controlled. Utilizing CGM. Difficult to appropriately assess over the phone. Scheduled for sooner inperson visit on 05/02. Will plan to download [employer] Kelly at that time andbetter assess BG control off of medication. Juliann Cabral RPh, PharmD Clinical Pharmacist - [employer] Medication Therapy Disease Management [facility] 04/25/2023, 4:13 PM [phone] * Telephone Encounter - BLAKE Delgadillo - 04/25/2023 11:09 AM EDT Caller's name: Seamus Preferred call back number(OFFICE NUMBER FOR ): [phone] Reason for call: Pt calling to speak to Hans Humphreys in regards to his insulin and BG levels. Pt states he has not used insulin in 2 days and his current BG level is 99. Pt is questioning whether ornot he needs medication. Please Advise. Thank you, Stephanie Garcia Patient Ombudsperson [facility] ([facility] (formerly Tele[facility]) 04/25/2023,11:09 AM documented in this encounter Plan of Treatment Upcoming Encounters Date Type Specialty Care Team Description 05/02/2023 Office Visit Pharmacy [address] [place] [address] 05/18/2023 Office Visit Pharmacy [address] [place] [address] 06/21/2023 Office Visit Family Medicine Britney Mojica MD [address] [place] [address] [place] [address] 06/27/2023 Office Visit Nephrology Amalia Mujica PA-C [address] [place] [address] [place] [address] 07/05/2023 Nurse Only Ancillary Nurse Jesica [facility] [address] [place] [address] [place] [address] 07/13/2023 Office Visit Cardiology Wily Conde, DO [address] [place] [address] 08/28/2023 Office Visit Cardiology Wily Conde, DO [address] [place] [address] 12/27/2023 Office Visit Nephrology Jessica Gerardo MD [address] [place] [address] Scheduled Procedures Name Priority Associated Diagnoses Date/Ti [...] this encounter Medical Devices Implanted Type Area Driving School Instructor Device Identifier Shelf Expiration Date Model / Serial / Lot Valve Aor White Ii 23mm T505 - [id number] Implanted:Qty : 1 on 05/22/2012 at OR [facility] [place] Tissue - Non Human N/A: Heart [employer] : CARDIAC SURGERY 01/01/2015 23-T505 / [id number] / Sut Steel 6 M654g - [id number] Implanted:Qty : 2 on 05/22/2012 at OR [facility] [place] N/A: Chest DO NOT USE 02/27/2017 M654G / / [id number] documented as of this encounter Visit Diagnoses [...] the patient have Health Care Power of White Sugar Supervisor? No Care Teams Culinary Specialist Relationship Specialty Start Date End Date Britney Mojica MD [address] [place] [address] [place] [address] PCP - General Family Medicine 10/16/18 documented as of this encounter
--- OUTSIDE RECORDS SUMMARY | 2023-08-01 20:25 | External Medical Summary ---
Author Name Unknown Address Unknown Organization K01:[facility] [place] - [address] [place] [address] Laboratory Report Ordering Provider Test Date Status MARGEMAGENBACILIO 04/06/2023 09:54:57 Final Observation Date Value Abnormality Reference (Units ) Status HbA1C 04/06/2023 09:54:57 7.0 Above high normal 4. 0-5.6 (%) Final The use of HbA1c to monitor glycemic status is based on normal hemoglobin and HbA composition. This test should not be used in patients with abnormal hemoglobin that affects the half life of the red blood cell or the in vivo glycation rates. Glucose, estimated average 04/06/2023 09:54:57 154 Above high normal <126 (mg/dL) Ronen cartagena Performing Location [facility] [place] - [address] [facility] [address]
--- OUTSIDE RECORDS SUMMARY | 2023-08-01 20:25 | External Medical Summary | Summary of Care ---
Author Name Unknown Organization [facility] Address [address] [facility] [place] [address] Phone [phone] Care Team Providers [facility] Pricing Consultant Name Role Phone Britney Mojica MD Primary Care Prov ider Reason for Visit * Reason Comments Pre-op Clearance Colonoscopy [facility] Alt onna, date TBD Encounter Details Date Type Department Care Team Description 02/13/2023 Office Visit Cardiology, [facility] [address] [place] [address] Wily Conde, [address] [place] [address] Chronic atrial fibrillation (HCC)* Allergies Active Allergy Reactions Severity Noted Date Comments Iodinated Contrast Media Rash High 05/02/2012 Lisinopril 08/18/2003 Dry cough Metformin Other (Please comment) 10/19/2021 documented as of this encounter (statuses as of 02/13/2023) Medications Medication Sig Dispensed Refills Start Date [...] less than 7.0% ([facility]) 0 07/04/2022 Active Insulin Syringe 30G X 1/2" 0.5 MLIndications:Type 2 diabetes mellitus with hemoglobin A1c goal of less than 7.0% ([facility]) Use with NovoLog twice a day. DXe11.9 0 07/04/2022 Active Saline Nasal [place] 0.65 % Nasal Solution Administer 1 [place] into nostril as needed for Congestion. 0 Active Insulin Aspart 100 UNIT/ML Injection Solution (NovoLOG)Indication s:Type 2 diabetes mellitus with hemoglobin A1c goal of less than 7.0% ([facility]) Inject under the skin - 10 units before breakfast and 10 units before supper. SUPPLIED BY Klood 30 mL 3 12/16/2022 Active Ondansetron HCl 4 MG Oral TabletIndications:N ausea and vomiting, unspecified vomiting type Take 1 Tablet by mouth every 12 hours as needed for Nausea. 12 Tablet 0 12/28/2022 Active Ozempic (0.25 or 0.5 MG/DOSE) 2 MG/3ML Solution Pen-injector (Semaglutide(0.25 or 0.5MG/DOS)) Inject 0.25 mg under the skin once a week. 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 1 07/31/2011 [...] as of this encounter (statuses as of 02/13/2023) Immunizations Name Administration Dates Next Due COVID-19 mRNA, LNP-s, No Pre serve, 2-Dose Series (Moderna) 09/23/2020,08/26/2020 Covid-19 Mrna, Lnp-s, No Pre serve, Booster (Moderna) 11/02/2021,06/01/2021 Covid-19, Mrna, Lnp-s, Pf, B ivalent, 30 Mcg, IM, 12 yrs and above (Pfizer) 05/10/2022 Hepatitis B, 20+ yrs 01/02/2023,09/05/2022,07/06 Pneumococcal Conjugate Vacc, 13 Valent (Prevnar) 07/14/2015 Pneumococcal Polysaccharide PPV23 (Pneumovax) 01/14/2019,10/13/2011,01/15/2004,07/31 Seasonal Influenza, Quadriva lent Hd (Fluzone Hd) 05/07/2022 Seasonal Influenza, Quadriva lent, No Preserve, Adjuvanted, 65+ Yrs, IM 04/07/2020 Seasonal Influenza, Quadriva lent, No Preserve, IM [...] Sign Reading Time Taken Comments Blood Pressure 134/66 02/13/2023 11:26 AM EDT Pulse 100 02/13/2023 11:26 AM EDT Temperature - - Respiratory Rate 18 02/13/2023 11:26 AM EDT Oxygen Saturation 98% 02/13/2023 11:26 AM EDT Inhaled Oxygen Concentration - - Weight 127.7 kg (281 lb 8 oz) 02/13/2023 11:26 A M EDT Height - - Body Mass Index 40.97 08/10/2022 10:53 AM EST documented in this encounter Progress Notes * Wily Tee Amaya, DO - 02/13/2023 11:52 AM EDT Cardiology Outpatient Follow-up Talha Miles is a 77 year old male who is seen for follow-up of chronic atrial fibrillation and valvular heart disease. HPI: This is a 77-year-old male patient who I last saw in November of this year. In 2011 he underwent aortic valve replacement surgery for aortic stenosis receiving a bioprosthetic AVR. He has a history of atrial fibrillation and previously underwent several ablation is a by the EP service and now is in chronic atrial fibrillation with rate control and anticoagulation. He is here today in regard to cardiacrisk assessment for colonoscopy that is planned at the [facility]. he has no ongoing cardiac symptoms. He denies activity related chest pain or progressive shortness of breath. No orthopnea or lower extremity edema. No syncope or presyncope. Past Medical History: Diagnosis Date AFTER-CATARACT NEC 07/15/2002 Aortic stenosis 04/18/2012 severe on echocardiogram of 04/25/12. AV obed re-entry tachycardia (HCC) Body mass index (BMI) of 45.0 to 49.9 in adult ([facility]) 07/08/2019 bmi 44.69 Per Obesity protocol - Per Obesity protocol Chronic dermatitis 08/22/2013 CHRONIC SKIN ULCER NEC 01/13/2011 Class 3 severe obesity with serious comorbidity and body mass index (BMI) of 40.0 to 44.9 in adult ([facility]) 11/06/2019 Duplicate- resolved DERMATITIS NOS 10/28/2003 Deviated nasal septum Diastolic dysfunction, left ventricle 04/18/2012 DM type 2 causing renal disease ([facility]) 11/29/2012 DM type 2, goal A1c below 7 08/07/01 Dyslipidemia, goal LDL below 100 07/16/2009 Essential hypertension with goal blood pressure less than 140/90 05/18/2016 HTN, goal below 130/80 06/23/2009 Impotence of organic origin Kidney disease, chronic, stage III (GFR 30-59 ml/min) ([facility]) 11/29/2012 LVH (left ventricular hypertrophy) 04/18/2012 Mixed dyslipidemia OBESITY, BMI 40 AND OVER 01/12/2010 Obesity, Class III, BMI 40-49.9 (morbid obesity) ([facility]) 12/08/2011 Other chest pain 03/09/98 Normal Coronary Arteries by catheterization Other specified disease of hair and hair follicles Paroxysmal SVT (supraventricular tachycardia) ([facility]) 04/14/2015 Progressive high myopia 07/15/2002 Rotator cuff tear arthropathy 12/07/2014 S/P AVR (aortic valve replacement) 06/06/2012 Sleep apnea on CPAP Venous insufficiency 12/15/2016 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 ADAN on CPAP G47.33, Z99.89 Type 2 diabetes mellitus with hemoglobin A1c goal of less than 7.0% ([facility]) E11.9 HTN, goal below 130/80 I10 Dyslipidemia, goal LDL below 100 E78.5 Morbid obesity due to excess calories ([facility]) E66.01 Atrial fibrillation ([facility]) I48.91 S/P AVR (aortic valve replacement) Z95.2 DM type 2 causing renal disease ([facility]) E11.29 Chronic dermatitis L30.9 Lichen simplex chronicus L28.0 Rotator cuff tear, right M75.101 Diastolic dysfunction I51.89 Anemia of chronic disease D63.8 Chronic rhinitis J31.0 Type 2 diabetes mellitus with diabetic dermatitis ([facility]) E11.620 Chest pain due to myocardial ischemia I25.9 Carpal tunnel syndrome of left wrist G56.02 Hypertension in stage 4 chronic kidney disease due to type 2 diabetes mellitus ([facility]) E11.22, I12.9, N18.4 Heart failure, systolic, due to CAD ([facility]) I50.20, I25.10 Renal osteodystrophy N25.0 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 ([facility]) I13.0, I50.22, N18.4 Morbid obesity with body mass index of 40.0-44.9 in adult ([facility]) E66.01, Z68.41 Coronary artery disease involving [place] coronary artery of [place] heart without angina pectoris I25.10 Simple chronic bronchitis ([facility]) J41.0 Hyperparathyroidism, secondary renal ([facility]) N25.81 Anemia of chronic renal failure, stage 4 (severe) (HCC) N18.4, D63.1 Kidney disease, chronic, stage IV (GFR 15-29 ml/min) (HCC) N18.4 PND (post-nasal drip) R09.82 Anxiety, generalized F41.1 Xerostomia K11.7 Seborrheic keratoses L82.1 Type 2 diabetes mellitus with stage 3b chronic kidney disease, with long- term current use of insulin (HCC) E11.22, N18.32, Z79.4 Past Surgical History: Procedure Laterality Date ABLATE HEART DYSRHYTHM FOCUS 07/03/2012 CATHETER ABLATION-SVT performed by Rochelle Wilder IV, MD at [facility] [place] AORTA SUTURE REPAIR W/O SHUNT 05/22/2012 REPAIR AORTA performed by Talha Nielsen MD at [facility] [place] ARTHPEDRO Anne,W/ROTATOR CUFF 12/24/2014 right shoulder- Dr. Jorgensen COLONOSCOPY 05/2007 done at [facility] COLONOSCOPY, DIAGNOSTIC (RECTUM) 12/08/2017 adenomatous & serrated adenomatous polyps, repeat 3 yrs/[facility] COLONOSCOPY, DIAGNOSTIC (RECTUM) 10/30/2020 poor prep, repeat 3 yrs / [facility] CORONARY ANGIOGRAPHY W/RIGHT+LEFT CATH 04/26/2012 CORONARY ANGIOGRAPHY W/RIGHT+LEFT CATH performed by Aries Beltre MD at [facility] [place] ELECTROPHYSIOLOGY EVAL & ABLATE SVT Bilateral 06/05/2015 ELECTROPHYSIOLOGY EVAL & ABLATE SVT performed by Rochelle Wilder IV, MD at [facility] [place] HEART ELECTROCONVERSION, EXTERNAL 05/29/2012 [facility] CARDIOVERSION performed by Rochelle Wilder IV, MD at [facility] [place] REMOVAL OF APPENDIX age 11 REMOVE CATARACT, INSERT LENS PROSTH REPAIR OF NASAL SEPTUM 08/14/2001 with cautery of inferior turbinates by Dr. Chambers REPLACEMENT AORTIC VALVE, BYPASS WITH PROSTHETIC VALVE 05/22/2012 REPLACEMENT AORTIC VALVE performed by Talha Nielsen MD at [facility] – [place] UMBIL HERNIA REPAIR (REDUCIBLE) AGE 5+YR VASECTOMY 1987 Family History Problem Relation Age of Onset Diabetes Mother Stroke Father age 55 Diabetes Sister Cancer Sister uterus Other (ESRD) Sister 1/2 sister Other (Other ESRD/CKD) None Stomach cancer Grandfather (Maternal) Stomach cancer Other Social History Tobacco Use Smoking status: Former Packs/day: 1.00 Years: 20.00 Pack years: 20.00 Types: Cigars, Cigarettes Quit date: 07/31/1996 Years since quittin.5 Smokeless tobacco: Never Vaping Use Vaping Use: Never used Substance Use Topics Alcohol use: Yes Alcohol/week: 1.0 standard drink Types: 1 5 oz of wine per week Comment: rare wine, makes his own Drug use: No Review of patient's allergies indicates: Allergen Reactions [...] NovoLog twice a day. DXe11.9 Saline Nasal [place] 0.65 % Nasal Solution Administer 1 [place] into nostril as needed for Congestion. Insulin Aspart 100 UNIT/ML Injection Solution (NovoLOG) Inject under the skin - 10 units beforebreakfast and 10 units before supper. SUPPLIED BY Klood 30 mL 3 Ondansetron HCl 4 MG Oral Tablet Take 1 Tablet by mouth every 12 hours as needed for Nausea. 12Tablet 0 Ozempic (0.25 or 0.5 MG/DOSE) 2 MG/3ML Solution Pen-injector (Semaglutide(0.25 or 0.5MG/DOS)) Inject 0.25 mg under the skin once a week. Accu-Chek Guide Me w/Device Kit Use as directed . 1 Kit 0 Accu-Chek Guide In Vitro Strip (Glucose Blood) No current facility-administered medications for this visit. ROS: Review of Systems: See HPI for pertinent positives. All other review of systems is negative. PHYSICAL EXAMINATION BP 134/66 (BP Site: Left Arm, BP Position: Sitting, BP Cuff Size: Large) | Pulse 100 | Resp 18 | Wt127.7 kg (281 lb 8 oz) | SpO2 98% | BMI 40.97 kg/m | BSA 2.5 m Body mass index is 40.97 kg/m. General: no acute distress and stated age Head: normocephalic, no masses, lesions, tenderness or abnormalities Eyes: conjunctiva are pink and non-injected, sclera clear Neck: supple, no adenopathy, no bruits, normal jugular venous pulse, no hepatojugular reflux Chest: normal shape and normal respiratory effort Lungs: clear to auscultation and percussion Cardiac Exam: - irregular rate & rhythm, no murmurs gallops or rubs - normal S1, normal S2 Pulses: 2(+) throughout Abdomen: abdomen soft, non-tender, no abnormal masses and no hepatosplenomegaly Musculoskeletal: no gait disturbance, no joint inflammation, no deforming arthritis Extremities: no edema and no cyanosis Neuro: grossly normal exam Laboratory Data Review: EKG today reveals atrial fibrillation with a left anterior hemiblock Impression: 1. S/P AVR, stable 2. Diastolic dysfunction with normal LV systolic function 3. Obesity 4. Hypertension, controlled 5. Hx of atrial flutter s/p ablations 6. Atrial fibrillation, asymptomatic and rate controlled Plan: The patient is clinically stable and should proceed to colonoscopy with an acceptable low risk of cardiovascular event. No additional cardiac testing will change this risk assessment. He is currentlyoptimally medically managed and should proceed. He can stop his Eliquis 2 days prior to the colonoscopy and then resume this medication the day after. I have asked that he return in follow-up in 6 months or earlier if needed. This chart was completed in part utilizing [employer] Speech Voice Recognition Software. Grammatical errors, random word insertions, prounoun errors, and incomplete sentences are an occasional consequence of this system due to software limitations, ambient noise, and hardware issues. Any formal questions or concerns about the content, text, or information contained within the body of this dictation should be directly addressed to the provider for clarification. I spent a total of 30-39 minutes (exact time 38 mins) on the date of service in preparation, delivery, and documentation of the care provided to Talha Miles excluding any time spent in the performance of separately billed services. Wily Conde DO Cardiology[address] [address] 02/13/2023 documented in this encounter Nursing Notes * Natacha Delaney CMA - 02/13/2023 11:22 AM EDT Chief Complaint Patient presents with Pre-op Clearance Colonoscopy [facility], [facility] Examination Room: 17 Name: Talha Miles Date of : (1945). Reason for Visit: Cardiac clearance Interim Hospitalization(s): none Problems/Concerns: denies Chest Pain/SOB: Denies CP or worsening SOB [facility] Discussed: No My [facility] is a way you can talk to [...] Encounters Date Type Specialty Care Team Description 02/23/[address] [place] [address] 06/21/2023 Office Visit Family Medicine Britney Mojica MD [address] [place] [address] [place] [address] 06/27/2023 Office Visit Nephrology Amalia Mujica PA-C [address] [place] [address] 07/05/2023 Nurse Only Ancillary Elvisey, Nurse Annual [address] [place] [address] 07/13/2023 Office Visit Cardiology Wily Conde, DO [address] [place] [address] 08/28/2023 Office Visit Cardiology Wily Conde, [address] [place] [address] 12/27/2023 Office Visit Nephrology Jessica Gerardo MD [address] [place] [address] Scheduled Orders Name Type Priority Associated Diagnoses Orde r Schedule EKG EKG Routine Chronic atrial fibrillation (HCC) Ordered: 02/13/2023 Scheduled Procedures Name Priority Associated Diagnoses Date/Ti me COLONOSCOPY FLEXIBLE PROXIMA L DIAGNOSTIC Recall History of colonic polyps Health Maintenance Due Date Last Done Comments Influenza Vaccine (FLU shot) (#1) 2023 05/07/2022, 04/19/2021, 04/07/2020, Additional history exists Albumin/Creatinine Ratio 04/06/2023 022, 08/30/2021, 04/06/2021, Additional history exists GFR 05/11/2023 11/09/2022, 07/2021, 06/20/2022, Additional history exists HbA1c 05/11/2023 11/09/2022, 01/2022, 12/14/2021, Additional history exists DIABETES-FOOT EXAM 05/31/2023 05/31/2022 (D one elsewhere), 06/18/2021, 03/25/2020, Additional history exists Depression Screening, Annual for Pts 12 and Over 07/04/2023 07/04/2022 DIABETES-EYE EXAM 10/13/2023 10/12/2022, , 09/29/2021, Additional history exists COLONOSCOPY-EVERY 3 YRS AGES 18-100 10/31/2023 10/30/2020, 12/08/2017 O2 ASSESSMENT COMPLETED IN PAST YEAR FOR COPD 12/29/2023 12/28/2022 DTaP,Tdap,and Td Vaccines (3 - Td or [...] this encounter Medical Devices Implanted Type Area Bulk System Operator Device Identifier Shelf Expiration Date Model / Serial / Lot Valve Aor White Ii 23mm T505 - [id number] Implanted:Qty : 1 on 05/22/2012 at OR [facility] [place] Tissue - Non Human N/A: Heart [employer] : CARDIAC SURGERY 01/01/2015 23-[id number] / [id number] / Sut Steel 6 [id number] - [id number] Implanted:Qty : 2 on 05/22/2012 at OR [facility] [place] N/A: Chest DO NOT USE 02/27/2017 [id number] / / [id number] documented as of this encounter Visit Diagnoses Diagnosis Chronic atrial fibrillation (HCC)- Primary Atrial fibrillation documented in this encounter Advance Directives Latest [...] the patient have Health Care Power of Grinder Machine Setter? No Care Teams Healthcare Network Pricing Consultant Relationship Specialty Start Date End Date Britney Mojica MD [address] [place] [address] [place] [address] PCP - General Family Medicine 10/16/18 documented as of this encounter
--- OUTSIDE RECORDS SUMMARY | 2023-08-01 20:25 | External Medical Summary | Summary of Care ---
Author Name Unknown Organization [facility] [address] [facility] [address] Phone [phone] Care Team Providers Care Memorial Counselor Name Role Phone Britney Mojica MD Primary Care Prov ider Reason for Visit * Reason Comments Dosage Adjustment Via Phone (anticoag Cl inic) Diabetes Follow-Up Encounter Details Date Type Department Care Team Description 02/23/2023 Telemedicine Pharmacy, [address] [place] [address] [place] [address] Type 2 diabetes mellitus with hemoglobin A1c goal of less than 7.0% ([facility])* Allergies Active Allergy Reactions Severity Noted Date Comments Iodinated Contrast Media Rash High 05/02/2012 Lisinopril 08/18/2003 Dry cough Metformin Other (Please comment) 10/19/2021 documented as of this encounter (statuses as of 02/23/2023) Medications Medication Sig Dispensed Refills Start Date [...] hemoglobin A1c goal of less than 7.0% ([facility]) Use as directed . 1 Kit 0 07/04/2022 Active Accu-Chek Guide In Vitro Strip (Glucose Blood)Indications:T ype 2 diabetes mellitus with hemoglobin A1c goal of less than 7.0% ([facility]) 0 07/04/2022 Active Insulin Syringe 30G X 1/2" 0.5 MLIndications:Type 2 diabetes mellitus with hemoglobin A1c goal of less than 7.0% ([facility]) Use with NovoLog twice a day. DXe11.9 0 07/04/2022 Active Saline Nasal [place] 0.65 % Nasal Solution Administer 1 [place] into nostril as needed for Congestion. 0 Active Insulin Aspart 100 UNIT/ML Injection Solution (NovoLOG)Indication s:Type 2 diabetes mellitus with hemoglobin A1c goal of less than 7.0% ([facility]) Inject under the skin - 10 units before breakfast and 10 units before supper. 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 [...] as of this encounter (statuses as of 02/23/2023) Resolved Problems Problem Noted Date Resolved Date [...] 08/17/2018 Anticoagulation management encounter 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 1 07/31/2011 [...] as of this encounter (statuses as of 02/23/2023) Immunizations Name Administration Dates Next Due COVID-19 mRNA, LNP-s, No Pre serve, 2-Dose Series (Moderna) 09/23/2020,08/26/2020 Covid-19 Mrna, Lnp-s, No Pre serve, Booster (Moderna) 11/02/2021,06/01/2021 Covid-19, Mrna, Lnp-s, Pf, B ivalent, 30 Mcg, IM, 12 yrs and above ([employer]) 05/10/2022 Hepatitis B, 20+ yrs 01/02/2023,09/05/2022,07/06 Pneumococcal [...] this encounter Progress Notes * Juliann Cabral, [facility] - 02/23/2023 9:42 AM EDT After connecting to the patient via telephone, the patient was identified by name and date of . Patient was then informed that this was a telephone call only visit. The patient agreed to participate. Visit Disposition: Routine follow-up Total call duration was 10 minutes. Medication Therapy Disease Management Clinic - Diabetes Management Progress Note Talha Miles, identified by name and date of , is a 77 year old male being seen for diabetes management/education. Patient presents for return diabetic visit. DIABETES: Current diabetic medications: OzempicPen -1mgonce a week (Mondays)(STOPPED, restarted at 0.25mg weekly) NovoLogVial-10unitsBID with breakfast and supper Glucagon 1 mg IM PRN eGFR36 06/20/22 Medication Injection Site: Abdomen Lifestyle: Diet: unchanged Glucose Review/SMBG: Readings obtained from patient device Hypoglycemia: Does your blood sugar go below 70 mg/dL? Denies Hyperglycemia symptoms present: none Recent Labs Units 11/09/22 0000 04/06/22 0000 12/14/21 1126 HEMOGLOBIN A1C - [facility] % -- -- 6.0* HEMOGLOBIN, [id number] LAB % 6.5* 6.9* -- Recent Labs Units 11/09/22 0000 06/30/22 0000 [...] REVIEW: Health Maintenance Due Topic Date Due Albumin/Creatinine Ratio 04/06/2023 ASSESSMENT & PLAN: ICD-10-CM 1. Type 2 diabetes mellitus with hemoglobin A1c goal of less than 7.0% ([facility]) E11.9 Considerations: All medications[facility]testing [facility] Tests twice a day per [facility] allowance Renal dx- caution withmetformin and SGLT2 CGM unaffordable 03/08/2021, able to obtain 11/2022 ([employer], Impliant) PACE in 2021 Foot doctor with [facility] BG Readings - Blood sugars not available. Walked through Freestyle Kelly reader averages with patient over the phone. Readings remaining well controlled, one low noted. Medications - Reviewed current regimen. Patient reports he successfully restarted the Ozempic 0.25mg x2 weeks. Tolerating well and without issue. He plans to increase back to 0.5mg next week. Reportsgiving 10-15 units of Novolog with meals still. Instructed not to give any more than 10 units upon Ozempic increase. Diet, Exercise, Lifestyle - As noted above, patient experiencing significant diarrhea. [facility] Inperson visit scheduled x6 weeks to f/u on Ozempic tolerability/titration as well as download Freestyle Kelly reader. Instructed to contact clinic with any questions or concerns prior to that time. Patient is agreeable to SMBG daily with CGM ([employer] Kelly) Patient aware to contact clinic if any hypoglycemia before next visit. MEDICATION CHANGES: Updated Diabetic Medications: OzempicPen -0.25mg weekly (planning to increase to 0.5mg based upon tolerability NovoLogVial-10unitsw/ meals PRN Glucagon 1 mg IM PRN eGFR36 06/20/22 HEALTH MAINTENANCE INTERVENTIONS: Deferred FOLLOW UP: Return to clinic in 6 weeks 04/06/2023 Juliann Cabral RPh, PharmD Clinical Pharmacist - Nursery Manager Medication Therapy Disease Management Clinic 02/23/2023, 9:53 AM [phone] documented in this encounter Plan of Treatment Upcoming Encounters Date Type Specialty Care Team Description 04/06/2023 Office Visit [address] [place] [address] 06/21/2023 Office Visit Family Medicine Britney Mojica MD [address] [place] [address] [place] [address] 06/27/2023 Office Visit Nephrology Amalia Mujica PA-C [address] [facility] [place] [address] 07/05/2023 Nurse Only Ancillary Nurse [facility] [address] [place] [address] [place] [address] 07/13/2023 Office Visit Cardiology Wily Conde, [address] [place] [address] 08/28/2023 Office Visit Cardiology Wily Conde, [address] [place] [address] 12/27/2023 Office Visit Nephrology Jessica Gerardo MD [address] [place] [address] Scheduled Procedures Name Priority Associated Diagnoses Date/Ti me COLONOSCOPY FLEXIBLE PROXIMA L DIAGNOSTIC Recall History of colonic polyps Health Maintenance Due Date Last Done Comments Influenza Vaccine (FLU shot) (#1) 2023 05/07/2022, 04/19/2021, 04/07/2020, Additional history exists Albumin/Creatinine Ratio 04/06/20232 022, 08/30/2021, 04/06/2021, Additional history exists GFR 05/11/2023 11/09/2022, 1207/2021, 06/20/2022, Additional history exists HbA1c 05/11/2023 11/09/2022, [...] this encounter Medical Devices Implanted Type Area Presser And Blocker Knitted Goods Device Identifier Shelf Expiration Date Model / Serial / Lot Valve Aor White Ii 23mm T505 - [id number] [place]planted:Q[place] : 1 [place] [facility] [place] Human N/A: Heart [employer] : CARDIAC SURGERY 01/01/2015 23-T505 / [id number] / Sut Steel 6 M654g - [id number] Implanted:Qty : 2 on 05/22/2012 [place] [facility] [place]A: Chest DO NOT USE 02/27/2017 [id number] / / [id number] documented as of this encounter Visit Diagnoses [...] the patient have Health Care Power of Forge Shop Supervisor? No Care Teams Memorial Counselor Relationship Specialty Start Date End Date Britney Mojica MD [address] [place] [address] [place] [address] PCP - General Family Medicine 10/16/18 documented as of this encounter
--- OUTSIDE RECORDS SUMMARY | 2023-08-01 20:25 | External Medical Summary | Summary of Care ---
Author Name Unknown Organization [facility] Address [address] [facility] [address] Phone [phone] Care Team Providers Care Front End Developer Name Role Phone Britney Mojica MD Primary Care Prov ider Reason for Visit * Reason Comments Outpatient Testing Encounter Details Date Type Department Care Team Description 04/06/2023 Laboratory Laboratory [address] [place] [address] [place] [address] Type 2 diabetes mellitus with hemoglobin A1c goal of less than 7.0% ([facility]) Allergies Active Allergy Reactions Severity Noted Date Comments Iodinated Contrast Media Rash High 05/02/2012 Lisinopril 08/18/2003 Dry cough Metformin Other (Please comment) 10/19/2021 documented as of this encounter (statuses as of 04/06/2023) Medications Medication Sig Dispensed Refills Start Date [...] day. DXe11.9 0 07/04/2022 Active Saline Nasal [place] 0.65 % Nasal Solution Administer 1 [place] into nostril as needed for Congestion. 0 Active Insulin Aspart 100 UNIT/ML Injection Solution (NovoLOG)Indication s:Type 2 diabetes mellitus with hemoglobin A1c goal of less than 7.0% ([facility]) Inject under the skin - 10 units before breakfast and 10 units before supper. 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 [...] as of this encounter (statuses as of 04/06/2023) Resolved Problems Problem Noted Date Resolved Date [...] 11/29/2012 08/17/2018 Anticoagulation management encounter 05/31/2012 2017 detention current use of anticoagulant therapy 1 07/31/2011 [...] as of this encounter (statuses as of 04/06/2023) Immunizations Name Administration Dates Next Due COVID-19 mRNA, LNP-s, No Pre serve, 2-Dose Series (Moderna) 09/23/2020,08/26/2020 Covid-19 Mrna, Lnp-s, No Pre serve, Booster (Moderna) 11/02/2021,06/01/2021 Covid-19, Mrna, Lnp-s, Pf, B ivalent, 30 Mcg, IM, 12 yrs and above ([employer]) 05/10/2022 Hepatitis B, 20+ yrs 01/02/2023,09/05/2022,07/06 Pneumococcal [...] Care Team Description 05/18/2023 Office Visit [address] [place] [address] 06/21/2023 Office Visit Family Medicine Britney Mojica MD [address] [place] [address] [place] [address] 06/27/2023 Office Visit Nephrology [facility]C [address] [facility] [address] 07/05/2023 Nurse Only Ancillary [place], Nurse Annual [address] [place] [address] 07/13/2023 Office Visit Cardiology Wily Conde, DO [address] [place] [address] 08/28/2023 Office Visit Cardiology Wily Conde, DO [address] [place], [place] [address] 12/27/2023 Office Visit Nephrology Jessica Gerardo MD [address] [facility] [place], [place] [address] Pending Results Name Type Priority Associated Diagnoses Date /Time HEMOGLOBIN A1C Lab Routine Type 2 diabetes mellitus with hemoglobin A1c goal of less than 7.0% ([facility]) 04/06/2023 9:54 AM EDT Scheduled Procedures Name Priority Associated Diagnoses Date/Ti me COLONOSCOPY FLEXIBLE PROXIMA L DIAGNOSTIC Recall History of colonic polyps Health Maintenance Due Date Last Done Comments Influenza Vaccine (FLU shot) (#1) 2023 05/07/2022, 04/19/2021, 04/07/2020, Additional history exists Albumin/Creatinine Ratio 04/06/20232 022, 08/30/2021, 04/06/2021, Additional history exists GFR 05/11/2023 11/09/2022, 07/2021, 06/20/2022, Additional history exists HbA1c 05/11/2023 11/09/2022, 01/2022, 12/14/2021, Additional history exists Diabetic Foot Exam 05/31/2023 [...] this encounter Medical Devices Implanted Type Area Technologist Infectious Disease Device Identifier Shelf Expiration Date Model / Serial / Lot Valve Aor White Ii 23mm T505 - [id number] Implanted:Q[place] : 1 [place] [facility] [place] - [place] Human N/A: Heart [employer] : CARDIAC SURGERY 01/01/2015 23-T505 / [id number] / Sut Steel 6 M654g - [id number] Implanted:Qty : 2 on 05[place]22/2012 [place] [facility] [place]A: Chest DO NOT USE 02/27/2017 [id number] / / [id number] documented as of this encounter Visit Diagnoses Diagnosis Type 2 diabetes mellitus with hemoglobin A1c goal of less than 7.0% (HCC) documented in this encounter Advance Directives Latest [...] the patient have Health Care Power of Cannon Crewmember? No Care Teams Front End Developer Relationship Specialty Start Date End Date Britney Mojica MD [address] [place] [address] [place] [phone] PCP - General Family Medicine 10/16/18 documented as of this encounter
--- OUTSIDE RECORDS SUMMARY | 2023-08-01 20:25 | External Medical Summary | Summary of Care ---
Author Name Unknown Organization [facility] Address [address] [facility] [address] Phone [phone] Care Team Providers Care Cashier Or Checker Stock Clerk Name Role Phone Britney Mojica MD Primary Care Prov ider Reason for Visit * Reason Comments Dosage Adjustment In Person (Anticoag Cl inic) Diabetes Follow-Up Encounter Details Date Type Department Care Team Description 04/06/2023 Office Visit Pharmacy, [address] [place] [address] [place] [address] Type 2 diabetes mellitus with hemoglobin A1c goal of less than 7.0% ([facility])* Allergies Active Allergy Reactions Severity [...] day. DXe11.9 0 07/04/2022 Active Saline Nasal [place] 0.65 % Nasal Solution Administer 1 [place] into nostril as needed for Congestion. 0 Active Insulin Aspart 100 UNIT/ML Injection Solution (NovoLOG)Indicatio ns:Type 2 diabetes mellitus with hemoglobin A1c goal of less than 7.0% ([facility]) Inject under the skin - 10 units before breakfast and 10 units before supper. SUPPLIED BY [employer] 30 mL 3 12/16/2022 Active Ondansetron HCl 4 MG Oral TabletIndications: Nausea and vomiting, unspecified vomiting type Take 1 Tablet by mouth every 12 hours as needed for Nausea. 12 Tablet 0 12/28/2022 Active Ozempic (0.25 or 0.5 MG/DOSE) 2 MG/3ML Solution Pen-injector (Semaglutide(0.25 or 0.5MG/DOS)) Inject 0.5 mg under the skin once a week. 3 mL 3 04/06/2023 Active Ozempic (0.25 or 0.5 MG/DOSE) 2 MG/3ML Solution Pen-injector (Semaglutide(0.25 or 0.5MG/DOS)) Inject 0.25 mg under the skin once a week. 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 Patient presents for return diabetic visit. DIABETES: Current diabetic medications: Ozempic Pen - 0.25mg weekly (planning to increase to 0.5mg based upon tolerability NovoLog Vial - 10 units w/ meals PRN Glucagon 1 mg IM PRN eGFR 36 06/20/22 Medication Injection Site: Abdomen Lifestyle: Diet: unchanged Glucose Review/SMBG: Readings obtained from patient documented BG logbook Pre am Pre Lunch Pre pm HS 165 222 92 149 158 164 181 134 145 143 176 183 129 147 124 147 89 219 138 221 184 173 138 130 Average 166 193 139 140 Hi 221 222 181 184 Lo [address] 163.8889 #DIV/0! 143 141.667 Range 91 58 89 95 Hypoglycemia: Does your blood sugar go below 70 mg/dL? No Hyperglycemia symptoms present: none Recent Labs Units 11/09/22 0000 04/06/22 0000 12/14/21 1126 HEMOGLOBIN A1C - [facility] % -- -- 6.0* HEMOGLOBIN, [id number] LAB % 6.5* 6.9* -- Recent Labs [...] (FLU shot) (1) 03/31/2023 Albumin/Creatinine Ratio 04/06/2023 ASSESSMENT & PLAN: ICD-10-CM 1. Type 2 diabetes mellitus with hemoglobin A1c goal of less than 7.0% ([facility]) E11.9 Considerations: All medications[facility] Tests twice a day per [facility] allowance Renal dx - caution with metformin and SGLT2 CGM unaffordable 03/08/2021, able to obtain 11/2022 ([employer], Clinical Data) PACE in 2021 [facility] doctor with [facility] Ozempic 1mg --> UNABLE TO TOLERATE; ok w/ 0.5 mg dose BG Readings - Blood sugars slightly elevated above goal. Many medication changes occurring, will plan to have updated A1c drawn to assess glycemic control. Has not been using Freestyle Kelly as he had not gotten a bill and wasn't sure if he owed anything. Provided with Clinical Data number and instructed to contact to inquire on if there is a pill/reordering supplies. Medications - Reviewed current regimen. Patient reports he has been trying to give himself 0.5mg ofOzempic. Only has 1mg pens left he would like to use and isn't sure where 0.5mg is. Made him aware that on Ozempic 1mg pen --> 38 "clicks" = 0.5mg. He will plan to continue with this. Still using Novolog with meals. Reports using 15 units with meals as opposed to 10. Discussed the opposed to further increasing this in the future if needed, will need to look towards the readdition of Lantus. Diet, Exercise, Lifestyle - No significant lifestyle changes since last visit. Patient is agreeable to SMBG 3 time(s) daily. Patient aware to contact clinic if any hypoglycemia before next visit. MEDICATION CHANGES: Updated to reflect Diabetic Medications: Ozempic 1 Pen - 0.5mg weekly (38 "clicks") NovoLog Vial - 15 units w/ meals PRN Glucagon 1 mg IM PRN eGFR 36 06/20/22 HEALTH MAINTENANCE INTERVENTIONS: Labs: Ordered & Scheduled: HgA1c Immunizations: Up to Date Foot Exam: Up to Date Eye Exam: Up to Date Annual Wellness Visit: Up to Date FOLLOW UP: Return to clinic in 6 weeks 05/18/2023 Juliann Cabral RPh Clinical Pharmacist - Caving Guide Medication Therapy Management Clinic 04/06/2023, 9:31 AM documented in this encounter Plan of Treatment Upcoming Encounters Date Type Specialty Care Team Description 05/18/2023 Office Visit [address] [place] [address] 06/21/2023 Office Visit Family Medicine Britney Mojica MD [address] [place] [address] [place] [address] 06/27/2023 Office Visit Nephrology Amalia Mujica PA-C [address] [place] [address] 07/05/2023 Nurse Only Ancillary Movalley, Nurse Annual Wellness [address] [place] [address] [place] [address] 07/13/2023 Office Visit Cardiology Wily Conde, [address] [place] [address] 08/28/2023 Office Visit Cardiology Wily Conde DO [address] [place] [address] 12/27/2023 Office Visit Nephrology Jessica Gerardo MD [address] [place] [address] Pending Results Name Type Priority Associated Diagnoses Date /Time HEMOGLOBIN A1C Lab Routine Type 2 diabetes mellitus with hemoglobin A1c goal of less than 7.0% (HCC) 04/06/2023 9:54 AM EDT Scheduled Orders Name Type Priority Associated Diagnoses Orde r Schedule HEMOGLOBIN A1C Lab Routine Type 2 diabetes mellitus with hemoglobin A1c goal of less than 7.0% (HCC) Expected: 04/06/2023 (Approximate), Expires: 04/06/2024 Scheduled Procedures Name Priority Associated Diagnoses Date/Ti [...] this encounter Medical Devices Implanted Type Area Supportive Employment Case Manager Device Identifier Shelf Expiration Date Model / Serial / Lot Valve Aor White Ii 23mm T505 - [id number] Implanted:Qty : 1 on 05/22/2012 at [place] [facility] [place] Tissue - Non Human N/A: Heart [employer] : CARDIAC SURGERY 01/01/2015 23-T505 / [id number] / Sut [employer] 6 M654g - [id number] Implanted:Qty : 2 on 05/22/2012 at [place] [facility] [place] N/A: Chest DO NOT USE 02/27/2017 M654G / / [id number] documented as of this encounter Visit Diagnoses Diagnosis Type 2 diabetes mellitus with hemoglobin A1c goal of less than 7.0% ([facility])- Primary documented in this encounter [...] the patient have Health Care Power of Grooving Lathe Tender? No Care Teams Cashier Or Checker Stock Clerk Relationship Specialty Start Date End Date Britney Mojica MD [address] [place] [address] [place] [phone] PCP - General Family Medicine 10/16/18 documented as of this encounter
[2023-08-01] MEDS ORDERED: LANTUS PER UNIT CHARGE SQ SCH (21:00)
[2023-08-02] MEDS: ACETAMINOPHEN 325 MG TAB PO PRN (00:30)
[2023-08-02] MEDS ORDERED: FUROSEMIDE INJ 20 MG/2 ML VIAL IV SCH (05:00)
[2023-08-02 06:46] LABS: Hematocrit (blood only) 36.3 % (42.0-52.0); Hemoglobin 12.1 g/dl (14.0-18.0); Mean Corpuscular Hemoglobin 32.5 pg (25.0-34.0); Mean Corpuscular Hgb Conc 33.3 g/dL (32.0-36.0); Mean Corpuscular Volume 97.6 fL (80.0-100.0); Mean Platelet Volume 9.6 fL (9.4-12.4); Platelet Count 147 K/uL (130-400); RDW Coefficient of Variation 13.7 % (11.5-14.5); RDW Standard Deviation 48.8 fL (36.4-46.3); Red Blood Count 3.72 M/uL (4.70-6.10); White Blood Count 9.72 K/ul (4.8-10.8)
[2023-08-02 07:29] LABS: Alanine Aminotransferase 15 U/L (7-52); Albumin Globulin Ratio 0.9 (0.9-2); Albumin Level 3.5 gm/dl (3.4-5.0); Alkaline Phosphatase 110 U/L (34-104); Anion Gap 7 (3-11); BUN Creatinine Ratio 19.3 (10-20); Bilirubin,Total 0.9 mg/dl (0.2-1.0); Blood Urea Nitrogen 41 mg/dl (6-23); Calcium 9.7 mg/dl (8.6-10.3); Carbon Dioxide 23 mmol/L (21-32); Chloride 108 mmol/L (98-107); Creatinine Clr Calc Pharmacy 35.7 ml/min; Est GFR (African American) 33.1 ml/min; Est GFR (Non-African American) 28.5 ml/min; Globulin 3.8 gm/dl (2.5-4.0); Glucose 131 mg/dl (70-99(Fasting)); Magnesium 1.9 mg/dl (1.7-2.4); Sodium 138 mmol/L (136-145); Total Protein 7.3 gm/dl (6.0-8.3)
[2023-08-02] MEDS ORDERED: FUROSEMIDE INJ 20 MG/2 ML VIAL IV ONE (08:45)
--- NOTE | 2023-08-02 08:54 | Cardiology Consultation ---
Date of Consultation August 02, 2023 Assessment & Plan (1) Atrial fibrillation with rapid ventricular response: (2) Non-ST elevation NJ (NSTEMI): (3) Acute diastolic CHF (congestive heart failure): Plan Assessment: 78 year-old male with long standing history of Atrial fibrilla tion/Atrial flutter with prior ablations presents with 1-2 weeks of worsening shortness of breath, fatigue and lower extremity edema. 1. Atrial fibrillation with RVR: -Confirmed on EKG and remains in A-fib per review of telemetry. -Review of records shows that patient's A-fib has remained more persistent over the course of time, but patient is typically asymptomatic. -Continue Metoprolol Tartrate 50mg PO BID at this time for rate control. -Continue Eliquis 2.5mg PO BID (reduced dose due to age and decreased renal function) -Patient demonstrates modest hypervolemia, likely secondary to dietary indiscretion over the holiday's which is understood. -Continue furosemide 40mg IV BID with close monitoring of renal function and keep serum K at or above 4.0 and serum Mag at 2.0. -Awaiting echocardiogram. 2. Non-ST elevation NJ -Troponin elevation with no peak identified at this time. -Obtain urgent Troponin to trend for peak - No acute ischemic changes on EKG and patient denies any chest pain or pressure. -Will obtain echocardiogram to assess overall structure/function, and for any acute changes associated with troponin elevation. Elevation may be tachycardia induced as well as in the presence of hypervolemia. -NPO at this time pending echo results and troponin trend. 3. Acute diastolic CHF -As noted on physical exam, and per review of imaging and labs. -Likely a combination of dietary indiscretion given the holiday as well as A- fib at a rapid ventricular rate reducing patient's atrial kick resulting in fluid buildup. -Will obtain echocardiogram for further evaluation -Continue Metoprolol Tartrate as per current regimen. -continue furosemide 40mg IV BID with close monitoring of renal function and electrolytes. Case has been discussed with Dr. Armstrong. Further recommendations regarding plan of care as per his assessment. I spent a total of 30 minutes on the date of service in preparation, delivery, documentation of the care provided to the patient excluding any time spent in the performance of separately billed services. CARMELA Peck [facility] Cardiology [facility] Supervising Physician Co-Signing Physician Notes Patient was seen and personally examined. Full assessment and plan as outlined above. Complex 78-year-old male with past atrial arrhythmia status post atrial tachycardia and atrial flutter ablation. Now with persistent atrial fibrillation of 14-month duration with variable rate control Underlying medical issues as noted include valvular heart disease status post aortic valve replacement with bioprosthetic valve 2011, morbid obesity, obstructive sleep apnea with CPAP Patient presents this admission with symptoms of dyspnea, acute on chronic diastolic heart failure. Symptoms are several months in duration Furosemide recently discontinued due to chronic renal insufficiency as an outpatient . Chest x-ray and physical examination consistent with acute mixed diastolic and systolic heart failure. Echocardiogram with mild to moderate diffuse LV dysfunction, EF approximately 40%. Normally functioning bioprosthesis in the aortic valve position Recommendations: As above. Treat heart failure with IV diuretics. Goals gaining euvolemia and controlling heart rate and blood pressure Troponins are elevated but clinical presentation does not suggest acute coronary syndrome. Suspicious for tachycardia mediated LV dysfunction and volume overload also with recent discontinuation of oral diuretic. Will increase beta-izzy and changed to heart failure indicated metoprolol succinate at 75 mg twice per day. Continue losartan, atorvastatin, apixaban (reduced dose secondary to age and renal insufficiency) History of Present Illness Reason for Consultation: Shortness of breath, A-fib Requesting Physician: Sánchez hospitalist Attending Physician: J Carlos Shaffer MD History of Present Illness Patient is a 78 year old male with PMHx significant for for chronic Atrial fibrillation, prior Atrial flutter s/p Ablation (2011), Right atrial tachycardia s/p Ablation (2014), Aortic stenosis s/p AVR (2011), and HTN that presented to the ED with complaints of shortness of breath that started approximately 1.5 weeks ago. patient states that he has noticed progressive shortness of breath ever since having Covid in April of 2023 with a return of what appears to be persistent atrial fibrillation. 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 he has also noticed increased swelling of bilateral lower extremities. He denies any chest pain, pressure, near syncope or syncope. He states that he has been sleeping elevated more recently as well to aide in his breathing. Denies any recent cold/flu-like symptoms and no change in his medication regimen. He is typically very cautious about his salt intake, but does endorse multiple holiday meals and increase sodium consumption with [employer] on new years. 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 last seen in the office by Emma Marte PA-C on 07/25/23. also follows with the [place] [facility] (retired [facility]), and states that the pharmacy team recently reduced his eliquis dosing "due to age" EKG on admission demonstrates A-fib with RVR Telemetry also demonstrates A-fib with rates 90's-120 with occasional PVC's. Patient is resting in bed upon examination today. He states that since receiving Lasix today that his breathing has improved significantly. He is NPO awaiting further blood work due to Troponin elevation as well as an echocardiogram for further evaluation. is at bedside today as well. Allergies Allergy/AdvReac Type Severity Reaction Status Date / Time Iodinated Contrast Media Allergy Mild DYE FROM Verified 08/01/23 17:36 CARDIAC CATH-RASH lisinopril AdvReac Mild COUGH Verified 08/01/23 17:36 Home Medications Medication Instructions Recorded Confirmed Type Latanoprost- Timolol 1 drp OPB HS 08/01/23 08/01/23 History acetaminophen 500 mg tablet 1,000 mg PO Q6H PRN Pain 08/01/23 08/01/23 History (Tylenol Extra Strength) apixaban 2.5 mg tablet 2.5 mg PO BID 08/01/23 08/01/23 History aspirin 81 mg tablet,delayed 81 mg PO DAILY 08/01/23 08/01/23 History release atorvastatin 40 mg tablet 20 mg PO HS 08/01/23 08/01/23 History azelastine 137 mcg (0.1 %) nasal 1 spray intranasal BID 08/01/23 08/01/23 History spray aerosol cyanocobalamin (vitamin B-12) 1,000 mcg PO DAILY 08/01/23 08/01/23 History 1,000 mcg tablet (Vitamin B-12) dextran 70-hypromellose eye drops 1 drp ophthalmic (eye) DIRECTED 08/01/23 08/01/23 History PRN Dry Eyes doxepin 50 mg capsule 50 mg PO HS PRN Sleep 08/01/23 08/01/23 History flaxseed oil 1,000 mg capsule 1,000 mg PO [id number] 08/01/23 08/01/23 History fluticasone propionate 110 2 puff inhalation BID PRN 08/01/23 08/01/23 History mcg/actuation HFA aerosol inhaler Shortness Of Breath Or Wheezing guaifenesin 400 mg tablet 400 mg PO Q4H PRN Congestion 08/01/23 08/01/23 History insulin aspart U-100 100 unit/mL 10 - 15 unit subcut BID 08/01/23 08/01/23 History subcutaneous solution (Novolog U-100 Insulin aspart) insulin glargine 100 unit/mL 10 unit subcut PM 08/01/23 08/01/23 History subcutaneous solution (Lantus U-100 Insulin) loratadine 10 mg tablet 10 mg PO DAILY PRN allergies 08/01/23 08/01/23 History losartan 50 mg tablet 50 mg PO DAILY 08/01/23 08/01/23 History magnesium oxide 400 mg PO .QTHUR 08/01/23 08/01/23 History metoprolol tartrate 50 mg tablet 50 mg PO BID 08/01/23 08/01/23 History sodium chloride 0.65 % nasal spray 1 spray intranasal BID PRN Nasal 08/01/23 08/01/23 History aerosol (Saline Mist) Congestion triamcinolone acetonide 0.1 % 1 applic topical TID PRN .. 08/01/23 08/01/23 History topical cream vitamin A-vitamin C-vit E-min 1 tab PO DAILY 08/01/23 08/01/23 History tablet Patient History Medical History (Updated 08/02/23 @ 11:49 by CARMELA Peck) SOB (shortness of breath) HLD (hyperlipidemia) HTN (hypertension) History of kidney stones Chronic kidney disease (CKD), stage IV (severe) Hearing deficit Glaucoma Phlegm in throat reason for inhaler Sleep apnea cpap History of PSVT (paroxysmal supraventricular tachycardia) reason for metoprolol--follows with Dr. Garduno Diabetes type 2--IDDM Surgical History History of repair of right rotator cuff Hx of vasectomy History of umbilical hernia repair History of colonoscopy with polypectomy History of esophagogastroduodenoscopy (EGD) History of tooth extraction all upper teeth Status post correction of deviated nasal septum History of bilateral cataract extraction History of cardiac cath x2--prior to 2011/in 2011--no stents History of aortic valve replacement (~04/2012) @ [facility] [place] S/P ablation of atrial fibrillation x2 Family History Mother Family history of diabetes mellitus Other No family history of adverse response to anesthesia Social History Smoking Status: Former smoker Second Hand Exposure: No; Do You Dip or Chew Tobacco: No; Hx Alcohol Use: No Hx Substance Use: No Preferred Language: Portuguese Communication Ability: Effective Site Lead Required: No Beliefs That Will Affect Care: None Current Living Situation: Spouse Other Information That Helps Us Care for You: No Feels Safe at Home: Yes Safety Concerns: Feels Safe At This Time Assistive Devices: CPAP and Denture - Upper Review of Systems Review of Systems: All systems reviewed & are unremarkable except as noted in HPI & below Physical Exam Constitutional: well developed and + obese Neck: normal visual inspection and trachea midline Respiratory: normal respiratory effort, lungs clear to auscultation Auscultation: lungs clear to auscultation bilaterally Cardiovascular: Rate/Rhythm: + tachycardic and + irregularly irregular Vessels: dorsalis pedis pulses present; no JVD Extremities: + pedal edema and + edema + 1 BLE edema Skin: no rashes, warm and dry Psychiatric: A+Ox3, euthymic affect Results & Data Vital Signs (Past 12 Hours) Vital Signs Temp Pulse Pulse Pulse Resp BP BP 08/02/23 08:01 08/02/23 08:00 112 H 21 129/79 08/02/23 07:15 106 H 08/02/23 05:46 105 H 20 145/79 H 08/02/23 04:20 103 H 08/02/23 03:58 98 H 19 08/02/23 02:01 102 H 21 158/81 H 08/02/23 01:06 98 H 20 08/02/23 00:44 08/02/23 00:44 36.5 C 104 H 20 145/93 H 08/01/23 21:54 08/01/23 21:45 76 18 155/95 H Pulse Ox Pulse Ox O2 Del Method O2 Del Method 08/02/23 08:01 Room Air 08/02/23 08:00 97 Room Air 08/02/23 07:15 08/02/23 05:46 99 CPAP 08/02/23 04:20 08/02/23 03:58 95 08/02/23 02:01 95 CPAP 08/02/23 01:06 97 08/02/23 00:44 Room Air 08/02/23 00:44 96 Room Air 08/01/23 21:54 97 Room Air 08/01/23 21:45 97 Room Air Laboratory Results Cardiac Enzymes 08/01/23 08/01/23 08/01/23 Range/Units 14:46 16:23 18:29 AST 20 (13-39) U/L Troponin I High Sens 91.2 H* 115.9 H* D 184.7 H* D (0-20) pg/ml B-Natriuretic Peptide 635 H (0-100) pg/ml 08/01/23 08/02/23 08/02/23 Range/Units 23:10 06:14 07:38 AST TNP 19 (13-39) U/L Troponin I High Sens 303.3 H* D (0-20) pg/ml B-Natriuretic Peptide (0-100) pg/ml Coagulation 08/01/23 Range/Units 14:46 B-Natriuretic Peptide 635 H (0-100) pg/ml CBC 08/01/23 08/02/23 Range/Units 14:46 06:14 WBC 10.02 9.72 (4.8-10.8) K/ul RBC 4.06 L 3.72 L (4.70-6.10) M/uL Hgb 13.3 L 12.1 L (14.0-18.0) g/dl Hct 40.2 L 36.3 L (42.0-52.0) % Plt Count 159 147 (130-400) K/uL Neut # (Auto) 7.54 H (1.40-6.50) K/uL Lymph # (Auto) 1.33 (1.20-3.40) K/uL [place] # (Auto) 0.83 H (0.11-0.59) K/uL Eos # (Auto) 0.25 (0.00-0.50) K/uL Baso # (Auto) 0.02 (0.00-0.20) K/uL Comprehensive Metabolic Panel 08/01/23 08/02/23 08/02/23 Range/Units 14:46 06:14 07:38 Sodium 140 138 (136-145) mmol/L Potassium 5.3 H TNP 5.0 (3.5-5.1) mmol/L Chloride 113 H 108 H (98-107) mmol/L Carbon Dioxide 21 23 (21-32) mmol/L BUN 38 H 41 H (6-23) mg/dl Creatinine 2.15 H 2.12 H (0.6-1.4) mg/dl Glucose 92 131 H (70-99(Fasting)) mg/dl Calcium 10.0 9.7 (8.6-10.3) mg/dl AST 20 TNP 19 (13-39) U/L ALT 17 15 (7-52) U/L Alkaline Phosphatase 129 H 110 H (34-104) U/L Total Protein 7.9 7.3 (6.0-8.3) gm/dl Albumin 3.9 3.5 (3.4-5.0) gm/dl Intake and Output 08/01/23 08/02/23 08/02/23 22:59 06:59 14:59 Intake Total 200 / 200 Output Total 50 / 50 Balance 200 / 150 -50 / 150 Intake: IV 200 / 200 Magnesium Sulfate / D5w 1 gm In 200 / 200 100 ml @ 200 mls/hr IV Q30M [facility] Rx#:[id number] Output: Other 50 / 50 Other: # Unmeasured Voids 1 Diagnostic Findings EKG 08/01/2023 Atrial fibrillation with RVR Nonspecific T wave abnormality, ? Prior anterior infarct Rate 104bpm Echocardiogram (obtained from [facility]) 05/04/22 The rhythm during the transthoracic echo examination was atrial fibrillation with rapid ventricular response. The examination is limited quality but adequate for evaluation of the referral indication. The qualitative LV ejection fraction is 50-54% (normal). The LV wall thickness is moderately increased (concentric). The septal motion is abnormal consistent with the post-operative state. The left atrium is severely enlarged (>48 ml/m^2,). There is an aortic valve bioprosthetic present. Mild intravalvular aortic regurgitation is present. The aortic valve prosthesis systolic gradients are are borderline elevated and are indeterminate for obstruction. Mild mitral regurgitation is present. Mild tricuspid regurgitation is present. Compared to last available study changes are noted as follows: Left ventricular systolic function is borderline reduced, atrial fibrillation with rapid ventricular response now present. This study has what is deemed to be a "significant abnormality" consistent with ACT 112. See additional documentation regarding notification of patient and ordering provider.
[2023-08-02] MEDS: INSULIN ASPART PER UNIT CHARGE SC SCH ×4 (09:02→23:21)
[2023-08-02] MEDS: LANTUS PER UNIT CHARGE SQ SCH (10:15)
[2023-08-02] MEDS ORDERED: METOPROLOL TARTRATE 50 MG TAB PO SCH (11:45)
[2023-08-02] MEDS: APIXABAN 2.5 MG TAB PO SCH ×2 (13:14→23:14)
[2023-08-02] MEDS: ASPIRIN 81 MG ECTAB PO SCH (13:14)
--- NOTE | 2023-08-02 14:42 | Pharmacy Report ---
Pharmacy Glycemic Short Note 2 - Date of Service August 02, 2023 - Glycemic Short BSG Results (Last 24 hours): 08/01/23 08/01/23 08/01/23 14:46 19:27 21:50 Glucose 92 POC Glucose 96 153 H 08/02/23 08/02/23 08/02/23 06:14 08:19 11:58 Glucose 131 H POC Glucose 141 H 141 H OUTPATIENT ANTIDIABETIC REGIMEN: * Lantus 10 units HS, Novolog 10-15 units BID * HbA1c 7% 04/06/23, pending 08/03/23 ASSESSMENT: * Talha is an 78 YOM admitted with shortness of breath and a history of T2DM. Pharmacy has been consulted to assist with glycemic management while inpatient. * Fasting BSG this AM within goal range, no Lantus given yesterday, will start Lantus at bedtime based on BSG allowing up to home dose * Novolog initiated based on reported home insulin usage. No changes to Novolog as patient was NPO after midnight and cannot assess efficacy of regimen. PLAN FOR INPATIENT GLYCEMIC CONTROL: * Hold outpatient oral diabetes medications * Basal insulin * Lantus 0-10 units SQ HS based on BSG (see eMAR for additional details) * Bolus insulin * NovoLog per scale ACHS or Q6hrs while NPO * Goal Range: Low 120 mg/dL - High 150 mg/dL * Correction Factor: 30 mg/dL/unit * Nutritional / Prandial insulin per carb ratio of 1 unit per 10 grams CHO consumed
--- NOTE | 2023-08-02 15:47 | Hospitalist Progress Note ---
Date of Service August 02, 2023 Assessment & Plan (1) SOB (shortness of breath): (2) Pulmonary edema: (3) Diabetes: (4) Hypomagnesemia: (5) S/P ablation of atrial fibrillation: (6) CKD (chronic kidney disease): (7) HTN (hypertension): (8) HLD (hyperlipidemia): Plan Patient is an 78-year-old male who presented to the ED with complaints of shortness of breath with exertion that has been going on for a few days. He reports orthopnea that has been occurring the past two days as well. Shortness of breath: Acute on chronic diastolic heart failure Patient presented with exertional dyspnea and orthopnea CXR on admission with mild patchy opacities and pulmonary edema questionable superimposed infection BNP 635 +2 BL LE edema Continue Lasix 40 mg twice daily. Discussed with cardiology. Strict I/O, Fluid restriction 1800mL Elevated Troponin: Likely demand ischemia Troponin 91 on admission; elevated to 300 and down trended Denies chest pain. Echocardiogram shows atrial fibrillation with elevated ventricular rate, left atrium severely dilated, bioprosthetic aortic valve. Cardiology on board; appreciate recommendation. CKD: Acute Worse serum creatinine; 2.15; baseline around 2 Avoid nephrotoxic agents Hypomagnesemia: Repleted A-fib status post ablation: EKG on admission shows A-fib with ventricular rate of 104 Takes metoprolol and Eliquis; continue History of AVR: Chronic bioprosthetic; 2011 at [facility] With mild dyspnea on exertion; repeat echo as above Takes baby aspirin daily Insulin-dependent diabetes mellitus type 2: Obesity: Chronic Uses freestyle gertrude 2; was comfortable removing for coverage here Takes NovoLog and Lantus; continue with carb coverage with ACHS FSBG within target range nearly 80% of the time Recently stopped taking Ozempic Last A1c 04/06/2023; 7.0; Diabetic diet HTN: Chronic Losartan currently on hold. ADAN: Chronic CPAP HS HLD: Chronic Takes atorvastatin; continue Most recent lipid panel 05/22; TG 55, HDL 32, LDL 68 Disposition: PCP: Dr. Don PE CODE STATUS: Full code VTE prophylaxis: On Eliquis Time spent evaluating patient, direct bedside care, chart review, placing orders, interpretation of diagnostic studies, discussion with consultants, patient, and family members, as well as other required patient management activities is 50 minutes Please note the above document was generated using voice recognition software. It may contain grammatical, syntax or spelling errors. Any formal questions or concerns about the content, text or information contained within the body of this dictation should be directly addressed to the provider for clarification Admission and Anticipated Discharge Date Admission Date: August 01, 2023 Subjective Patient seen and examined at bedside. He is sitting up on the chair; not in any distress. He reports improvement in the shortness of breath at rest. Still short of breath on minimal exertion. Review of Systems Review of Systems: All systems reviewed & are unremarkable except as noted in Subjective Physical Exam Physical Exam: Constitutional: Alert oriented x 3; not in distress. Morbidly obese Respiratory: Bilateral basilar crackles present Cardiovascular: Irregular, no murmur, no edema Vessels: no JVD or carotid bruit Chest: normal inspection of chest Abdomen: normal bowel sounds, soft, nontender, no hepatosplenomegaly Musculoskeletal: no cyanosis or clubbing, extremities motor strength 5/5 Skin: no rashes, warm and dry normal turgor Neurologic: PERRL, EOMI, accommodation nl, no face palsy, no dysarthria CN's II- XI intact bilaterally and moves all extremities Psychiatric: A+Ox3, euthymic affect Results & Data Results & Data Vital Signs (Past 12 Hours) Vital Signs Pulse Pulse Resp BP BP Pulse Ox O2 Del Method 08/02/23 13:13 123 H 24 98 08/02/23 13:13 130 H 117/89 08/02/23 11:00 114 H 20 97 08/02/23 09:57 117 H 19 144/92 H 98 Room Air 08/02/23 08:01 112 H 15 129/79 97 Room Air 08/02/23 08:01 Room Air 08/02/23 08:00 112 H 21 129/79 97 Room Air 08/02/23 07:15 106 H 08/02/23 05:46 105 H 20 145/79 H 99 CPAP 08/02/23 04:20 103 H 08/02/23 03:58 98 H 19 95 (2) Pulmonary edema Chronicity: acute Qualified Code(s): J81.0 - Acute pulmonary edema (6) CKD (chronic kidney disease) Chronic kidney disease stage: stage 4 (severe) Qualified Code(s): N18.4 - Chronic kidney disease, stage 4 (severe)
[2023-08-02] MEDS: FUROSEMIDE INJ 20 MG/2 ML VIAL IV SCH (17:58)
[2023-08-02] MEDS: ATORVASTATIN 20 MG TAB PO SCH (23:15)
[2023-08-02] MEDS: LATANOPROST 0.005% OP SOLN 2.5 ML BTL OPB SCH (23:15)
[2023-08-02] MEDS: METOPROLOL SUCC 50MG EXT REL TAB PO SCH (23:16)
[2023-08-02] MEDS: LANTUS PER UNIT CHARGE SC SCH (23:20)
[2023-08-03 07:39] LABS: Basophils # (auto) 0.04 K/uL (0.00-0.20); Basophils % (auto) 0.4 %; Eosinophils # (auto) 0.33 K/uL (0.00-0.50); Eosinophils % (auto) 3.5 %; Hematocrit (blood only) 37.7 % (42.0-52.0); Hemoglobin 12.4 g/dl (14.0-18.0); Immature Granulocytes # (auto) 0.04 K/uL (0.01-0.20); Immature Granulocytes % (auto) 0.4 %; Lymphocytes # (auto) 1.69 K/uL (1.20-3.40); Lymphocytes % (auto) 18.1 %; Mean Corpuscular Hemoglobin 32.2 pg (25.0-34.0); Mean Corpuscular Hgb Conc 32.9 g/dL (32.0-36.0); Mean Corpuscular Volume 97.9 fL (80.0-100.0); Mean Platelet Volume 9.4 fL (9.4-12.4); Monocytes # (auto) 1.07 K/uL (0.11-0.59); Monocytes % (auto) 11.4 %; Neutrophils # (auto) 6.19 K/uL (1.40-6.50); Neutrophils % (auto) 66.2 %; Platelet Count 156 K/uL (130-400); RDW Coefficient of Variation 13.6 % (11.5-14.5); RDW Standard Deviation 48.7 fL (36.4-46.3); Red Blood Count 3.85 M/uL (4.70-6.10); White Blood Count 9.36 K/ul (4.8-10.8)
[2023-08-03 07:52] LABS: BUN Creatinine Ratio 21.9 (10-20); Calcium 9.7 mg/dl (8.6-10.3); Creatinine Clr Calc Pharmacy 30.6 ml/min; Est GFR (African American) 27.5 ml/min; Est GFR (Non-African American) 23.7 ml/min; Magnesium 1.7 mg/dl (1.7-2.4)
[2023-08-03 07:55] LABS: Estimated Average Glucose 163 mg/dl; Hemoglobin A1C 7.3 % (4.5-5.6)
[2023-08-03] MEDS: INSULIN ASPART PER UNIT CHARGE SC SCH ×4 (08:41→20:53)
[2023-08-03] MEDS: METOPROLOL SUCC 50MG EXT REL TAB PO SCH ×2 (08:42→20:55)
[2023-08-03] MEDS: APIXABAN 2.5 MG TAB PO SCH ×2 (08:42→20:55)
[2023-08-03] MEDS: ASPIRIN 81 MG ECTAB PO SCH (08:42)
[2023-08-03] MEDS: FUROSEMIDE INJ 20 MG/2 ML VIAL IV SCH ×2 (08:43→17:06)
--- NOTE | 2023-08-03 08:47 | Cardiology Progress Note ---
Date of Service August 03, 2023 Assessment & Plan (1) Atrial fibrillation with rapid ventricular response: (2) Non-ST elevation [place] (NSTEMI): (3) Acute diastolic CHF (congestive heart failure): Plan Assessment: 78 year-old male with long standing history of Atrial fibrillation/ Atrial flutter with prior ablations presents with 1-2 weeks of worsening shortness of breath, fatigue and lower extremity edema. 1. Atrial fibrillation with RVR: -Confirmed on EKG and remains in A-fib per review of telemetry. -Review of records shows that patient's A-fib has remained more persistent over the course of time, but patient is typically asymptomatic. -HR remains above target. We will increase Toprol xl to 100mg PO BID starting this evening. Give an additional one time dose of Toprol xl 25mg PO Now. -Continue Eliquis 2.5mg PO BID (reduced dose due to age and decreased renal function) -Patient continues to exhibit modest hypervolemia, likely secondary to dietary indiscretion over the holiday's which is understood. -Continue furosemide 40mg IV BID with close monitoring of renal function and keep serum K at or above 4.0 and serum Mag at 2.0. Please record I&O's and Daily weights. -Echocardiogram as discussed showing mildly reduced EF, and no significant change in valvular disease. 2. Non-ST elevation [place] -Troponin elevation with peak and has started to trend down. Troponin elevation is likely due in part to a tachycardic mediated process. Patient has no chest pain or other angina equivalent. - No acute ischemic changes on EKG and patient denies any chest pain or pressure. -Echocardiogram with no acute changes, or new ischemic concerns. Elevation likely tachycardia induced as well as in the presence of hypervolemia. 3. Acute diastolic CHF -As noted on physical exam, and per review of imaging and labs. -Likely a combination of dietary indiscretion given the holiday as well as A- fib at a rapid ventricular rate reducing patient's atrial kick resulting in fluid buildup. -Increase Toprol xl to 100mg PO BID with additional 25mg PO x1 dose now. -continue furosemide 40mg IV BID with close monitoring of renal function and electrolytes, as well as daily weight/I&Os. Case has been discussed with Dr. Armstrong. Further recommendations regarding plan of care as per his assessment. I spent a total of 30 minutes on the date of service in preparation, delivery, documentation of the care provided to the patient excluding any time spent in the performance of separately billed services. CARMELA Peck [facility] Admission and Anticipated Discharge Date Admission Date: August 01, 2023 Supervising Physician Co-Signing Physician Notes Patient was seen and examined, chart, medications, telemetry reviewed. Patient improved clinically but still remains with elevated atrial fibrillation rates. Pulmonary status improving with initial diuresis Discussed management in detail with patient with plans as outlined above Suspect current presentation subacute by history reflects atrial fibrillation with persistently elevated ventricular response rates and subsequent systolic heart failure, reduced ejection fraction Subjective 08/03/23: Patient examined in follow up. He is sitting on the side of the bed, pleasant and offers no significant complaints. Continue to report improvement in his breathing, leg swelling and ability to ambulate to the restroom. Review of labs, medications, diagnostic imaging, and telemetry complete. Telemetry demonstrates Afib with rates 90-120s. No significant difference in weights, but suspect it is derived from two different scales making inaccurate. Current Negative 600ml fluid balance. Review of Systems Review of Systems: All systems reviewed & are unremarkable except as noted in HPI & below Physical Exam Constitutional: well developed and + obese Neck: normal visual inspection and trachea midline Respiratory: normal respiratory effort, lungs clear to auscultation Auscultation: lungs clear to auscultation bilaterally Cardiovascular: Rate/Rhythm: + tachycardic and + irregularly irregular Vessels: dorsalis pedis pulses present; no JVD Extremities: + pedal edema and + edema Skin: no rashes, warm and dry Psychiatric: A+Ox3, euthymic affect Results & Data Vital Signs (Past 12 Hours) Vital Signs Temp Pulse Pulse Pulse Resp BP Pulse Ox 08/03/23 07:20 36.7 C 100 H 17 117/71 95 08/03/23 03:26 70 21 95 08/03/23 03:08 36.5 C 117 H 18 125/72 98 08/03/23 00:00 115 H 08/02/23 23:00 36.6 C 89 20 142/68 H 97 08/02/23 22:30 64 26 H 96 O2 Del Method 08/03/23 07:20 Room Air 08/03/23 03:26 08/03/23 03:08 CPAP 08/03/23 00:00 08/02/23 23:00 CPAP 08/02/23 22:30 Laboratory Results Cardiac Enzymes 08/02/23 Range/Units 10:29 Troponin I High Sens 257.9 H* (0-20) pg/ml CBC 08/03/23 Range/Units 07:08 WBC 9.36 (4.8-10.8) K/ul RBC 3.85 L (4.70-6.10) M/uL Hgb 12.4 L (14.0-18.0) g/dl Hct 37.7 L (42.0-52.0) % Plt Count 156 (130-400) K/uL Neut # (Auto) 6.19 (1.40-6.50) K/uL Lymph # (Auto) 1.69 (1.20-3.40) K/uL [place] # (Auto) 1.07 H (0.11-0.59) K/uL Eos # (Auto) 0.33 (0.00-0.50) K/uL Baso # (Auto) 0.04 (0.00-0.20) K/uL Comprehensive Metabolic Panel 08/03/23 Range/Units 07:08 Sodium 140 (136-145) mmol/L Potassium 5.0 (3.5-5.1) mmol/L Chloride 107 (98-107) mmol/L Carbon Dioxide 26 (21-32) mmol/L BUN 54 H (6-23) mg/dl Creatinine 2.47 H D (0.6-1.4) mg/dl Glucose 122 H (70-99(Fasting)) mg/dl Calcium 9.7 (8.6-10.3) mg/dl Intake and Output 08/02/23 08/03/23 08/03/23 22:59 06:59 14:59 Intake Total 150 / 300 150 / 300 Balance 150 / -600 150 / -600 Intake: Oral 150 / 300 150 / 300 Other: # Unmeasured Voids 1 2 Weight 127.5 kg Weight Measurement Method Built in [facility] Diagnostic Findings Echocardiogram 08/02/2023 -Atrial fibrillation with RVR -Left ventricle normal in size -Moderate concentric LVH -Septal motion is consistent with conduction abnormality -mild to moderate global hypokinesis of the left ventricle -Bioprosthetic aortic valve; gradient is normal -mild mitral annular calcification -mild MR -mild TR.
[2023-08-03] MEDS ORDERED: METOPROLOL SUCC 25MG EXT REL TAB PO STA (14:04)
--- NOTE | 2023-08-03 14:24 | Hospitalist Progress Note ---
Date of Service August 03, 2023 Assessment & Plan (1) SOB (shortness of breath): (2) Pulmonary edema: (3) Diabetes: (4) Hypomagnesemia: (5) S/P ablation of atrial fibrillation: (6) CKD (chronic kidney disease): (7) HTN (hypertension): (8) HLD (hyperlipidemia): Plan Patient is an 78-year-old male who presented to the ED with complaints of shortness of breath with exertion that has been going on for a few days. He reports orthopnea that has been occurring the past two days as well. Shortness of breath: Acute on chronic diastolic heart failure Patient presented with exertional dyspnea and orthopnea CXR on admission with mild patchy opacities and pulmonary edema questionable superimposed infection BNP 635 +1 BL LE edema Continue Lasix 40 mg twice daily. Discussed with cardiology. Strict I/O, Fluid restriction 1800mL Elevated Troponin: Likely demand ischemia Troponin 91 on admission; elevated to 300 and down trended Denies chest pain. Echocardiogram shows atrial fibrillation with elevated ventricular rate, left atrium severely dilated, bioprosthetic aortic valve. Atrial Fibrillation with RVR Heart rate elevated to 120s to 130s Metoprolol triated upto 100mg twice daily. 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 Hypomagnesemia: Repleted History of AVR: Chronic bioprosthetic; 2011 at [facility] With mild dyspnea on exertion; repeat echo as above Takes baby aspirin daily Insulin-dependent diabetes mellitus type 2: Obesity: Chronic Uses freestyle gertrude 2; was comfortable removing for coverage here Takes NovoLog and Lantus; continue with carb coverage with ACHS FSBG within target range nearly 80% of the time Recently stopped taking Ozempic Last A1c 04/06/2023; 7.0; Diabetic diet HTN: Chronic Losartan currently on hold. ADAN: Chronic CPAP HS HLD: Chronic Takes atorvastatin; continue Most recent lipid panel 05/22; TG 55, HDL 32, LDL 68 Disposition: PCP: Dr. Don PE CODE STATUS: Full code VTE prophylaxis: On Eliquis Time spent evaluating patient, direct bedside care, chart review, placing orders, interpretation of diagnostic studies, discussion with consultants, patient, and family members, as well as other required patient management activities is 50 minutes Please note the above document was generated using voice recognition software. It may contain grammatical, syntax or spelling errors. Any formal questions or concerns about the content, text or information contained within the body of this dictation should be directly addressed to the provider for clarification Admission and Anticipated Discharge Date Admission Date: August 01, 2023 Subjective Patient seen and examined at bedside. He reports that he is feeling better with shortness of breath. He is saturating well in room air Review of Systems Review of Systems: All systems reviewed & are unremarkable except as noted in Subjective Physical Exam Physical Exam: Constitutional: Alert oriented x 3; not in distress. Morbidly obese Respiratory: Bilateral basilar crackles present Cardiovascular: Irregular, no murmur, no edema Vessels: no JVD or carotid bruit Chest: normal inspection of chest Abdomen: normal bowel sounds, soft, nontender, no hepatosplenomegaly Musculoskeletal: no cyanosis or clubbing, extremities motor strength 5/5. +1 pitting edema Skin: no rashes, warm and dry normal turgor Results & Data Results & Data Vital Signs (Past 12 Hours) Vital Signs Temp Pulse Pulse Resp BP Pulse Ox O2 Del Method 08/03/23 12:04 36.7 C 106 H 16 130/79 97 Room Air 08/03/23 09:00 102 H 08/03/23 09:00 Room Air 08/03/23 07:20 36.7 C 100 H 17 117/71 95 Room Air 08/03/23 03:26 70 21 95 08/03/23 03:08 36.5 C 117 H 18 125/72 98 CPAP (2) Pulmonary edema Chronicity: acute Qualified Code(s): J81.0 - Acute pulmonary edema (6) CKD (chronic kidney disease) Chronic kidney disease stage: stage 4 (severe) Qualified Code(s): N18.4 - Chronic kidney disease, stage 4 (severe)
[2023-08-03] MEDS: ATORVASTATIN 20 MG TAB PO SCH (20:55)
[2023-08-03] MEDS: LATANOPROST 0.005% OP SOLN 2.5 ML BTL OPB SCH (20:55)
[2023-08-03] MEDS: LANTUS PER UNIT CHARGE SC SCH (20:56)
[2023-08-04 07:28] LABS: Basophils # (auto) 0.03 K/uL (0.00-0.20); Basophils % (auto) 0.3 %; Eosinophils # (auto) 0.43 K/uL (0.00-0.50); Eosinophils % (auto) 4.3 %; Hematocrit (blood only) 40.4 % (42.0-52.0); Hemoglobin 13.6 g/dl (14.0-18.0); Immature Granulocytes # (auto) 0.05 K/uL (0.01-0.20); Immature Granulocytes % (auto) 0.5 %; Mean Corpuscular Hemoglobin 32.8 pg (25.0-34.0); Mean Corpuscular Hgb Conc 33.7 g/dL (32.0-36.0); Mean Corpuscular Volume 97.3 fL (80.0-100.0); Mean Platelet Volume 9.3 fL (9.4-12.4); Monocytes # (auto) 0.97 K/uL (0.11-0.59); Monocytes % (auto) 9.7 %; Neutrophils % (auto) 71.2 %; Platelet Count 184 K/uL (130-400); RDW Coefficient of Variation 13.3 % (11.5-14.5); RDW Standard Deviation 47.8 fL (36.4-46.3); Red Blood Count 4.15 M/uL (4.70-6.10); White Blood Count 9.98 K/ul (4.8-10.8)
[2023-08-04 07:46] LABS: BUN Creatinine Ratio 22.9 (10-20); Calcium 9.9 mg/dl (8.6-10.3); Creatinine Clr Calc Pharmacy 24.3 ml/min; Est GFR (African American) 23.6 ml/min; Est GFR (Non-African American) 20.4 ml/min; Potassium 4.7 mmol/L (3.5-5.1)
[2023-08-04] MEDS: APIXABAN 2.5 MG TAB PO SCH ×2 (08:31→21:20)
[2023-08-04] MEDS: METOPROLOL SUCC 50MG EXT REL TAB PO SCH ×2 (08:31→21:21)
[2023-08-04] MEDS: INSULIN ASPART PER UNIT CHARGE SC SCH ×4 (08:31→20:37)
[2023-08-04] MEDS: ASPIRIN 81 MG ECTAB PO SCH (08:32)
--- NOTE | 2023-08-04 13:08 | Cardiology Progress Note ---
Date of Service August 04, 2023 Assessment & Plan (1) Atrial fibrillation with rapid ventricular response: (2) Non-ST elevation [place] (NSTEMI): (3) Acute diastolic CHF (congestive heart failure): Plan Assessment: 78 year-old male with long standing history of Atrial fibrillation/ Atrial flutter with prior ablations presents with 1-2 weeks of worsening shortness of breath, fatigue and lower extremity edema. 1. Atrial fibrillation with RVR: -Confirmed on EKG and remains in A-fib per review of telemetry. -Review of records shows that patient's A-fib has remained more persistent over the course of time, but patient is typically asymptomatic. -HR remains above target. We will increase Toprol xl to 100mg PO BID starting this evening. Give an additional one time dose of Toprol xl 25mg PO Now. -Continue Eliquis 2.5mg PO BID (reduced dose due to age and decreased renal function) -Patient continues to exhibit modest hypervolemia, likely secondary to dietary indiscretion over the holiday's which is understood. -Continue furosemide 40mg IV BID with close monitoring of renal function and keep serum K at or above 4.0 and serum Mag at 2.0. Please record I&O's and Daily weights. -Echocardiogram as discussed showing mildly reduced EF, and no significant change in valvular disease. 2. Elevated troponin -Troponin elevation with peak and has started to trend down. Troponin elevation is likely due in part to a tachycardic mediated process. Patient has no chest pain or other angina equivalent. - No acute ischemic changes on EKG and patient denies any chest pain or pressure. -Echocardiogram with no acute changes, or new ischemic concerns. Elevation likely tachycardia induced as well as in the presence of hypervolemia. 3. Acute diastolic CHF -As noted on physical exam, and per review of imaging and labs. -Likely a combination of dietary indiscretion given the holiday as well as A- fib at a rapid ventricular rate reducing patient's atrial kick resulting in fluid buildup. -Increase Toprol xl to 100mg PO BID with additional 25mg PO x1 dose now. -continue furosemide 40mg IV BID with close monitoring of renal function and electrolytes, as well as daily weight/I&Os. 08/04/2023 Patient slowly improving heart rates trending towards lower Renal function however has declined with diuresis Impression: Persistent atrial fibrillation with elevated ventricular sponsor rate with rates elevated for greater than 6 months Reduced ejection fraction likely tachycardia mediated with associated acute on chronic congestive heart failure right greater than left Troponins elevated secondary to acute concerns, demand. EKG and echo not suggestive of acute coronary syndrome Recommendations: Continue metoprolol succinate 100 mg twice per day Add digoxin 0.25 mg p.o. now and 0.125 mg this evening then every other day. Discussed additional options AV junction ablation with pacemaker if medications Hold furosemide IV Transition to oral as renal function improved Maintain on telemetry additional 24-hour Admission and Anticipated Discharge Date Admission Date: August 01, 2023 Subjective Patient seen and examined, chart, medications, telemetry reviewed Patient feels improved today slept better last night using own CPAP Lower extremity edema improved however renal sufficiency declined with diuresis Heart rate trending towards better control still 95-100 at rest Blood pressure controlled no chest pains or tachypalpitations. Review of Systems Review of Systems: All systems reviewed & are unremarkable except as noted in Subjective Physical Exam Constitutional: well developed and + obese Eyes: PERRL, conjunctivae normal, anicteric sclerae Neck: normal visual inspection and trachea midline Respiratory: Auscultation: lungs clear to auscultation bilaterally Cardiovascular: Rate/Rhythm: + irregularly irregular Vessels: dorsalis pedis pulses present; no JVD Extremities: + pedal edema and + edema Gastrointestinal (Abdomen): normal bowel sounds, soft, nontender, no hepatosplenomegaly Skin: no rashes, warm and dry Psychiatric: A+Ox3, euthymic affect Results & Data Vital Signs (Past 12 Hours) Vital Signs Temp Pulse Pulse Resp BP Pulse Ox O2 Del Method 08/04/23 12:14 36.5 C 99 H 16 120/66 97 Room Air 08/04/23 09:00 112 H 08/04/23 09:00 Room Air 08/04/23 07:23 36.7 C 107 H 17 120/79 97 Room Air 08/04/23 05:20 96 H 08/04/23 02:15 36.5 C 18 115/66 96 CPAP Laboratory Results Laboratory Results - last 24 hr 08/03/23 08/03/23 08/04/23 16:11 20:15 07:04 WBC 9.98 RBC 4.15 L Hgb 13.6 L Hct 40.4 L MCV 97.3 MCH 32.8 MCHC 33.7 RDW Std Deviation 47.8 H RDW Coeff of Jael 13.3 Plt Count 184 MPV 9.3 L Immature Gran % (Auto) 0.5 Neut % (Auto) 71.2 Lymph % (Auto) 14.0 [place] % (Auto) 9.7 Eos % (Auto) 4.3 Baso % (Auto) 0.3 Neut # (Auto) 7.10 H Lymph # (Auto) 1.40 [place] # (Auto) 0.97 H Eos # (Auto) 0.43 Baso # (Auto) 0.03 Immature Gran # (Auto) 0.05 Sodium 138 Potassium 4.7 Chloride 103 Carbon Dioxide 26 Anion Gap 9 BUN 64 H Creatinine 2.80 H D Est Cr Clr Drug Dosing 24.3 Est GFR ( Amer) 23.6 Est GFR (Non-Af Amer) 20.4 BUN/Creatinine Ratio 22.9 H Glucose 143 H POC Glucose 127 H 139 H Calcium 9.9 08/04/23 08/04/23 07:12 11:23 WBC RBC Hgb Hct MCV MCH MCHC RDW Std Deviation RDW Coeff of Jael Plt Count MPV Immature Gran % (Auto) Neut % (Auto) Lymph % (Auto) [place] % (Auto) Eos % (Auto) Baso % (Auto) Neut # (Auto) Lymph # (Auto) [place] # (Auto) Eos # (Auto) Baso # (Auto) Immature Gran # (Auto) Sodium Potassium Chloride Carbon Dioxide Anion Gap BUN Creatinine Est Cr Clr Drug Dosing Est GFR ( Amer) Est GFR (Non-Af Amer) BUN/Creatinine Ratio Glucose POC Glucose 135 H 181 H Calcium
[2023-08-04] MEDS ORDERED: DIGOXIN 0.125 MG TAB PO ONE (13:19)
--- NOTE | 2023-08-04 13:22 | Hospitalist Progress Note ---
Date of Service August 04, 2023 Assessment & Plan (1) SOB (shortness of breath): (2) Pulmonary edema: (3) Diabetes: (4) Hypomagnesemia: (5) S/P ablation of atrial fibrillation: (6) CKD (chronic kidney disease): (7) HTN (hypertension): (8) HLD (hyperlipidemia): Plan Patient is an 78-year-old male who presented to the ED with complaints of shortness of breath with exertion that has been going on for a few days. He reports orthopnea that has been occurring the past two days as well. Shortness of breath: Acute on chronic diastolic heart failure Patient presented with exertional dyspnea and orthopnea CXR on admission with mild patchy opacities and pulmonary edema BNP 635 +1 BL LE edema Patient was initially diuresed with IV Lasix 40 mg twice daily; Creatinine bumped up to 2.8 today; will hold off on additional diuretics today. Continue to monitor strict TAY's. Atrial Fibrillation with RVR On presentation; patient was seen atrial fibrillation with ventricular rate elevated to 120s to 130s Metoprolol succinate increased to 100 mg twice daily. Plan to add digoxin today as per cardiology recommendation. Discussed with cardiology. Elevated Troponin: Likely demand ischemia Troponin 91 on admission; elevated to 300 and down trended Denies chest pain. Echocardiogram shows atrial fibrillation with elevated ventricular rate, left atrium severely dilated, bioprosthetic aortic valve. NEFATLI on CKD: Creatinine up trended last 2 days to 2.8. Hold off additional diuretics today. Avoid nephrotoxic agent. Continue to hold losartan. Obtain bladder scan Obtain urine electrolytes Diarrhea Patient reports multiple episodes of diarrhea since yesterday Obtain initial PCR and C. difficile. Will consider Imodium if infectious workup is negative. Hypomagnesemia: Repleted History of AVR: Chronic bioprosthetic; 2011 at [facility] With mild dyspnea on exertion; repeat echo as above Takes baby aspirin daily Insulin-dependent diabetes mellitus type 2: Obesity: Chronic Uses freestyle gertrude 2; was comfortable removing for coverage here Takes NovoLog and Lantus; continue with carb coverage with ACHS FSBG within target range nearly 80% of the time Recently stopped taking Ozempic Last A1c 04/06/2023; 7.0; Diabetic diet HTN: Chronic Losartan currently on hold. ADAN: Chronic CPAP HS HLD: Chronic Takes atorvastatin; continue Most recent lipid panel 05/22; TG 55, HDL 32, LDL 68 Disposition: PCP: Dr. Don PE CODE STATUS: Full code VTE prophylaxis: On Eliquis Time spent evaluating patient, direct bedside care, chart review, placing orders, interpretation of diagnostic studies, discussion with consultants, patient, and family members, as well as other required patient management activities is 50 minutes Please note the above document was generated using voice recognition software. It may contain grammatical, syntax or spelling errors. Any formal questions or concerns about the content, text or information contained within the body of this dictation should be directly addressed to the provider for clarification Admission and Anticipated Discharge Date Admission Date: August 01, 2023 Subjective Patient seen and examined at bedside. He reports that his shortness of breath has improved. Telemetry shows ventricular rate of 90s to 100s. Review of Systems Review of Systems: All systems reviewed & are unremarkable except as noted in Subjective Physical Exam Physical Exam: Constitutional: Alert oriented x 3; not in distress. Morbidly obese Respiratory: Bilateral basilar crackles present; overall improved from yesterday. Cardiovascular: Irregular, no murmur, no edema Vessels: no JVD or carotid bruit Chest: normal inspection of chest Abdomen: normal bowel sounds, soft, nontender, no hepatosplenomegaly Musculoskeletal: no cyanosis or clubbing, extremities motor strength 5/5. +1 pitting edema Skin: no rashes, warm and dry normal turgor Results & Data Results & Data Vital Signs (Past 12 Hours) Vital Signs Temp Pulse Pulse Resp BP Pulse Ox O2 Del Method 08/04/23 12:14 36.5 C 99 H 16 120/66 97 Room Air 08/04/23 09:00 112 H 08/04/23 09:00 Room Air 08/04/23 07:23 36.7 C 107 H 17 120/79 97 Room Air 08/04/23 05:20 96 H 08/04/23 02:15 36.5 C 18 115/66 96 CPAP (2) Pulmonary edema Chronicity: acute Qualified Code(s): J81.0 - Acute pulmonary edema (6) CKD (chronic kidney disease) Chronic kidney disease stage: stage 4 (severe) Qualified Code(s): N18.4 - Chronic kidney disease, stage 4 (severe)
[2023-08-04 14:14] LABS: Creatinine Urine Random 90.9 mg/dl; Urine Potassium 53.7 mmol/L
--- NOTE | 2023-08-04 14:52 | Pharmacy Report ---
Pharmacy Glycemic Sign Off Nt - Date of Service August 04, 2023 - Assessment & Plan ASSESSMENT: * Pharmacy was consulted by Tyrell Conti on 08/01/23 for glycemic control and to write orders per [facility] inpatient glycemic control protocol. * Major changes made by pharmacy to antidiabetic regimen include: * Novolog CF 30, CR 10 * Lantus 5 units daily * Patient has been receiving/requiring 12-13 units of insulin per day for adequate glycemic control * BSGs ranging 135-181 mg/dl * Regimen has only required minor adjustments over the past 48hrs to achieve this level of control * Do not anticipate further changes in patient status that would quickly deteriorate glycemic control (i.e. patient to be NPO for upcoming procedure, steroids tapering, starting tube feedings, etc). * Please see recommendations for outpatient antidiabetic regimen below. PLAN FOR INPATIENT GLYCEMIC CONTROL: No changes needed to current regimen. * Continue basal insulin with Lantus 5 units SQ daily * Continue NovoLog per scale ACHS/Q6hrs while NPO * Goal range = 120 -160 mg/dl * CF = 30 mg/dl/unit * CR = 1 unit for ever 10 g CHO consumed * Pharmacy is signing off of glycemic consult and will no longer be making adjustments to inpatient regimen. Please feel free to re-consult if needed. Thank you.
[2023-08-04] MEDS: DIGOXIN 0.125 MG TAB PO SCH (16:04)
[2023-08-04] MEDS: LANTUS PER UNIT CHARGE SC SCH (21:17)
[2023-08-04] MEDS: LATANOPROST 0.005% OP SOLN 2.5 ML BTL OPB SCH (21:19)
[2023-08-04] MEDS: ATORVASTATIN 20 MG TAB PO SCH (21:20)
[2023-08-04 22:10] LABS: Adenovirus F 40/41 PCR Not Detected (NotDetected); Astrovirus PCR Not Detected (NotDetected); Campylobacter PCR Not Detected (NotDetected); Cryptosporidium PCR Not Detected (NotDetected); Cyclospora cayetanensis PCR Not Detected (NotDetected); Entamoeba histolytica PCR Not Detected (NotDetected); Enteroaggregative E.coli(EAEC) Not Detected (NotDetected); Enteropathogenic E.coli (EPEC) Not Detected (NotDetected); Enterotoxigenic E.coli (ETEC) Not Detected (NotDetected); Giardia lamblia PCR Not Detected (NotDetected); Norovirus GI/GII PCR Not Detected (NotDetected); Plesiomonas shigelloides PCR Not Detected (NotDetected); Rotavirus A PCR Not Detected (NotDetected); Salmonella PCR Not Detected (NotDetected); Sapovirus PCR Not Detected (NotDetected); Shiga-like Toxin E.coli (STEC) Not Detected (NotDetected); Shigella/Enteroinvasive E.coli Not Detected (NotDetected); Vibrio cholerae PCR Not Detected (NotDetected); Vibrio species PCR Not Detected (NotDetected); Yersinia enterocolitica PCR Not Detected (NotDetected)
[2023-08-05] MEDS: ACETAMINOPHEN 325 MG TAB PO PRN (04:56)
[2023-08-05 06:35] LABS: Basophils # (auto) 0.03 K/uL (0.00-0.20); Basophils % (auto) 0.3 %; Eosinophils # (auto) 0.48 K/uL (0.00-0.50); Eosinophils % (auto) 4.2 %; Hematocrit (blood only) 35.5 % (42.0-52.0); Hemoglobin 11.7 g/dl (14.0-18.0); Immature Granulocytes # (auto) 0.05 K/uL (0.01-0.20); Immature Granulocytes % (auto) 0.4 %; Lymphocytes % (auto) 11.4 %; Mean Corpuscular Hemoglobin 32.5 pg (25.0-34.0); Mean Corpuscular Volume 98.6 fL (80.0-100.0); Mean Platelet Volume 9.4 fL (9.4-12.4); Monocytes # (auto) 1.08 K/uL (0.11-0.59); Monocytes % (auto) 9.5 %; Neutrophils # (auto) 8.48 K/uL (1.40-6.50); Neutrophils % (auto) 74.2 %; Platelet Count 166 K/uL (130-400); RDW Coefficient of Variation 13.2 % (11.5-14.5); RDW Standard Deviation 48.4 fL (36.4-46.3); White Blood Count 11.42 K/ul (4.8-10.8)
[2023-08-05 06:44] LABS: BUN Creatinine Ratio 24.1 (10-20); Calcium 9.2 mg/dl (8.6-10.3); Creatinine Clr Calc Pharmacy 24.7 ml/min; Est GFR (Non-African American) 19.9 ml/min; Potassium 4.7 mmol/L (3.5-5.1)
[2023-08-05] MEDS: INSULIN ASPART PER UNIT CHARGE SC SCH ×4 (08:47→21:12)
[2023-08-05] MEDS: APIXABAN 2.5 MG TAB PO SCH ×2 (08:48→21:11)
[2023-08-05] MEDS: METOPROLOL SUCC 50MG EXT REL TAB PO SCH ×2 (08:48→21:10)
[2023-08-05] MEDS: ASPIRIN 81 MG ECTAB PO SCH (08:48)
[2023-08-05] MEDS ORDERED: LOPERAMIDE HCL 2 MG CAP PO PRN (14:02)
--- NOTE | 2023-08-05 14:03 | Hospitalist Progress Note ---
Date of Service August 05, 2023 Assessment & Plan (1) SOB (shortness of breath): (2) Pulmonary edema: (3) Diabetes: (4) Hypomagnesemia: (5) S/P ablation of atrial fibrillation: (6) CKD (chronic kidney disease): (7) HTN (hypertension): (8) HLD (hyperlipidemia): Plan Patient is an 78-year-old male who presented to the ED with complaints of shortness of breath with exertion that has been going on for a few days. He reports orthopnea that has been occurring the past two days as well. Shortness of breath: Acute on chronic diastolic heart failure Patient presented with exertional dyspnea and orthopnea CXR on admission with mild patchy opacities and pulmonary edema BNP 635 +1 BL LE edema on presentation Patient was initially diuresed with IV Lasix 40 mg twice daily; Creatinine increased; holding Lasix as per cardiology recommendation. Continue to monitor strict TAY's. Atrial Fibrillation with RVR On presentation; patient was seen atrial fibrillation with ventricular rate elevated to 120s to 130s Metoprolol succinate increased to 100 mg twice daily. Digoxin added as well. Ventricular rate overall improved. Elevated Troponin: Likely demand ischemia Troponin 91 on admission; elevated to 300 and down trended Denies chest pain. Echocardiogram shows atrial fibrillation with elevated ventricular rate, left atrium severely dilated, bioprosthetic aortic valve. NEFTALI on CKD: Creatinine up trended last 2 days to 2.8. Hold off additional diuretics Avoid nephrotoxic agent. Continue to hold losartan. Diarrhea Patient reports multiple episodes of diarrhea since yesterday GI PCR panel and C. difficile negative Imodium as needed Hypomagnesemia: Repleted History of AVR: Chronic bioprosthetic; 2011 at [facility] With mild dyspnea on exertion; repeat echo as above Takes baby aspirin daily Insulin-dependent diabetes mellitus type 2: Obesity: Chronic Uses freestyle gertrude 2; was comfortable removing for coverage here Takes NovoLog and Lantus; continue with carb coverage with ACHS FSBG within target range nearly 80% of the time Recently stopped taking Ozempic Last A1c 04/06/2023; 7.0; Diabetic diet HTN: Chronic Losartan currently on hold. ADAN: Chronic CPAP HS HLD: Chronic Takes atorvastatin; continue Most recent lipid panel 05/22; TG 55, HDL 32, LDL 68 Disposition: PCP: Dr. Don PE CODE STATUS: Full code VTE prophylaxis: On Eliquis Time spent evaluating patient, direct bedside care, chart review, placing orders, interpretation of diagnostic studies, discussion with consultants, patient, and family members, as well as other required patient management activities is 50 minutes Please note the above document was generated using voice recognition software. It may contain grammatical, syntax or spelling errors. Any formal questions or concerns about the content, text or information contained within the body of this dictation should be directly addressed to the provider for clarification Admission and Anticipated Discharge Date Admission Date: August 01, 2023 Subjective Patient seen and examined at bedside. Comfortable; not in distress. Denies fever, chills, chest pain, shortness of breath, abdominal pain or urinary symptoms. No significant overnight events Telemetry shows atrial fibrillation with ventricular rate of 80s to 90s. Review of Systems Review of Systems: All systems reviewed & are unremarkable except as noted in Subjective Physical Exam Physical Exam: Constitutional: Alert oriented x 3; not in distress. Morbidly obese Respiratory: Bilateral basilar crackles present; Cardiovascular: Irregular, no murmur, no edema Vessels: no JVD or carotid bruit Chest: normal inspection of chest Abdomen: normal bowel sounds, soft, nontender, no hepatosplenomegaly Musculoskeletal: no cyanosis or clubbing, extremities motor strength 5/5. +1 pitting edema Skin: no rashes, warm and dry normal turgor Results & Data Results & Data Vital Signs (Past 12 Hours) Vital Signs Temp Pulse Pulse Resp BP Pulse Ox O2 Del Method 08/05/23 11:48 36.4 C L 57 L 18 113/68 96 Room Air 08/05/23 11:05 Room Air 08/05/23 10:03 94 H 08/05/23 08:02 36.7 C 79 18 109/60 97 CPAP 08/05/23 03:00 36.6 C 89 16 111/68 98 Room Air (2) Pulmonary edema Chronicity: acute Qualified Code(s): J81.0 - Acute pulmonary edema (6) CKD (chronic kidney disease) Chronic kidney disease stage: stage 4 (severe) Qualified Code(s): N18.4 - Chronic kidney disease, stage 4 (severe)
[2023-08-05] MEDS: ATORVASTATIN 20 MG TAB PO SCH (21:11)
[2023-08-05] MEDS: LATANOPROST 0.005% OP SOLN 2.5 ML BTL OPB SCH (21:12)
[2023-08-05] MEDS: LANTUS PER UNIT CHARGE SC SCH (21:16)
[2023-08-06 08:25] LABS: Basophils # (auto) 0.02 K/uL (0.00-0.20); Basophils % (auto) 0.2 %; Eosinophils # (auto) 0.39 K/uL (0.00-0.50); Eosinophils % (auto) 3.6 %; Hematocrit (blood only) 39.9 % (42.0-52.0); Hemoglobin 13.1 g/dl (14.0-18.0); Immature Granulocytes # (auto) 0.05 K/uL (0.01-0.20); Immature Granulocytes % (auto) 0.5 %; Lymphocytes # (auto) 1.29 K/uL (1.20-3.40); Lymphocytes % (auto) 11.9 %; Mean Corpuscular Hemoglobin 32.5 pg (25.0-34.0); Mean Corpuscular Hgb Conc 32.8 g/dL (32.0-36.0); Mean Platelet Volume 9.2 fL (9.4-12.4); Monocytes # (auto) 1.12 K/uL (0.11-0.59); Monocytes % (auto) 10.4 %; Neutrophils # (auto) 7.94 K/uL (1.40-6.50); Neutrophils % (auto) 73.4 %; Platelet Count 178 K/uL (130-400); RDW Coefficient of Variation 13.1 % (11.5-14.5); Red Blood Count 4.03 M/uL (4.70-6.10); White Blood Count 10.81 K/ul (4.8-10.8)
[2023-08-06 08:39] LABS: BUN Creatinine Ratio 27.6 (10-20); Calcium 9.6 mg/dl (8.6-10.3); Creatinine Clr Calc Pharmacy 29.4 ml/min; Est GFR (African American) 27.1 ml/min; Est GFR (Non-African American) 23.4 ml/min; Potassium 4.7 mmol/L (3.5-5.1)
[2023-08-06] MEDS: ASPIRIN 81 MG ECTAB PO SCH (08:43)
[2023-08-06] MEDS: APIXABAN 2.5 MG TAB PO SCH (08:43)
[2023-08-06] MEDS: INSULIN ASPART PER UNIT CHARGE SC SCH ×2 (08:43→12:34)
[2023-08-06] MEDS: METOPROLOL SUCC 50MG EXT REL TAB PO SCH (08:43)
--- NOTE | 2023-08-06 12:43 | Cardiology Progress Note ---
Date of Service August 06, 2023 Assessment & Plan (1) Atrial fibrillation with rapid ventricular response: (2) Non-ST elevation MT (NSTEMI): (3) Acute diastolic CHF (congestive heart failure): Plan Assessment: 78 year-old male with long standing history of Atrial fibrillation/ Atrial flutter with prior ablations presents with 1-2 weeks of worsening shortness of breath, fatigue and lower extremity edema. 1. Atrial fibrillation with RVR: - Rates impoved on metoprolol succinate 100 mg BID. Digoxin 0125 mg every 48 hours -Continue Eliquis 2.5 mg BID, dose adjusted for age and renal function 2. Elevated troponin -Troponin elevation with peak and has started to trend down. Troponin elevation is likely due in part to a tachycardic mediated process. Patient has no chest pain or other angina equivalent. - No acute ischemic changes on EKG and patient denies any chest pain or pressure. -Echocardiogram with no acute changes, or new ischemic concerns. Elevation likely tachycardia induced as well as in the presence of hypervolemia. -Continue medical therapy 3. Acute diastolic CHF -volume status improved on furosemide 40 mg IV BID, however renal function worsened slightly with baseline stage IV CKD. -Stable for discharge on furosemide 40g mg three mornings per week on , Mon, and Fridays which had been his routine a few years ago. follows with Dr Don as PCP at [facility] and with Dr Reyes of [facility]. Will need an outpt BMP in follow up within 1-2 weeks. Admission and Anticipated Discharge Date Admission Date: August 01, 2023 Subjective Patient seen in cardiology follow up. Feeling well. No complaints . Nose is still a little runny, but feeling much improved. Telemetry reveals AF with rates in the 80s to 90s. Physical Exam Constitutional: well developed and + obese Eyes: PERRL, conjunctivae normal, anicteric sclerae Neck: normal visual inspection and trachea midline Respiratory: normal respiratory effort, lungs clear to auscultation Auscultation: lungs clear to auscultation bilaterally Cardiovascular: Rate/Rhythm: + tachycardic and + irregularly irregular Vessels: dorsalis pedis pulses present; no JVD Extremities: + pedal edema and + edema Gastrointestinal (Abdomen): normal bowel sounds, soft, nontender, no hepatosplenomegaly Skin: no rashes, warm and dry Psychiatric: A+Ox3, euthymic affect Results & Data Vital Signs (Past 12 Hours) Vital Signs Temp Pulse Pulse Resp BP Pulse Ox O2 Del Method 08/06/23 12:01 36.3 C L 88 21 133/72 99 Room Air 08/06/23 10:28 87 08/06/23 10:18 Room Air 08/06/23 08:09 36.6 C 98 H 18 120/69 94 Room Air 08/06/23 03:33 36.6 C 88 18 106/65 96 BiPAP 08/06/23 02:09 Room Air Laboratory Results CBC 08/06/23 Range/Units 08:00 WBC 10.81 H (4.8-10.8) K/ul RBC 4.03 L (4.70-6.10) M/uL Hgb 13.1 L (14.0-18.0) g/dl Hct 39.9 L (42.0-52.0) % Plt Count 178 (130-400) K/uL Neut # (Auto) 7.94 H (1.40-6.50) K/uL Lymph # (Auto) 1.29 (1.20-3.40) K/uL [place] # (Auto) 1.12 H (0.11-0.59) K/uL Eos # (Auto) 0.39 (0.00-0.50) K/uL Baso # (Auto) 0.02 (0.00-0.20) K/uL Comprehensive Metabolic Panel 08/06/23 Range/Units 08:00 Sodium 138 (136-145) mmol/L Potassium 4.7 (3.5-5.1) mmol/L Chloride 105 (98-107) mmol/L Carbon Dioxide 25 (21-32) mmol/L BUN 69 H (6-23) mg/dl Creatinine 2.50 H D (0.6-1.4) mg/dl Glucose 150 H (70-99(Fasting)) mg/dl Calcium 9.6 (8.6-10.3) mg/dl Intake and Output 08/05/23 08/06/23 08/06/23 22:59 06:59 14:59 Intake Total 355 / 835 Output Total 350 / 350 Balance Intake: Oral 355 / 835 Output: Urine 350 / 350 Other: # Unmeasured Voids 1 2 Weight 121.7 kg Weight Measurement Method Built in [facility]
--- NOTE | 2023-08-06 14:06 | Discharge Summary ---
Date of Service August 06, 2023 Admission HPI Per Admitting Provider Patient is an 78-year-old male who presented to the ED with complaints of shortness of breath with exertion that has been going on for a few days. He reports orthopnea that has been occurring the past two days as well. Patient was diagnosed with atrial fibrillation a few months ago after having COVID and has stated that he is more fatigued since then. He follows with [facility] and had his last appointment in May with plans to have a repeat ECHO. Additional PMH includes history of Aortic stenosis s/p AVR 2011 at [place], A-fib/pSVT with ablation (both 2011 and 2014), insulin-dependent diabetes, HTN, ADAN on CPAP, and HLD. Most recent ECHO: 05/21: LV wall thickness moderately concentric, EF 50 to 54%, septal wall motion abnormal, Mild MR/TR. No leukocytosis, Initial troponin 91; increased to 115.9 to 187; will continue to trend. Patient denies chest pain. WBC 10.02, Mg+1.6, BNP 635. Patient denies headache, dizziness, visual or auditory changes, chest pain, palpitations, abdominal pain or tenderness, and denies recent falls or trauma. Pt sitting in his hospital bed in no apparent distress. He was on RA and conversational without any MARQUIS. Indicated he would become short of breath should he walk to the bathroom. Has +2 LE BL pitting edema. He received 2.5 mg Metoprolol in ED; reports taking his AM medications and that he is compliant. Suspect this individual is experiencing a CHF exacerbation coupled with an upward trending troponin and AVR that was performed 11 years ago. Will continue diuresing with Lasix, obtain a repeat echocardiogram, strict intake and output, EKG as needed, n.p.o. after midnight pending possible catheterization, blood pressure control and cardiology consult in AM. Patient will be admitted for further evaluation and management. Please see A/P for further details. Admission Exam Per Admitting Provider Neuro: AAOx4, PERRLA, no aphagia, memory changes, CNII-XII grossly intact HEENT: head normocephalic, moist mucus membranes CV: S1/S2, (-) M/G/R, (-) edema, cap refill < 3 seconds Resp: Lungs CTA in all wolfe. On RA GI: Abdomen S/NT/ND, Ax4 bowel sounds, (-) CVA tenderness Musculoskeletal: 5/5 B/L UE strength, 5/5 B/L LE strength. No gait disturbance Skin: (-) rashes , (-) erythema. Psych: euthymic mood Principal Diagnosis Acute on chronic diastolic heart failure Atrial Fibrillation with RVR Discharge Exam Constitutional: Alert oriented x 3; not in distress. Morbidly obese Respiratory: Bilateral basilar crackles present; Cardiovascular: Irregular, no murmur, no edema Vessels: no JVD or carotid bruit Chest: normal inspection of chest Abdomen: normal bowel sounds, soft, nontender, no hepatosplenomegaly Musculoskeletal: no cyanosis or clubbing, extremities motor strength 5/5. +1 pitting edema Skin: no rashes, warm and dry normal turgor Discharge Data Allergies Allergy/AdvReac Type Severity Reaction Status Date / Time Iodinated Contrast Media Allergy Mild DYE FROM Verified 08/01/23 17:36 CARDIAC CATH-RASH lisinopril AdvReac Mild COUGH Verified 08/01/23 17:36 Consultations 08/01/23 17:41 ED Decision to Admit Stat 08/02/23 08:00 Consult Cardiology Routine Hospital Course (1) SOB (shortness of breath): (2) Pulmonary edema: (3) Diabetes: (4) Hypomagnesemia: (5) S/P ablation of atrial fibrillation: (6) CKD (chronic kidney disease): (7) HTN (hypertension): (8) HLD (hyperlipidemia): Plan Patient is an 78-year-old male who presented to the ED with complaints of shortness of breath with exertion that has been going on for a few days. He reports orthopnea that has been occurring the past two days as well. Shortness of breath: Acute on chronic diastolic heart failure Patient presented with exertional dyspnea and orthopnea CXR on admission concerning for pulmonary edema BNP 635 +1 BL LE edema on presentation Patient was initially diuresed with IV Lasix 40 mg twice daily; Patient's creatinine was elevated; Lasix was kept on hold. At discharge, patient was placed on Lasix 40 mg Monday and Monday as per cardiology recommendation Atrial Fibrillation with RVR On presentation; patient was seen atrial fibrillation with ventricular rate elevated to 120s to 130s Metoprolol dose was titrated up to 100 mg twice a day. Digoxin was added Ventricular rate was in 90s to 100 on the day of the discharge. At discharge, he was placed on metoprolol succinate 100 mg twice a day and digox in 125 mg every other day NEFTALI on CKD: Creatinine up trended to 2.8 It down trended after anticoagulation was kept on hold. At discharge it was 2.5. Losartan was kept on hold at discharge. Repeat BMP in 1 week when patient sees PCP Please note the above document was generated using voice recognition software. It may contain grammatical, syntax or spelling errors. Any formal questions or concerns about the content, text or information contained within the body of this dictation should be directly addressed to the provider for clarification Total Time Total Time Spent Total Time Spent (In Minutes): 45 Total Time Includes: Examination of the Patient, Discharge Planning, Medication Reconciliation, Communication With Other Providers and Other Discharge Plan Discharge Items Patient Disposition: Home - Self-Care Reason For Visit: SOB, AFIB, RUNNY NOSE Discharge Diagnosis: Acute on chronic diastolic heart failure Atrial fibrillation with RVR Activity: Resume your previous activity Non-emergency contact: Primary Care Provider Call non-emergency contact if: you have any medication questions Follow-up/Referrals: Britney Don MD [Primary Care Provider] - (Date & Time 08/14/2023 11:20 AM Provider Alex Sawyer MD Department Family Medicine [facility] ) Diet: Regular Addtl Attending Provider Instructions: You were admitted to the hospital due to heart failure and atrial fibrillation with rapid heart rate. You were evaluated by cardiology during during the hospitalization. They recommend following medication adjustment: 1) For the heart failure, they recommend that you get restarted on Lasix 40 mg 3 times a week(on Monday, Monday and Monday) 2) For the atrial fibrillation with RVR, you were started on metoprolol 100 mg twice a day. Please stop taking the metoprolol that you were prescribed previously. You are also prescribed digoxin 0.125 mg every other day. Please start taking it from today. Please hold off on taking losartan for the time being as your kidney function is slightly worse than at baseline. Please follow-up with your doctor as scheduled on August 14 and repeat blood work to check on your kidney function. Pending Studies at Discharge: No Stand-Alone Forms: My [employer], Smoking Cessation Medications and DC Order Prescriptions: New digoxin [Digitek] 125 mcg (0.125 mg) Tablet 0.125 mg PO Q48H Qty: 30 0RF furosemide [Lasix] 40 mg tablet 40 mg PO 3XWK Qty: 60 0RF metoprolol succinate 100 mg tablet extended release 24 hr 100 mg PO BID Qty: 60 0RF Continued atorvastatin 40 mg Tablet 20 mg PO HS doxepin 50 mg Capsule 50 mg PO HS PRN (Reason: Sleep) insulin glargine [Lantus U-100 Insulin] 100 unit/mL Solution 10 unit SUBCUT PM cyanocobalamin (vitamin B-12) [Vitamin B-12] 1,000 mcg Tablet 1,000 mcg PO DAILY aspirin 81 mg Tablet,Delayed Release (Dr/Ec) 81 mg PO DAILY acetaminophen [Tylenol Extra Strength] 500 mg Tablet 1,000 mg PO Q6H PRN (Reason: Pain) triamcinolone acetonide 0.1 % Cream 1 applic TOPICAL TID PRN (Reason: ..) flaxseed oil 1,000 mg Capsule 1,000 mg PO 4XWK Rx Instructions: administer with a meal insulin aspart U-100 [Novolog U-100 Insulin aspart] 100 unit/mL Solution 10 - 15 unit SUBCUT BID azelastine 137 mcg (0.1 %) Aerosol,Nancy 1 spray INTRANASAL BID Rx Instructions: administer into each nostril loratadine 10 mg Tablet 10 mg PO DAILY PRN (Reason: allergies) fluticasone propionate 110 mcg/actuation Hfa Aerosol Inhaler 2 puff INHALATION BID PRN (Reason: Shortness Of Breath Or Wheezing) dextran 70-hypromellose Drops 1 drp OPHTHALMIC (EYE) DIRECTED PRN (Reason: Dry Eyes) vitamin A-vitamin C-vit E-min Tablet 1 tab PO DAILY guaifenesin 400 mg Tablet 400 mg PO Q4H PRN (Reason: Congestion) Saline Mist 0.65 % Aerosol,Nancy 1 spray INTRANASAL BID PRN (Reason: Nasal Congestion) apixaban 2.5 mg Tablet 2.5 mg PO BID magnesium oxide 400 mg magnesium Tablet 400 mg PO .QTHUR Latanoprost- Timolol 1 drp OPB HS Held losartan 50 mg Tablet 50 mg PO DAILY Hold Instructions: Resume on 08/14/23. Until you see your primary care doctor and repeat BMP Discontinued metoprolol tartrate 50 mg Tablet 50 mg PO BID Discharge Orders: Discharge Order- CHF (Routine); Ordered 08/06/23 Ordered By: J Carlos Mast/Other Patient Handouts: Managing Type 2 Diabetes Admission Data Admit Date/Time: 08/01/23 17:41 Attending Provider: J Carlos Shaffer Admit Provider: Cary Crouch Primary Care Provider: Britney Don Other Providers: Cary Crouch; Haresh Armstrong
[2023-08-06] MEDS: DIGOXIN 0.125 MG TAB PO SCH (14:50)
== END 2023-08-06 15:38 | disposition home or self-care (01) | DRG 291 ==
LOC: ED 13:20 → SUATTDRO 17:41 → EDINP 17:41 → 2S 19:21

== ENCOUNTER 2025-06-19 15:51 | Inpatient (IN) ==
--- NOTE | 2025-06-19 16:38 | Emergency Department Note ---
Impression & Plan Acute exacerbation of CHF (congestive heart failure), Pulmonary edema, CKD (chronic kidney disease), Hyponatremia, Chronic anemia, Hypoalbuminemia ED Provider Note NAME: TERE GARDNER AGE: 79 SEX: M : 1945 ARRIVES VIA: Walk-In INFORMANT: Patient, his ED PROVIDER(S): Francesco Miranda DO CHIEF COMPLAINT: congestion, dyspnea HPI: This is an 79-year-old male with the PMHx of CHF, , aFib, CKD and DM2 presenting to [facility] for further evaluation of SOB and productive cough. Patient is accompanied by his who provide additional history. Significant URI like illness ongoing since April. He was previously on a course of doxycycline. Patient reports his lower extremity swelling is stable. He states that he has lost approximately 90 pounds over the past year and a half. He states that he has been trying to lose weight. He states that he does obtain daily weights. His weight has not changed. They deny fever or chills. Patient states that he has had significant congestion and a productive cough. He reports this is yellow sputum. He was prescribed medication for his cough but it is failed to make his symptoms significantly improved. Patient does report some chest tightness but no pain. Patient and his are concerned with heart failure exacerbation. They deny abdominal pain, nausea and vomiting. No urinary complaints. No recent changes in bowel movements. Patient denies recent changes in medications or OTC supplements. Patient offers no other complaints, today. ADDITIONAL HISTORY OBTAINED: Per HPI Chronic Medical/Social Conditions Affecting Care: Per HPI PAST MEDICAL HISTORY: See Below PAST SURGICAL HISTORY: See Below FAMILY HISTORY: See Below SOCIAL HISTORY: See Below HOME MEDICATIONS: See Below ALLERGIES: See Below VITALS: See Below PHYSICAL EXAMINATION: GENERAL: Sitting up in bed, alert, well appearing, well nourished, no distress, non-toxic EYE EXAM: normal conjunctiva. OROPHARYNX: no exudate, no erythema, lips, buccal mucosa, and tongue normal and mucous membranes are moist NECK: supple, no nuchal rigidity, no adenopathy, non-tender LUNGS: Rales, congested. Normal chest wall mechanics HEART: no murmurs, tachycardic rate, irregular rhythm ABDOMEN: abdomen soft, non-tender, no masses, no rebound or guarding. BACK: Back is symmetrical on inspection and there is no deformity, no midline tenderness, no CVA tenderness. SKIN: no rashes and no bruising UPPER EXTREMITIES: upper extremities are grossly normal. LOWER EXTREMITIES: 2+ pitting edema NEURO EXAM: Normal sensorium, GCS 15, normal speech, no gross weakness of arms, no gross weakness of legs. MEDICAL DECISION MAKING: Differential diagnoses includes but not limited to ACS, unstable angina, dysrhythmia, PNA, hypervolemia/pulmonary edema, CHF exacerbation, COPD exacerbation, PE, pneumothorax, pericardial effusion, cardiac tamponade, anxiety/psychogenic, viral URI In summary, this is an 79 year old male who presented with SOB and productive cough. Differential as above. Nursing notes and pertinent past medical records reviewed. Vital signs reviewed and the patient is tachycardic but otherwise afebrile and HDS. History and presentation revealed known heart failure but worsening URI symptoms and sputum production. Physical examination revealed evidence of hypervolemia. As a result of my initial evaluation, his symptoms and complaints are mostly viral URI but he has significant sputum production. It seems that this illness have been ongoing since April and worsening. While he has not gained significant weight, there are concerns for CHF exacerbation as well. I think further imaging as well as sputum culture for atypical organisms may be beneficial. IV access was established and the patient was placed on CCRM. Therapeutics ordered include close observation Diagnostics interpreted by me include EKG and cardiac monitoring as listed below: -Cardiac Monitoring: An order was placed for continuous cardiac monitoring. The monitor shows a rate of 90-110s with regular rhythm. -ECG: Atrial fibrillation that is relatively rate controlled at 105 bpm. There is frequent PVCs on this rhythm strip. 6 PVCs present. No significant ST segment changes to suggest STEMI. Patient completed laboratory studies and imaging. Results independently interpreted by me are mild anemia but stable as compared to prior. No significant leukocytosis. Patient does have some hypercapnia but appears compensated. Suspect this is likely chronic. Although patient has no oxygen requirement or significant weight gain, he does have evidence of hypervolemia with lower extremity edema as well as interstitial edema on chest x-ray. Suspect his symptoms are likely acute on chronic CHF. Patient still having significant congestion and productive sputum. While his chest x-ray does not show evidence of pneumonia, we will proceed with a CT imaging study to further exclude pneumonia prior to initiating diuresis. CT showed no evidence of pneumonia as independently interpreted by me. There is significant evidence of pulmonary edema and fluid overload state. I will provide IV diuresis and plan for admission. Ultimately, the decision was made to admit the patient for acute on chronic CHF. I discussed the case with the hospitalist service via telephone/TigerText and they are agreeable to admit the patient to their services. Based on the above, including the patient's age, coexisting illnesses, labs, imaging, and exam findings the decision to treat as an inpatient. I discussed the patient with the hospitalist team who recommended admission to their services. They received the medications, treatments, interventions indicated above and their condition remained guarded. I discussed my findings with the patient and their family and they understand and agree with the treatment plan. All patient / family questions were answered to their satisfaction. Consults/Care Managements Discussions: Per MDM ER treatment provided: See above Procedures:none Critical Care: None The chart was completed utilizing [employer] Speech voice recognition software. Grammatical errors, random word insertions, pronoun errors, and incomplete sentences are an occasional consequence of this system due to software limitations, ambient noise, and hardware issues. Any formal questions or concerns about the content, text, or information contained within the body of this dictation should be directly addressed to the physician for clarification. Past Med/Surg History Problem List (Updated 06/21/25 @ 00:49 by Francesco Miranda DO) Hypoalbuminemia (Acute) Chronic anemia (Acute) Hyponatremia (Acute) CKD (chronic kidney disease) (Acute) Pulmonary edema (Acute) Acute exacerbation of CHF (congestive heart failure) (Acute) Aortic stenosis Permanent atrial fibrillation Weakness (Acute) CHF (congestive heart failure) (Acute) Chest pressure (Acute) Acute on chronic diastolic CHF (congestive heart failure) (Acute) Elevated troponin SOB (shortness of breath) HTN (hypertension) Atrial fibrillation with rapid ventricular response (Acute) CKD (chronic kidney disease) (Acute) Non-ST elevation [place] (NSTEMI) (Acute) Pulmonary edema (Acute) History of colon polyps Encounter for pre-operative examination Right shoulder injury (Acute) Fall (Acute) Heart palpitations (Acute) Hypomagnesemia (Acute) Heart palpitations (Acute) Hypomagnesemia (Acute) SVT (supraventricular tachycardia) (Acute) Diabetes (Chronic) type 2--IDDM History of PSVT (paroxysmal supraventricular tachycardia) (Acute) reason for metoprolol--follows with Dr. 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 ADAN (obstructive sleep apnea) 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 Permanent atrial fibrillation Acute on chronic heart failure with preserved ejection fraction (HFpEF) Right rib fracture Recurrent falls HLD (hyperlipidemia) Acute diastolic CHF (congestive heart failure) History of kidney stones Chronic kidney disease (CKD), stage IV (severe) Hearing deficit Glaucoma Phlegm in throat reason for inhaler Sleep apnea cpap Surgical History Aortic valve replaced History of repair of right rotator cuff Hx of vasectomy History of umbilical hernia repair History of colonoscopy with polypectomy History of esophagogastroduodenoscopy (EGD) History of tooth extraction all upper teeth Status post correction of deviated nasal septum History of bilateral cataract extraction History of cardiac cath x2--prior to 2011/in 2011--no stents History of [place] valve [place]04/2012[place] [facility] [place] Family History Mother Family history of diabetes mellitus Other No family history of adverse response to anesthesia Social History Smoking Status: Former smoker Second Hand Exposure: No; Do You Dip or Chew Tobacco: No; Hx Alcohol Use: No Hx Substance Use: No Preferred Language: Tristanian Communication Ability: Effective 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 Beliefs That Will Affect Care: None Current Living Situation: Spouse Current Living Situation Comment: i story home with 4 steps Feels Safe at Home: Yes Assistive Devices: Cane, CPAP, Scooter/Electric Scooter and Walker Allergies Allergies Allergy/AdvReac Type Severity Reaction Status Date / Time Iodinated Contrast Media Allergy Mild DYE FROM Verified 06/19/25 18:19 CARDIAC CATH-RASH lisinopril AdvReac Mild COUGH Verified 06/19/25 18:19 Home Meds Home Medications Medication Instructions Recorded Confirmed aspirin 81 mg tablet,delayed 81 mg PO Q OTHER DAY 08/01/23 06/19/25 release flaxseed oil 1,000 mg capsule 1,000 mg PO Q OTHER DAY 08/01/23 06/19/25 fluticasone propionate 110 2 puff inhalation BID 08/01/23 06/19/25 mcg/actuation HFA aerosol inhaler insulin aspart U-100 100 unit/mL 10 - 12 unit subcut BIDM 08/01/23 06/19/25 subcutaneous solution (Novolog U-100 Insulin aspart) insulin glargine 100 unit/mL 10 unit subcut HS 08/01/23 06/19/25 subcutaneous solution (Lantus U-100 Insulin) magnesium oxide 400 mg PO 3XWK 08/01/23 06/19/25 sodium chloride 0.65 % nasal spray 1 spray intranasal BID PRN Nasal 08/01/23 06/19/25 aerosol (Saline Mist) Congestion allopurinol 100 mg tablet 100 mg PO QDD 02/03/25 06/19/25 latanoprost 0.005 % eye drops 1 drp OPB HS 02/03/25 06/19/25 apixaban 5 mg tablet (Eliquis) 2.5 mg PO AMHS 03/10/25 06/19/25 atorvastatin 20 mg tablet 10 mg PO HS 03/10/25 06/19/25 cyanocobalamin (vitamin B-12) 1,000 mcg PO 5XWK 03/10/25 06/19/25 1,000 mcg tablet (Vitamin B-12) doxepin 50 mg capsule 50 mg PO HS PRN Sleep 03/10/25 06/19/25 empagliflozin 10 mg tablet 5 mg PO QAM 03/10/25 06/19/25 metoprolol succinate 100 mg 100 mg PO AMHS 03/10/25 06/19/25 tablet,extended release 24 hr [id number] 250 mg-dha 90 1 cap PO BID 03/10/25 06/19/25 mg-epa 160 [id number] capsule (Ocuvite Adult 50 Plus) sertraline 50 mg tablet 25 mg PO HS 03/10/25 06/19/25 guaifenesin 600 mg tablet, 600 mg PO BID PRN CONGESTION/COUGH 06/19/25 06/19/25 extended release 12 hr (Mucinex) Previous Rx's Medication Instructions Recorded bumetanide 1 mg tablet 1 mg PO QAM #30 tabs 03/12/25 diclofenac sodium 1 % topical gel 2 g EXT BID PRN pain #50 grams 03/12/25 (Voltaren Arthritis Pain) Results & Data (ED) Vital Signs Vital Signs - 24 hr 06/19/25 15:56 06/19/25 16:34 06/19/25 16:34 Temperature 36.5 C Temperature Source Temporal Artery Scan Pulse Rate 107 H 105 H Pulse Rate [Apical] 99 H Pulse Rhythm Regular Pulse Rhythm [Apical] Regular Pulse Strength [Apical] Normal Respiratory Rate 19 24 24 Respiratory Effort / Characteristics Non-Labored Spontaneous Non-Labored Spontaneous Respiratory Depth Normal Normal Respiratory Pattern Regular Blood Pressure 116/63 Blood Pressure [Right Arm] 122/70 Blood Pressure Mean 80 Blood Pressure Mean [Right Arm] 87 Blood Pressure Position Sitting Blood Pressure Position [Right Arm] Lying Pulse Oximetry 97 92 93 Oxygen Delivery Method Room Air Room Air Room Air Sepsis Recent Fever Within 48 Hours No Sepsis New/Unexplained Change in Mental Status No Sepsis Action Taken by Nursing No Action Required 06/19/25 16:34 06/19/25 16:41 06/19/25 17:00 Temperature Temperature Source Pulse Rate 108 H Pulse Rate [Apical] 109 H Pulse Rhythm Pulse Rhythm [Apical] Irregular Pulse Strength [Apical] Respiratory Rate 22 Respiratory Effort / Characteristics Non-Labored Spontaneous Respiratory Depth Respiratory Pattern Regular Blood Pressure Blood Pressure [Right Arm] 121/72 Blood Pressure Mean Blood Pressure Mean [Right Arm] 88 Blood Pressure Position Blood Pressure Position [Right Arm] Semi-fowlers Pulse Oximetry 98 94 Oxygen Delivery Method Room Air Room Air Sepsis Recent Fever Within 48 Hours Sepsis New/Unexplained Change in Mental Status Sepsis Action Taken by Nursing 06/19/25 18:33 06/19/25 19:00 Temperature Temperature Source Pulse Rate Pulse Rate [Apical] 97 H 101 H Pulse Rhythm Pulse Rhythm [Apical] Irregular Pulse Strength [Apical] Normal Respiratory Rate 24 26 H Respiratory Effort / Characteristics Non-Labored Spontaneous Non-Labored Spontaneous Respiratory Depth Normal Normal Respiratory Pattern Regular Regular Blood Pressure Blood Pressure [Right Arm] 132/81 115/82 Blood Pressure Mean Blood Pressure Mean [Right Arm] 98 93 Blood Pressure Position Blood Pressure Position [Right Arm] Semi-fowlers Lying Pulse Oximetry 91 93 Oxygen Delivery Method Room Air Room Air Sepsis Recent Fever Within 48 Hours Sepsis New/Unexplained Change in Mental Status Sepsis Action Taken by Nursing Laboratory Data 06/19/25 16:26 06/20/25 04:34 Lab Results 06/19/25 06/19/25 Range/Units 16:26 18:20 WBC 9.73 (4.8-10.8) K/ul RBC 3.91 L (4.70-6.10) M/uL Hgb 13.2 L (14.0-18.0) g/dL Hct 39.3 L (42.0-52.0) % MCV 100.5 H (80.0-100.0) fL MCH 33.8 (25.0-34.0) pg MCHC 33.6 (32.0-36.0) g/dL RDW Std Deviation 53.1 H (36.4-46.3) fL RDW Coeff of Jael 14.3 (11.5-14.5) % Plt Count 163 (130-400) K/uL MPV 9.4 (9.4-12.4) fL Immature Gran % (Auto) 0.8 % Neut % (Auto) 67.3 % Lymph % (Auto) 12.0 % [place] % (Auto) 12.5 % Eos % (Auto) 7.0 % Baso % (Auto) 0.4 % Neut # (Auto) 6.54 H (1.40-6.50) K/uL Lymph # (Auto) 1.17 L (1.20-3.40) K/uL [place] # (Auto) 1.22 H (0.11-0.59) K/uL Eos # (Auto) 0.68 H (0.00-0.50) K/uL Baso # (Auto) 0.04 (0.00-0.20) K/uL Immature Gran # (Auto) 0.08 (0.01-0.20) K/uL PT Cancelled 11.9 INR Cancelled 1.1 APTT Cancelled 34 H PTT Ratio Cancelled 1.3 VBG pH 7.36 (7.36-7.41) VBG pCO2 52 H (38-50) mmHg VBG pO2 20 mmHg VBG HCO3 29 mmol/L VBG O2 Saturation < 60.0 % VBG Base Excess 2.8 mEq/L Sodium 135 L (136-145) mmol/L Potassium 4.2 (3.5-5.1) mmol/L Chloride 99 (98-107) mmol/L Carbon Dioxide 28 (21-32) mmol/L Anion Gap 8 (3-11) BUN 37 H (6-23) mg/dl Creatinine 2.49 H (0.6-1.4) mg/dl Est Cr Clr Drug Dosing Not Reportable eGFR 25.30 BUN/Creatinine Ratio 14.9 (10-20) Glucose 133 H (70-99(Fasting)) mg/dl Calcium 10.3 (8.6-10.3) mg/dl Magnesium 2.2 (1.7-2.4) mg/dl Total Bilirubin 0.8 (0.2-1.0) mg/dl AST 40 H (13-39) U/L ALT 24 (7-52) U/L Alkaline Phosphatase 186 H (34-104) U/L Troponin I High Sens 74.1 H* 76.2 H* (0-20) pg/ml B-Natriuretic Peptide 1048 H (0-100) pg/ml Total Protein 8.6 H (6.0-8.3) gm/dl Albumin 3.1 L (3.4-5.0) gm/dl Globulin 5.5 H (2.5-4.0) gm/dl Albumin/Globulin Ratio 0.6 L (0.9-2) Adenovirus (PCR) Not Detected (NotDetected) B. pertussis DNA (PCR) Not Detected (NotDetected) B.parapertussis DNA PCR Not Detected (NotDetected) C. pneumoniae DNA (PCR) Not Detected (NotDetected) Coronavirus OC43 (PCR) Not Detected (NotDetected) Coronavirus HKU1 (PCR) Not Detected (NotDetected) Coronavirus 229E (PCR) Not Detected (NotDetected) SARS-CoV-2 (PCR) Not Detected (NotDetected) Coronavirus NL63 (PCR) Not Detected (NotDetected) Human Metapneumovir PCR Not Detected (NotDetected) Influenza Type A (PCR) Not Detected (NotDetected) Influenza Type B (PCR) Not Detected (NotDetected) M. pneumoniae (PCR) Not Detected (NotDetected) Parainfluenza 1 (PCR) Not Detected (NotDetected) Parainfluenza 2 (PCR) Not Detected (NotDetected) Parainfluenza 3 (PCR) Not Detected (NotDetected) Parainfluenza 4 (PCR) Not Detected (NotDetected) RSV (PCR) Not Detected (NotDetected) Entero/Rhino (PCR) Not Detected (NotDetected) Administered Medications Acetaminophen (Acetaminophen 325 Mg Tab) 650 mg PO Q4H PRN PRN Reason: Pain or Fever Stop: 07/19/25 19:12 Last Admin: 06/20/25 00:01 Dose: 650 mg Documented By: GEO Allopurinol (Allopurinol 100 Mg Tab) 100 mg PO QDD [facility] Stop: 07/20/25 16:29 Last Admin: 06/20/25 17:56 Dose: 100 mg Documented By: BOOKER Apixaban (Apixaban 2.5 Mg Tab) 2.5 mg PO AMHS [facility] Stop: 07/19/25 21:31 Last Admin: 06/20/25 21:07 Dose: 2.5 mg Documented By: Admin: 06/20/25 09:06 Dose: 2.5 mg Documented By: Admin: 06/19/25 22:37 Dose: 2.5 mg Documented By: GEO Aspirin (Aspirin 81 Mg Ectab) 81 mg PO Q2D@0900 [facility] Stop: 07/19/25 21:31 Last Admin: 06/19/25 22:36 Dose: 81 mg Documented By: GEO Atorvastatin Calcium (Atorvastatin 10 Mg Tab) 10 mg PO HS [facility] Stop: 07/19/25 21:31 Last Admin: 06/20/25 21:07 Dose: 10 mg Documented By: Admin: 06/19/25 22:37 Dose: 10 mg Documented By: GEO Cyanocobalamin (Cyanocobalamin (B-12) 500 Mcg Tablet) 1,000 mcg PO MoTuWeThFr@0900 [facility] Stop: 07/20/25 08:59 Last Admin: 06/20/25 09:05 Dose: 1,000 mcg Documented By: BOOKER Doxepin HCl (Doxepin Hcl 50 Mg Capsule) 50 mg PO HS PRN PRN Reason: Sleep Stop: 07/19/25 21:31 Last Admin: 06/20/25 21:11 Dose: 50 mg Documented By: GEO Empagliflozin (Empagliflozin 10 Mg Tab) 5 mg PO QAM [facility] Stop: 07/20/25 08:59 Last Admin: 06/20/25 09:06 Dose: 5 mg Documented By: BOOKER Fluticasone Furoate (Fluticasone Furoate 100mcg 14 Puffs/Inhaler) 1 puffs INH DAILY [facility] Stop: 07/20/25 08:59 Last Admin: 06/20/25 09:05 Dose: 1 puffs Documented By: BOOKER Guaifenesin (Guaifenesin 600 Mg Tabcr) 1,200 mg PO Q12 [facility] Stop: 07/19/25 20:59 Last Admin: 06/20/25 21:07 Dose: 1,200 mg Documented By: Admin: 06/20/25 09:06 Dose: 1,200 mg Documented By: Admin: 06/19/25 22:37 Dose: 1,200 mg Documented By: GEO Insulin Aspart (Insulin Aspart Per Unit Charge) 0 units SC ACHS [facility] Stop: 07/19/25 20:59 Last Admin: 06/20/25 21:07 Dose: 1 units Documented By: GEO Co-signed By: DONALDO Admin: 06/20/25 17:55 Dose: 10 units Documented By: BOOKER Co-signed By: Admin: 06/20/25 13:23 Dose: 7 units Documented By: BOOKER Co-signed By: JOSÉ MIGUEL Admin: 06/20/25 09:06 Dose: 4 units Documented By: BOOKER Co-signed By: JOSÉ MIGUEL Admin: 06/19/25 20:33 Dose: 6 units Documented By: JOEY Co-signed By: MARYAM Insulin Glargine (Lantus Per Unit Charge) 5 units SQ BID [facility] Stop: 07/19/25 20:59 Last Admin: 06/20/25 21:08 Dose: 5 units Documented By: GEO Co-signed By: DONALDO Admin: 06/20/25 09:08 Dose: 5 units Documented By: BOOKER Co-signed By: JOSÉ MIGUEL Admin: 06/19/25 20:33 Dose: 5 units Documented By: JOEY Co-signed By: MARYAM Ipratropium [place] (Ipratropium [place] Neb Soln 0.02% 0.5mg/2.5ml Vial) 0.5 mg NEB Q8H [facility] Stop: 07/19/25 21:59 Last Admin: 06/20/25 22:40 Dose: 0.5 mg Documented By: Admin: 06/20/25 15:45 Dose: 0.5 mg Documented By: Admin: 06/20/25 07:54 Dose: 0.5 mg Documented By: Admin: 06/19/25 22:28 Dose: 0.5 mg Documented By: REJI Latanoprost (Latanoprost 0.005% Op Soln 2.5 Ml Btl) 1 drops OPB HS [facility] Stop: 07/19/25 21:31 Last Admin: 06/20/25 21:08 Dose: 1 drops Documented By: Admin: 06/19/25 22:38 Dose: 1 drops Documented By: GEO Levalbuterol HCl (Levalbuterol 1.25 Mg/3 Ml Neb) 1.25 mg NEB Q8H [facility] Stop: 07/19/25 21:59 Last Admin: 06/20/25 22:40 Dose: 1.25 mg Documented By: Admin: 06/20/25 15:45 Dose: 1.25 mg Documented By: Admin: 06/20/25 07:54 Dose: 1.25 mg Documented By: Admin: 06/19/25 22:28 Dose: 1.25 mg Documented By: REJI Magnesium Oxide (Magnesium Oxide 400 Mg Tab) 400 mg PO MoWeFr@0900 [facility] Stop: 07/20/25 08:59 Last Admin: 06/20/25 09:05 Dose: 400 mg Documented By: BOOKER Metoprolol Succinate (Metoprolol Succ 50mg Ext Rel Tab) 100 mg PO [facility] Stop: 07/19/25 21:31 Last Admin: 06/20/25 21:07 Dose: 100 mg Documented By: Admin: 06/20/25 09:05 Dose: 100 mg Documented By: Admin: 06/19/25 22:36 Dose: 100 mg Documented By: GEO Sertraline HCl (Sertraline Hcl 50 Mg Tablet) 25 mg PO [facility] Stop: 07/19/25 21:31 Last Admin: 06/20/25 21:06 Dose: 25 mg Documented By: Admin: 06/19/25 22:37 Dose: 25 mg Documented By: GEO Discontinued Medications Furosemide (Furosemide 40 Mg/4 Ml Vial) 100 mg IV ONE ONE Stop: 06/19/25 17:13 Last Admin: 06/19/25 18:35 Dose: Not Given Documented By: SAVI Furosemide (Furosemide 40 Mg/4 Ml Vial) 80 mg IV ONE ONE Stop: 06/19/25 18:14 Last Admin: 06/19/25 18:43 Dose: 80 mg Documented By: SAVI Furosemide (Furosemide 40 Mg/4 Ml Vial) 60 mg IV BID@0700,1400 [facility] Stop: 07/20/25 07:44 Last Admin: 06/20/25 15:15 Dose: 60 mg Documented By: Admin: 06/20/25 09:14 Dose: 60 mg Documented By: BOOKER Imaging Data Radiologist's Impression: Chest X-Ray 06/19/25 16:08 EXAM: Chest x-ray 2 view CLINICAL HISTORY: Dyspnea PRIORS: 03/10/2025 TECHNIQUE: PA and lateral views chest FINDINGS: The chest is hyperexpanded. Diffuse interstitial changes noted with moderate right and small left pleural effusion, unchanged. Cardiac silhouette is enlarged. Median sternotomy wires and prosthetic valve seen. Moderate osseous demineralization noted. No confluent opacification. IMPRESSION: Radiographic features favoring volume overload with bilateral pleural effusions, right greater than left. The appearance of the chest also favors underlying interstitial lung disease. ACT 112: Positive. There are findings on this examination that require communication between the performing entity and the patient following Patient Test Result Information Act ([place] ACT 112) guidelines. Electronically signed by Ernestine Mejia 06-19-2025 5:[address] 06/19/25 17:15 EXAMINATION: Chest CT without CLINICAL HISTORY: Evaluate for pneumonia, favor CHF COMPARISON: Radiograph today, 03/10/2025, CT 02/03/2025 TECHNIQUE: Contiguous axial images were obtained through the chest without the use of intravenous contrast. Sagittal and coronal reformations are supplied. FINDINGS: A moderate right and small left pleural effusion noted. No confluent opacification. Diffuse interstitial prominence noted with subpleural increased reticular markings within appearance favoring interstitial lung disease. No dominant mass. Heart size markedly enlarged. No pericardial effusion. Advanced atherosclerotic disease of the aorta and coronary arteries. No mediastinal adenopathy. Trachea and mainstem bronchi patent. Moderate bilateral gynecomastia. Advanced atherosclerotic disease of the abdominal aorta. Upper abdomen shows no acute abnormality. Moderate osseous demineralization and kyphosis present. Median sternotomy wires noted. IMPRESSION: 1. Radiographic features of moderate volume overload with bilateral pleural effusions, right greater than left and cardiomegaly. 2. Diffuse bilateral interstitial changes with subpleural reticular markings favoring interstitial lung disease. 3. No lobar pneumonia ACT 112: Positive. There are findings on this examination that require communication between the performing entity and the patient following Patient Test Result Information Act ([place] ACT 112) guidelines. Electronically signed by Ernestine Mejia 06-19-2025 6:10 PM Discharge Plan Visit Data Chief Complaint: Weakness Stated Complaint: VOMIT, MUCUS, WEAK, COUGH, HEART CONDITION A FIB ED Provider: Francesco Miranda Discharge Problem: Acute exacerbation of CHF (congestive heart failure), Pulmonary edema, CKD (chronic kidney disease), Hyponatremia, Chronic anemia, Hypoalbuminemia Patient Disposition: Admitted As Inpatient Condition: Fair Discharge Instructions Interventions: ED Discharge Assessment Last Done: 06/19/25 20:41
[2025-06-19 16:42] LABS: Base Excess VBG 2.8 mEq/L; HCO3 VBG 29 mmol/L; Oxygen Saturation VBG < 60.0 %; PCO2 VBG 52 mmHg (38-50); PO2 VBG 20 mmHg; pH VBG 7.36 (7.36-7.41)
[2025-06-19 16:44] LABS: Hematocrit (blood only) 39.3 % (42.0-52.0); Hemoglobin 13.2 g/dL (14.0-18.0); Immature Granulocytes # (auto) 0.08 K/uL (0.01-0.20); Immature Granulocytes % (auto) 0.8 %; Mean Corpuscular Hemoglobin 33.8 pg (25.0-34.0); Mean Corpuscular Volume 100.5 fL (80.0-100.0); Platelet Count 163 K/uL (130-400); RDW Standard Deviation 53.1 fL (36.4-46.3); Red Blood Count 3.91 M/uL (4.70-6.10); White Blood Count 9.73 K/ul (4.8-10.8)
[2025-06-19 17:04] LABS: Alanine Aminotransferase 24 U/L (7-52); Albumin Globulin Ratio 0.6 (0.9-2); Albumin Level 3.1 gm/dl (3.4-5.0); Alkaline Phosphatase 186 U/L (34-104); Anion Gap 8 (3-11); Bilirubin,Total 0.8 mg/dl (0.2-1.0); Blood Urea Nitrogen 37 mg/dl (6-23); Calcium 10.3 mg/dl (8.6-10.3); Carbon Dioxide 28 mmol/L (21-32); Chloride 99 mmol/L (98-107); Globulin 5.5 gm/dl (2.5-4.0); Glucose 133 mg/dl (70-99(Fasting)); Magnesium 2.2 mg/dl (1.7-2.4); Potassium 4.2 mmol/L (3.5-5.1); Sodium 135 mmol/L (136-145); Total Protein 8.6 gm/dl (6.0-8.3)
--- NOTE | 2025-06-19 17:23 | XRay Report ---
EXAM: Chest x-ray 2 view CLINICAL HISTORY: Dyspnea PRIORS: 03/10/2025 TECHNIQUE: PA and lateral views chest FINDINGS: The chest is hyperexpanded. Diffuse interstitial changes noted with moderate right and small left pleural effusion, unchanged. Cardiac silhouette is enlarged. Median sternotomy wires and prosthetic valve seen. Moderate osseous demineralization noted. No confluent opacification. IMPRESSION: Radiographic features favoring volume overload with bilateral pleural effusions, right greater than left. The appearance of the chest also favors underlying interstitial lung disease. ACT 112: Positive. There are findings on this examination that require communication between the performing entity and the patient following Patient Test Result Information Act ([place] ACT 112) guidelines. Electronically signed by Ernestine Mejia 06-19-2025 5:22 PM
[2025-06-19 17:26] LABS: Chlamydia pneumoniae PCR Not Detected (NotDetected); Coronavirus 229E PCR Not Detected (NotDetected); Coronavirus CoV-2 (COVID19)PCR Not Detected (NotDetected); Coronavirus HKU1 PCR Not Detected (NotDetected); Coronavirus NL63 PCR Not Detected (NotDetected); Coronavirus OC43PCR Not Detected (NotDetected); Human Metapneumovirus PCR Not Detected (NotDetected); Parainfluenza Virus 1 PCR Not Detected (NotDetected); Parainfluenza Virus 2 PCR Not Detected (NotDetected); Parainfluenza Virus 3 PCR Not Detected (NotDetected); Parainfluenza Virus 4 PCR Not Detected (NotDetected); Respiratory Syncytial VirusPCR Not Detected (NotDetected); Rhinovirus/Enterovirus PCR Not Detected (NotDetected)
--- NOTE | 2025-06-19 18:11 | CT Scan Report ---
EXAMINATION: Chest CT without CLINICAL HISTORY: Evaluate for pneumonia, favor CHF COMPARISON: Radiograph today, 03/10/2025, CT 02/03/2025 TECHNIQUE: Contiguous axial images were obtained through the chest without the use of intravenous contrast. Sagittal and coronal reformations are supplied. FINDINGS: A moderate right and small left pleural effusion noted. No confluent opacification. Diffuse interstitial prominence noted with subpleural increased reticular markings within appearance favoring interstitial lung disease. No dominant mass. Heart size markedly enlarged. No pericardial effusion. Advanced atherosclerotic disease of the aorta and coronary arteries. No mediastinal adenopathy. Trachea and mainstem bronchi patent. Moderate bilateral gynecomastia. Advanced atherosclerotic disease of the abdominal aorta. Upper abdomen shows no acute abnormality. Moderate osseous demineralization and kyphosis present. Median sternotomy wires noted. IMPRESSION: 1. Radiographic features of moderate volume overload with bilateral pleural effusions, right greater than left and cardiomegaly. 2. Diffuse bilateral interstitial changes with subpleural reticular markings favoring interstitial lung disease. 3. No lobar pneumonia ACT 112: Positive. There are findings on this examination that require communication between the performing entity and the patient following Patient Test Result Information Act ([place] ACT 112) guidelines. Electronically signed by Ernestine Mejia 06-19-2025 6:10 PM
[2025-06-19] MEDS: FUROSEMIDE 40 MG/4 ML VIAL IV ONE ×2 (18:35→18:43)
--- NOTE | 2025-06-19 18:43 | History & Physical Report ---
Date of Service June 19, 2025 Assessment & Plan (1) CHF (congestive heart failure): Plan Assessment/plan Acute on chronic HFpEF Patient presented to the hospital with productive cough, shortness of breath CT chest on admission shows moderate volume overload with bilateral pleural effusion, diffuse bilateral interstitial changes with subpleural reticular marking favoring interstitial lung disease BNP elevated; 1048 On Bumex 1 mg daily at home along with Jardiance. Plan to diurese with IV Lasix 60 mg twice daily Start mucinexirinabs q8h Strict output and input monitoring Daily standing weights Obtain echocardiogram Follow-up on his sputum culture Chronic atrial fibrillation History of atrial flutter status post ablation Continue on metoprolol and Eliquis Continue telemonitoring Demand ischemia High-sensitivity troponin elevated on admission with flat trend denies chest pain CAD Had cardiac catheter done in January 2025; moderate nonobstructive CAD. Reviewed from cardiology note as outpatient. 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 It may contain grammatical, syntax or spelling errors. Any formal questions or concerns about the content, text or information contained within the body of this dictation should be directly addressed to the provider for clarification History of Present Illness Chief Complaint: Productive cough for 1 week Generalized weakness for 1 week Primary Care Provider: Britney Don MD History obtained from interview with the patient, discussion with the ED provider and chart review Past medical history of atrial flutter status post ablation in 2011, right atrial tachycardia status post ablation, chronic atrial fibrillation, aortic stenosis status post aortic valve replacement in 2011with #23 White II with aortic endarterectomy, hypertension, stage III CKD, gout, HFrEF, type 2 diabetes, ADAN Patient presented to the ED with significant congestion and productive cough; reports yellow sputum. He also reports some shortness of breath. He reports that his weight has been pretty stable at home. He denies any fever, chills, chest pain or urinary issues. Patient follows up with pulmonology; last follow-up reviewed from April 2025. Patient had similar complaint of phlegm production; was prescribed doxycycline for 10 days at that time. Had CT chest done on 05/09/2025; found to have small right and trace left pleural effusion; Mild basal predominant subpleural reticulations, without associated traction bronchiectasis may reflect mild fibrotic interstitial changes or mild pulmonary edema. Similar to prior. On presentation to the ED, he was normotensive, afebrile and saturating well on room air. No leukocytosis present. BMP repeat creatinine at baseline. BNP elevated to 1048. Respiratory viral panel is negative Allergies Allergy/AdvReac Type Severity Reaction Status Date / Time Iodinated Contrast Media Allergy Mild DYE FROM Verified 06/19/25 18:19 CARDIAC CATH-RASH lisinopril AdvReac Mild COUGH Verified 06/19/25 18:19 Home Medications Medication Instructions Recorded Confirmed Type aspirin 81 mg tablet,delayed 81 mg PO Q OTHER DAY 08/01/23 06/19/25 History release flaxseed oil 1,000 mg capsule 1,000 mg PO Q OTHER DAY 08/01/23 06/19/25 History fluticasone propionate 110 2 puff inhalation BID 08/01/23 06/19/25 History mcg/actuation HFA aerosol inhaler insulin aspart U-100 100 unit/mL 10 - 12 unit subcut BIDM 08/01/23 06/19/25 History subcutaneous solution (Novolog U-100 Insulin aspart) insulin glargine 100 unit/mL 10 unit subcut HS 08/01/23 06/19/25 History subcutaneous solution (Lantus U-100 Insulin) magnesium oxide 400 mg PO 3XWK 08/01/23 06/19/25 History sodium chloride 0.65 % nasal spray 1 spray intranasal BID PRN Nasal 08/01/23 06/19/25 History aerosol (Saline Mist) Congestion allopurinol 100 mg tablet 100 mg PO QDD 02/03/25 06/19/25 History latanoprost 0.005 % eye drops 1 drp OPB HS 02/03/25 06/19/25 History apixaban 5 mg tablet (Eliquis) 2.5 mg PO AMHS 03/10/25 06/19/25 History atorvastatin 20 mg tablet 10 mg PO HS 03/10/25 06/19/25 History cyanocobalamin (vitamin B-12) 1,000 mcg PO 5XWK 03/10/25 06/19/25 History 1,000 mcg tablet (Vitamin B-12) doxepin 50 mg capsule 50 mg PO HS PRN Sleep 03/10/25 06/19/25 History empagliflozin 10 mg tablet 5 mg PO QAM 03/10/25 06/19/25 History metoprolol succinate 100 mg 100 mg PO AMHS 03/10/25 06/19/25 History tablet,extended release 24 hr puxjczcz-[id number]- 250 mg-dha 90 1 cap PO BID 03/10/25 06/19/25 History mg-epa 160 [id number]-lzso-zeax capsule (Ocuvite Adult 50 Plus) sertraline 50 mg tablet 25 mg PO HS 03/10/25 06/19/25 History bumetanide 1 mg tablet 1 mg PO QAM #30 tabs 03/12/25 06/19/25 Rx diclofenac sodium 1 % topical gel 2 g EXT BID PRN pain #50 grams 03/12/25 06/19/25 Rx (Voltaren Arthritis Pain) guaifenesin 600 mg tablet, 600 mg PO BID PRN CONGESTION/COUGH 06/19/25 06/19/25 History extended release 12 hr (Mucinex) Past Med/Surg History Problem List (Updated 04/12/25 @ 00:08 by Background Daemon) Permanent atrial fibrillation Weakness (Acute) CHF (congestive heart failure) (Acute) Chest pressure (Acute) Acute on chronic diastolic CHF (congestive heart failure) (Acute) Elevated troponin SOB (shortness of breath) HTN (hypertension) Atrial fibrillation with rapid ventricular response (Acute) CKD (chronic kidney disease) (Acute) Non-ST elevation [place] (NSTEMI) (Acute) Pulmonary edema (Acute) History of colon polyps Encounter for pre-operative examination Right shoulder injury (Acute) Fall (Acute) Heart palpitations (Acute) Hypomagnesemia (Acute) Heart palpitations (Acute) Hypomagnesemia (Acute) SVT (supraventricular tachycardia) (Acute) Diabetes (Chronic) type 2--IDDM History of PSVT (paroxysmal supraventricular tachycardia) (Acute) reason for metoprolol--follows with Dr. 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 ADAN (obstructive sleep apnea) 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 Permanent atrial fibrillation Acute on chronic heart failure with preserved ejection fraction (HFpEF) Right rib fracture Recurrent falls HLD (hyperlipidemia) Acute diastolic CHF (congestive heart failure) History of kidney stones Chronic kidney disease (CKD), stage IV (severe) Hearing deficit Glaucoma Phlegm in throat reason for inhaler Sleep apnea cpap Surgical History Aortic valve replaced History of repair of right rotator cuff Hx of vasectomy History of umbilical hernia repair History of colonoscopy with polypectomy History of esophagogastroduodenoscopy (EGD) History of tooth extraction all upper teeth Status post correction of deviated nasal septum History of bilateral cataract extraction History of cardiac cath x2--prior to 2011/in 2011--no stents History of aortic valve replacement (~04/2012) [place] [facility] [place] Family History Mother Family history of diabetes mellitus Other No family history of adverse response to anesthesia Social History Smoking Status: Former smoker Second Hand Exposure: No; Do You Dip or Chew Tobacco: No; Hx Alcohol Use: No Hx Substance Use: No Preferred Language: Greenlandic Communication Ability: Effective 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: No Beliefs That Will Affect Care: None Current Living Situation: Spouse Current Living Situation Comment: i story home with 4 steps Feels Safe at Home: Yes Assistive Devices: None Review of Systems Review of Systems: All systems reviewed & are unremarkable except as noted in Subjective Physical Exam Physical Exam: On physical examination; Constitutional: WD/WN, vitals as above, NAD, sitting up in bed, pleasant, conversing easily Respiratory: Decreased breath sounds at bases Cardiovascular: RRR, no murmur, no edema Vessels: no JVD or carotid bruit Chest: normal inspection of chest Abdomen: normal bowel sounds, soft, nontender, no hepatosplenomegaly Musculoskeletal: no cyanosis or clubbing, extremities motor strength 5/5 Skin: no rashes, warm and dry normal turgor Neurologic: PERRL, EOMI, accommodation nl, no face palsy, no dysarthria CN's II- XI intact bilaterally and moves all extremities Results & Data Results & Data Vital Signs (Past 12 Hours) Vital Signs Temp Pulse Pulse Resp BP BP Pulse Ox 06/19/25 18:33 97 H 24 132/81 91 06/19/25 17:00 109 H 22 121/72 94 06/19/25 16:41 98 06/19/25 16:34 108 H 06/19/25 16:34 105 H 24 93 06/19/25 16:34 99 H 24 122/70 92 06/19/25 15:56 36.5 C 107 H 19 116/63 97 O2 Del Method 06/19/25 18:33 Room Air 06/19/25 17:00 Room Air 06/19/25 16:41 Room Air 06/19/25 16:34 06/19/25 16:34 Room Air 06/19/25 16:34 Room Air 06/19/25 15:56 Room Air
[2025-06-19 18:56] LABS: INR 1.1 (0.9-1.1); Partial Thromboplastin Time 34 Seconds (21-31); Prothrombin Time 11.9 Seconds (9.0-12.0)
[2025-06-19] MEDS ORDERED: DEXTROSE 50% 50 ML SYRINGE IV PRN (19:13)
[2025-06-19] MEDS ORDERED: CARBOHYDRATES FOR HYPOGLYCEMIA PO PRN (19:13)
[2025-06-19] MEDS ORDERED: PHARMACY GLYCEMIC MGMT CONSULT PRN (19:13)
[2025-06-19] MEDS ORDERED: GLUCOSE 10 TAB/TUBE PO PRN (19:13)
[2025-06-19] MEDS ORDERED: GLUCAGON FOR INJ 1 MG VIAL SQ PRN (19:13)
[2025-06-19] MEDS ORDERED: GLUCOSE 40% GEL 15 GM TUBE PO PRN (19:13)
[2025-06-19] MEDS ORDERED: Patient's HEIGHT &/or WEIGHT Needed STA (19:23)
[2025-06-19] MEDS: LANTUS PER UNIT CHARGE SQ SCH (20:33)
[2025-06-19] MEDS: INSULIN ASPART PER UNIT CHARGE SC SCH (20:33)
[2025-06-19] MEDS ORDERED: DICLOFENAC SOD 1% GEL 100 GM TUBE EXT PRN (21:32)
[2025-06-19] MEDS ORDERED: NON-FORMULARY MEDICATION (Mv-Mn-Om3-Dha-Epa-Fish-Lut-Zea [Ocuvite Adult 50 Plus] 250 mg (9 PO SCH (21:32)
[2025-06-19] MEDS: IPRATROPIUM BROMIDE NEB SOLN 0.02% 0.5MG/2.5ML VIAL NEB SCH (22:28)
[2025-06-19] MEDS: LEVALBUTEROL 1.25 MG/3 ML NEB NEB SCH (22:28)
[2025-06-19] MEDS: ASPIRIN 81 MG ECTAB PO SCH (22:36)
[2025-06-19] MEDS: METOPROLOL SUCC 50MG EXT REL TAB PO SCH (22:36)
[2025-06-19] MEDS: SERTRALINE HCL 50 MG TABLET PO SCH (22:37)
[2025-06-19] MEDS: APIXABAN 2.5 MG TAB PO SCH (22:37)
[2025-06-19] MEDS: ATORVASTATIN 10 MG TAB PO SCH (22:37)
[2025-06-19] MEDS: guaiFENesin 600 MG TABCR PO SCH (22:37)
[2025-06-19] MEDS: LATANOPROST 0.005% OP SOLN 2.5 ML BTL OPB SCH (22:38)
[2025-06-20] MEDS: ACETAMINOPHEN 325 MG TAB PO PRN (00:01)
[2025-06-20 05:10] LABS: Anion Gap 7.0 (3-11); Blood Urea Nitrogen 40.0 mg/dl (6-23); Calcium 9.9 mg/dl (8.6-10.3); Carbon Dioxide 27.0 mmol/L (21-32); Chloride 100.0 mmol/L (98-107); Creatinine Clr Calc Pharmacy 26.5 ml/min; Glucose 135.0 mg/dl (70-99(Fasting)); Potassium 3.9 mmol/L (3.5-5.1); Sodium 134.0 mmol/L (136-145)
[2025-06-20] MEDS ORDERED: FUROSEMIDE 40 MG/4 ML VIAL IV SCH (09:00)
[2025-06-20] MEDS: DOXEPIN HCL 50 MG CAPSULE PO PRN (09:05)
[2025-06-20] MEDS: CYANOCOBALAMIN (B-12) 500 MCG TABLET PO SCH (09:05)
[2025-06-20] MEDS: MAGNESIUM OXIDE 400 MG TAB PO SCH (09:05)
[2025-06-20] MEDS: FLUTICASONE FUROATE 100MCG 14 PUFFS/INHALER INH SCH (09:05)
[2025-06-20] MEDS: EMPAGLIFLOZIN 10 MG TAB PO SCH (09:06)
--- NOTE | 2025-06-20 09:11 | Cardiology Consultation ---
Date of Consultation June 20, 2025 Assessment & Plan (1) Acute on chronic diastolic CHF (congestive heart failure): (2) Permanent atrial fibrillation: (3) Aortic stenosis: Plan Assessment: 79 year old medically complex male admitted for several weeks of increasing dyspnea on exertion, cough and fatigue Plan: 1. Acute on Chronic HFpEF 2. Permanent atrial fibrillation 3. Aortic stenosis -patient presents with significant dyspnea on exertion, improved with use of IV furosemide -CT Chest suggestive of hypervolemia -Patient is diuresing well, -2500 fluid balance. -Known CKD--monitor serum renal function closely. Monitor electrolytes with goal serum K> 4.0 and Serum Mag > 2.0. -Daily weights, strict I&O -Known permanent A-fib, rates controlled. Continue Toprol xl, and Eliquis -Continue Jardiance, ASA 81mg and Atorvastatin -Patient with mixed valvular disease and prior AVR. He currently follows with Dr. Tesfaye in [facility]. Will check echo today to assess LV function and gradients. -Continue to monitor on telemetry. Case has been discussed with Dr. Oh. Further recommendations regarding plan of care as per his assessment. I spent a total of 50 minutes on the date of service in preparation, delivery, documentation of the care provided to the patient excluding any time spent in the performance of separately billed services. CARMELA Peck [facility] Cardiology [facility] Supervising Physician Co-Signing Physician Notes Patient seen and examined. Past medical history, surgical history, social history and family history have been reviewed. The medical record and all the above studies have been reviewed. Case DW MAURO including management. Viral syndrome Atrial Fib with RVR Acute HFrEF with LVEF -35-40% S/P Bioprosthetic AVR with aortic endarterectomy Abnormal Troponin - likely due to demand ischemia and not indicative of Type I AL CKD DM NICM Non-obstructive CAD correct and f/u electrolytes f/u renal function change IV Lasix to PO Bumex continue Eliquis continue statin GDMT for HFrEF limited due to renal insufficiency and low BP continue metoprolol xl and adjust dose keeping HR between 60 to 100 BPM and systolic BP between 100-140 mmHg avoid hypovolemia keep patient euvolemic keep LE elevated when sitting 1.5 L / 24 hr fluid restriction strict I&Os salt restriction History of Present Illness Reason for Consultation: CHF Requesting Physician: [facility] hospitalist Attending Physician: J Carlos Shaffer MD History of Present Illness HPI: Patient is an 79 year old male with PMHx as outlined below that presented to the ER with acute complaints of significant congestion, productive cough and yellow sputum. He was recently seen by his cutting machine tender April 2025 with similar symptoms and was prescribed PO Doxycycline x10 days. CT of chest at that time found to have small right and trace left pleural effusion; Mild basal predominant subpleural reticulations, without associated traction bronchiectasis may reflect mild fibrotic interstitial changes or mild pulmonary edema. Similar to prior. EKG A-fib with RVR Rate 105bpm BNP elevated 1048 Serum Cr 2.63 High sensitivity troponin 74.1/76.2. Patient with chronically elevated troponin Resp. Bio Fire negative Chest CT 06/19/25 IMPRESSION: 1. Radiographic features of moderate volume overload with bilateral pleural effusions, right greater than left and cardiomegaly. 2. Diffuse bilateral interstitial changes with subpleural reticular markings favoring interstitial lung disease. 3. No lobar pneumonia Echocardiogram pending Review of telemetry shows A-fib with PVC rates 80-110bpm Patient is notably tired. Denies any chest pain, pressure, palpitations. He reports that his breathing has improved since receiving IV diuretic. -2530ml fluid balance Cardiac History: Past Medical History: 1.Chronic atrial fibrillation 2.Atrial flutter s/p ablation- 06/2012 3.Right atrial tachycardia s/p ablation- 05/2015 4.Aortic stenosis s/p aortic valve replacement in 2011 with #23 White II with aortic endarterectomy 5.HTN 6. Stage 3b-IV CKD 7.Gout Allergies Allergy/AdvReac Type Severity Reaction Status Date / Time Iodinated Contrast Media Allergy Mild DYE FROM Verified 06/19/25 18:19 CARDIAC CATH-RASH lisinopril AdvReac Mild COUGH Verified 06/19/25 18:19 Home Medications Medication Instructions Recorded Confirmed Type aspirin 81 mg tablet,delayed 81 mg PO Q OTHER DAY 08/01/23 06/19/25 History release flaxseed oil 1,000 mg capsule 1,000 mg PO Q OTHER DAY 08/01/23 06/19/25 History fluticasone propionate 110 2 puff inhalation BID 08/01/23 06/19/25 History mcg/actuation HFA aerosol inhaler insulin aspart U-100 100 unit/mL 10 - 12 unit subcut BIDM 08/01/23 06/19/25 History subcutaneous solution (Novolog U-100 Insulin aspart) insulin glargine 100 unit/mL 10 unit subcut HS 08/01/23 06/19/25 History subcutaneous solution (Lantus U-100 Insulin) magnesium oxide 400 mg PO 3XWK 08/01/23 06/19/25 History sodium chloride 0.65 % nasal spray 1 spray intranasal BID PRN Nasal 08/01/23 06/19/25 History aerosol (Saline Mist) Congestion allopurinol 100 mg tablet 100 mg PO QDD 02/03/25 06/19/25 History latanoprost 0.005 % eye drops 1 drp OPB HS 02/03/25 06/19/25 History apixaban 5 mg tablet (Eliquis) 2.5 mg PO AMHS 03/10/25 06/19/25 History atorvastatin 20 mg tablet 10 mg PO HS 03/10/25 06/19/25 History cyanocobalamin (vitamin B-12) 1,000 mcg PO 5XWK 03/10/25 06/19/25 History 1,000 mcg tablet (Vitamin B-12) doxepin 50 mg capsule 50 mg PO HS PRN Sleep 03/10/25 06/19/25 History empagliflozin 10 mg tablet 5 mg PO QAM 03/10/25 06/19/25 History metoprolol succinate 100 mg 100 mg PO AMHS 03/10/25 06/19/25 History tablet,extended release 24 hr [id number] 250 mg-dha 90 1 cap PO BID 03/10/25 06/19/25 History mg-epa 160 [id number]-jvaq-zeax capsule (Ocuvite Adult 50 Plus) sertraline 50 mg tablet 25 mg PO HS 03/10/25 06/19/25 History bumetanide 1 mg tablet 1 mg PO QAM #30 tabs 03/12/25 06/19/25 Rx diclofenac sodium 1 % topical gel 2 g EXT BID PRN pain #50 grams 03/12/25 06/19/25 Rx (Voltaren Arthritis Pain) guaifenesin 600 mg tablet, 600 mg PO BID PRN CONGESTION/COUGH 06/19/25 06/19/25 History extended release 12 hr (Mucinex) Patient History Medical History Weakness Multiple falls Closed compression fracture of L4 vertebra Multiple rib fractures 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 ADAN (obstructive sleep apnea) 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 Permanent atrial fibrillation Acute on chronic heart failure with preserved ejection fraction (HFpEF) Right rib fracture Recurrent falls HLD (hyperlipidemia) Acute diastolic CHF (congestive heart failure) History of kidney stones Chronic kidney disease (CKD), stage IV (severe) Hearing deficit Glaucoma Phlegm in throat reason for inhaler Sleep apnea cpap Surgical History Aortic valve replaced History of repair of right rotator cuff Hx of vasectomy History of umbilical hernia repair History of colonoscopy with polypectomy History of esophagogastroduodenoscopy (EGD) History of tooth extraction all upper teeth Status post correction of deviated nasal septum History of bilateral cataract extraction History of cardiac cath x2--prior to 2011/in 2011--no stents History of aortic valve replacement (~04/2012) @ [facility] [place] Family History Mother Family history of diabetes mellitus Other No family history of adverse response to anesthesia Social History Smoking Status: Former smoker Second Hand Exposure: No; Do You Dip or Chew Tobacco: No; Hx Alcohol Use: No Hx Substance Use: No Preferred Language: Kosovan Communication Ability: Effective Glue Specialty Supervisor Required: No Beliefs That Will Affect Care: None Current Living Situation: Spouse Current Living Situation Comment: i story home with 4 steps Feels Safe at Home: Yes Assistive Devices: Cane, CPAP, Scooter/Electric Scooter and Walker Review of Systems Review of Systems: All systems reviewed & are unremarkable except as noted in HPI & below Physical Exam Constitutional: well developed, well nourished and + ill appearing; no acute distress Neck: normal visual inspection and trachea midline Respiratory: normal respiratory effort and + cough; no respiratory distress Auscultation: + diminished lung sounds (bilateral bases ); no crackles and no rales Cardiovascular: Rate/Rhythm: + irregularly irregular Heart Sounds: normal S1 and + murmur (+2/6 systolic) Vessels: dorsalis pedis pulses present; no JVD Extremities: + edema (Trace BLE) Skin: no rashes, warm and dry Psychiatric: A+Ox3, euthymic affect Results & Data Vital Signs (Past 12 Hours) Vital Signs Temp Pulse Pulse Resp BP BP Pulse Ox 06/20/25 07:59 36.7 C 76 19 110/64 96 06/20/25 07:55 76 18 96 06/20/25 07:54 06/20/25 03:32 36.7 C 91 H 18 100/59 L 95 06/19/25 23:16 37.7 C H 110 H 18 118/67 95 06/19/25 23:04 112 H 06/19/25 22:50 95 H 23 95 06/19/25 22:30 98 H 18 92 06/19/25 22:06 06/19/25 21:38 36.9 C 116 H 18 142/62 H 92 06/19/25 21:35 114 H O2 Del Method O2 Flow Rate 06/20/25 07:59 Nasal Cannula 1.5 06/20/25 07:55 Nasal Cannula 1.5 06/20/25 07:54 Room Air 2 06/20/25 03:32 Nasal Cannula 1 06/19/25 23:16 CPAP 06/19/25 23:04 06/19/25 22:50 2 06/19/25 22:30 Nasal Cannula 1 06/19/25 22:06 Nasal Cannula 2 06/19/25 21:38 Nasal Cannula 2 06/19/25 21:35 Laboratory Results Cardiac Enzymes 06/19/25 06/19/25 Range/Units 16:26 18:20 AST 40 H (13-39) U/L Troponin I High Sens 74.1 H* 76.2 H* (0-20) pg/ml B-Natriuretic Peptide 1048 H (0-100) pg/ml Coagulation 06/19/25 06/19/25 Range/Units 16:26 18:20 PT Cancelled 11.9 APTT Cancelled 34 H B-Natriuretic Peptide 1048 H (0-100) pg/ml CBC 06/19/25 Range/Units 16:26 WBC 9.73 (4.8-10.8) K/ul RBC 3.91 L (4.70-6.10) M/uL Hgb 13.2 L (14.0-18.0) g/dL Hct 39.3 L (42.0-52.0) % Plt Count 163 (130-400) K/uL Neut # (Auto) 6.54 H (1.40-6.50) K/uL Lymph # (Auto) 1.17 L (1.20-3.40) K/uL [place] # (Auto) 1.22 H (0.11-0.59) K/uL Eos # (Auto) 0.68 H (0.00-0.50) K/uL Baso # (Auto) 0.04 (0.00-0.20) K/uL Comprehensive Metabolic Panel 06/19/25 06/20/25 Range/Units 16:26 04:34 Sodium 135 L 134 L (136-145) mmol/L Potassium 4.2 3.9 (3.5-5.1) mmol/L Chloride 99 100 (98-107) mmol/L Carbon Dioxide 28 27 (21-32) mmol/L BUN 37 H 40 H (6-23) mg/dl Creatinine 2.49 H 2.63 H (0.6-1.4) mg/dl Glucose 133 H 135 H (70-99(Fasting)) mg/dl Calcium 10.3 9.9 (8.6-10.3) mg/dl AST 40 H (13-39) U/L ALT 24 (7-52) U/L Alkaline Phosphatase 186 H (34-104) U/L Total Protein 8.6 H (6.0-8.3) gm/dl Albumin 3.1 L (3.4-5.0) gm/dl Intake and Output 06/19/25 06/20/25 06/20/25 22:59 06:59 14:59 Output Total 1330 / 2080 750 / 2080 450 / 450 Balance -1330 / -2080 -750 / -2080 -450 / -450 Output: Urine 1330 / 2080 750 / 2080 450 / 450 Other: Weight 106.5 kg Weight Measurement Method Built in [facility] Diagnostic Findings Cardiac catheterization 02/25/25 * Moderate non-obstructive CAD w/ moderate bioprosthetic AV stenosis -Ostial LAD 50% stenosis, prox LAD 50% stenosis -Dominant Cx w/ diffuse moderate luminal irregularities -Ostial non-dominant RCA w/ 50% stenosis Right heart findings - Mean RA 14 mmHg -PA 52/21, mean 35 mmHg -Mean PCWP 26 mmHg -PA sat 63%; Ao sat 93% -Assumed Anirudh CO 5.42 L/min; index 2.45 Aortic valve study -mean PG 28 mmHg -Calculated NASEEM 1.2 cm2 Echo 01/20/25 The examination is adequate to evaluate the referral indication. The septal motion is abnormal consistent with the post-operative state. The regional left ventricular wall motion is otherwise normal. There is an aortic valve bioprosthetic present. Moderate intravalvular aortic regurgitation is present. The aortic valve prosthesis systolic gradients are are borderline elevated and are indeterminate for obstruction. The peak CW gradients across the aortic valve prosthesis were obtained from the right sternal border. Mild mitral regurgitation is present. Mild tricuspid regurgitation is present. Mild pulmonary hypertension is present. The estimated pulmonary artery systolic pressure is 38mm Hg. The proximal ascending thoracic aorta is mildly enlarged 3.9 cm. LVEF 50-54% PG Care Time/CCT Total # of Minutes Spent Total Time Spent with Patient: Total time spent is greater than 50% in coordination of care (as documented) at patient's floor/unit and/or counseling patient: Coding Level of Care Code 66213 IN/OBS CONSULT LVL 5,80M Diagnoses Acute on chronic diastolic CHF (congestive heart failure) I50.33 Permanent atrial fibrillation I48.21 Aortic stenosis I35.0 Time Spent (min) 55
[2025-06-20] MEDS: FUROSEMIDE 40 MG/4 ML VIAL IV SCH (09:14)
--- NOTE | 2025-06-20 09:15 | XCELERA ---
[id number] [id number]
--- NOTE | 2025-06-20 13:30 | Pharmacy Report ---
Pharmacy Glycemic Short Note 2 - Date of Service June 20, 2025 - Glycemic Short BSG Results (Last 24 hours): 06/19/25 06/19/25 06/20/25 16:26 20:23 04:34 Glucose 133 H 135 H POC Glucose 142 H 06/20/25 06/20/25 07:58 12:11 Glucose POC Glucose 129 H 182 H OUTPATIENT ANTIDIABETIC REGIMEN: * Lantus 10 units SQ HS * Novolog 10-12 units BID with meals * empagliflozin 5mg PO daily ASSESSMENT: * CG is an 79 year old male who was admitted yesterday with congestive heart failure. Pharmacy was consulted for glycemic management while he is admitted. * BSG at HS last evening was 142mg/dL. The provider ordered Lantus 5 units SQ BID and a weight based (using adjusted body weight) bolus insulin regimen with a stress of 2. Home empagliflozin was ordered to start 06/20. * Fasting BSG was 129mg/dL and carolyn to 182mg/dL with lunch. Will continue basal insulin as ordered and tightened CR of bolus insulin. PLAN FOR INPATIENT GLYCEMIC CONTROL: * Basal insulin * Lantus 5 units SQ BID * Bolus insulin * NovoLog per scale ACHS or Q6hrs while NPO * Goal Range: Low 120 mg/dL - High 150 mg/dL * Correction Factor: 30 mg/dL/unit * Nutritional / Prandial insulin per carb ratio of 1 unit per 8 grams CHO consumed
--- NOTE | 2025-06-20 14:00 | Hospitalist Progress Note ---
Date of Service June 20, 2025 Assessment & Plan (1) CHF (congestive heart failure): Plan Assessment/plan Acute on chronic HFrEF Patient presented to the hospital with productive cough, shortness of breath CT chest on admission shows moderate volume overload with bilateral pleural effusion, diffuse bilateral interstitial changes with subpleural reticular marking favoring interstitial lung disease BNP elevated; 1048 On Bumex 1 mg daily at home along with Jardiance. Echocardiogram shows EF of 35 to 40%; moderately to severely reduced LV systolic function. Prosthetic aortic valve is well-seated Continue to diurese with IV Lasix 60 mg twice daily Continue mucinex, duonebs q8h Strict output and input monitoring Daily standing weights Sputum culture growing strep to agalactiae; patient reports improvement without antibiotic; likely related to pulmonary edema. Will likely increase his Bumex to twice a day at discharge. Chronic atrial fibrillation History of atrial flutter status post ablation Continue on metoprolol and Eliquis Continue telemonitoring Demand ischemia High-sensitivity troponin elevated on admission with flat trend denies chest pain CAD Had cardiac catheter done in January 2025; moderate nonobstructive CAD. Reviewed from cardiology note as outpatient. continue on aspirin, Lipitor and metoprolol Valvular heart disease; history of aortic stenosis status post aortic valve replacement OSAcontinue on CPAP Type 2 diabetes mellitusscontinue insulin per protocol, hypoglycemic protocol CKDcreatinine at baseline; monitor NAFLD cirrhosis, no overt decompensation Full code DVT prophylaxis Eliquis Time spent evaluating patient, direct bedside care, chart review, placing orders, interpretation of diagnostic studies, discussion with consultants, patient, and family members, as well as other required patient management activities is 50 minutes Please note the above document was generated using voice recognition software. It may contain grammatical, syntax or spelling errors. Any formal questions or concerns about the content, text or information contained within the body of this dictation should be directly addressed to the provider for clarification Admission and Anticipated Discharge Date Admission Date: June 19, 2025 Subjective Patient seen and examined at bedside. He reports that he is feeling much better compared to previous day. Reports that his productive cough has improved; reports that his breathing has improved as well. Review of Systems Review of Systems: All systems reviewed & are unremarkable except as noted in Subjective Physical Exam Physical Exam: On physical examination; Constitutional: WD/WN, vitals as above, NAD, sitting up in bed, pleasant, conversing easily Respiratory: Decreased breath sounds at bases Cardiovascular: RRR, no murmur, no edema Vessels: no JVD or carotid bruit Chest: normal inspection of chest Abdomen: normal bowel sounds, soft, nontender, no hepatosplenomegaly Musculoskeletal: no cyanosis or clubbing, extremities motor strength 5/5 Skin: no rashes, warm and dry normal turgor Neurologic: PERRL, EOMI, accommodation nl, no face palsy, no dysarthria CN's II- XI intact bilaterally and moves all extremities Results & Data Results & Data Vital Signs (Past 12 Hours) Vital Signs Temp Pulse Resp BP Pulse Ox O2 Del Method O2 Flow Rate 06/20/25 12:15 36.7 C 105 H 18 114/61 94 Room Air 06/20/25 07:59 36.7 C 76 19 110/64 96 Nasal Cannula 1.5 06/20/25 07:55 76 18 96 Nasal Cannula 1.5 06/20/25 07:54 Room Air 2 06/20/25 03:32 36.7 C 91 H 18 100/59 L 95 Nasal Cannula 1
--- NOTE | 2025-06-20 22:55 | Electrocardiogram Report ---
Test Reason : Blood Pressure : */* mmHG Vent. Rate : 105 BPM Atrial Rate : * BPM P-R Int : * ms QRS Dur : 118 ms QT Int : 370 ms P-R-T Axes : * -42 105 degrees QTcB Int : 489 ms Atrial fibrillation with premature ventricular or aberrantly conducted complexes Left axis deviation Non-specific intra-ventricular conduction block Left ventricular hypertrophy with QRS widening and repolarization abnormality ( R in aVL , Praveen pr oduct ) Possible Inferior infarct , age undetermined Abnormal ECG When compared with ECG of 09-Mar-2025 23:53, No significant change Confirmed by Robin Esteves ([id number]) on 06/20/2025 10:54:56 PM Referred By: REFERRED SELF Confirmed By: Robin Esteves
[2025-06-21 07:03] LABS: Anion Gap 10.0 (3-11); Blood Urea Nitrogen 45.0 mg/dl (6-23); Calcium 9.8 mg/dl (8.6-10.3); Carbon Dioxide 27.0 mmol/L (21-32); Chloride 97.0 mmol/L (98-107); Creatinine Clr Calc Pharmacy 24.0 ml/min; Glucose 178.0 mg/dl (70-99(Fasting)); Potassium 3.9 mmol/L (3.5-5.1); Sodium 134.0 mmol/L (136-145)
[2025-06-21 07:55] LABS: Hemoglobin A1C 7.3 % (4.5-5.6)
[2025-06-21] MEDS: LANTUS PER UNIT CHARGE SQ SCH (08:46)
[2025-06-21] MEDS: BUMETANIDE 1 MG TAB PO SCH (08:47)
--- NOTE | 2025-06-21 11:11 | Hospitalist Progress Note ---
Date of Service June 21, 2025 Assessment & Plan (1) CHF (congestive heart failure): Plan Assessment/plan Acute on chronic HFrEF Patient presented to the hospital with productive cough, shortness of breath CT chest on admission shows moderate volume overload with bilateral pleural effusion, diffuse bilateral interstitial changes with subpleural reticular marking favoring interstitial lung disease BNP elevated; 1048 On Bumex 1 mg daily at home along with Jardiance. Echocardiogram shows EF of 35 to 40%; moderately to severely reduced LV systolic function. Prosthetic aortic valve is well-seated Patient was diuresed with IV Lasix with improvement in shortness of breath and lower extremity edema. Cardiology was consulted; patient switched over to Bumex 2 mg once a day from 1 mg once a day Continue mucinex, duonebs q8h Strict output and input monitoring Daily standing weights Sputum culture growing strep to agalactiae; patient reports improvement without antibiotic; likely related to pulmonary edema. OT recommends rehab; PT evaluation pending. Patient and wants to go to rehab; case management on board. Chronic atrial fibrillation History of atrial flutter status post ablation Continue on metoprolol and Eliquis Continue telemonitoring Demand ischemia High-sensitivity troponin elevated on admission with flat trend denies chest pain CAD Had cardiac catheter done in January 2025; moderate nonobstructive CAD. Reviewed from cardiology note as outpatient. continue on aspirin, Lipitor and metoprolol Valvular heart disease; history of aortic stenosis status post aortic valve replacement OSAcontinue on CPAP Type 2 diabetes mellitusscontinue insulin per protocol, hypoglycemic protocol CKDcreatinine at baseline; monitor NAFLD cirrhosis, no overt decompensation Full code DVT prophylaxis Eliquis Dispositionawaiting rehab placement. Time spent evaluating patient, direct bedside care, chart review, placing orders, interpretation of diagnostic studies, discussion with consultants, patient, and family members, as well as other required patient management activities is 50 minutes Please note the above document was generated using voice recognition software. It may contain grammatical, syntax or spelling errors. Any formal questions or concerns about the content, text or information contained within the body of this dictation should be directly addressed to the provider for clarification Admission and Anticipated Discharge Date Admission Date: June 19, 2025 Subjective Patient seen and examined at bedside. He is comfortable; not in distress. Reports that he is feeling much better compared to on admission. Reports decreasing sputum production. Review of Systems Review of Systems: All systems reviewed & are unremarkable except as noted in Subjective Physical Exam Physical Exam: On physical examination; Constitutional: WD/WN, vitals as above, NAD, sitting up in bed, pleasant, conversing easily Respiratory: Decreased breath sounds at bases Cardiovascular: RRR, no murmur, no edema Vessels: no JVD or carotid bruit Chest: normal inspection of chest Abdomen: normal bowel sounds, soft, nontender, no hepatosplenomegaly Musculoskeletal: no cyanosis or clubbing, extremities motor strength 5/5 Skin: no rashes, warm and dry normal turgor Neurologic: PERRL, EOMI, accommodation nl, no face palsy, no dysarthria CN's II- XI intact bilaterally and moves all extremities Results & Data Results & Data Vital Signs (Past 12 Hours) Vital Signs Temp Pulse Pulse Pulse Resp BP Pulse Ox 06/21/25 08:30 107 H 06/21/25 08:30 06/21/25 08:00 36.5 C 112 H 18 115/66 93 06/21/25 07:24 103 H 16 93 06/21/25 04:51 36.6 C 109 H 18 123/72 94 06/21/25 01:00 98 H 06/21/25 00:36 06/20/25 23:46 37.1 C 110 H 20 108/62 92 O2 Del Method O2 Flow Rate 06/21/25 08:30 06/21/25 08:30 Room Air 2 06/21/25 08:00 Room Air 06/21/25 07:24 Room Air 06/21/25 04:51 CPAP 06/21/25 01:00 06/21/25 00:36 Room Air, CPAP 2 06/20/25 23:46 Nasal Cannula 5
--- NOTE | 2025-06-21 15:42 | Cardiology Progress Note ---
Date of Service June 21, 2025 Assessment & Plan (1) Acute on chronic diastolic CHF (congestive heart failure): (2) Permanent atrial fibrillation: (3) Aortic stenosis: Plan Assessment: 79 year old medically complex male admitted for several weeks of increasing dyspnea on exertion, cough and fatigue Viral syndrome Diarrhea - defer to hospitalist NEFTALI on CKD - likely exacerbated due to diarrhea -> defer to hospitalist Atrial Fib with RVR -> CVR with episodic RVR Acute HFrEF with LVEF -35-40% S/P Bioprosthetic AVR with aortic endarterectomy Abnormal Troponin - likely due to demand ischemia and not indicative of Type I ME Deconditioned status DM NICM Non-obstructive CAD correct and f/u electrolytes f/u renal function decrease Bumex since patient may have additional fluid losses due to diarrhea continue Eliquis continue statin GDMT for HFrEF limited due to renal insufficiency and low BP continue metoprolol xl and adjust dose keeping HR between 60 to 100 BPM and systolic BP between 100-140 mmHg avoid hypovolemia keep patient euvolemic keep LE elevated when sitting strict I&Os salt restriction Admission and Anticipated Discharge Date Admission Date: June 19, 2025 Subjective Patient on exam is sitting in chair in NAD; no c/o cp, sob, palpitations, dizziness, LOC, cough, fever, nausea, vomiting, abdominal pain; states that he had 2 episodes of loose stools today; at bedside Review of Systems Review of Systems: as per HPI Physical Exam Constitutional: no acute distress Neck: normal visual inspection and trachea midline Respiratory: normal respiratory effort and + cough; no respiratory distress Auscultation: + diminished lung sounds (bilateral bases ); no crackles and no rales Cardiovascular: Rate/Rhythm: + irregularly irregular Heart Sounds: normal S1 and + murmur (+2/6 systolic) Vessels: dorsalis pedis pulses present; no JVD Extremities: + edema (Trace BLE) Skin: no rashes, warm and dry Psychiatric: A+Ox3, euthymic affect Results & Data Vital Signs (Past 12 Hours) Vital Signs Vital Signs Temp 36.8 C 06/21/25 12:00 Pulse 119 H 06/21/25 12:00 Resp 19 06/21/25 12:00 BP 101/60 06/21/25 12:00 Pulse Ox 96 06/21/25 12:00 O2 Del Method Room Air 06/21/25 12:00 O2 Flow Rate 2 06/21/25 08:30 Intake & Output 06/20/25 06/21/25 06/21/25 18:59 06:59 18:59 Intake Total 120 / 120 860 / 860 Output Total 450 / 850 400 / 850 400 / 400 Balance -450 / -730 -280 / -730 460 / 460 Weight 103.782 kg Intake: Oral 120 / 120 860 / 860 Output: Urine 450 / 850 400 / 850 400 / 400 Other: # Unmeasured Voids 1 Weight Measurement Method Built in [facility] Pulse Pulse Pulse Resp BP Pulse Ox 06/21/25 12:00 36.8 C 119 H 19 101/60 96 06/21/25 08:30 107 H 06/21/25 08:30 06/21/25 08:00 36.5 C 112 H 18 115/66 93 06/21/25 07:24 103 H 16 93 06/21/25 04:51 36.6 C 109 H 18 123/72 94 O2 Del Method O2 Flow Rate 06/21/25 12:00 Room Air 06/21/25 08:30 06/21/25 08:30 Room Air 2 06/21/25 08:00 Room Air 06/21/25 07:24 Room Air 06/21/25 04:51 CPAP Laboratory Results Laboratory Results WBC 9.73 K/ul (4.8-10.8) 06/19/25 16: RBC 3.91 M/uL (4.70-6.10) L 06/19/25 16:26 Hgb 13.2 g/dL (14.0-18.0) L 06/19/25 16:26 Hct 39.3 % (42.0-52.0) L 06/19/25 16:26 MCV 100.5 fL (80.0-100.0) H 06/19/25 16:26 MCH 33.8 pg (25.0-34.0) 06/19/25 16: MCHC 33.6 g/dL (32.0-36.0) 06/19/25 16:26 RDW Std Deviation 53.1 fL (36.4-46.3) H 06/19/25 16: RDW Coeff of Jael 14.3 % (11.5-14.5) 06/19/25 16: Plt Count 163 K/uL (130-400) 06/19/25 16: MPV 9.4 fL (9.4-12.4) 06/19/25 16: Immature Gran % (Auto) 0.8 % 06/19/25 16: Neut % (Auto) 67.3 % 06/19/25 16: Lymph % (Auto) 12.0 % 06/19/25 16: Jerome % (Auto) 12.5 % 06/19/25 16: Eos % (Auto) 7.0 % 06/19/25 16: Baso % (Auto) 0.4 % 06/19/25 16: Neut # (Auto) 6.54 K/uL (1.40-6.50) H 06/19/25 16: Lymph # (Auto) 1.17 K/uL (1.20-3.40) L 06/19/25 16: Jerome # (Auto) 1.22 K/uL (0.11-0.59) H 06/19/25 16: Eos # (Auto) 0.68 K/uL (0.00-0.50) H 06/19/25 16: Baso # (Auto) 0.04 K/uL (0.00-0.20) 06/19/25 16: Immature Gran # (Auto) 0.08 K/uL (0.01-0.20) 06/19/25 16: PT 11.9 Seconds (9.0-12.0) 06/19/25 18:20 INR 1.1 (0.9-1.1) 06/19/25 18:20 APTT 34 Seconds (21-31) H 06/19/25 18:20 PTT Ratio 1.3 06/19/25 18:20 VBG pH 7.36 (7.36-7.41) 06/19/25 16: VBG pCO2 52 mmHg (38-50) H 06/19/25 16: VBG pO2 20 mmHg 06/19/25 16: VBG HCO3 29 mmol/L 06/19/25 16: VBG O2 Saturation < 60.0 % 06/19/25 16: VBG Base Excess 2.8 mEq/L 06/19/25 16:26 Sodium 134 mmol/L (136-145) L 06/21/25 05:47 Potassium 3.9 mmol/L (3.5-5.1) 06/21/25 05:47 Chloride 97 mmol/L (98-107) L 06/21/25 05:47 Carbon Dioxide 27 mmol/L (21-32) 06/21/25 05:47 Anion Gap 10 (3-11) 06/21/25 05:47 BUN 45 mg/dl (6-23) H 06/21/25 05:47 Creatinine 2.87 mg/dl (0.6-1.4) H 06/21/25 05:47 Est Cr Clr Drug Dosing 24.0 ml/min 06/21/25 05:47 eGFR 21.34 06/21/25 05:47 BUN/Creatinine Ratio 15.7 (10-20) 06/21/25 05:47 Glucose 178 mg/dl (70-99(Fasting)) H 06/21/25 05:47 POC Glucose 174 mg/dl (70-99) H 06/21/25 11:56 Estimat Average Glucose 163 mg/dl 06/21/25 05:47 Hemoglobin A1c 7.3 % (4.5-5.6) H 06/21/25 05:47 Calcium 9.8 mg/dl (8.6-10.3) 06/21/25 05:47 Magnesium 2.2 mg/dl (1.7-2.4) 06/19/25 16:26 Total Bilirubin 0.8 mg/dl (0.2-1.0) 06/19/25 16:26 AST 40 U/L (13-39) H 06/19/25 16:26 ALT 24 U/L (7-52) 06/19/25 16:26 Alkaline Phosphatase 186 U/L (34-104) H 06/19/25 16:26 Troponin I High Sens 76.2 pg/ml (0-20) H* 06/19/25 18:20 B-Natriuretic Peptide 1048 pg/ml (0-100) H 06/19/25 16:26 Total Protein 8.6 gm/dl (6.0-8.3) H 06/19/25 16:26 Albumin 3.1 gm/dl (3.4-5.0) L 06/19/25 16:26 Globulin 5.5 gm/dl (2.5-4.0) H 06/19/25 16:26 Albumin/Globulin Ratio 0.6 (0.9-2) L 06/19/25 16:26 Adenovirus (PCR) Not Detected (NotDetected) 06/19/25 16:26 B. pertussis DNA (PCR) Not Detected (NotDetected) 06/19/25 16:26 B.parapertussis DNA PCR Not Detected (NotDetected) 06/19/25 16:26 C. pneumoniae DNA (PCR) Not Detected (NotDetected) 06/19/25 16:26 Coronavirus OC43 (PCR) Not Detected (NotDetected) 06/19/25 16:26 Coronavirus HKU1 (PCR) Not Detected (NotDetected) 06/19/25 16:26 Coronavirus 229E (PCR) Not Detected (NotDetected) 06/19/25 16:26 SARS-CoV-2 (PCR) Not Detected (NotDetected) 06/19/25 16:26 Coronavirus NL63 (PCR) Not Detected (NotDetected) 06/19/25 16:26 Human Metapneumovir PCR Not Detected (NotDetected) 06/19/25 16:26 Influenza Type A (PCR) Not Detected (NotDetected) 06/19/25 16:26 Influenza Type B (PCR) Not Detected (NotDetected) 06/19/25 16:26 M. pneumoniae (PCR) Not Detected (NotDetected) 06/19/25 16:26 Parainfluenza 1 (PCR) Not Detected (NotDetected) 06/19/25 16:26 Parainfluenza 2 (PCR) Not Detected (NotDetected) 06/19/25 16:26 Parainfluenza 3 (PCR) Not Detected (NotDetected) 06/19/25 16:26 Parainfluenza 4 (PCR) Not Detected (NotDetected) 06/19/25 16:26 RSV (PCR) Not Detected (NotDetected) 06/19/25 16:26 Entero/Rhino (PCR) Not Detected (NotDetected) 06/19/25 16:26 Impressions Chest X-Ray 06/19/25 16:08 EXAM: Chest x-ray 2 view CLINICAL HISTORY: Dyspnea PRIORS: 03/10/2025 TECHNIQUE: PA and lateral views chest FINDINGS: The chest is hyperexpanded. Diffuse interstitial changes noted with moderate right and small left pleural effusion, unchanged. Cardiac silhouette is enlarged. Median sternotomy wires and prosthetic valve seen. Moderate osseous demineralization noted. No confluent opacification. IMPRESSION: Radiographic features favoring volume overload with bilateral pleural effusions, right greater than left. The appearance of the chest also favors underlying interstitial lung disease. ACT 112: Positive. There are findings on this examination that require communication between the performing entity and the patient following Patient Test Result Information Act ([place] ACT 112) guidelines. Electronically signed by Ernestine Mejia 06-19-2025 5:[address] 06/19/25 17:15 EXAMINATION: Chest CT without CLINICAL HISTORY: Evaluate for pneumonia, favor CHF COMPARISON: Radiograph today, 03/10/2025, CT 02/03/2025 TECHNIQUE: Contiguous axial images were obtained through the chest without the use of intravenous contrast. Sagittal and coronal reformations are supplied. FINDINGS: A moderate right and small left pleural effusion noted. No confluent opacification. Diffuse interstitial prominence noted with subpleural increased reticular markings within appearance favoring interstitial lung disease. No dominant mass. Heart size markedly enlarged. No pericardial effusion. Advanced atherosclerotic disease of the aorta and coronary arteries. No mediastinal adenopathy. Trachea and mainstem bronchi patent. Moderate bilateral gynecomastia. Advanced atherosclerotic disease of the abdominal aorta. Upper abdomen shows no acute abnormality. Moderate osseous demineralization and kyphosis present. Median sternotomy wires noted. IMPRESSION: 1. Radiographic features of moderate volume overload with bilateral pleural effusions, right greater than left and cardiomegaly. 2. Diffuse bilateral interstitial changes with subpleural reticular markings favoring interstitial lung disease. 3. No lobar pneumonia ACT 112: Positive. There are findings on this examination that require communication between the performing entity and the patient following Patient Test Result Information Act ([place] ACT 112) guidelines. Electronically signed by Ernestine Mejia 06-19-2025 6:10 PM Diagnostic Findings Comprehensive Metabolic Panel 06/21/25 Range/Units 05:47 Sodium 134 L (136-145) mmol/L Potassium 3.9 (3.5-5.1) mmol/L Chloride 97 L (98-107) mmol/L Carbon Dioxide 27 (21-32) mmol/L BUN 45 H (6-23) mg/dl Creatinine 2.87 H (0.6-1.4) mg/dl Glucose 178 H (70-99(Fasting)) mg/dl Calcium 9.8 (8.6-10.3) mg/dl Intake and Output 06/21/25 06/21/25 06/21/25 06:59 14:59 22:59 Intake Total 120 / 120 860 / 860 Output Total 400 / 850 400 / 400 Balance -280 / -730 460 / 460 Intake: Oral 120 / 120 860 / 860 Output: Urine 400 / 850 400 / 400 Other: # Unmeasured Voids 1 Weight 103.782 kg Weight Measurement Method Built in [facility] Medications Administered Home Medications Medication Instructions Recorded Confirmed Last Taken aspirin 81 mg tablet,delayed 81 mg PO Q OTHER DAY 08/01/23 06/19/25 06/19/25 release flaxseed oil 1,000 mg capsule 1,000 mg PO Q OTHER DAY 08/01/23 06/19/25 06/19/25 fluticasone propionate 110 2 puff inhalation BID 08/01/23 06/19/25 06/19/25 08:00 mcg/actuation HFA aerosol inhaler insulin aspart U-100 100 unit/mL 10 - 12 unit subcut BIDM 08/01/23 06/19/25 06/19/25 08:00 subcutaneous solution (Novolog U-100 Insulin aspart) insulin glargine 100 unit/mL 10 unit subcut HS 08/01/23 06/19/25 06/18/25 subcutaneous solution (Lantus U-100 Insulin) magnesium oxide 400 mg PO 3XWK 08/01/23 06/19/25 06/18/25 sodium chloride 0.65 % nasal spray 1 spray intranasal BID PRN Nasal 08/01/23 1 08/19/24 Unknown aerosol (Saline Mist) Congestion allopurinol 100 mg tablet 100 mg PO QDD 02/03/25 06/19/25 06/18/25 latanoprost 0.005 % eye drops 1 drp OPB HS 02/03/25 06/19/25 06/18/25 apixaban 5 mg tablet (Eliquis) 2.5 mg PO AMHS 03/10/25 06/19/25 06/19/25 08:00 atorvastatin 20 mg tablet 10 mg PO HS 03/10/25 06/19/25 06/18/25 cyanocobalamin (vitamin B-12) 1,000 mcg PO 5XWK 03/10/25 06/19/25 06/19/25 1,000 mcg tablet (Vitamin B-12) doxepin 50 mg capsule 50 mg PO HS PRN Sleep 03/10/25 06/19/25 Unknown empagliflozin 10 mg tablet 5 mg PO QAM 03/10/25 06/19/25 06/19/25 metoprolol succinate 100 mg 100 mg PO AMHS 03/10/25 06/19/25 06/19/25 08:00 tablet,extended release 24 hr [id number] 250 mg-dha 90 1 cap PO BID 03/10/25 06/19/25 06/19/25 08:00 mg-epa 160 [id number] capsule (Ocuvite Adult 50 Plus) sertraline 50 mg tablet 25 mg PO HS 03/10/25 06/19/25 06/18/25 bumetanide 1 mg tablet 1 mg PO QAM #30 tabs 03/12/25 06/19/25 06/19/25 diclofenac sodium 1 % topical gel 2 g EXT BID PRN pain #50 grams 03/12/25 06/19/25 Unknown (Voltaren Arthritis Pain) guaifenesin 600 mg tablet, 600 mg PO BID PRN CONGESTION/COUGH 06/19/25 06/19/25 Unknown extended release 12 hr (Mucinex) bumetanide 2 mg tablet 2 mg PO DAILY #30 tabs 06/21/25 Unknown Active Medications Generic Name Dose Route Start Last Admin Trade Name Freq PRN Reason Stop Dose Admin Acetaminophen 650 mg 06/19/25 19:13 06/21/25 15:06 Acetaminophen 325 Mg Tab PO 07/19/25 19:12 650 mg Q4H PRN Administration Pain or Fever Allopurinol 100 mg 06/20/25 16:30 06/20/25 17:56 Allopurinol 100 Mg Tab PO 07/20/25 16:29 100 mg QDD SOLIS Administration Apixaban 2.5 mg 06/19/25 21:32 06/21/25 08:47 Apixaban 2.5 Mg Tab PO 07/19/25 21:31 2.5 mg AMHS SOLIS Administration Aspirin 81 mg 06/19/25 21:32 06/21/25 08:47 Aspirin 81 Mg Ectab PO 07/19/25 21:31 81 mg Q2D@0900 SOLIS Administration Atorvastatin Calcium 10 mg 06/19/25 21:32 06/20/25 21:07 Atorvastatin 10 Mg Tab PO 07/19/25 21:31 10 mg HS SOLIS Administration Cyanocobalamin 1,000 mcg 06/20/25 09:00 06/20/25 09:05 Cyanocobalamin (B-12) 500 Mcg Tablet PO 07/20/25 08:59 1,000 mcg MoTuWeThFr@0900 SOLIS Administration Doxepin HCl 50 mg 06/19/25 21:32 06/20/25 21:11 Doxepin Hcl 50 Mg Capsule PO 07/19/25 21:31 50 mg HS PRN Administration Sleep Empagliflozin 5 mg 06/20/25 09:00 06/21/25 08:47 Empagliflozin 10 Mg Tab PO 07/20/25 08:59 5 mg QAM SOLIS Administration Fluticasone Furoate 1 puffs 06/20/25 09:00 06/21/25 08:48 Fluticasone Furoate 100mcg 14 Puffs/Inhaler INH 07/20/25 08:59 1 puffs DAILY SOLIS Administration Guaifenesin 1,200 mg 06/19/25 21:00 06/21/25 08:48 Guaifenesin 600 Mg Tabcr PO 07/19/25 20:59 1,200 mg Q12 SOLIS Administration Insulin Aspart 0 units 06/19/25 21:00 06/21/25 13:13 Insulin Aspart Per Unit Charge SC 07/19/25 20:59 6 units ACHS SOLIS Administration Insulin Glargine 7 units 06/21/25 09:00 06/21/25 08:46 Lantus Per Unit Charge SQ 07/21/25 08:59 7 units BID SOLIS Administration Ipratropium [place] 0.5 mg 06/19/25 22:00 06/21/25 15:32 Ipratropium [place] Neb Soln 0.02% 0.5mg/2.5ml Vial NEB 07/19/25 21:59 0.5 mg Q8H SOLIS Administration Latanoprost 1 drops 06/19/25 21:32 06/20/25 21:08 Latanoprost 0.005% Op Soln 2.5 Ml Btl OPB 07/19/25 21:31 1 drops HS SOLIS Administration Levalbuterol HCl 1.25 mg 06/19/25 22:00 06/21/25 15:32 Levalbuterol 1.25 Mg/3 Ml Neb NEB 07/19/25 21:59 1.25 mg Q8H SOLIS Administration Magnesium Oxide 400 mg 06/20/25 09:00 06/20/25 09:05 Magnesium Oxide 400 Mg Tab PO 07/20/25 08:59 400 mg MoWeFr@0900 SOLIS Administration Metoprolol Succinate 100 mg 06/19/25 21:32 06/21/25 08:48 Metoprolol Succ 50mg Ext Rel Tab PO 07/19/25 21:31 100 mg AMHS SOLIS Administration Sertraline HCl 25 mg 06/19/25 21:32 06/20/25 21:06 Sertraline Hcl 50 Mg Tablet PO 07/19/25 21:31 25 mg HS SOLIS Administration PG Care Time/CCT Total # of Minutes Spent Total Time Spent with Patient: Total time spent is greater than 50% in coordination of care (as documented) at patient's floor/unit and/or counseling patient: Coding Level of Care Code 36665 SUB INP/OBS CARE 3/50MIN Diagnoses Acute on chronic diastolic CHF (congestive heart failure) I50.33 Permanent atrial fibrillation I48.21 Aortic stenosis I35.0
[2025-06-22 06:17] LABS: Anion Gap 10.0 (3-11); Blood Urea Nitrogen 60.0 mg/dl (6-23); Calcium 9.8 mg/dl (8.6-10.3); Carbon Dioxide 26.0 mmol/L (21-32); Chloride 98.0 mmol/L (98-107); Creatinine Clr Calc Pharmacy 21.2 ml/min; Glucose 126.0 mg/dl (70-99(Fasting)); Potassium 3.6 mmol/L (3.5-5.1); Sodium 134.0 mmol/L (136-145)
[2025-06-22] MEDS: BUMETANIDE 1 MG TAB PO SCH (08:58)
--- NOTE | 2025-06-22 12:02 | Hospitalist Progress Note ---
Date of Service June 22, 2025 Assessment & Plan (1) CHF (congestive heart failure): Plan Assessment/plan Acute on chronic HFrEF NEFTALI on CKD Patient presented to the hospital with productive cough, shortness of breath CT chest on admission shows moderate volume overload with bilateral pleural effusion, diffuse bilateral interstitial changes with subpleural reticular marking favoring interstitial lung disease BNP elevated; 1048 On Bumex 1 mg daily at home along with Jardiance. Echocardiogram shows EF of 35 to 40%; moderately to severely reduced LV systolic function. Prosthetic aortic valve is well-seated Patient was diuresed with IV Lasix with improvement in shortness of breath and lower extremity edema. Cardiology was consulted; patient switched over to Bumex 2 mg once a day from 1 mg once a day However, overnight on June 21; had couple of episode of diarrhea and 1 episode of vomiting on June 22; Creatinine bumped up. will give him 1 L of fluid with normal saline at 125 cc/h Continue mucinex, duonebs q8h Strict output and input monitoring Daily standing weights Sputum culture growing strep to agalactiae; patient reports improvement without antibiotic; likely related to pulmonary edema. OT recommends rehab; PT evaluation pending. Patient and wants to go to rehab; case management on board. Chronic atrial fibrillation History of atrial flutter status post ablation Continue on metoprolol and Eliquis Continue telemonitoring Demand ischemia High-sensitivity troponin elevated on admission with flat trend denies chest pain CAD Had cardiac catheter done in January 2025; moderate nonobstructive CAD. Reviewed from cardiology note as outpatient. 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 Time spent evaluating patient, direct bedside care, chart review, placing orders, interpretation of diagnostic studies, discussion with consultants, patient, and family members, as well as other required patient management activities is 50 minutes Please note the above document was generated using voice recognition software. It may contain grammatical, syntax or spelling errors. Any formal questions or concerns about the content, text or information contained within the body of this dictation should be directly addressed to the provider for clarification Admission and Anticipated Discharge Date Admission Date: June 19, 2025 Subjective Overnight, patient had 2 episode of diarrhea. He also had 1 episode of vomiting today. He denies any chest pain, shortness of breath, palpitation, joint pain or skin changes. Review of Systems Review of Systems: All systems reviewed & are unremarkable except as noted in Subjective Physical Exam Physical Exam: On physical examination; Constitutional: WD/WN, vitals as above, NAD, sitting up in bed, pleasant, conversing easily Respiratory: Decreased breath sounds at bases; improved compared to previous days Cardiovascular: RRR, no murmur, no edema Vessels: no JVD or carotid bruit Chest: normal inspection of chest Abdomen: normal bowel sounds, soft, nontender, no hepatosplenomegaly Musculoskeletal: no cyanosis or clubbing, extremities motor strength 5/5 Skin: no rashes, warm and dry normal turgor Neurologic: PERRL, EOMI, accommodation nl, no face palsy, no dysarthria CN's II- XI intact bilaterally and moves all extremities Results & Data Results & Data Vital Signs (Past 12 Hours) Vital Signs Temp Pulse Pulse Resp BP Pulse Ox O2 Del Method 06/22/25 11:52 36.6 C 108 H 19 116/68 95 Room Air 06/22/25 08:00 36.8 C 102 H 19 121/63 92 Room Air 06/22/25 07:00 92 H 06/22/25 06:59 100 H 17 94 Room Air 06/22/25 04:24 36.8 C 107 H 18 122/66 96 CPAP 06/22/25 01:38 107 H
[2025-06-22] MEDS: SODIUM CHLORIDE 0.9% 1,000 ML IV SCH (12:20)
--- NOTE | 2025-06-22 15:52 | Cardiology Progress Note ---
Date of Service June 22, 2025 Assessment & Plan (1) Acute on chronic diastolic CHF (congestive heart failure): (2) Permanent atrial fibrillation: (3) Aortic stenosis: Plan Assessment: 79 year old medically complex male admitted for several weeks of increasing dyspnea on exertion, cough and fatigue Viral syndrome Diarrhea - defer to hospitalist -? C.diff NEFTALI on CKD - likely exacerbated due to diarrhea Atrial Fib with RVR -> CVR with episodic RVR exacerbated due to hypovolemia and ? infectious process Acute HFrEF with LVEF -35-40% S/P Bioprosthetic AVR with aortic endarterectomy Abnormal Troponin - likely due to demand ischemia and is not indicative of Type I [place] Deconditioned status DM NICM Non-obstructive CAD correct and f/u electrolytes f/u renal function Gentle IVF until evolemia is achieved and diarrhea resolves DC diuretics for now continue Eliquis continue statin GDMT for HFrEF limited due to renal insufficiency and low BP continue metoprolol xl and adjust dose keeping HR between 60 to 100 BPM and systolic BP between 100-140 mmHg avoid hypovolemia keep patient euvolemic keep LE elevated when sitting strict I&Os Admission and Anticipated Discharge Date Admission Date: June 19, 2025 Subjective Patient on exam is sitting in chair in NAD; no c/o cp, sob, palpitations, dizziness, LOC, cough, fever patient continues to have loose stools Review of Systems Review of Systems: as per HPI Physical Exam Constitutional: no acute distress Neck: normal visual inspection and trachea midline Respiratory: normal respiratory effort; no respiratory distress Auscultation: + diminished lung sounds (bilateral bases ); no crackles and no rales Cardiovascular: Rate/Rhythm: + tachycardic and + irregularly irregular Heart Sounds: normal S1 and + murmur (+2/6 systolic) Vessels: dorsalis pedis pulses present; no JVD Extremities: + edema (Trace BLE) Skin: no rashes, warm and dry Psychiatric: A+Ox3, euthymic affect Results & Data Vital Signs (Past 12 Hours) Vital Signs Temp Pulse Pulse Resp BP Pulse Ox O2 Del Method 06/22/25 14:32 110 H 06/22/25 14:27 92 H 15 98 Room Air 06/22/25 11:52 36.6 C 108 H 19 116/68 95 Room Air 06/22/25 08:00 36.8 C 102 H 19 121/63 92 Room Air 06/22/25 07:00 92 H 06/22/25 06:59 100 H 17 94 Room Air 06/22/25 04:24 36.8 C 107 H 18 122/66 96 CPAP Laboratory Results Laboratory Results WBC 9.73 K/ul (4.8-10.8) 06/19/25 16: RBC 3.91 M/uL (4.70-6.10) L 06/19/25 16:26 Hgb 13.2 g/dL (14.0-18.0) L 06/19/25 16:26 Hct 39.3 % (42.0-52.0) L 06/19/25 16: MCV 100.5 fL (80.0-100.0) H 06/19/25 16: MCH 33.8 pg (25.0-34.0) 06/19/25 16: MCHC 33.6 g/dL (32.0-36.0) 06/19/25 16: RDW Std Deviation 53.1 fL (36.4-46.3) H 06/19/25 16: RDW Coeff of Jael 14.3 % (11.5-14.5) 06/19/25 16: Plt Count 163 K/uL (130-400) 06/19/25 16: MPV 9.4 fL (9.4-12.4) 06/19/25 16: Immature Gran % (Auto) 0.8 % 06/19/25 16: Neut % (Auto) 67.3 % 06/19/25 16:26 Lymph % (Auto) 12.0 % 06/19/25 16:26 Cameron % (Auto) 12.5 % 06/19/25 16:26 Eos % (Auto) 7.0 % 06/19/25 16:26 Baso % (Auto) 0.4 % 06/19/25 16: Neut # (Auto) 6.54 K/uL (1.40-6.50) H 06/19/25 16: Lymph # (Auto) 1.17 K/uL (1.20-3.40) L 06/19/25 16:26 Cameron # (Auto) 1.22 K/uL (0.11-0.59) H 06/19/25 16:26 Eos # (Auto) 0.68 K/uL (0.00-0.50) H 06/19/25 16:26 Baso # (Auto) 0.04 K/uL (0.00-0.20) 06/19/25 16:26 Immature Gran # (Auto) 0.08 K/uL (0.01-0.20) 06/19/25 16:26 PT 11.9 Seconds (9.0-12.0) 06/19/25 18:20 INR 1.1 (0.9-1.1) 06/19/25 18:20 APTT 34 Seconds (21-31) H 06/19/25 18:20 PTT Ratio 1.3 06/19/25 18:20 VBG pH 7.36 (7.36-7.41) 06/19/25 16: VBG pCO2 52 mmHg (38-50) H 06/19/25 16:26 VBG pO2 20 mmHg 06/19/25 16:26 VBG HCO3 29 mmol/L 06/19/25 16:26 VBG O2 Saturation < 60.0 % 06/19/25 16:26 VBG Base Excess 2.8 mEq/L 06/19/25 16:26 Sodium 134 mmol/L (136-145) L 06/22/25 05:15 Potassium 3.6 mmol/L (3.5-5.1) 06/22/25 05:15 Chloride 98 mmol/L (98-107) 06/22/25 05:15 Carbon Dioxide 26 mmol/L (21-32) 06/22/25 05:15 Anion Gap 10 (3-11) 06/22/25 05:15 BUN 60 mg/dl (6-23) H 06/22/25 05:15 Creatinine 3.26 mg/dl (0.6-1.4) H D 06/22/25 05:15 Est Cr Clr Drug Dosing 21.2 ml/min 06/22/25 05:15 eGFR 18.31 06/22/25 05:15 BUN/Creatinine Ratio 18.4 (10-20) 06/22/25 05:15 Glucose 126 mg/dl (70-99(Fasting)) H 06/22/25 05:15 POC Glucose 125 mg/dl (70-99) H 06/22/25 11:51 Estimat Average Glucose 163 mg/dl 06/21/25 05:47 Hemoglobin A1c 7.3 % (4.5-5.6) H 06/21/25 05:47 Calcium 9.8 mg/dl (8.6-10.3) 06/22/25 05:15 Magnesium 2.2 mg/dl (1.7-2.4) 06/19/25 16:26 Total Bilirubin 0.8 mg/dl (0.2-1.0) 06/19/25 16:26 AST 40 U/L (13-39) H 06/19/25 16:26 ALT 24 U/L (7-52) 06/19/25 16:26 Alkaline Phosphatase 186 U/L (34-104) H 06/19/25 16:26 Troponin I High Sens 76.2 pg/ml (0-20) H* 06/19/25 18:20 B-Natriuretic Peptide 1048 pg/ml (0-100) H 06/19/25 16:26 Total Protein 8.6 gm/dl (6.0-8.3) H 06/19/25 16:26 Albumin 3.1 gm/dl (3.4-5.0) L 06/19/25 16:26 Globulin 5.5 gm/dl (2.5-4.0) H 06/19/25 16:26 Albumin/Globulin Ratio 0.6 (0.9-2) L 06/19/25 16:26 Adenovirus (PCR) Not Detected (NotDetected) 06/19/25 16:26 B. pertussis DNA (PCR) Not Detected (NotDetected) 06/19/25 16:26 B.parapertussis DNA PCR Not Detected (NotDetected) 06/19/25 16:26 C. pneumoniae DNA (PCR) Not Detected (NotDetected) 06/19/25 16:26 Coronavirus OC43 (PCR) Not Detected (NotDetected) 06/19/25 16:26 Coronavirus HKU1 (PCR) Not Detected (NotDetected) 06/19/25 16:26 Coronavirus 229E (PCR) Not Detected (NotDetected) 06/19/25 16:26 SARS-CoV-2 (PCR) Not Detected (NotDetected) 06/19/25 16:26 Coronavirus NL63 (PCR) Not Detected (NotDetected) 06/19/25 16:26 Human Metapneumovir PCR Not Detected (NotDetected) 06/19/25 16:26 Influenza Type A (PCR) Not Detected (NotDetected) 06/19/25 16:26 Influenza Type B (PCR) Not Detected (NotDetected) 06/19/25 16:26 M. pneumoniae (PCR) Not Detected (NotDetected) 06/19/25 16:26 Parainfluenza 1 (PCR) Not Detected (NotDetected) 06/19/25 16:26 Parainfluenza 2 (PCR) Not Detected (NotDetected) 06/19/25 16:26 Parainfluenza 3 (PCR) Not Detected (NotDetected) 06/19/25 16:26 Parainfluenza 4 (PCR) Not Detected (NotDetected) 06/19/25 16:26 RSV (PCR) Not Detected (NotDetected) 06/19/25 16:26 Entero/Rhino (PCR) Not Detected (NotDetected) 06/19/25 16:26 Impressions Chest X-Ray 06/19/25 16:08 EXAM: Chest x-ray 2 view CLINICAL HISTORY: Dyspnea PRIORS: 03/10/2025 TECHNIQUE: PA and lateral views chest FINDINGS: The chest is hyperexpanded. Diffuse interstitial changes noted with moderate right and small left pleural effusion, unchanged. Cardiac silhouette is enlarged. Median sternotomy wires and prosthetic valve seen. Moderate osseous demineralization noted. No confluent opacification. IMPRESSION: Radiographic features favoring volume overload with bilateral pleural effusions, right greater than left. The appearance of the chest also favors underlying interstitial lung disease. ACT 112: Positive. There are findings on this examination that require communication between the performing entity and the patient following Patient Test Result Information Act ([place] ACT 112) guidelines. Electronically signed by Ernestine Mejia 06-19-2025 5:[address] 06/19/25 17:15 EXAMINATION: Chest CT without CLINICAL HISTORY: Evaluate for pneumonia, favor CHF COMPARISON: Radiograph today, 03/10/2025, CT 02/03/2025 TECHNIQUE: Contiguous axial images were obtained through the chest without the use of intravenous contrast. Sagittal and coronal reformations are supplied. FINDINGS: A moderate right and small left pleural effusion noted. No confluent opacification. Diffuse interstitial prominence noted with subpleural increased reticular markings within appearance favoring interstitial lung disease. No dominant mass. Heart size markedly enlarged. No pericardial effusion. Advanced atherosclerotic disease of the aorta and coronary arteries. No mediastinal adenopathy. Trachea and mainstem bronchi patent. Moderate bilateral gynecomastia. Advanced atherosclerotic disease of the abdominal aorta. Upper abdomen shows no acute abnormality. Moderate osseous demineralization and kyphosis present. Median sternotomy wires noted. IMPRESSION: 1. Radiographic features of moderate volume overload with bilateral pleural effusions, right greater than left and cardiomegaly. 2. Diffuse bilateral interstitial changes with subpleural reticular markings favoring interstitial lung disease. 3. No lobar pneumonia ACT 112: Positive. There are findings on this examination that require communication between the performing entity and the patient following Patient Test Result Information Act ([place] ACT 112) guidelines. Electronically signed by Ernestine Mejia 06-19-2025 6:10 PM Diagnostic Findings Comprehensive Metabolic Panel 06/22/25 Range/Units 05:15 Sodium 134 L (136-145) mmol/L Potassium 3.6 (3.5-5.1) mmol/L Chloride 98 (98-107) mmol/L Carbon Dioxide 26 (21-32) mmol/L BUN 60 H (6-23) mg/dl Creatinine 3.26 H D (0.6-1.4) mg/dl Glucose 126 H (70-99(Fasting)) mg/dl Calcium 9.8 (8.6-10.3) mg/dl Intake and Output 06/22/25 06/22/25 06/22/25 06:59 14:59 22:59 Intake Total 240 / 1200 560 / 560 Output Total 700 / 700 Balance 240 / 699 -140 / -140 Intake: Oral 240 / 1200 560 / 560 Output: Urine 500 / 500 Emesis 200 / 200 Other: Weight 104.326 kg Weight Measurement Method Built in [facility] Medications Administered Home Medications Medication Instructions Recorded Confirmed Last Taken aspirin 81 mg tablet,delayed 81 mg PO Q OTHER DAY 08/01/23 06/19/25 06/19/25 release flaxseed oil 1,000 mg capsule 1,000 mg PO Q OTHER DAY 08/01/23 06/19/25 06/19/25 fluticasone propionate 110 2 puff inhalation BID 08/01/23 06/19/25 06/19/25 08:00 mcg/actuation HFA aerosol inhaler insulin aspart U-100 100 unit/mL 10 - 12 unit subcut BIDM 08/01/23 06/19/25 06/19/25 08:00 subcutaneous solution (Novolog U-100 Insulin aspart) insulin glargine 100 unit/mL 10 unit subcut HS 08/01/23 06/19/25 06/18/25 subcutaneous solution (Lantus U-100 Insulin) magnesium oxide 400 mg PO 3XWK 08/01/23 06/19/25 06/18/25 sodium chloride 0.65 % nasal spray 1 spray intranasal BID PRN Nasal 08/01/23 06/19/25 Unknown aerosol (Saline Mist) Congestion allopurinol 100 mg tablet 100 mg PO QDD 02/03/25 06/19/25 06/18/25 latanoprost 0.005 % eye drops 1 drp OPB HS 02/03/25 06/19/25 06/18/25 apixaban 5 mg tablet (Eliquis) 2.5 mg PO AMHS 03/10/25 06/19/25 06/19/25 08:00 atorvastatin 20 mg tablet 10 mg PO HS 03/10/25 06/19/25 06/18/25 cyanocobalamin (vitamin B-12) 1,000 mcg PO 5XWK 03/10/25 06/19/25 06/19/25 1,000 mcg tablet (Vitamin B-12) doxepin 50 mg capsule 50 mg PO HS PRN Sleep 03/10/25 06/19/25 Unknown empagliflozin 10 mg tablet 5 mg PO QAM 03/10/25 06/19/25 06/19/25 metoprolol succinate 100 mg 100 mg PO AMHS 03/10/25 06/19/25 06/19/25 08:00 tablet,extended release 24 hr [id number] 250 mg-dha 90 1 cap PO BID 03/10/25 06/19/25 06/19/25 08:00 mg-epa 160 [id number] capsule (Ocuvite Adult 50 Plus) sertraline 50 mg tablet 25 mg PO HS 03/10/25 06/19/25 06/18/25 bumetanide 1 mg tablet 1 mg PO QAM #30 tabs 03/12/25 06/19/25 06/19/25 diclofenac sodium 1 % topical gel 2 g EXT BID PRN pain #50 grams 03/12/25 06/19/25 Unknown (Voltaren Arthritis Pain) guaifenesin 600 mg tablet, 600 mg PO BID PRN CONGESTION/COUGH 06/19/25 06/19/25 Unknown extended release 12 hr (Mucinex) bumetanide 2 mg tablet 2 mg PO DAILY #30 tabs 06/21/25 Unknown Active Medications Generic Name Dose Route Start Last Admin Trade Name Freq PRN Reason Stop Dose Admin Acetaminophen 650 mg 06/19/25 19:13 06/21/25 15:06 Acetaminophen 325 Mg Tab PO 07/19/25 19:12 650 mg Q4H PRN Administration Pain or Fever Allopurinol 100 mg 06/20/25 16:30 06/21/25 17:23 Allopurinol 100 Mg Tab PO 07/20/25 16:29 100 mg QDD SOLIS Administration Apixaban 2.5 mg 06/19/25 21:32 06/22/25 08:58 Apixaban 2.5 Mg Tab PO 07/19/25 21:31 2.5 mg AMHS SOLIS Administration Aspirin 81 mg 06/19/25 21:32 06/21/25 08:47 Aspirin 81 Mg Ectab PO 07/19/25 21:31 81 mg Q2D@0900 SOLIS Administration Atorvastatin Calcium 10 mg 06/19/25 21:32 06/21/25 21:57 Atorvastatin 10 Mg Tab PO 07/19/25 21:31 10 mg HS SOLIS Administration Cyanocobalamin 1,000 mcg 06/20/25 09:00 06/20/25 09:05 Cyanocobalamin (B-12) 500 Mcg Tablet PO 07/20/25 08:59 1,000 mcg MoTuWeThFr@0900 SOLIS Administration Doxepin HCl 50 mg 06/19/25 21:32 06/21/25 22:11 Doxepin Hcl 50 Mg Capsule PO 07/19/25 21:31 50 mg HS PRN Administration Sleep Empagliflozin 5 mg 06/20/25 09:00 06/22/25 08:59 Empagliflozin 10 Mg Tab PO 07/20/25 08:59 5 mg QAM SOLIS Administration Fluticasone Furoate 1 puffs 06/20/25 09:00 06/22/25 08:57 Fluticasone Furoate 100mcg 14 Puffs/Inhaler INH 07/20/25 08:59 1 puffs DAILY SOLIS Administration Guaifenesin 1,200 mg 06/19/25 21:00 06/22/25 08:58 Guaifenesin 600 Mg Tabcr PO 07/19/25 20:59 1,200 mg Q12 SOLIS Administration Sodium Chloride 1,000 mls @ 125 mls/hr 06/22/25 12:00 06/22/25 12:20 Nss IV 06/22/25 19:59 125 mls/hr .Q8H SOLIS Administration Insulin Aspart 0 units 06/19/25 21:00 06/22/25 12:19 Insulin Aspart Per Unit Charge SC 07/19/25 20:59 6 units ACHS SOLIS Administration Ipratropium [place] 0.5 mg 06/19/25 22:00 06/22/25 14:25 Ipratropium [place] Neb Soln 0.02% 0.5mg/2.5ml Vial NEB 07/19/25 21:59 0.5 mg Q8H SOLIS Administration Latanoprost 1 drops 06/19/25 21:32 06/21/25 21:57 Latanoprost 0.005% Op Soln 2.5 Ml Btl OPB 07/19/25 21:31 1 drops HS SOLIS Administration Levalbuterol HCl 1.25 mg 06/19/25 22:00 06/22/25 14:25 Levalbuterol 1.25 Mg/3 Ml Neb NEB 07/19/25 21:59 1.25 mg Q8H SOLIS Administration Magnesium Oxide 400 mg 06/20/25 09:00 06/20/25 09:05 Magnesium Oxide 400 Mg Tab PO 07/20/25 08:59 400 mg MoWeFr@0900 SOLIS Administration Metoprolol Succinate 100 mg 06/19/25 21:32 06/22/25 08:58 Metoprolol Succ 50mg Ext Rel Tab PO 07/19/25 21:31 100 mg AMHS SOLIS Administration Sertraline HCl 25 mg 06/19/25 21:32 06/21/25 21:58 Sertraline Hcl 50 Mg Tablet PO 07/19/25 21:31 25 mg HS SOLIS Administration PG Care Time/CCT Total # of Minutes Spent Total Time Spent with Patient: Total time spent is greater than 50% in coordination of care (as documented) at patient's floor/unit and/or counseling patient: Coding Level of Care Code 53542 SUB INP/OBS CARE 3/50MIN Diagnoses Acute on chronic diastolic CHF (congestive heart failure) I50.33 Permanent atrial fibrillation I48.21 Aortic stenosis I35.0
[2025-06-22] MEDS: LANTUS PER UNIT CHARGE SQ SCH (20:58)
[2025-06-23 05:47] LABS: Hematocrit (blood only) 33.7 % (42.0-52.0); Hemoglobin 11.7 g/dL (14.0-18.0); Immature Granulocytes # (auto) 0.07 K/uL (0.01-0.20); Immature Granulocytes % (auto) 0.9 %; Mean Corpuscular Hemoglobin 34.0 pg (25.0-34.0); Mean Corpuscular Volume 98.0 fL (80.0-100.0); Platelet Count 174 K/uL (130-400); RDW Standard Deviation 48.7 fL (36.4-46.3); Red Blood Count 3.44 M/uL (4.70-6.10); White Blood Count 8.22 K/ul (4.8-10.8)
[2025-06-23 06:00] LABS: Anion Gap 9.0 (3-11); Blood Urea Nitrogen 54.0 mg/dl (6-23); Calcium 9.5 mg/dl (8.6-10.3); Carbon Dioxide 24.0 mmol/L (21-32); Chloride 100.0 mmol/L (98-107); Creatinine Clr Calc Pharmacy 21.5 ml/min; Glucose 197.0 mg/dl (70-99(Fasting)); Potassium 3.7 mmol/L (3.5-5.1); Sodium 133.0 mmol/L (136-145)
--- NOTE | 2025-06-23 09:12 | Pharmacy Report ---
Pharmacy Glycemic Short Note 2 - Date of Service June 23, 2025 - Glycemic Short BSG Results (Last 24 hours): 06/22/25 06/22/25 06/22/25 11:51 16:52 20:48 Glucose POC Glucose 125 H 171 H 146 H 06/23/25 06/23/25 05:24 07:45 Glucose 197 H POC Glucose 183 H OUTPATIENT ANTIDIABETIC REGIMEN: * Lantus 10 units SQ HS * Novolog 10-12 units BID with meals * Empagliflozin 5mg PO daily ASSESSMENT: 06/23: * Patient received a total of 38 units of insulin yesterday (16 basal and 22 bolus) * BSGs ranged from 125-197 * Fasting glucose this AM was 197 - slightly high * Insulin glargine adjusted to 9 units SQ BID * Continue current CF/CR of 29/04 * Continuing with empagliflozin 5mg daily while inpatient * T2DM diet 06/20: * CG is an 79 year old male who was admitted yesterday with congestive heart failure. Pharmacy was consulted for glycemic management while he is admitted. * BSG at HS last evening was 142mg/dL. The provider ordered Lantus 5 units SQ BID and a weight based (using adjusted body weight) bolus insulin regimen with a stress of 2. Home empagliflozin was ordered to start 06/20. * Fasting BSG was 129mg/dL and carolyn to 182mg/dL with lunch. Will continue basal insulin as ordered and tightened CR of bolus insulin. PLAN FOR INPATIENT GLYCEMIC CONTROL: * Basal insulin * Lantus 9 units SQ BID * Bolus insulin * NovoLog per scale ACHS or Q6hrs while NPO * Goal Range: Low 120 mg/dL - High 150 mg/dL * Correction Factor: 30 mg/dL/unit * Nutritional / Prandial insulin per carb ratio of 1 unit per 9 grams CHO consumed
[2025-06-23] MEDS: LACTATED RINGER'S 1,000 ML IV SCH (09:13)
[2025-06-23 11:17] LABS: Cdiff Toxin B Gene (2yr or >) Negative Cdiff Gene (Neg)
--- NOTE | 2025-06-23 11:44 | Hospitalist Progress Note ---
Date of Service June 23, 2025 Assessment & Plan (1) CHF (congestive heart failure): Plan Assessment/plan Acute on chronic HFrEF NEFTALI on CKD Patient presented to the hospital with productive cough, shortness of breath CT chest on admission shows moderate volume overload with bilateral pleural effusion, diffuse bilateral interstitial changes with subpleural reticular marking favoring interstitial lung disease BNP elevated; 1048 On Bumex 1 mg daily at home along with Jardiance. Echocardiogram shows EF of 35 to 40%; moderately to severely reduced LV systolic function. Prosthetic aortic valve is well-seated Patient was diuresed with IV Lasix with improvement in shortness of breath and lower extremity edema. Cardiology was consulted; patient switched over to Bumex 2 mg once a day from 1 mg once a day Patient is started to have diarrhea on June 21; creatinine noted to be elevated from baseline. Given 1 L of IV fluids on June 22; C. difficile is negative. Will give 1 more liter of IV fluids today. Imodium started for diar beatriz. Continue to monitor Strict output and input monitoring Daily standing weights Sputum culture growing strep to agalactiae; patient reports improvement without antibiotic; likely related to pulmonary edema. OT recommends rehab; PT evaluation pending. Patient and wants to go to rehab; case management on board. Chronic atrial fibrillation History of atrial flutter status post ablation Continue on metoprolol and Eliquis Continue telemonitoring Demand ischemia High-sensitivity troponin elevated on admission with flat trend denies chest pain CAD Had cardiac catheter done in January 2025; moderate nonobstructive CAD. Reviewed from cardiology note as outpatient. 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 Time spent evaluating patient, direct bedside care, chart review, placing orders, interpretation of diagnostic studies, discussion with consultants, patient, and family members, as well as other required patient management activities is 50 minutes Please note the above document was generated using voice recognition software. It may contain grammatical, syntax or spelling errors. Any formal questions or concerns about the content, text or information contained within the body of this dictation should be directly addressed to the provider for clarification Admission and Anticipated Discharge Date Admission Date: June 19, 2025 Subjective Patient seen and examined at bedside. He continues to have some episode of diarrhea; denies any abdominal pain or discomfort. No fever or chills. No significant events overnight Review of Systems Review of Systems: All systems reviewed & are unremarkable except as noted in Subjective Physical Exam Physical Exam: On physical examination; Constitutional: WD/WN, vitals as above, NAD, sitting up in bed, pleasant, conversing easily Respiratory: Decreased breath sounds at bases; improved compared to previous days Cardiovascular: RRR, no murmur, no edema Vessels: no JVD or carotid bruit Chest: normal inspection of chest Abdomen: normal bowel sounds, soft, nontender, no hepatosplenomegaly Musculoskeletal: no cyanosis or clubbing, extremities motor strength 5/5 Skin: no rashes, warm and dry normal turgor Neurologic: PERRL, EOMI, accommodation nl, no face palsy, no dysarthria CN's II- XI intact bilaterally and moves all extremities Results & Data Results & Data Vital Signs (Past 12 Hours) Vital Signs Temp Pulse Pulse Resp BP Pulse Ox O2 Del Method 06/23/25 11:29 36.6 C 110 H 18 122/67 96 Room Air 06/23/25 08:46 98 H 06/23/25 07:40 Room Air 06/23/25 07:26 36.6 C 105 H 18 123/57 L 96 Room Air 06/23/25 06:57 100 H 18 98 Room Air 06/23/25 05:00 36.3 C L 98 H 18 131/78 94 CPAP
--- NOTE | 2025-06-23 12:32 | Cardiology Progress Note ---
Date of Service June 23, 2025 Assessment & Plan (1) Acute exacerbation of CHF (congestive heart failure): (2) Aortic stenosis: (3) Acute kidney injury: (4) Diarrhea: (5) CAD (coronary artery disease): Plan Complex 79-year-old male admitted with acute decompensated heart failure, new onset HFrEF, nonischemic cardiomyopathy. Echocardiography this admission with new onset moderate reduction in LV systolic function, EF 35 to 40%. Troponin elevation felt to represent demand ischemia. Patient with known moderate nonobstructive coronary artery disease, moderate bioprosthetic aortic valve stenosis, chronic atrial fibrillation, stage IV chronic kidney disease. Viral syndrome/mucus improving with Mucinex. Diarrhea resolving. Evaluation for C. difficile negative. Patient appears euvolemic by history and examination. Heart rates acceptably controlled on metoprolol succinate 100 mg twice per day. Recommendations: Discontinue IV fluid, likely resume oral diuretic therapy in 1 to 2 days Continue rate control with metoprolol succinate Continue anticoagulation with reduced dose Eliquis given age and renal dysfunction Continue aspirin and statin Outpatient follow-up with [facility], 09/24/2025. Admission and Anticipated Discharge Date Admission Date: June 19, 2025 Supervising Physician Co-Signing Physician Notes Attending attestation: Case reviewed with the advanced practitioner. I have personally performed a history and physical examination on the patient. I have reviewed the advanced practitioner's documentation on the date of service referenced in note, and I agree with, and take responsibility for the plan of care. Subjective: Patient denies any subjective complaint at present. Telemetry reveals rate controlled atrial fibrillation just around 100 bpm. Exam: Cardiovascular irregular rhythm, 1/6 systolic murmur Data: Transthoracic echocardiogram performed as an outpatient December, revealed moderate intra valvular bioprosthetic regurgitation, velocities across the prosthetic aortic valve are indeterminate to exclude obstruction with peak velocity of 3.11 m/s. Patient went on to have cardiac catheterization at [facility] on 02/25/2025 revealing moderate nonocclusive CAD with 50%,50% proximal LAD stenosis, 50% proximal RCA stenosis, mean pulmonary capillary wedge pressure elevated 26 mmHg, aortic valve area 1.2 cm with mean aortic valve gradient 28 mmHg. Impression/ Plan: New left ventricular systolic dysfunction, LVEF 35 to 40%, presentation suggestive of possible low-flow low gradient aortic stenosis * Patient appears euvolemic on exam, hold off on further IV fluids or diuretics today. * Keep plans for outpatient valve clinic follow-up. Based on decline in LVEF, TAVR may now be indicated DO Yu Zepeda Patient seen and examined. Chart, medications, and telemetry reviewed. Diarrhea has slowed down considerably Breathing is better than it has been in some time, no longer having the globs of mucus like he did before No chest pain. No overt palpitations. Review of Systems Review of Systems: Complete review of systems is otherwise as stated above, negative, noncontributory Physical Exam Physical Exam: Examined in the bedside chair General: No acute distress HENT: Normocephalic. Atraumatic. Eyes: PER. Conjunctiva pink, sclera clear. Neck: Transmitted systolic murmur. No overt JVD. N Heart: Irregularly irregular 100 bpm. Grade II/ systolic ejection murmur. Back brace in place Lungs: Dry inspiratory rales, left greater than right Abdomen: +BS. Soft. Nontender. No masses or organomegaly. Extremities: Minimal edema. No clubbing. No cyanosis. Limited neurological examination is without focal deficits. Pulses: Posterior tibial=1/4. Results & Data Vital Signs (Past 12 Hours) Vital Signs Temp Pulse Pulse Resp BP Pulse Ox O2 Del Method 06/23/25 11:29 36.6 C 110 H 18 122/67 96 Room Air 06/23/25 08:46 98 H 06/23/25 07:40 Room Air 06/23/25 07:26 36.6 C 105 H 18 123/57 L 96 Room Air 06/23/25 06:57 100 H 18 98 Room Air 06/23/25 05:00 36.3 C L 98 H 18 131/78 94 CPAP Laboratory Results CBC 06/23/25 Range/Units 05:24 WBC 8.22 (4.8-10.8) K/ul RBC 3.44 L (4.70-6.10) M/uL Hgb 11.7 L (14.0-18.0) g/dL Hct 33.7 L (42.0-52.0) % Plt Count 174 (130-400) K/uL Neut # (Auto) 5.23 (1.40-6.50) K/uL Lymph # (Auto) 0.95 L (1.20-3.40) K/uL Wilcox # (Auto) 1.08 H (0.11-0.59) K/uL Eos # (Auto) 0.85 H (0.00-0.50) K/uL Baso # (Auto) 0.04 (0.00-0.20) K/uL Comprehensive Metabolic Panel 06/23/25 Range/Units 05:24 Sodium 133 L (136-145) mmol/L Potassium 3.7 (3.5-5.1) mmol/L Chloride 100 (98-107) mmol/L Carbon Dioxide 24 (21-32) mmol/L BUN 54 H (6-23) mg/dl Creatinine 3.21 H (0.6-1.4) mg/dl Glucose 197 H (70-99(Fasting)) mg/dl Calcium 9.5 (8.6-10.3) mg/dl Intake and Output 06/22/25 06/23/25 06/23/25 22:59 06:59 14:59 Intake Total 1000 / 1800 240 / 1800 Output Total 0 / 700 Balance 1000 / 1100 240 / 1100 Intake: IV 1000 / 1000 Sodium Chloride 0.9% 1,000 ml @ 1000 / 1000 125 mls/hr IV .Q8H SOLIS Rx#: [id number] Oral 240 / 800 Output: Urine 0 / 500 Other: # Unmeasured Voids 1 Weight 104.825 kg Weight Measurement Method Built in [facility] Diagnostic Findings Catheterization on February 25, 2025 with moderate nonobstructive coronary artery disease and moderate bioprosthetic aortic valve stenosis. Echocardiography this admission with moderate reduction in LV systolic function, new, ejection fraction 35 to 40% Telemetry: Atrial fibrillation with heart rates predominantly in the 90s to low 100s, with occasional ventricular ectopy versus aberrant conduction PG Care Time/CCT Total # of Minutes Spent Total Time Spent with Patient: Total time spent is greater than 50% in coordination of care (as documented) at patient's floor/unit and/or counseling patient. I spent a total of 50 minutes on the date of service in preparation, delivery, and documentation of the care provided to this patient excluding any time spent in the performance of separately billed services. This visit was a split-shared visit with the substantive portion of the medical decision making performed by the supervising corporate financial analyst/billing provider, Dr. Sanchez Coding Level of Care Code 90011 SUB INP/OBS CARE 3/50MIN Diagnoses Acute exacerbation of CHF (congestive heart failure) I50.9 Aortic stenosis I35.0 Acute kidney injury N17.9 Diarrhea R19.7 CAD (coronary artery disease) I25.10
--- NOTE | 2025-06-24 09:41 | Cardiology Progress Note ---
Date of Service June 24, 2025 Assessment & Plan (1) Acute exacerbation of CHF (congestive heart failure): (2) Aortic stenosis: (3) Acute kidney injury: (4) Diarrhea: (5) CAD (coronary artery disease): Plan Complex 79-year-old male admitted with acute decompensated heart failure, new onset HFrEF, nonischemic cardiomyopathy. Echocardiography this admission with new onset moderate reduction in LV systolic function, EF 35 to 40%. Troponin elevation felt to represent demand ischemia. Patient with known moderate nonobstructive coronary artery disease, moderate bioprosthetic aortic valve stenosis, chronic atrial fibrillation, stage IV chronic kidney disease. Viral syndrome/mucus improving with Mucinex. Diarrhea improved. Urinary retention noted this AM. Patient appears euvolemic to minimally hypervolemic. Heart rates acceptably controlled on metoprolol succinate 100 mg twice per day. Recommendations: * Metabolic panel this AM, likely resuming oral bumetanide later today or tomorrow. * Continue rate control with metoprolol succinate * Continue anticoagulation with reduced dose Eliquis given age and renal dysfunction * Continue aspirin and statin * Outpatient follow-up with [facility], 09/24/2025, RE: Decreased EF, possible low-flow low gradient aortic stenosis Admission and Anticipated Discharge Date Admission Date: June 19, 2025 Supervising Physician Co-Signing Physician Notes Attending attestation: Case reviewed with the advanced practitioner. I have personally performed a history and physical examination on the patient. I have reviewed the advanced practitioner's documentation on the date of service referenced in note, and I agree with, and take responsibility for the plan of care. Subjective: Patient feeling well with the exception of urinary retention prompting straight catheterization earlier today. He voided a slight amount in the meantime spontaneously. Exam: Cardiovascular irregular rhythm, 1/6 systolic murmur Data: Transthoracic echocardiogram performed as an outpatient December, revealed moderate intra valvular bioprosthetic regurgitation, velocities across the prosthetic aortic valve are indeterminate to exclude obstruction with peak velocity of 3.11 m/s. Patient went on [place] cardiac [place] [facility] [place] revealing moderate nonocclusive CAD with 50%,50% proximal LAD stenosis, 50% proximal RCA stenosis, mean pulmonary capillary wedge pressure elevated 26 mmHg, aortic valve area 1.2 cm with mean aortic valve gradient 28 mmHg. Impression/ Plan: New left ventricular systolic dysfunction, LVEF 35 to 40%, presentation suggestive of possible low-flow low gradient aortic stenosis * Patient appears euvolemic on exam, hold off on further IV fluids or diuretics today. * Keep plans for outpatient valve clinic follow-up. Based on decline in LVEF, TAVR may now be indicated DO Yu Zepeda Patient seen and examined. Chart, medications, and telemetry reviewed. Issues with urinary retention early this morning, straight cath with some discomfort. Breathing is good. No chest pain. No palpitations. Anxious to get up and out of bed. Review of Systems Review of Systems: Complete review of systems is otherwise as stated above, negative, noncontributory Physical Exam Physical Exam: General: No acute distress HENT: Normocephalic. Atraumatic. Eyes: PER. Conjunctiva pink, sclera clear. Neck: Transmitted systolic murmur. No JVD. Heart: Irregularly irregular 90 bpm. Grade II/ systolic ejection murmur. Lungs: Dry inspiratory rales, left greater than right Abdomen: +BS. Soft. Nontender. No masses or organomegaly. Extremities: Mild edema. No clubbing. No cyanosis. Limited neurological examination is without focal deficits. Pulses: Posterior tibial=1/4. Results & Data Vital Signs (Past 12 Hours) Vital Signs Temp Pulse Pulse Resp BP Pulse Ox O2 Del Method 06/24/25 09:35 90 06/24/25 07:24 36.4 C L 96 H 18 128/69 96 Room Air 06/24/25 07:00 Room Air 06/24/25 06:54 87 16 95 Room Air 06/24/25 02:47 36.6 C 95 H 18 115/68 96 BiPAP 06/23/25 23:01 36.5 C 97 H 18 126/81 97 BiPAP 06/23/25 22:20 106 H 18 97 Room Air 06/23/25 22:05 Room Air, CPAP Laboratory Results Intake and Output 06/23/25 06/24/25 06/24/25 22:59 06:59 14:59 Intake Total 500 / 2050 Output Total 1350 / 1352 Balance -850 / 698 Intake: Oral 500 / 1050 Output: Urine 650 / 650 Urine Amount (Catheter) 700 / 700 Straight 700 / 700 Other: Weight 104.3 kg Diagnostic Findings Telemetry: Atrial fibrillation, rates 86 to 100 bpm Coding Level of Care Code 98868 SUB INP/OBS CARE 50MIN Diagnoses Acute exacerbation of CHF (congestive heart failure) I50.9 Aortic stenosis I35.0 Acute kidney injury N17.9 Diarrhea R19.7 CAD (coronary artery disease) I25.10
[2025-06-24 10:12] LABS: Anion Gap 7.0 (3-11); Blood Urea Nitrogen 53.0 mg/dl (6-23); Calcium 9.8 mg/dl (8.6-10.3); Carbon Dioxide 28.0 mmol/L (21-32); Chloride 99.0 mmol/L (98-107); Creatinine Clr Calc Pharmacy 24.1 ml/min; Glucose 123.0 mg/dl (70-99(Fasting)); Potassium 3.5 mmol/L (3.5-5.1); Sodium 134.0 mmol/L (136-145)
--- NOTE | 2025-06-24 11:18 | Hospitalist Progress Note ---
Date of Service June 24, 2025 Assessment & Plan (1) CHF (congestive heart failure): Plan Assessment/plan Acute on chronic HFrEF NEFTALI on CKD Patient presented to the hospital with productive cough, shortness of breath CT chest on admission shows moderate volume overload with bilateral pleural effusion, diffuse bilateral interstitial changes with subpleural reticular marking favoring interstitial lung disease BNP elevated; 1048 On Bumex 1 mg daily at home along with Jardiance. Echocardiogram shows EF of 35 to 40%; moderately to severely reduced LV systolic function. Prosthetic aortic valve is well-seated Patient was diuresed with IV Lasix with improvement in shortness of breath and lower extremity edema. Cardiology was consulted;plan to restart bumex tomorrow. Patient is started to have diarrhea on June 21; creatinine noted to be elevated from baseline. Given fluids with improved on creatinine on 06/24 Strict output and input monitoring Daily standing weights Sputum culture growing strep to agalactiae; patient reports improvement without antibiotic; likely related to pulmonary edema. PT/OT recommend rehab; possible [facility] Acute Urinary retentionpatient noted to have elevated postvoid residual on overnight June 23 requiring straight cath; plan to observe with bladder scan today; if postvoid residual is greater than 250 cc; plan to place Berrios; TOV in 7- 10 days if berrios catheter is neeeded. Chronic atrial fibrillation History of atrial flutter status post ablation Continue on metoprolol and Eliquis Continue telemonitoring Demand ischemia High-sensitivity troponin elevated on admission with flat trend denies chest pain CAD Had cardiac catheter done in January 2025; moderate nonobstructive CAD. Reviewed from cardiology note as outpatient. 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 Time spent evaluating patient, direct bedside care, chart review, placing orders, interpretation of diagnostic studies, discussion with consultants, patient, and family members, as well as other required patient management activities is 50 minutes Please note the above document was generated using voice recognition software. It may contain grammatical, syntax or spelling errors. Any formal questions or concerns about the content, text or information contained within the body of this dictation should be directly addressed to the provider for clarification Admission and Anticipated Discharge Date Admission Date: June 19, 2025 Subjective Patient seen and examined at bedside. Overnight, he had urinary retention requiring straight cath. Reports that diarrhea seems to be resolving. Urine output is reassuring Review of Systems Review of Systems: All systems reviewed & are unremarkable except as noted in Subjective Physical Exam Physical Exam: On physical examination; Constitutional: WD/WN, vitals as above, NAD, sitting up in bed, pleasant, conversing easily Respiratory: Decreased breath sounds at bases; improved compared to previous days Cardiovascular: RRR, no murmur, no edema Vessels: no JVD or carotid bruit Chest: normal inspection of chest Abdomen: normal bowel sounds, soft, nontender, no hepatosplenomegaly Musculoskeletal: no cyanosis or clubbing, extremities motor strength 5/5 Skin: no rashes, warm and dry normal turgor Neurologic: PERRL, EOMI, accommodation nl, no face palsy, no dysarthria CN's II- XI intact bilaterally and moves all extremities Results & Data Results & Data Vital Signs (Past 12 Hours) Vital Signs Temp Pulse Pulse Resp BP Pulse Ox O2 Del Method 06/24/25 11:07 36.6 C 105 H 18 110/58 L 95 Room Air 06/24/25 09:35 90 06/24/25 07:24 36.4 C L 96 H 18 128/69 96 Room Air 06/24/25 07:00 Room Air 06/24/25 06:54 87 16 95 Room Air 06/24/25 02:47 36.6 C 95 H 18 115/68 96 BiPAP
[2025-06-24] MEDS: POTASSIUM CHLORIDE CRTAB 20 MEQ TABCR PO ONE (14:14)
[2025-06-24] MEDS: LOPERAMIDE HCL 2 MG CAP PO PRN (16:03)
[2025-06-25 06:11] LABS: Hematocrit (blood only) 33.2 % (42.0-52.0); Hemoglobin 11.3 g/dL (14.0-18.0); Immature Granulocytes # (auto) 0.11 K/uL (0.01-0.20); Immature Granulocytes % (auto) 1.2 %; Mean Corpuscular Hemoglobin 33.3 pg (25.0-34.0); Mean Corpuscular Volume 97.9 fL (80.0-100.0); Platelet Count 180 K/uL (130-400); RDW Standard Deviation 49.1 fL (36.4-46.3); Red Blood Count 3.39 M/uL (4.70-6.10); White Blood Count 9.47 K/ul (4.8-10.8)
[2025-06-25 06:29] LABS: Anion Gap 7.0 (3-11); Blood Urea Nitrogen 55.0 mg/dl (6-23); Calcium 9.6 mg/dl (8.6-10.3); Carbon Dioxide 24.0 mmol/L (21-32); Chloride 103.0 mmol/L (98-107); Creatinine Clr Calc Pharmacy 26.4 ml/min; Glucose 121.0 mg/dl (70-99(Fasting)); Potassium 4.0 mmol/L (3.5-5.1); Sodium 134.0 mmol/L (136-145)
[2025-06-25] MEDS: PSYLLIUM HUSK 4GM PACKET PO SCH (10:44)
--- NOTE | 2025-06-25 10:55 | Cardiology Progress Note ---
Date of Service June 25, 2025 Assessment & Plan (1) Acute exacerbation of CHF (congestive heart failure): (2) Aortic stenosis: (3) Acute kidney injury: (4) Diarrhea: (5) CAD (coronary artery disease): Plan Complex 79-year-old male admitted with acute decompensated heart failure, new onset HFrEF, nonischemic cardiomyopathy. TTE this admission with LVEF 35 to 40%. Troponin elevation felt to represent demand ischemia. Patient with known moderate nonobstructive coronary artery disease, moderate bioprosthetic aortic valve stenosis, chronic atrial fibrillation, stage IV chronic kidney disease. Viral syndrome/mucus improving. Putnam catheter now in place due to urinary retention. Examination with mild hypervolemia. Heart rates acceptably controlled on metoprolol succinate 100 mg twice per day. Recommendations: * Start oral bumetanide, 1 mg/day. * Continue rate control with metoprolol succinate * Continue anticoagulation with reduced dose Eliquis given age and renal dysfunction * Continue aspirin and statin * Outpatient follow-up with the [facility], 09/24/2025, RE: Decreased EF, possible low-flow low gradient aortic stenosis * Please contact with any cardiac questions or concerns. Admission and Anticipated Discharge Date Admission Date: June 19, 2025 Supervising Physician Co-Signing Physician Notes Attending attestation: Case reviewed with the advanced practitioner. I have personally performed a history and physical examination on the patient. I have reviewed the advanced practitioner's documentation on the date of service referenced in note, and I agree with, and take responsibility for the plan of care. Subjective:Indwelling Putnam catheter now in place. Patient denies chest disco mfort or shortness of breath. Exam: Cardiovascular irregular rhythm, 1/6 systolic murmur Pulmonary: Mild bibasilar rales Data: Transthoracic echocardiogram performed as an outpatient December, revealed moderate intra valvular bioprosthetic regurgitation, velocities across the prosthetic aortic valve are indeterminate to exclude obstruction with peak velocity of 3.11 m/s. Patient went on to have cardiac catheterization at [facility] on 02/25/2025 revealing moderate nonocclusive CAD with 50%,50% proximal LAD stenosis, 50% proximal RCA stenosis, mean pulmonary capillary wedge pressure elevated 26 mmHg, aortic valve area 1.2 cm with mean aortic valve gradient 28 mmHg. Impression/ Plan: New left ventricular systolic dysfunction, LVEF 35 to 40%, presentation suggestive of possible low-flow low gradient aortic stenosis * Start oral Bumex. * Keep plans for outpatient valve clinic follow-up. Based on decline in LVEF, TAVR may now be indicated Aries Sanchez DO Subjective Patient seen and examined. Chart, medications, and telemetry reviewed. Significant other at bedside. Putnam catheter now in place. No subjective fevers or rigots. Breathing is OK. Unchanged cough/mucous. Stable orthopnea. No PND. No chest pain. No tachypalpitations. Review of Systems Review of Systems: Complete review of systems is otherwise as stated above, negative, noncontributory Physical Exam Physical Exam: General: No acute distress HENT: Normocephalic. Atraumatic. Eyes: PER. Conjunctiva pink, sclera clear. Neck: Transmitted systolic murmur. No JVD. Heart: Irregularly irregular 100 bpm. Grade II/ systolic ejection murmur. Lungs: Right greater than left ra;es/ Abdomen: +BS. Soft. Nontender. No masses or organomegaly. Extremities: Mild edema. No clubbing. No cyanosis. Limited neurological examination is without focal deficits. Pulses: Posterior tibial=1/4. Results & Data Vital Signs (Past 12 Hours) Vital Signs Temp Pulse Resp BP BP Pulse Ox O2 Del Method 06/25/25 10:00 Room Air 06/25/25 07:34 36.8 C 98 H 18 115/65 94 Room Air 06/25/25 06:58 92 H 16 95 Room Air 06/25/25 03:49 36.7 C 89 18 112/67 92 Room Air 06/24/25 22:59 36.7 C 106 H 18 124/73 93 BiPAP Laboratory Results CBC 06/25/25 Range/Units 05:31 WBC 9.47 (4.8-10.8) K/ul RBC 3.39 L (4.70-6.10) M/uL Hgb 11.3 L (14.0-18.0) g/dL Hct 33.2 L (42.0-52.0) % Plt Count 180 (130-400) K/uL Neut # (Auto) 6.00 (1.40-6.50) K/uL Lymph # (Auto) 1.27 (1.20-3.40) K/uL Kingfisher # (Auto) 1.11 H (0.11-0.59) K/uL Eos # (Auto) 0.93 H (0.00-0.50) K/uL Baso # (Auto) 0.05 (0.00-0.20) K/uL Comprehensive Metabolic Panel 06/25/25 Range/Units 05:31 Sodium 134 L (136-145) mmol/L Potassium 4.0 (3.5-5.1) mmol/L Chloride 103 (98-107) mmol/L Carbon Dioxide 24 (21-32) mmol/L BUN 55 H (6-23) mg/dl Creatinine 2.61 H (0.6-1.4) mg/dl Glucose 121 H (70-99(Fasting)) mg/dl Calcium 9.6 (8.6-10.3) mg/dl Intake and Output 06/24/25 06/25/25 06/25/25 22:59 06:59 14:59 Intake Total 200 / 890 100 / 890 Output Total 900 / 1501 400 / 1501 Balance -700 / -611 -300 / -611 Intake: Oral 200 / 890 100 / 890 Output: Urine 600 / 800 Urine Amount (Catheter) 300 / 700 400 / 700 Putnam/Indwelling 300 / 700 400 / 700 Other: Weight 104 kg Weight Measurement Method Built in [facility] Diagnostic Findings Telemetry: Atrial fibrillation, rates predominately in the 80's to 1teens. Occasional PVC. Coding Level of Care Code 75897 SUB INP/OBS CARE 3/50MIN Diagnoses Acute exacerbation of CHF (congestive heart failure) I50.9 Aortic stenosis I35.0 Acute kidney injury N17.9 Diarrhea R19.7 CAD (coronary artery disease) I25.10
[2025-06-25] MEDS: BUMETANIDE 1 MG TAB PO SCH (11:49)
--- NOTE | 2025-06-25 12:28 | Pharmacy Report ---
Pharmacy Glycemic Short Note 2 - Date of Service June 25, 2025 - Glycemic Short BSG Results (Last 24 hours): 06/24/25 06/24/25 06/25/25 16:40 20:11 05:31 Glucose 121 H POC Glucose 183 H 175 H 06/25/25 06/25/25 07:46 11:44 Glucose POC Glucose 148 H 149 H OUTPATIENT ANTIDIABETIC REGIMEN: * Lantus 10 units SQ HS * Novolog 10-12 units BID with meals * Empagliflozin 5mg PO daily ASSESSMENT: 06/25: * Talha received a total of 41 units of insulin yesterday (18 units were basal and 23 units were bolus). * Fasting BSG was 148mg/dL this morning and 149mg/dL at lunch. Will continue c jermaint basal/bolus insulin regimens as he appears to be better controlled today so far. 06/23: * Patient received a total of 38 units of insulin yesterday (16 basal and 22 jackie amanda) * BSGs ranged from 125-197 * Fasting glucose this AM was 197 - slightly high * Insulin glargine adjusted to 9 units SQ BID * Continue current CF/CR of 29/04 * Continuing with empagliflozin 5mg daily while inpatient * T2DM diet 06/20: * CG is an 79 year old male who was admitted yesterday with congestive heart failure. Pharmacy was consulted for glycemic management while he is admitted. * BSG at HS last evening was 142mg/dL. The provider ordered Lantus 5 units SQ BID and a weight based (using adjusted body weight) bolus insulin regimen with a stress of 2. Home empagliflozin was ordered to start 06/20. * Fasting BSG was 129mg/dL and carolyn to 182mg/dL with lunch. Will continue basal insulin as ordered and tightened CR of bolus insulin. PLAN FOR INPATIENT GLYCEMIC CONTROL: * Basal insulin * Lantus 9 units SQ BID * Bolus insulin * NovoLog per scale ACHS or Q6hrs while NPO * Goal Range: Low 120 mg/dL - High 150 mg/dL * Correction Factor: 30 mg/dL/unit * Nutritional / Prandial insulin per carb ratio of 1 unit per 9 grams CHO consumed
--- NOTE | 2025-06-25 16:24 | Hospitalist Progress Note ---
Date of Service June 25, 2025 Assessment & Plan (1) CHF (congestive heart failure): Plan Acute on chronic HFrEF NEFTALI on CKD: Patient is started to have diarrhea on June 21; creatinine noted to be elevated from baseline. Given fluids with improved on creatinine on 06/24 Patient presented to the hospital with productive cough, shortness of breath CT chest on admission shows moderate volume overload with bilateral pleural effusion, diffuse bilateral interstitial changes with subpleural reticular marking favoring interstitial lung disease BNP elevated; 1048 On Bumex 1 mg daily at home along with Jardiance. Echocardiogram shows EF of 35 to 40%; moderately to severely reduced LV systolic function. 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 Bumex from 06/25. Strict output and input monitoring Daily standing weights PT/OT recommend rehab; possible dc to [facility] Cardiology on board, follow-up with outpatient valve clinic. Acute Urinary retentionpatient noted to have elevated postvoid residual on overnight June 23 requiring straight cath; And finally needed [place] catheter placement. TOV in 7- 10 days. Chronic atrial fibrillation: History of atrial flutter status post ablation. Continue on metoprolol and Eliquis. Continue telemonitoring Demand ischemia: High-sensitivity troponin elevated on admission with flat trend. denies chest pain CAD: Had cardiac catheter done in January 2025; moderate nonobstructive CAD. Reviewed from cardiology note as outpatient. continue on aspirin, Lipitor and metoprolol Valvular heart disease; history of aortic stenosis status post aortic valve replacement. Follow-up with Valve clinic upon discharge. OSAcontinue on CPAP Type 2 diabetes mellitusscontinue insulin per protocol, hypoglycemic protocol CKDcreatinine at baseline; monitor NAFLD cirrhosis, no overt decompensation Full code DVT prophylaxis Eliquis Disposition possible dc in am to rehab, auth pending. Please note the above document was generated using voice recognition software. It may contain grammatical, syntax or spelling errors. Any formal questions or concerns about the content, text or information contained within the body of this dictation should be directly addressed to the provider for clarification Admission and Anticipated Discharge Date Admission Date: June 19, 2025 Subjective Patient seen and examined at bedside. Patient reports loose stool improving, 1 liquidy stool in AM. Patient denies fever, reports cough improving, denies sore throat or chest pain or shortness of breath. Physical Exam Physical Exam: Constitutional: WD/WN, NAD, pleasant, conversing easily, On room air. Respiratory: Bibasilar crackles noted. Cardiovascular: RRR, no murmur, no edema Vessels: no JVD or carotid bruit Chest: normal inspection of chest Abdomen: normal bowel sounds, soft, nontender, no hepatosplenomegaly Musculoskeletal: no cyanosis or clubbing, extremities motor strength 5/5 Skin: no rashes, warm and dry normal turgor Neurologic: PERRL, EOMI, accommodation nl, no face palsy, no dysarthria CN's II- XI intact bilaterally and moves all extremities Results & Data Results & Data Vital Signs (Past 12 Hours) Vital Signs Temp Pulse Pulse Resp BP BP Pulse Ox 06/25/25 15:24 37.0 C 98 H 18 128/57 L 93 06/25/25 15:16 92 H 18 97 06/25/25 14:06 87 06/25/25 11:46 36.6 C 113 H 19 107/66 96 06/25/25 10:00 06/25/25 07:34 36.8 C 98 H 18 115/65 94 06/25/25 06:58 92 H 16 95 O2 Del Method 06/25/25 15:24 Oxymask 06/25/25 15:16 Room Air 06/25/25 14:06 06/25/25 11:46 Room Air 06/25/25 10:00 Room Air 06/25/25 07:34 Room Air 06/25/25 06:58 Room Air
[2025-06-26 06:52] LABS: Anion Gap 9.0 (3-11); Blood Urea Nitrogen 55.0 mg/dl (6-23); Calcium 9.9 mg/dl (8.6-10.3); Carbon Dioxide 24.0 mmol/L (21-32); Chloride 103.0 mmol/L (98-107); Creatinine Clr Calc Pharmacy 25.2 ml/min; Glucose 126.0 mg/dl (70-99(Fasting)); Magnesium 2.0 mg/dl (1.7-2.4); Potassium 4.1 mmol/L (3.5-5.1); Sodium 136.0 mmol/L (136-145)
[2025-06-26 12:39] LABS: Appearance Urine Cloudy (Clear); Bacteria Urine Automated None Seen (None Seen); Epithelial Cell Urine Auto 0-2 /hpf (0-2); Glucose Urine UA 3+ (Negative); RBC Urine Automated >20 /hpf (0-2)
--- NOTE | 2025-06-26 13:39 | Hospitalist Progress Note ---
Date of Service June 26, 2025 Assessment & Plan (1) CHF (congestive heart failure): Plan Acute on chronic HFrEF NEFTALI on CKD: Patient is started to have diarrhea on June 21; creatinine noted to be elevated from baseline. Given fluids with improved on creatinine on 06/24 Patient presented to the hospital with productive cough, shortness of breath CT chest on admission shows moderate volume overload with bilateral pleural effusion, diffuse bilateral interstitial changes with subpleural reticular marking favoring interstitial lung disease BNP elevated; 1048 On Bumex 1 mg daily at home along with Jardiance. Echocardiogram shows EF of 35 to 40%; moderately to severely reduced LV systolic function. 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 Bumex from 06/25. Strict output and input monitoring Daily standing weights PT/OT recommend rehab; possible dc to [facility] Cardiology on board, follow-up with outpatient valve clinic. Acute Urinary retentionpatient noted to have elevated postvoid residual on overnight June 23 requiring straight cath; And finally needed Berrios catheter placement. TOV in 7- 10 days. Some traumatic hematuria noted after berrios, continue to monitor, maintain berrios. Chronic atrial fibrillation: History of atrial flutter status post ablation. Continue on metoprolol and Eliquis. Continue telemonitoring Demand ischemia: High-sensitivity troponin elevated on admission with flat trend. denies chest pain CAD: Had cardiac catheter done in January 2025; moderate nonobstructive CAD. Reviewed from cardiology note as outpatient. continue on aspirin, Lipitor and metoprolol Valvular heart disease; history of aortic stenosis status post aortic valve replacement. Follow-up with Valve clinic upon discharge. OSAcontinue on CPAP Type 2 diabetes mellitusscontinue insulin per protocol, hypoglycemic protocol CKDcreatinine at baseline; monitor NAFLD cirrhosis, no overt decompensation Full code DVT prophylaxis Eliquis Disposition ok for dc to rehab, auth pending. Please note the above document was generated using voice recognition software. It may contain grammatical, syntax or spelling errors. Any formal questions or concerns about the content, text or information contained within the body of this dictation should be directly addressed to the provider for clarification Admission and Anticipated Discharge Date Admission Date: June 19, 2025 Subjective Patient seen and examined at bedside. Patient denies fever, reports cough improving, denies sore throat or chest pain or shortness of breath. Physical Exam Physical Exam: Constitutional: WD/WN, NAD, pleasant, conversing easily, On room air. Respiratory: Bibasilar crackles noted. Cardiovascular: RRR, no murmur, no edema Vessels: no JVD or carotid bruit Chest: normal inspection of chest Abdomen: normal bowel sounds, soft, nontender, no hepatosplenomegaly Musculoskeletal: no cyanosis or clubbing, extremities motor strength 5/5 Skin: no rashes, warm and dry normal turgor Neurologic: PERRL, EOMI, accommodation nl, no face palsy, no dysarthria CN's II- XI intact bilaterally and moves all extremities UC w pink tinged urine noted in the tube. Results & Data Results & Data Vital Signs (Past 12 Hours) Vital Signs Temp Pulse Resp BP BP Pulse Ox O2 Del Method 06/26/25 12:17 36.5 C 102 H 18 101/64 96 Room Air 06/26/25 09:39 Room Air, CPAP 06/26/25 07:45 36.7 C 121 H 18 111/65 95 Room Air 06/26/25 07:41 95 H 15 96 Room Air 06/26/25 02:49 36.8 C 94 H 18 116/65 96 CPAP FiO2 06/26/25 12:17 06/26/25 09:39 06/26/25 07:45 06/26/25 07:41 21 06/26/25 02:49
[2025-06-27 05:48] LABS: Anion Gap 7.0 (3-11); Calcium 9.8 mg/dl (8.6-10.3); Carbon Dioxide 24.0 mmol/L (21-32); Chloride 104.0 mmol/L (98-107); Potassium 4.1 mmol/L (3.5-5.1); Sodium 135.0 mmol/L (136-145)
[2025-06-27 05:54] LABS: Blood Urea Nitrogen 57.0 mg/dl (6-23); Creatinine Clr Calc Pharmacy 24.4 ml/min; Glucose 109.0 mg/dl (70-99(Fasting))
[2025-06-27] MEDS ORDERED: IPRATROPIUM BROMIDE NEB SOLN 0.02% 0.5MG/2.5ML VIAL NEB PRN (10:19)
[2025-06-27] MEDS ORDERED: LEVALBUTEROL 1.25 MG/3 ML NEB NEB PRN (10:19)
[2025-06-27 10:56] VITALS: RESP 18; TEMP 97.7; O2SAT 98
--- NOTE | 2025-06-27 13:40 | Discharge Summary ---
Date of Service June 27, 2025 Admission HPI Per Admitting Provider History obtained from interview with the patient, discussion with the ED provider and chart review Past medical history of atrial flutter status post ablation in 2012, right atrial tachycardia status post ablation, chronic atrial fibrillation, aortic stenosis status post aortic valve replacement in 2012with #23 White II with aortic endarterectomy, hypertension, stage III CKD, gout, HFrEF, type 2 diabetes, ADAN Patient presented to the ED with significant congestion and productive cough; reports yellow sputum. He also reports some shortness of breath. He reports that his weight has been pretty stable at home. He denies any fever, chills, chest pain or urinary issues. Patient follows up with pulmonology; last follow-up reviewed from April 2025. Patient had similar complaint of phlegm production; was prescribed doxycycline for 10 days at that time. Had CT chest done on 05/09/2025; found to have small right and trace left pleural effusion; Mild basal predominant subpleural reticulations, without associated traction bronchiectasis may reflect mild fibrotic interstitial changes or mild pulmonary edema. Similar to prior. On presentation to the ED, he was normotensive, afebrile and saturating well on room air. No leukocytosis present. BMP repeat creatinine at baseline. BNP elevated to 1048. Respiratory viral panel is negative Admission Exam Per Admitting Provider Constitutional: WD/WN, vitals as above, NAD, sitting up in bed, pleasant, conversing easily Respiratory: Decreased breath sounds at bases Cardiovascular: RRR, no murmur, no edema Vessels: no JVD or carotid bruit Chest: normal inspection of chest Abdomen: normal bowel sounds, soft, nontender, no hepatosplenomegaly Musculoskeletal: no cyanosis or clubbing, extremities motor strength 5/5 Skin: no rashes, warm and dry normal turgor Neurologic: PERRL, EOMI, accommodation nl, no face palsy, no dysarthria CN's II- XI intact bilaterally and moves all extremities Principal Diagnosis Acute on chronic HFrEF Discharge Exam Constitutional: WD/WN, NAD, pleasant, conversing easily, On room air. Respiratory: Bibasilar crackles noted. Cardiovascular: RRR, no murmur, no edema Vessels: no JVD or carotid bruit Chest: normal inspection of chest Abdomen: normal bowel sounds, soft, nontender, no hepatosplenomegaly Musculoskeletal: no cyanosis or clubbing, extremities motor strength 5/5 Skin: no rashes, warm and dry normal turgor Neurologic: PERRL, EOMI, accommodation nl, no face palsy, no dysarthria CN's II- XI intact bilaterally and moves all extremities UC w senior market intelligence consultant pink tinged urine noted in the tube. Discharge Data Allergies Allergy/AdvReac Type Severity Reaction Status Date / Time Iodinated Contrast Media Allergy Mild DYE FROM Verified 06/19/25 18:19 CARDIAC CATH-RASH lisinopril AdvReac Mild COUGH Verified 06/19/25 18:19 Consultations 06/19/25 19:13 Consult Cardiology Routine Ordered Studies 06/19/25 17:15 CT chest diagnostic wo con Stat Hospital Course (1) CHF (congestive heart failure): Plan Acute on chronic HFrEF NEFTALI on CKD: Patient is started to have diarrhea on June 21; creatinine noted to be elevated from baseline. Given fluids with improved on creatinine on 06/24 Patient presented to the hospital with productive cough, shortness of breath CT chest on admission shows moderate volume overload with bilateral pleural effusion, diffuse bilateral interstitial changes with subpleural reticular marking favoring interstitial lung disease BNP elevated; 1048 On Bumex 1 mg daily at home along with Jardiance. Echocardiogram shows EF of 35 to 40%; moderately to severely reduced LV systolic function. 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 Bumex from 06/25. f/u cardio on dc, f/u nephro on dc. follow-up with outpatient valve clinic. Acute Urinary retentionpatient noted to have elevated postvoid residual on overnight June 23 requiring straight cath; And finally needed Berrios catheter placement. TOV in 7- 10 days. f/u uro in 1 week upon dc. Some traumatic hematuria noted after berrios, improved color of the urine, Hb has been stable. Chronic atrial fibrillation: History of atrial flutter status post ablation. Continue on metoprolol and Eliquis. Continue telemonitoring Demand ischemia: High-sensitivity troponin elevated on admission with flat trend. denies chest pain CAD: Had cardiac catheter done in January 2025; moderate nonobstructive CAD. Reviewed from cardiology note as outpatient. continue on aspirin, Lipitor and metoprolol Valvular heart disease; history of aortic stenosis status post aortic valve replacement. Follow-up with Valve clinic upon discharge. OSAcontinue on CPAP Type 2 diabetes mellitusscontinue insulin per protocol, hypoglycemic protocol CKDcreatinine at baseline; monitor NAFLD cirrhosis, no overt decompensation Full code DVT prophylaxis Mitali Patient is being discharged to home with home health with following instructions at the point of discharge: Follow-up with your primary care physician within a week time and likely you will need labs CBC/CMP/magnesium/phosphorus. You were admitted to the hospital with CHF exacerbation. You were found to have fluid retention in your lungs and in your legs. You were given treatment with diuretics during the hospitalization. You have been prescribed Bumex 1 mg to be taken once a day. Follow-up with cardiology in 2 to 4 weeks time upon discharge. Follow-up with nephrology in 2 to 4 weeks time upon discharge. Follow-up with [facility] valve clinic September 24, 2025. Follow-up with urology in 1 week's time upon discharge for evaluation/management of your Berrios care and likely voiding trial. Please make sure that you are able to get your medications today by calling your pharmacy before you leave the hospital so that your treatment continuity is not broken. Please note the above document was generated using voice recognition software. It may contain grammatical, syntax or spelling errors. Any formal questions or concerns about the content, text or information contained within the body of this dictation should be directly addressed to the provider for clarification Home Health Attestation I certify that this patient is under my care and that I, or a physicians supply chain assistant working with me, had a face to-face encounter that meets the home health [id number] encounter requirements with this patient. The encounter with the patient was in whole, or in part, for the following medical condition, which is the primary reason for home health care (list medical condition): CHF I certify that, based on my findings, the following services are medically necessary home health services: My clinical findings support the need for the above services because: Home Safety Assessment OT Assess ADL Status and Restore Function w ADLs PT Assessment for Endurance / Balance / Strength PT Eval for Safety and Mobility PT Eval for Safety, Gait Training, Assistive Devices PT Gait and Balance Training, Strengthening and Safety Skilled Nsg Assessment Teach on Disease Management and Interventions Vital Signs Further, I certify that my clinical findings support that this patient is homebound (i.e. absences from home require considerable and taxing effort and are for medical reasons or [employer]ec[employer] services or infrequently or of short duration when for other reasons) because: Transportation Assistance/Unable to Leave Home Unassisted Certification for Home Health Services: Based on the above findings, I certify that this patient is confined to the home and needs intermittent fci care, physical therapy and/or speech therapy or continues to need occupational therapy. The patient is under my care, and I have initiated the establishment of the plan of care. This patient will be followed by a physician who will periodically review the plan of care. Total Time Total Time Spent Total Time Spent (In Minutes): 45 Discharge Plan Discharge Items Patient Disposition: Home - Home Health Services Reason For Visit: CHF Discharge Diagnosis: Acute on chronic HFrEF Condition on Discharge: Fair Activity: Resume your previous activity Non-emergency contact: Primary Care Provider Call non-emergency contact if: you have any medication questions and your symptoms worsen Follow-up/Referrals: Britney Don MD [Primary Care Provider] - ( ) Diet: Regular Addtl Attending Provider Instructions: Follow-up with your primary care physician within a week time and likely you will need labs CBC/CMP/magnesium/phosphorus. You were admitted to the hospital with CHF exacerbation. You were found to have fluid retention in your lungs and in your legs. You were given treatment with diuretics during the hospitalization. You have been prescribed Bumex 1 mg to be taken once a day. Follow-up with cardiology in 2 to 4 weeks time upon discharge. Follow-up with nephrology in 2 to 4 weeks time upon discharge. Follow-up with [facility] valve clinic September 24, 2025. Follow-up with urology in 1 week's time upon discharge for evaluation/management of your Berrios care and likely voiding trial. Please make sure that you are able to get your medications today by calling your pharmacy before you leave the hospital so that your treatment continuity is not broken. Pending Studies at Discharge: No Stand-Alone Forms: My [employer], Smoking Cessation Medications and DC Order Prescriptions: Continued insulin glargine [Lantus U-100 Insulin] 100 unit/mL Solution 10 unit SUBCUT HS aspirin 81 mg Tablet,Delayed Release (Dr/Ec) 81 mg PO Q OTHER DAY flaxseed oil 1,000 mg Capsule 1,000 mg PO Q OTHER DAY Patient Comments: 02/03- Not on list from [place] Rx Instructions: administer with a meal insulin aspart U-100 [Novolog U-100 Insulin aspart] 100 unit/mL Solution 10 - 12 unit SUBCUT BIDM fluticasone propionate 110 mcg/actuation Hfa Aerosol Inhaler 2 puff INHALATION BID Saline Mist 0.65 % Aerosol,[place] 1 spray INTRANASAL BID PRN (Reason: Nasal Congestion) magnesium oxide 400 mg magnesium Tablet 400 mg PO 3XWK Rx Instructions: mon/mon/mon allopurinol 100 mg Tablet 100 mg PO QDD latanoprost 0.005 % Drops 1 drp OPB HS atorvastatin 20 mg Tablet 10 mg PO HS metoprolol succinate 100 mg Tablet Extended Release 24 Hr 100 mg PO AMHS empagliflozin 10 mg Tablet 5 mg PO QAM sertraline 50 mg Tablet 25 mg PO HS Eliquis 5 mg Tablet 2.5 mg PO AMHS doxepin 50 mg Capsule 50 mg PO HS PRN (Reason: Sleep) Ocuvite Adult 50 Plus 250 mg (90 mg-160 mg) Capsule 1 cap PO BID cyanocobalamin (vitamin B-12) [Vitamin B-12] 1,000 mcg Tablet 1,000 mcg PO [id number] Rx Instructions: MONDAY THROUGH MONDAY bumetanide 1 mg Tablet 1 mg PO QAM Qty: 30 0RF diclofenac sodium [Voltaren Arthritis Pain] 1 % Gel 2 g EXT BID PRN (Reason: pain) Qty: 50 0RF guaifenesin [Mucinex] 600 mg Tablet Extended Release 12hr 600 mg PO BID PRN (Reason: CONGESTION/COUGH) Discharge Orders: Discharge Order- CHF (Routine); Ordered 06/27/25 Ordered By: Pat Mast/Other Patient Handouts: Managing Type 2 Diabetes Admission Data Admit Date/Time: 06/19/25 19:13 Attending Provider: Pat Garcia Admit Provider: J Carlos Shaffer Primary Care Provider: Britney Don Other Providers: [facility]; Minerva Fofana [facility]; [facility]; [facility]
[2025-06-27 14:16] VITALS: BP 120/68; PULSE 109
[2025-06-27] MEDS ORDERED: LANTUS PER UNIT CHARGE SQ SCH (21:00)
== END 2025-06-27 15:17 | disposition home health service (06) | DRG 292 ==
LOC: ED 15:51 → SUATTDRO 19:13 → 4W 19:13